=== PATIENT | male | born 1950 | race Caucasian/White ===

== ENCOUNTER → 2016-05-26 | Outpatient (CLI) | payer MEDICARE, BC ==
[2016-05-26 09:58] LABS: Basophils % (A) 0 %; CH 30.8; CHCM 33.1; Eosinophils % (A) 0 %; HDW 3.14; HGB 15.3 gm/dL (13.0-17.5); Luc # (Auto) 0.06; Luc % (Auto) 1; Lymphocytes # (A) 0.5 k/uL (1.0-4.8); Lymphocytes % (A) 7 %; MCH 30.4 pg (25.0-35.0); MCHC 32.5 g/dL (31.0-37.0); MCV 93.5 fL (80.0-100.0); Mean Platelet Volume 7.8; Monocytes # (A) 0.4 k/uL (0-1.0); Monocytes % (A) 5 %; Neutrophils # (A) 6.7 k/uL (1.3-7.7); Neutrophils % (A) 87 %; RBC 5.02 m/uL (4.30-5.90); WBC 7.7 k/uL (3.8-10.6); WBC (Perox) 8.08
[2016-05-26 10:49] LABS: Appearance,Urine Clear (Clear); Bilirubin,Urine Negative (Negative); Glucose,Urine (UA) Negative (Negative); Ketones,Urine Negative (Negative); Leukocyte Esterase,Urine Negative (Negative); Nitrite,Urine Negative (Negative); PH, Urine 6.5 (5.0-8.0); Protein,Urine Negative (Negative); Specific Gravity,Urine 1.008 (1.001-1.035); UA Billing (MACRO vs. MICRO) CHEM; Urobilinogen,Urine <2.0 mg/dL (<2.0)
[2016-05-26 10:57] LABS: Anion Gap 15 mmol/L; Blood Urea Nitrogen 20 mg/dL (9-20); Calcium 9.7 mg/dL (8.4-10.2); Carbon Dioxide 27 mmol/L (22-30); Chloride 102 mmol/L (98-107); Glucose 117 mg/dL (74-99); Iron 95 ug/dL (49-181); Non-African American GFR(MDRD) 51 (>60 ml/min/1.73 sqM); Phosphorous 3.9 mg/dL (2.5-4.5); Sodium 144 mmol/L (137-145); Uric Acid 6.8 mg/dL (3.5-8.5)
[2016-05-26 11:05] LABS: % Iron Saturation 30.7 % (20-50); Total Iron Binding Capacity 309 ug/dL (261-462)
== END | disposition home or self-care (01) ==
LOC: LABWHC1 09:04
PROVIDERS: ATTEND Nurse Practitioner Family
DX: N18.3 Chronic kidney disease, stage 3 (moderate) (principal); D64.9 Anemia, unspecified; N39.0 Urinary tract infection, site not specified; E55.9 Vitamin D deficiency, unspecified; E21.3 Hyperparathyroidism, unspecified; M10.9 Gout, unspecified
CPT/HCPCS: 36415; 80048; 81003; 82306; 82728; 83540; 83550; 83735; 83970; 84100; 84550; 85025

== ENCOUNTER 2016-06-15 06:19 | Day surgery (SDC) | payer MEDICARE, BC ==
[2016-06-13 15:18] VITALS: BMI 23.3
[~2016-06-15 06:19] MED LIST: CLINDAMYCIN 900 MG in DEXTROSE 5% IN WATER 50 ML IVPB ONE; DEXAMETHASONE SOD PHOSPHATE 10 MG/ML 1 ML VIAL IV ONE; HYDROmorphone 1 MG/ML 1 ML SYRINGE IVP PRN; LACTATED RINGERS 1,000 ML IV SCH; ONDANSETRON 4 MG/2 ML VIAL IVP ONE
[2016-06-15] MEDS ORDERED: LIDOCAINE 1% 20 ML VIAL (10MG/ML) FOR IV START INTRADERMA ONE (07:12)
[2016-06-15 07:15] LABS: Glucose,Whole Blood 90 mg/dL (75-99)
[2016-06-15] MEDS ORDERED: HYDROCORTISONE SUCCINATE 100 MG/2 ML VIAL IV ONE (07:37)
--- NOTE | 2016-06-15 08:11 | P.HPOR ---
History of Present Illness H&P Date: 06/15/16 The patient is a very pleasant 65-year-old male who I been seen in the office for a painful callus under the left second metatarsal head. We've attempted a long course of nonsurgical treatment including Stretching, orthotics to offload the second metatarsal and shoe modification. The patient had seen a bar and filler assembler prior to me who recommended performing an osteotomy in the second metatarsal but the patient was apprehensive about having any type of bony work done. On exam he had an Achilles tendon contracture. He came to me for second opinion to see if there are any other surgical options. In addition to complaining of a callus under the second metatarsal head he also complains of stiffness in his left ankle. He says he is able to move his right ankle, but his left ankle is very stiff. He gives an example of having difficulty putting socks on his left foot. Past Medical History Past Medical History: Cancer, Hypertension, Renal Disease, Thyroid Disorder Additional Past Medical History / Comment(s): SARCOIDOSIS, LUNG FUNGAL INFECTION , PULMONARY HYPERTENSION,SKIN CANCER,STAGE 3 CHRONIC KIDNEY DISEASE, History of Any Multi-Drug Resistant Organisms: None Reported Past Surgical History: Back Surgery, Heart Catheterization Additional Past Surgical History / Comment(s): HEMORROIDECTOMY, BRONCHOSCOPY X2 , BONE MARROW BIOPSY, BASAL CELL LESION REMOVED , BACK PAIN INJECTIONS, COLONOSCOPY Past Anesthesia/Blood Transfusion Reactions: No Reported Reaction Past Psychological History: No Psychological Hx Reported Smoking Status: Never smoker Past Alcohol Use History: Occasional Past Drug Use History: None Reported - Past Family History Mother Family Medical History: Cancer Medications and Allergies Home Medications Medication Instructions Recorded Confirmed Type Albuterol Inhaler [Ventolin Hfa 2 puff INHALATION BID 06/13/16 06/15/16 History Inhaler] Allopurinol [Zyloprim] 100 mg PO DAILY 06/13/16 06/15/16 History Doxycycline Hyclate [Vibramycin] 100 mg PO Q48H PRN 06/13/16 06/15/16 History Ipratropium-Albuterol Nebulize 3 ml INHALATION DAILY 06/13/16 06/15/16 History [Duoneb 0.5 mg-3 mg/3 ml Soln] Itraconazole Oral Susp [Sporanox 40 mg PO W/SUPPER 06/13/16 06/15/16 History Oral Susp] Levothyroxine Sodium [Synthroid] 25 mcg PO DAILY 06/13/16 06/15/16 History Loratadine-Pseudoeph 10-240 mg 1 each PO HS 06/13/16 06/15/16 History [Claritin-D 24 Hr] Losartan [Cozaar] 25 mg PO DAILY 06/13/16 06/15/16 History Magnesium Gluconate [Magonate] 500 mg PO W/SUPPER 06/13/16 06/15/16 History Montelukast [Singulair] 10 mg PO W/SUPPER 06/13/16 06/15/16 History Omeprazole 20 mg PO HS 06/13/16 06/15/16 History Sildenafil Citrate [Sildenafil] 20 mg PO TID 06/13/16 06/13/16 History Spironolactone [Aldactone] 25 mg PO Q48H 06/13/16 06/15/16 History predniSONE 5 mg PO W/SUPPER 06/13/16 06/15/16 History Allergies Allergy/AdvReac Type Severity Reaction Status Date / Time cephalexin Allergy Rash/Hives Verified 06/13/16 14:23 furosemide [From Lasix] Allergy Rash/Hives Verified 06/13/16 14:23 iodine Allergy Anaphylaxis Verified 06/13/16 15:37 shellfish derived [Shellfish] Allergy Anaphylaxis Verified 06/13/16 14:23 hydroxychloroquine AdvReac Unknown Verified 06/15/16 07:17 [From Plaquenil] Physical Examination On exam the patient is in no apparent distress and is alert and oriented. A focused examination of the patient's left leg was conducted. On inspection of the skin over the plantar aspect of the foot there is a large callus over the second metatarsal head but no open wounds. He has a hypermobile first ray. Silfverskiold testing shows and Achilles tendon contracture with an inability to passively dorsiflex the ankle past neutral with the knee flexed and extended. He has a palpable dorsalis pedis pulse. Sensation is intact to light touch throughout his left foot. He can actively plantarflex and dorsiflex his toes. Results X-rays from the office show no bony pathology or arthritis in the second MTP joint. Lateral x-ray of the foot shows slight elevation of the first ray. Assessment and Plan (1) Achilles tendon contracture, left Status: Acute Plan: I had a lengthy discussion with Mr. Barakat in the office prior to surgery. He has a large callus under the second metatarsal head which has been refractory to nonsurgical treatment. The patient saw a bar and filler assembler who recommended a second metatarsal osteotomy but the patient is very apprehensive about having any type of bony procedure. He came to me for second opinion to discuss both operative and nonoperative treatment. He failed a lengthy course of nonoperative treatment. We discussed simply performing an Achilles tendon lengthening to help offload his forefoot. We discussed in the diabetic patient population there is good orthopedic literature that by performing a calf Lengthening jt can help to heal forefoot ulcers. We discussed performing a percutaneous tendo Achilles lengthening to offload his forefoot due to his global Achilles contracture. The patient requested that I perform this. We discussed the potential risks and complications of surgery including but not limited to risks from anesthesia, risk of superficial infection, risk of delayed wound healing, risk of temporary or permanent numbness, risk of rupture of the Achilles tendon risk of weakness with plantarflexion, and risk of recurrence or failure to heal the callus under the plantar aspect of the second metatarsal. The patient and his understand that there is a very good likelihood that this will help to heal the callus under his second metatarsal head by offloading the forefoot, but also realize there is a chance it might not work and he may need further bony work in the future. They provided their verbal and written consent to go forward with surgery.
[2016-06-15] MEDS ORDERED: MORPHINE SULFATE 2 MG/ML SYRINGE IV PRN ×2 (08:18)
[2016-06-15] MEDS ORDERED: HYDROcodone/APAP 5-325MG 1 EACH TAB PO PRN (08:18)
[2016-06-15] MEDS ORDERED: ONDANSETRON 4 MG/2 ML VIAL IVP PRN (08:18)
[2016-06-15] MEDS ORDERED: MIDAZOLAM 2 MG/2 ML VIAL ONE (08:20)
[2016-06-15] MEDS ORDERED: fentaNYL (PF) 50 MCG/ML 2 ML AMP ONE (08:20)
[2016-06-15] MEDS ORDERED: PROPOFOL 10 MG/ML 20 ML VIAL IV ONE (08:20)
[2016-06-15 09:00] VITALS: TEMP 97.8
[2016-06-15 09:01] VITALS: RESP 16
--- NOTE | 2016-06-15 09:01 | P.OP ---
Date of Procedure: 06/15/16 Preoperative Diagnosis: 1. Left Achilles tendon contracture 2. Left forefoot callus under second metatarsal head with metatarsalgia 3. Stage III kidney disease 4. History of cancer 5. Sarcoidosis Postoperative Diagnosis: Same Procedure(s) Performed: Percutaneous tendo Achilles lengthening, left Anesthesia: MAC Surgeon: Orlando Castaneda Estimated Blood Loss (ml): 2 Pathology: none sent Condition: stable Disposition: PACU Indications for Procedure: The patient is a 65-year-old male with multiple medical problems including stage III kidney disease, sarcoidosis, and cancer who presented to my office with a nonhealing callus under the second metatarsal head. The patient previously seen a local integration lead recommended a second metatarsal osteotomy. Due to the patient's medical conditions including being on long-term steroids he came to me for second opinion as he was apprehensive about having any type of bony work done. Clinically he had a callus on the second metatarsal head with an Achilles tendon contracture and a hypermobile first ray. We discussed continued nonsurgical treatment versus offloading the forefoot with a tendon lengthening. Silfverskiold testing showed an inability to passively dorsiflex the ankle past neutral with the knee extended and flexed. I recommended performing a percutaneous tendo Achilles lengthening, but explained if this did not work he may need a bony procedure. We discussed the potential risks and complications of surgery including but not limited to risks from anesthesia, risk of superficial infection, risk of deep infection, risk of delayed wound healing, risk of damage to local blood vessels or nerves, risk of Achilles tendon rupture, risk of weakness, risk of recurrence or persistence of the callus, risk of generalized to satisfaction with surgery and possibly need for further surgery including amputation. The patient provided his verbal and written consent to go forward with surgery. Both he and his understand that while this has a very good chance of getting the callus to resolve there may be a chance that it does not resolve and he needs further surgery. Description of Procedure: The patient was identified in preoperative holding and the correct left leg was marked with my initials. I answered all the patient's questions and the consent form was signed. The patient was then brought back to the operating room. He was positioned comfortably on the operating room table. A Mac anesthetic was administered. Preoperative antibiotics were administered. While the patient was under anesthesia I performed a Silfverskiold test. I was unable to passively dorsiflex the ankle past neutral with the knee extended and flexed to 90. I interpreted this as an Achilles tendon contracture. The patient's left leg was then prepped and draped in the standard sterile fashion. Prior to starting surgery timeout was performed identifying the correct patient, operative extremity, and procedure. I marked out 3 percutaneous incisions with a skin marker starting 2 cm above the posterior tuberosity of the calcaneus with each skin marking by 2 cm. I then performed a percutaneous triple hemisection at all 3 previously placed stab wounds. I started with the most distal marking and placed a 15 blade scalpel through the skin and then released the medial half of the Achilles tendon. I then proceeded to the middle skin marking and placed a 15 blade scalpel through the skin and released the lateral half of the Achilles tendon. I then placed these 15 blade scalpel and the most proximal skin marking and released the medial half of the Achilles tendon. I then gently dorsiflexed the ankle and was able to dorsiflex the ankle to approximately 20 past neutral with the knee extended. The Achilles tendon was palpably intact. I was satisfied with the amount of dorsiflexion obtained. The skin was cleaned with sterile saline. Steri-Strips were placed over the stab wounds. A sterile dressing consisting of Adaptic, 4 x 4 and web roll was applied. The drapes were taken down and the patient was placed in a very well-padded bulky Ramirez type splint with the ankle at neutral. The patient was then awoken from his anesthetic, transferred to the [facility], and brought to PACU stable condition. At the end of surgery all instrument, sponge, and sharp counts were correct
[2016-06-15 10:06] VITALS: BP 113/65; PULSE 70
== END 2016-06-15 10:23 | disposition home or self-care (01) ==
LOC: OR 06:19
PROVIDERS: ATTEND Orthopaedic Surgery
DX: M67.02 Short Achilles tendon (acquired), left ankle (principal); L84 Corns and callosities; I12.9 Hypertensive chronic kidney disease with stage 1 through stage 4 chronic kidney disease, or unspecified chronic kidney disease; N18.3 Chronic kidney disease, stage 3 (moderate); Z85.828 Personal history of other malignant neoplasm of skin; D86.9 Sarcoidosis, unspecified; E07.9 Disorder of thyroid, unspecified; I27.2 Other secondary pulmonary hypertension; Z79.52 Long term (current) use of systemic steroids; Z79.899 Other long term (current) drug therapy; Z88.1 Allergy status to other antibiotic agents; Z91.013 Allergy to seafood; Z88.8 Allergy status to other drugs, medicaments and biological substances; Z91.09 Other allergy status, other than to drugs and biological substances
CPT/HCPCS: 27606; J2250; J1100; J1720; J2405; J3010; J2704

== ENCOUNTER → 2016-09-15 | Outpatient (CLI) | payer MEDICARE, BC ==
[2016-09-15 10:32] LABS: Potassium 4.5 mmol/L (3.5-5.1)
[2016-09-15 10:33] LABS: Calcium 9.7 mg/dL (8.4-10.2)
== END | disposition home or self-care (01) ==
LOC: LABWHC1 09:56
PROVIDERS: ATTEND Nurse Practitioner Family
DX: N18.3 Chronic kidney disease, stage 3 (moderate) (principal)
CPT/HCPCS: 36415; 80048

== ENCOUNTER → 2016-11-30 | Outpatient (CLI) | payer MEDICARE, BC ==
[2016-11-30 10:20] LABS: Appearance,Urine Clear (Clear); Bilirubin,Urine Negative (Negative); Glucose,Urine (UA) Negative (Negative); Ketones,Urine Negative (Negative); Leukocyte Esterase,Urine Negative (Negative); Nitrite,Urine Negative (Negative); Protein,Urine Trace (Negative); Specific Gravity,Urine 1.012 (1.001-1.035); UA Billing (MACRO vs. MICRO) CHEM; Urobilinogen,Urine <2.0 mg/dL (<2.0)
[2016-11-30 10:43] LABS: Basophils % (A) 0 %; CHCM 33.6; Eosinophils # (A) 0.1 k/uL (0-0.7); Eosinophils % (A) 1 %; HCT 40.8 % (39.0-53.0); HDW 2.85; HGB 13.6 gm/dL (13.0-17.5); Luc # (Auto) 0.15; Luc % (Auto) 2; Lymphocytes # (A) 0.6 k/uL (1.0-4.8); Lymphocytes % (A) 9 %; MCHC 33.4 g/dL (31.0-37.0); MCV 89.8 fL (80.0-100.0); Monocytes # (A) 0.3 k/uL (0-1.0); Monocytes % (A) 4 %; Neutrophils # (A) 6.3 k/uL (1.3-7.7); Neutrophils % (A) 84 %; RBC 4.55 m/uL (4.30-5.90); RDW 14.4 % (11.5-15.5); WBC 7.5 k/uL (3.8-10.6); WBC (Perox) 7.87
[2016-11-30 11:39] LABS: Calcium 9.1 mg/dL (8.4-10.2); Phosphorous 3.1 mg/dL (2.5-4.5); Potassium 4.5 mmol/L (3.5-5.1); Uric Acid 7.6 mg/dL (3.5-8.5)
[2016-11-30 11:51] LABS: % Iron Saturation 25.2 % (20-50)
== END | disposition home or self-care (01) ==
LOC: LABWHC1 09:49
PROVIDERS: ATTEND Nurse Practitioner Family
DX: N18.3 Chronic kidney disease, stage 3 (moderate) (principal); D64.9 Anemia, unspecified; E55.9 Vitamin D deficiency, unspecified; E21.3 Hyperparathyroidism, unspecified; M10.9 Gout, unspecified; N39.0 Urinary tract infection, site not specified
CPT/HCPCS: 36415; 80048; 81003; 82306; 82728; 83540; 83550; 83735; 83970; 84100; 84550; 85025

== ENCOUNTER → 2017-04-20 | Outpatient (CLI) | payer MEDICARE, BC ==
[2017-04-20 13:46] LABS: Calcium 9.3 mg/dL (8.4-10.2); Potassium 4.2 mmol/L (3.5-5.1)
== END | disposition home or self-care (01) ==
LOC: LABWHC1 12:58
PROVIDERS: ATTEND Nurse Practitioner Family
DX: N18.3 Chronic kidney disease, stage 3 (moderate) (principal)
CPT/HCPCS: 36415; 80048

== ENCOUNTER → 2017-05-18 | Outpatient (CLI) | payer MEDICARE, BC ==
--- NOTE | 2017-05-18 15:30 | CT ---
EXAMINATION TYPE: CT chest wo con DATE OF EXAM: 05/18/2017 COMPARISON: 11/30/2011 HISTORY: 66-year-old male follow up study for sarcoidosis. TECHNIQUE: Contiguous axial scanning of the chest without IV contrast. Coronal and sagittal reconstru ctions performed. CT DLP: 579 mGycm Automated exposure control for dose reduction was used. FINDINGS: Heart is normal size with trace pericardial fluid. Mild coronary vascular calcifications are present. Aortic valvular calcifications are also noted. Aorta normal caliber with conventional arch vessel branching anatomy. Large caliber to the main right pulmonary artery at 3.5 cm suggestive of underlying pulmonary arteria l hypertension. Extensive calcified mediastinal and hilar lymph nodes are present probably with some calcified granul omas or intrapulmonary lymph nodes at the right midlung. Moderate bilateral gynecomastia. Cavitary changes such as the left midlung are unchanged as are confluent areas of cicatricial atelect asis in the bilateral suprahilar regions, right greater than left, extending to the subpleural surfac es. There is associated bronchiectasis in the upper midlungs. A spiculated 8 mm anterior right midlung no dule axial image 24 is unchanged from 2012 compatible with a benign finding. Diffuse fine interstitial changes are similar as are scattered areas of patchy subpleural and intrapa renchymal density is likely pleural parenchymal scarring. No new consolidation or pleural effusion. Visualized upper abdomen shows no gross anomaly. Bones: No osseous destructive process. IMPRESSION: 1. SEVERE CHRONIC INTERSTITIAL LUNG DISEASE WITH CONFLUENT CICATRICIAL ATELECTASIS AND CHRONIC CONSOL IDATIONS IN THE UPPER TO MID LUNGS WITH ASSOCIATED BRONCHIECTASIS AND CYSTIC/CAVITARY CHANGES. THESE EXTENSIVE OPACITIES ARE UNCHANGED FROM 2012. 2. EXTENSIVE CALCIFIED MEDIASTINAL AND HILAR LYMPH NODES ALSO UNCHANGED IN KEEPING WITH PATIENT'S HIS TORY OF SARCOIDOSIS AND PRIOR GRANULOMATOUS DISEASE. 3. PULMONARY ARTERIAL HYPERTENSION.
== END | disposition home or self-care (01) ==
LOC: RADCTMAIN 14:21
PROVIDERS: ATTEND Internal Medicine Pulmonary Disease
DX: J84.9 Interstitial pulmonary disease, unspecified (principal); J98.11 Atelectasis; J47.9 Bronchiectasis, uncomplicated; I89.8 Other specified noninfective disorders of lymphatic vessels and lymph nodes; I27.21 Secondary pulmonary arterial hypertension
CPT/HCPCS: 70490; 71250

== ENCOUNTER → 2017-05-18 | Outpatient (CLI) | payer MEDICARE, BC ==
--- NOTE | 2017-05-18 15:22 | CT ---
EXAMINATION TYPE: CT soft tissue neck wo con DATE OF EXAM: 05/18/2017 COMPARISON: NONE HISTORY: 66-year-old male complains of mass in neck TECHNIQUE: Contiguous axial scanning of the soft tissues of the neck without IV contrast. Coronal and sagittal reconstructions performed. CT DLP: 582 mGycm Automated exposure control for dose reduction was used. FINDINGS: Visualized intracranial structures, orbits and globes, paranasal sinuses, and mastoid air cells appea r clear. Nonspecific calcifications in the posterior nasopharynx. No evident mucosal space mass here. The oropharynx appears clear allowing for noncontrast study. Glottic and subglottic structures as well as the tracheal column appear clear. Biapical pleural-parenchymal changes will be reported separately Submandibular, parotid, and thyroid glands appear satisfactory. There is a palpable marker placed along the lower right submandibular region. No underlying lymphaden opathy is identified no abnormal fluid collection seen. No cervical lymphadenopathy Large disc osteophyte complex and C5-C6 may contribute to severe spinal canal stenosis. Multilevel de generative changes are present in the cervical spine. IMPRESSION: 1. PALPABLE MARKER ALONG THE RIGHT UPPER NECK. NO UNDERLYING SUSPICIOUS MASS OR LYMPHADENOPATHY SEEN. 2. LACK OF IV CONTRAST DECREASES EXAM SENSITIVITY. NO EVIDENT MUCOSAL SPACE LESION. 3. THERE MAY BE A SEVERE SPINAL CANAL STENOSIS SECONDARY TO LARGE DISC OSTEOPHYTE COMPLEX AT C5-C6. C LINICALLY CORRELATE. 4. CHEST REPORTED SEPARATELY.
== END | disposition home or self-care (01) ==
LOC: RADCTMAIN 14:19
PROVIDERS: ATTEND Internal Medicine Infectious Disease
DX: R22.1 Localized swelling, mass and lump, neck (principal)
CPT/HCPCS: 70490

== ENCOUNTER 2017-06-26 11:45 | Day surgery (SDC) | payer MEDICARE, BC ==
[2017-06-26] MEDS ORDERED: BUPIVACAINE (PF) 0.25% 30 ML VIAL SQ ONE ×2 (12:19→14:08)
[2017-06-26] MEDS ORDERED: LACTATED RINGERS 1,000 ML IV ONE (12:47)
[2017-06-26] MEDS ORDERED: LIDOCAINE 1% 20 ML VIAL (10MG/ML) FOR IV START INTRADERMA ONE (12:48)
[2017-06-26] MEDS ORDERED: DEXAMETHASONE SOD PHOSPHATE 10 MG/ML 1 ML VIAL IV ONE (12:50)
[2017-06-26] MEDS ORDERED: ONDANSETRON 4 MG/2 ML VIAL IVP ONE (12:51)
[2017-06-26 12:52] LABS: Glucose,Whole Blood 90 mg/dL (75-99)
[2017-06-26] MEDS ORDERED: HYDROCORTISONE SUCCINATE 100 MG/2 ML VIAL IV ONE (13:13)
[2017-06-26] MEDS ORDERED: HEPARIN SODIUM,PORCINE 5,000 UNIT/ML 1 ML VIAL SQ ONE (13:31)
[2017-06-26] MEDS ORDERED: LIDOCAINE 1% INJ 10MG/ML (20 ML MDV) ONE (13:32)
[2017-06-26] MEDS ORDERED: PROPOFOL 10 MG/ML 20 ML VIAL IV ONE (13:32)
[2017-06-26] MEDS ORDERED: CLINDAMYCIN 150 MG/ML 4 ML VIAL ONE (13:32)
[2017-06-26] MEDS ORDERED: fentaNYL (PF) 50 MCG/ML 2 ML AMP ONE (13:32)
[2017-06-26] MEDS ORDERED: NEOSTIGMINE 1 MG/ML 10 ML VIAL ONE (13:32)
[2017-06-26] MEDS ORDERED: GLYCOPYRROLATE 0.2 MG/ML 2 ML VIAL ONE (13:32)
[2017-06-26] MEDS ORDERED: SUCCINYLCHOLINE CHLORIDE 100 MG/5 ML SYR IV ONE (13:32)
[2017-06-26] MEDS ORDERED: ROCURONIUM BROMIDE 10 MG/ML 10 ML VIAL IV ONE (13:32)
[2017-06-26] MEDS ORDERED: MIDAZOLAM 2 MG/2 ML VIAL ONE (13:32)
[2017-06-26] MEDS ORDERED: CLINDAMYCIN 150 MG/ML 4 ML VIAL IVPB ONE (13:40)
[2017-06-26] MEDS ORDERED: NALOXONE 0.4 MG/ML 1 ML VIAL IV PRN (14:14)
--- NOTE | 2017-06-26 14:23 | P.OP ---
Date of Procedure: 06/26/17 Preoperative Diagnosis: Umbilical hernia Postoperative Diagnosis: Umbilical hernia Procedure(s) Performed: Laparoscopic umbilical hernia repair with mesh Anesthesia: WESLY Surgeon: Kierra Martinez Estimated Blood Loss (ml): 5 Pathology: none sent Condition: stable Disposition: same day Indications for Procedure: 66-year-old male that originally had an incarceration of his umbilical hernia that was able to be reduced. Secondary to this, he did have increased pain at his umbilical hernia site. A plan for laparoscopic umbilical hernia repair was made. The patient was agreeable to this. Risks, benefits and alternatives were provided to the patient and the patient did provide consent prior to attending the operating suite. Operative Findings: 1 cm umbilical hernia defect, no obvious contents noted Description of Procedure: The patient was brought into the operating suite and placed in supine position on the operating table. Sedation was provided by anesthesia and the patient underwent endotracheal intubation. The patient was then prepped and draped in regular sterile fashion. A left upper quadrant incision was made and the abdomen was entered under direct visualization using a Visiport. Pneumoperitoneum was then achieved. An additional 5 mm port was then placed in the left lower quadrant. There were no contents that were incarcerated in the hernia defect. It was noted to be approximately 1 cm. It was decided to place a mesh at this site. A Ventralight mesh with echo positioning system was placed within the abdomen. A Roel Forman device was used to pull the catheter to the midpoint of the hernia defect. Once this was completed the balloon was inflated. The mesh was then secured to the abdominal wall using a tacking device. Once the mesh was noted to be secure on the abdominal wall, the balloon was removed from the abdomen. The mesh was noted to stay in appropriate position. Pneumoperitoneum was then released. Both skin incision sites were closed with a 4-0 Vicryl subcuticular suture. The patient was then awakened in the operating suite and taken to postanesthesia care unit in stable condition.
[2017-06-26 14:25] VITALS: TEMP 96.8
[2017-06-26 14:31] VITALS: RESP 16
[2017-06-26] MEDS ORDERED: KETOROLAC 30 MG/ML 1 ML VIAL IVP ONE (14:34)
[2017-06-26] MEDS ORDERED: HYDROcodone/APAP 5-325MG 1 EACH TAB PO ONE (15:13)
[2017-06-26 15:44] VITALS: BP 127/69; PULSE 79
== END 2017-06-26 15:59 | disposition home or self-care (01) ==
LOC: OR 11:45
PROVIDERS: ATTEND Surgery
DX: K42.9 Umbilical hernia without obstruction or gangrene (principal); I10 Essential (primary) hypertension; J44.9 Chronic obstructive pulmonary disease, unspecified; D86.9 Sarcoidosis, unspecified; B44.9 Aspergillosis, unspecified; E07.9 Disorder of thyroid, unspecified; Z79.52 Long term (current) use of systemic steroids; Z79.899 Other long term (current) drug therapy; Z88.1 Allergy status to other antibiotic agents; Z91.013 Allergy to seafood; Z88.8 Allergy status to other drugs, medicaments and biological substances; Z91.048 Other nonmedicinal substance allergy status
CPT/HCPCS: 49652; C1781; J2250; J1644; J1100; J2710; J1720; J2405; J2001; J3010; J1885; J0330; J2704

== ENCOUNTER → 2018-06-18 | Outpatient (CLI) | payer MEDICARE, BC ==
--- NOTE | 2018-06-18 12:02 | CT ---
EXAMINATION TYPE: CT chest wo con DATE OF EXAM: 06/18/2018 COMPARISON: Prior CT chest 05/18/2017 HISTORY: History of Sarcoidosis. Increased difficulty of breathing CT DLP: 440.8 mGycm. Automated Exposure Control for Dose Reduction was Utilized. TECHNIQUE: CT scan of the thorax is performed without IV contrast. FINDINGS: LUNGS: The lungs are similar in appearance, extensive fibrosis, paraseptal apical emphysematous pruitt es, honeycombing again noted. Extensive calcifications also present in the perihilar locations as on prior, suspect possible lung cyst in the left midlung. There are areas of scarring again noted. Bronc hiectasis is again noted. There is no pleural effusion or pneumothorax seen. The tracheobronchial tree is patent. MEDIASTINUM: Lack of IV contrast is noted to limit evaluation for mediastinal and especially hilar ad enopathy. Extensive mediastinal and hilar calcifications are again seen. Pulmonary artery is prominen t as on prior. There are coronary artery calcifications, calcifications at the level of aortic root. No cardiomegaly or pericardial effusion is seen. OTHER: Upper abdomen shows a similar appearance. IMPRESSION: Findings are similar to prior exam. Chronic interstitial lung disease, evidence of old gr anulomatous disease, scarring with some cavitary changes. Correlate for pulmonary artery hypertension .
== END | disposition home or self-care (01) ==
LOC: RADCTMAIN 10:44
PROVIDERS: ATTEND Internal Medicine Pulmonary Disease
DX: J84.9 Interstitial pulmonary disease, unspecified (principal); J98.4 Other disorders of lung; J45.50 Severe persistent asthma, uncomplicated; J47.9 Bronchiectasis, uncomplicated; D86.9 Sarcoidosis, unspecified; M06.9 Rheumatoid arthritis, unspecified; I27.0 Primary pulmonary hypertension; B44.9 Aspergillosis, unspecified
CPT/HCPCS: 71250

== ENCOUNTER → 2018-06-18 | Outpatient (CLI) | payer MEDICARE, BC ==
--- NOTE | 2018-06-18 12:14 | CT ---
EXAMINATION TYPE: CT abdomen pelvis wo con DATE OF EXAM: 06/18/2018 COMPARISON: None HISTORY: Upper Abdominal pain with difficulty breathing. Prior Abdominal hernia repair CT DLP: 440.8 mGycm Automated exposure control for dose reduction was used. TECHNIQUE: Helical acquisition of images from the lung bases through the pelvis. FINDINGS: Lack of contrast could compromise sensitivity. Scattered calcifications are present which s how nonaggressive appearance. AORTA: No significant abnormality is appreciated. LIVER/GB: No significant abnormality is appreciated. PANCREAS: No significant abnormality is seen. SPLEEN: 12 mm low dense focus within the posterior aspect of the spleen is indeterminate but may repr esent cyst. ADRENALS: No significant abnormality is seen. KIDNEYS: No significant abnormality is seen. Punctate nonobstructive calcification present in the mid pole left kidney. Nodular process. REPRODUCTIVE ORGANS: Prostate shows associated calcifications.. URINARY BLADDER: No significant abnormality is seen. BOWEL: Duodenal diverticulum at the head of the pancreas level measures approximately 3 cm in size.. FREE AIR: No Free Air is visible. ASCITES: None visible. PELVIC ADENOPATHY: None visualized. RETROPERITONEAL ADENOPATHY: No Retroperitoneal Adenopathy visible. OSSEOUS STRUCTURES: Degenerative disc changes in the visualized spine. IMPRESSION: NONCONTRAST EXAM. Duodenal diverticulum. Additional nonspecific findings described above.
== END | disposition home or self-care (01) ==
LOC: RADCTMAIN 10:48
PROVIDERS: ATTEND Internal Medicine Infectious Disease
DX: K57.10 Diverticulosis of small intestine without perforation or abscess without bleeding (principal); D73.89 Other diseases of spleen; N28.89 Other specified disorders of kidney and ureter; N42.89 Other specified disorders of prostate; Z88.8 Allergy status to other drugs, medicaments and biological substances; B44.0 Invasive pulmonary aspergillosis; Z88.1 Allergy status to other antibiotic agents; Z91.013 Allergy to seafood
CPT/HCPCS: 71250; 74176

== ENCOUNTER → 2018-11-20 | Outpatient (CLI) | payer MEDICARE, BC ==
[2018-11-20 08:31] LABS: Basophils % (A) 0 %; Eosinophils # (A) 0.1 k/uL (0-0.7); Eosinophils % (A) 1 %; HCT 39.5 % (39.0-53.0); HGB 13.3 gm/dL (13.0-17.5); Lymphocytes # (A) 0.9 k/uL (1.0-4.8); Lymphocytes % (A) 16 %; MCH 30.8 pg (25.0-35.0); MCHC 33.6 g/dL (31.0-37.0); MCV 91.6 fL (80.0-100.0); Mean Platelet Volume 7.1; Monocytes # (A) 0.3 k/uL (0-1.0); Monocytes % (A) 6 %; Neutrophils # (A) 4.2 k/uL (1.3-7.7); Neutrophils % (A) 74 %; Platelet Count 210 k/uL (150-450); RBC 4.31 m/uL (4.30-5.90); RDW 14.6 % (11.5-15.5); WBC 5.7 k/uL (3.8-10.6)
[2018-11-20 08:38] LABS: Appearance,Urine Clear (Clear); Bilirubin,Urine Negative (Negative); Blood,Urine Negative (Negative); Color,Urine Light Yellow; Glucose,Urine (UA) Negative (Negative); Ketones,Urine Negative (Negative); Leukocyte Esterase,Urine Negative (Negative); Nitrite,Urine Negative (Negative); Protein,Urine Negative (Negative); Urobilinogen,Urine <2.0 mg/dL (<2.0)
[2018-11-20 15:54] LABS: Iron Saturation 24.91 (15.00-50.00)
[2018-11-20 16:03] LABS: Vitamin D 25 Hydroxy 40.1 ng/mL (30.0-100.0)
[2018-11-20 16:19] LABS: Anion Gap 10.7 mmol/L (4.00-12.00); BUN/Creat Ratio 17.06 Ratio (12.00-20.00); Calcium 8.8 mg/dL (8.7-10.3); Carbon Dioxide 27.3 mmol/L (21.6-31.8); Magnesium 1.9 mg/dL (1.5-2.4); Phosphorus 3.4 mg/dL (2.4-5.1); Potassium 4.3 mmol/L (3.5-5.5); Uric Acid 7.3 mg/dL (3.7-8.7)
== END | disposition home or self-care (01) ==
LOC: LABWHC1 07:58
PROVIDERS: ATTEND Nurse Practitioner Family
DX: N39.0 Urinary tract infection, site not specified (principal); M10.9 Gout, unspecified; D63.1 Anemia in chronic kidney disease; N18.3 Chronic kidney disease, stage 3 (moderate); E55.9 Vitamin D deficiency, unspecified
CPT/HCPCS: 36415; 80048; 81003; 82306; 82728; 83540; 83550; 83735; 83970; 84100; 84550; 85025

== ENCOUNTER → 2019-05-01 | Outpatient (CLI) | payer MEDICARE, BC ==
--- NOTE | 2019-05-01 07:19 | MR ---
EXAMINATION TYPE: MR brain wo/w con DATE OF EXAM: 05/01/2019 COMPARISON: None. HISTORY: Sarcoidosis, with loss of vision. TECHNIQUE: Multiplanar, multisequence images of the brain and brainstem is performed without and with IV contras t, utilizing 7 mL intravenous Gadavist . Pituitary gland protocol. FINDINGS: Diffusion weighted images demonstrate no evidence of a recent infarct or other diffusion ab normality. There is no worrisome extra-axial fluid collection. There is mild ventricular and sulcal prominence. There is occasional tiny focus of T2 hyperintensity throughout the white matter bilateral ly. The craniocervical junction appears within normal limits. Post contrast images demonstrate no abnorm al enhancement. The dural venous sinuses appear patent. The visualized sinuses are clear and the glob es are intact. Pituitary gland is normal in size within the sella turcica. Pituitary stalk shows normal enhancement within the midline. Slightly heterogeneous enhancement of pituitary gland on postcontrast images with out focal area of nonenhancement. Suprasellar cistern is maintained. Optic chiasm is not effaced. No suspicious enhancement noted. IMPRESSION: Mild generalized age-related cerebral atrophy and mild to minimal chronic small vessel is chemic change. Pituitary gland and sella turcica are felt within normal limits. No suspicious enhance ment noted.
== END | disposition home or self-care (01) ==
LOC: RADMRIMAIN 05:46
PROVIDERS: ATTEND Internal Medicine Pulmonary Disease
DX: G31.89 Other specified degenerative diseases of nervous system (principal); D86.9 Sarcoidosis, unspecified; R90.89 Other abnormal findings on diagnostic imaging of central nervous system
CPT/HCPCS: 70553; A9585

== ENCOUNTER → 2019-09-25 | Outpatient (CLI) | payer MEDICARE ==
[2019-09-25 12:53] LABS: HCT 39.2 % (39.0-53.0); HGB 13.3 gm/dL (13.0-17.5); MCH 31.6 pg (25.0-35.0); MCV 93.1 fL (80.0-100.0); Mean Platelet Volume 7.5; Platelet Count 190 k/uL (150-450); RBC 4.21 m/uL (4.30-5.90); RDW 14.1 % (11.5-15.5); WBC 7.5 k/uL (3.8-10.6)
[2019-09-25 14:23] LABS: Appearance,Urine Clear (Clear); Bilirubin,Urine Negative (Negative); Blood,Urine Negative (Negative); Color,Urine Light Yellow; Glucose,Urine (UA) Negative (Negative); Ketones,Urine Negative (Negative); Leukocyte Esterase,Urine Negative (Negative); Nitrite,Urine Negative (Negative); PH, Urine 6.5 (5.0-8.0); Protein,Urine Negative (Negative); Specific Gravity,Urine 1.008 (1.001-1.035); Urobilinogen,Urine <2.0 mg/dL (<2.0)
[2019-09-25 18:41] LABS: % Iron Saturation 24.55 (15.00-50.00); African American GFR (CKD) 46.7 (60.0-200.0); Albumin 3.8 g/dL (3.80-4.90); Albumin/Globulin Ratio 1.65 (1.60-3.17); Anion Gap 7.7 mmol/L (4.00-12.00); BUN/Creat Ratio 16.47 Ratio (12.00-20.00); Carbon Dioxide 27.3 mmol/L (21.6-31.8); Globulin 2.3 g/dL (1.6-3.3); Magnesium 1.9 mg/dL (1.5-2.4); Non-African American GFR(CKD) 40.3 (60.0-200.0); Phosphorus 3.1 mg/dL (2.4-5.1); Potassium 3.9 mmol/L (3.5-5.5); Total Bilirubin 1.4 mg/dL (0.3-1.2); Total Protein 6.1 g/dL (6.2-8.2)
[2019-09-25 18:53] LABS: Ferritin 387.6 ng/mL (22.0-322.0)
== END | disposition home or self-care (01) ==
LOC: LABWHC1 11:30
PROVIDERS: ATTEND Nurse Practitioner Family
DX: E55.9 Vitamin D deficiency, unspecified (principal); N18.3 Chronic kidney disease, stage 3 (moderate); D63.1 Anemia in chronic kidney disease; N39.0 Urinary tract infection, site not specified; N25.81 Secondary hyperparathyroidism of renal origin
CPT/HCPCS: 36415; 80053; 81003; 82306; 82728; 83540; 83550; 83735; 83970; 84100; 85027

== ENCOUNTER → 2019-09-25 | Outpatient (CLI) | payer MEDICARE ==
--- NOTE | 2019-09-25 12:05 | ECHOF ---
Referral Reason:I42.0 Dilated cardiomyopathy, I27.2 Secondary pulm MEASUREMENTS -------- HEIGHT: 177.8 cm WEIGHT: 70.3 kg BP: RVIDd: 3.6 cm (< 3.3) IVSd: 1.2 cm (0.6 - 1.1) LVIDd: 4.2 cm (3.9 - 5.3) LVPWd: 1.2 cm (0.6 - 1.1) IVSs: 1.8 cm LVIDs: 3.0 cm LVPWs: 1.6 cm LAESV Index (A-L): 26.41 ml/m Ao Diam: 2.4 cm (2.0 - 3.7) AV Cusp: 1.4 cm (1.5 - 2.6) MV EXCURSION: 18.612 mm (> 18.000) MV EF SLOPE: 72 mm/s (70 - 150) EPSS: 0.8 cm MV E Emiliano: 0.57 m/s MV DecT: 243 ms MV A Emiliano: 0.76 m/s MV E/A Ratio: 0.75 AV maxP.81 mmHg AV meanP.43 mmHg RAP: 5.00 mmHg RVSP: 28.35 mmHg FINDINGS -------- Sinus rhythm. This was a technically adequate study. The left ventricular size is normal. There is mild concentric left ventricular hypertrophy. Overa ll left ventricular systolic function is low-normal with, an EF between 50 - 55 %. The diastolic fi lling pattern is normal for the age of the patient 11.68. The right ventricle is mildly enlarged. Normal LA size by volume 22+/-6 ml/m2. The right atrial size is normal. Interatrial and interventricular septum intact. There is no evidence of aortic regurgitation. There is mild aortic stenosis present. Peak/mean gr adient across the Aortic Valve is 14.81mmHg / 8.43mmHg. possible bicuspid valve heavily calcified Mild mitral annular calcification present. Mild mitral regurgitation is present. Mild tricuspid regurgitation present. There is no evidence of pulmonary hypertension. The right v entricular systolic pressure, as measured by Doppler, is 28.35mmHg. Trace/mild (physiologic) pulmonic regurgitation. The aortic root size is normal. Normal inferior vena cava with normal inspiratory collapse consistent with estimated right atrial pre ssure of 5 mmHg. There is no pericardial effusion. CONCLUSIONS -------- 1. Sinus rhythm. 2. This was a technically adequate study. 3. The left ventricular size is normal. 4. There is mild concentric left ventricular hypertrophy. 5. Overall left ventricular systolic function is low-normal with, an EF between 50 - 55 %. 6. The diastolic filling pattern is normal for the age of the patient 11.68 7. The right ventricle is mildly enlarged. 8. Normal LA size by volume 22+/-6 ml/m2. 9. The right atrial size is normal. 10. Interatrial and interventricular septum intact. 11. There is no evidence of aortic regurgitation. 12. There is mild aortic stenosis present. possible bicuspid 13. Peak/mean gradient across the Aortic Valve is 14.81mmHg / 8.43mmHg. 14. Mild mitral annular calcification present. 15. Mild mitral regurgitation is present. 16. Mild tricuspid regurgitation present. 17. There is no evidence of pulmonary hypertension. 18. The right ventricular systolic pressure, as measured by Doppler, is 28.35mmHg. 19. Trace/mild (physiologic) pulmonic regurgitation. 20. The aortic root size is normal. 21. Normal inferior vena cava with normal inspiratory collapse consistent with estimated right atrial pressure of 5 mmHg. 22. There is no pericardial effusion. FRETTED INSTRUMENT MAKER HAND: Ale Fink RDCS
== END | disposition home or self-care (01) ==
LOC: RADECHMAIN 10:33
PROVIDERS: ATTEND Internal Medicine
DX: I08.1 Rheumatic disorders of both mitral and tricuspid valves (principal); I27.29 Other secondary pulmonary hypertension
CPT/HCPCS: 93306

== ENCOUNTER → 2019-10-03 | Outpatient (CLI) | payer MEDICARE, BC ==
--- NOTE | 2019-10-03 11:22 | US ---
EXAMINATION TYPE: US kidneys/renal and bladder DATE OF EXAM: 10/03/2019 COMPARISON: CT June 18, 2018 CLINICAL HISTORY: CKD Stage 3 N18.3. EXAM MEASUREMENTS: Right Kidney: 7.8 x 4.6 x 4.2 cm Left Kidney: 8.9 x 5.0 x 4.7 cm INCIDENTAL FINDING of innumerable splenic lesions. Right Kidney: measures small, cortical thinning Left Kidney: measures small, cortical thinning Bladder: wnl Bilateral Jets seen: yes Somewhat small size bilateral kidneys with cortical thinning and increased cortical echogenicity. No hydronephrosis bilaterally. No concerning renal masses on images saved. Small hyperechoic splenic les ions noted during scanning of left kidney, spleen measures mildly enlarged. Findings correlate with p rior CT. Correlate clinically. IMPRESSION: Evidence of chronic medical renal disease. No hydronephrosis noted bilaterally.
== END | disposition home or self-care (01) ==
LOC: RADUSWWP 10:37
PROVIDERS: ATTEND Nurse Practitioner Family
DX: N18.3 Chronic kidney disease, stage 3 (moderate) (principal)
CPT/HCPCS: 76770

== ENCOUNTER → 2020-02-04 | Outpatient (CLI) | payer MEDICARE ==
[2020-02-04 12:45] LABS: HCT 42.6 % (39.0-53.0); HGB 13.5 gm/dL (13.0-17.5); MCH 29.8 pg (25.0-35.0); MCHC 31.6 g/dL (31.0-37.0); MCV 94.3 fL (80.0-100.0); Mean Platelet Volume 7.9; Platelet Count 189 k/uL (150-450); RBC 4.52 m/uL (4.30-5.90); WBC 6.1 k/uL (3.8-10.6)
[2020-02-04 13:57] LABS: Appearance,Urine Clear (Clear); Bilirubin,Urine Negative (Negative); Blood,Urine Negative (Negative); Color,Urine Light Yellow; Glucose,Urine (UA) Negative (Negative); Ketones,Urine Negative (Negative); Leukocyte Esterase,Urine Negative (Negative); Nitrite,Urine Negative (Negative); Protein,Urine Negative (Negative); Specific Gravity,Urine 1.008 (1.001-1.035); Urobilinogen,Urine <2.0 mg/dL (<2.0)
[2020-02-04 20:33] LABS: % Iron Saturation 31.52 (15.00-50.00); African American GFR (CKD) 53.9 (60.0-200.0); Albumin 3.9 g/dL (3.80-4.90); Albumin/Globulin Ratio 1.63 (1.60-3.17); Calcium 9.5 mg/dL (8.7-10.3); Globulin 2.4 g/dL (1.6-3.3); Magnesium 1.9 mg/dL (1.5-2.4); Non-African American GFR(CKD) 46.5 (60.0-200.0); Phosphorus 3.5 mg/dL (2.4-5.1); Potassium 4.2 mmol/L (3.5-5.5); Total Protein 6.3 g/dL (6.2-8.2)
[2020-02-04 20:41] LABS: Ferritin 263.1 ng/mL (22.0-322.0)
== END | disposition home or self-care (01) ==
LOC: LABWHC1 11:10
PROVIDERS: ATTEND Nurse Practitioner Family
DX: D64.9 Anemia, unspecified (principal); E55.9 Vitamin D deficiency, unspecified; N25.81 Secondary hyperparathyroidism of renal origin; N39.0 Urinary tract infection, site not specified; N18.30 Chronic kidney disease, stage 3 unspecified
CPT/HCPCS: 36415; 80053; 81003; 82728; 83540; 83550; 83735; 83970; 84100; 85027

== ENCOUNTER → 2020-04-28 | Outpatient (CLI) | payer MEDICARE ==
[2020-04-28 11:04] LABS: Appearance,Urine Clear (Clear); Bilirubin,Urine Negative (Negative); Blood,Urine Negative (Negative); Color,Urine Light Yellow; Glucose,Urine (UA) Negative (Negative); Ketones,Urine Negative (Negative); Leukocyte Esterase,Urine Negative (Negative); Nitrite,Urine Negative (Negative); Protein,Urine Negative (Negative); Urobilinogen,Urine <2.0 mg/dL (<2.0)
[2020-04-28 11:18] LABS: Basophils % (A) 0 %; Eosinophils % (A) 0 %; HCT 40.5 % (39.0-53.0); HGB 13.7 gm/dL (13.0-17.5); Lymphocytes # (A) 0.5 k/uL (1.0-4.8); Lymphocytes % (A) 8 %; MCH 31.2 pg (25.0-35.0); MCHC 33.8 g/dL (31.0-37.0); MCV 92.5 fL (80.0-100.0); Mean Platelet Volume 7.2; Monocytes # (A) 0.3 k/uL (0-1.0); Monocytes % (A) 4 %; Neutrophils # (A) 6.1 k/uL (1.3-7.7); Neutrophils % (A) 87 %; Platelet Count 200 k/uL (150-450); RBC 4.38 m/uL (4.30-5.90); RDW 14.3 % (11.5-15.5)
[2020-04-28 22:58] LABS: % Iron Saturation 27.21 (15.00-50.00); African American GFR (CKD) 49.8 (60.0-200.0); Albumin 3.9 g/dL (3.80-4.90); Albumin/Globulin Ratio 1.63 (1.60-3.17); Anion Gap 9.5 mmol/L (4.00-12.00); BUN/Creat Ratio 15.63 Ratio (12.00-20.00); Calcium 9.1 mg/dL (8.7-10.3); Carbon Dioxide 28.5 mmol/L (21.6-31.8); Globulin 2.4 g/dL (1.6-3.3); Phosphorus 3.2 mg/dL (2.4-5.1); Potassium 4.4 mmol/L (3.5-5.5); Total Bilirubin 0.8 mg/dL (0.2-1.2); Total Protein 6.3 g/dL (6.2-8.2); Uric Acid 6.7 mg/dL (3.7-8.7)
[2020-04-28 23:07] LABS: Ferritin 287.6 ng/mL (22.0-322.0)
== END | disposition home or self-care (01) ==
LOC: LABWHC1 10:05
PROVIDERS: ATTEND Nurse Practitioner Family
DX: N18.30 Chronic kidney disease, stage 3 unspecified (principal); D63.1 Anemia in chronic kidney disease; M10.9 Gout, unspecified; E55.9 Vitamin D deficiency, unspecified; N25.81 Secondary hyperparathyroidism of renal origin; N39.0 Urinary tract infection, site not specified
CPT/HCPCS: 36415; 80053; 81003; 82306; 82728; 83540; 83550; 83735; 83970; 84100; 84550; 85025

== ENCOUNTER → 2020-11-10 | Outpatient (CLI) | payer MEDICARE ==
[2020-11-10 10:34] LABS: Appearance,Urine Clear (Clear); Bilirubin,Urine Negative (Negative); Blood,Urine Negative (Negative); Color,Urine Light Yellow; Glucose,Urine (UA) Negative (Negative); Ketones,Urine Negative (Negative); Leukocyte Esterase,Urine Negative (Negative); Nitrite,Urine Negative (Negative); PH, Urine 6.5 (5.0-8.0); Protein,Urine Negative (Negative); Urobilinogen,Urine <2.0 mg/dL (<2.0)
[2020-11-10 14:54] LABS: Basophils # (A) 0.03 X 10*3/uL (0.00-0.10); Basophils % (A) 0.4 %; Eosinophils # (A) 0.11 X 10*3/uL (0.04-0.35); Eosinophils % (A) 1.6 %; HCT 41.8 % (39.6-50.0); HGB 13.5 g/dL (13.0-17.0); Lymphocytes # (A) 0.99 X 10*3/uL (0.90-5.00); Lymphocytes % (A) 14.4 %; MCH 30.5 pg (27.0-32.0); MCHC 32.3 g/dL (32.0-37.0); MCV 94.6 fL (80.0-97.0); Mean Platelet Volume 10.5 fL (9.5-12.2); Monocytes # (A) 0.56 X 10*3/uL (0.20-1.00); Monocytes % (A) 8.2 %; Neutrophils % (A) 74.4 %; Platelet Count 211 X 10*3/uL (140-440); RBC 4.42 X 10*6/uL (4.40-5.60); RDW 14.1 % (11.5-14.5); WBC 6.86 X 10*3/uL (4.50-10.00)
[2020-11-10 17:39] LABS: % Iron Saturation 24.31 (15.00-50.00); African American GFR (CKD) 46.3 (60.0-200.0); Albumin/Globulin Ratio 1.43 (1.60-3.17); Anion Gap 8.2 mmol/L (4.00-12.00); BUN/Creat Ratio 17.06 Ratio (12.00-20.00); Calcium 9.7 mg/dL (8.7-10.3); Carbon Dioxide 28.8 mmol/L (21.6-31.8); Globulin 2.8 g/dL (1.6-3.3); Phosphorus 4.2 mg/dL (2.4-5.1); Potassium 4.8 mmol/L (3.5-5.5); Total Bilirubin 1.1 mg/dL (0.2-1.2); Total Protein 6.8 g/dL (6.2-8.2); Uric Acid 7.3 mg/dL (3.7-8.7)
[2020-11-10 17:48] LABS: Ferritin 270.2 ng/mL (22.0-322.0)
== END | disposition home or self-care (01) ==
LOC: LABWHC1 09:26
PROVIDERS: ATTEND Nurse Practitioner Family
DX: D64.9 Anemia, unspecified (principal); N39.0 Urinary tract infection, site not specified; E55.9 Vitamin D deficiency, unspecified; M10.9 Gout, unspecified; N18.30 Chronic kidney disease, stage 3 unspecified
CPT/HCPCS: 36415; 80053; 81003; 82306; 82728; 83540; 83550; 83735; 83970; 84100; 84550; 85025

== ENCOUNTER → 2021-01-26 | Outpatient (CLI) | payer MEDICARE | END | disposition home or self-care (01) | LOC: LABWHC1 09:54 | PROVIDERS: ATTEND Orthopaedic Surgery | DX: M17.11 Unilateral primary osteoarthritis, right knee (principal) | CPT/HCPCS: 36415 ==

== ENCOUNTER → 2021-02-03 | Outpatient (CLI) | payer MEDICARE ==
[2021-02-03 15:02] LABS: HCT 42.6 % (39.6-50.0); HGB 14.1 g/dL (13.0-17.0); MCH 30.8 pg (27.0-32.0); MCHC 33.1 g/dL (32.0-37.0); Mean Platelet Volume 10.5 fL (9.5-12.2); Platelet Count 244 X 10*3/uL (140-440); RBC 4.58 X 10*6/uL (4.40-5.60); RDW 13.6 % (11.5-14.5); WBC 6.89 X 10*3/uL (4.50-10.00)
[2021-02-03 18:33] LABS: Albumin 4.3 g/dL (3.8-4.9); Albumin/Globulin Ratio 1.48 (1.60-3.17); Anion Gap 16.4 mmol/L (4.00-12.00); BUN/Creat Ratio 18.71 Ratio (12.00-20.00); Blood Urea Nitrogen 31.8 mg/dL (9.0-27.0); Calcium 9.6 mg/dL (8.7-10.3); Carbon Dioxide 21.6 mmol/L (21.6-31.8); Chol/HDL Ratio 4.74 Ratio; Globulin 2.9 g/dL (1.6-3.3); HDL Cholesterol 46.4 mg/dL (40.00-60.00); LDL Cholesterol,Calculated 105.6 mg/dL (0.0-131.0); Non-African American GFR(CKD) 39.7 (60.0-200.0); Potassium 4.3 mmol/L (3.5-5.5); Prostate Specific Antigen 1.3 ng/mL (0.00-6.50); T4, Free (Free Thyroxine) 1.3 ng/dL (0.800-1.800); Total Bilirubin 0.9 mg/dL (0.30-1.20); Total Protein 7.2 g/dL (6.2-8.2)
== END | disposition home or self-care (01) ==
LOC: LABWHC1 09:19
PROVIDERS: ATTEND Internal Medicine
DX: Z12.5 Encounter for screening for malignant neoplasm of prostate (principal); I10 Essential (primary) hypertension; I42.9 Cardiomyopathy, unspecified; E03.9 Hypothyroidism, unspecified
CPT/HCPCS: 36415; 80053; 80061; 84153; 84439; 84443; 85027

== ENCOUNTER 2021-02-21 10:54 | Emergency (ER) | payer MEDICARE ==
[2021-02-21] MEDS ORDERED: ORPHENADRINE 30 MG/ML 2 ML VIAL IM STA (11:16)
[2021-02-21] MEDS ORDERED: KETOROLAC 15 MG/ML 1 ML VIAL IM STA (11:16)
--- NOTE | 2021-02-21 11:22 | ED ---
General Adult HPI - General Chief complaint: Back Pain/Injury Stated complaint: Back and left leg pain Time Seen by Provider: 02/21/21 11:03 Source: patient, RN notes reviewed Mode of arrival: wheelchair Limitations: physical limitation - History of Present Illness Initial comments: 70-year-old male with a complicated past medical history including bulging disks presents to the emergency room for left sided lower back pain. Patient states this started 9 days ago. States it radiates down the left leg and tenderness causes tingling in the left leg. States that standing makes it worse. Patient reports he has had epidural injections several times in the past for similar symptoms. Patient denies weakness of the leg. Denies bladder or bowel changes, saddle anesthesia, fevers.Patient has no other complaints at this time including shortness of breath, chest pain, abdominal pain, nausea or vomiting, headache, or visual changes. - Related Data Home Medications Medication Instructions Recorded Confirmed Albuterol Inhaler (Mhu) [Ventolin 2 puff INHALATION BID 06/13/16 06/26/17 Hfa Inhaler (Mhu)] Doxycycline Hyclate [Vibramycin] 100 mg PO Q48H PRN 06/13/16 06/26/17 Ipratropium-Albuterol Nebulize 3 ml INHALATION DAILY 06/13/16 06/26/17 [Duoneb 0.5 mg-3 mg/3 ml Soln] Itraconazole Oral Susp [Sporanox 40 mg PO W/SUPPER 06/13/16 06/26/17 Oral Susp] Levothyroxine Sodium [Synthroid] 25 mcg PO DAILY 06/13/16 06/26/17 Loratadine-Pseudoeph 10-240 mg 1 each PO HS 06/13/16 06/26/17 [Claritin-D 24 Hour] Losartan [Cozaar] 50 mg PO DAILY 06/13/16 06/26/17 Magnesium Gluconate [Magonate] 500 mg PO W/SUPPER 06/13/16 06/26/17 Montelukast [Singulair] 10 mg PO W/SUPPER 06/13/16 06/26/17 Omeprazole 20 mg PO HS 06/13/16 06/26/17 Sildenafil Citrate 20 mg PO TID 06/13/16 06/26/17 allopurinoL [Zyloprim] 100 mg PO DAILY 06/13/16 06/26/17 predniSONE 5 mg PO W/SUPPER 06/13/16 06/26/17 Spironolactone-Hctz 25-25Mg 1 tab PO DAILY 06/26/17 06/26/17 [Aldactazide 25-25 MG] Previous Rx's Medication Instructions Recorded HYDROcodone/APAP 5-325MG [Maceo 1 tab PO Q6HR PRN #20 tab 06/26/17 5-325] predniSONE 50 mg PO DAILY #5 tablet 02/21/21 Allergies Allergy/AdvReac Type Severity Reaction Status Date / Time cephalexin Allergy Rash/Hives Verified 02/21/21 11:01 furosemide [From Lasix] Allergy Rash/Hives Verified 02/21/21 11:01 iodine Allergy Anaphylaxis Verified 02/21/21 11:01 shellfish derived [Shellfish] Allergy Anaphylaxis Verified 02/21/21 11:01 hydroxychloroquine AdvReac Unknown Verified 02/21/21 11:01 [From Plaquenil] Review of Systems ROS Statement: Those systems with pertinent positive or pertinent negative responses have been documented in the HPI. ROS Other: All systems not noted in ROS Statement are negative. Past Medical History Past Medical History: Asthma, Cancer, COPD, Hypertension, Renal Disease, Thyroid Disorder Additional Past Medical History / Comment(s): SARCOIDOSIS, LUNG FUNGAL INFECTION, PULMONARY HYPERTENSION,SKIN CANCER,STAGE 3 CHRONIC KIDNEY DISEASE, History of Any Multi-Drug Resistant Organisms: None Reported Past Surgical History: Back Surgery, Heart Catheterization Additional Past Surgical History / Comment(s): HEMORROIDECTOMY, BRONCHOSCOPY X2, BONE MARROW BIOPSY, BASAL CELL LESION REMOVED , BACK PAIN INJECTIONS, COLONOSCOPY Past Anesthesia/Blood Transfusion Reactions: No Reported Reaction Past Psychological History: No Psychological Hx Reported Smoking Status: Never smoker Past Alcohol Use History: Occasional Past Drug Use History: None Reported - Past Family History Mother Family Medical History: Cancer General Exam Limitations: physical limitation General appearance: alert, in no apparent distress Head exam: Present: atraumatic Eye exam: Present: normal appearance, PERRL, EOMI. Absent: scleral icterus, conjunctival injection ENT exam: Present: normal exam, mucous membranes moist Neck exam: Present: normal inspection, full ROM. Absent: tenderness Respiratory exam: Present: normal lung sounds bilaterally. Absent: respiratory distress, wheezes Cardiovascular Exam: Present: regular rate, normal rhythm, normal heart sounds GI/Abdominal exam: Present: soft, normal bowel sounds. Absent: distended, tenderness Extremities exam: Present: normal capillary refill (Capillary refill less than 2 seconds, DP pulse 2+ of lower extremity), other (positive positive straight leg raise test) Neurological exam: Present: normal gait Course Vital Signs 02/21/21 10:58 Temperature 97.2 F L Pulse Rate 99 Respiratory 18 Rate Blood Pressure 146/87 O2 Sat by Pulse 95 Oximetry Medical Decision Making - Medical Decision Making Vitals are stable. Patient is well-appearing. Presents for acute on chronic back pain radiating into the left leg. Consistent with radicular symptoms. Neurovascular status intact. Patient has had similar symptoms in the past. X- ray was obtained which showed scoliosis with severe multilevel degenerative disc disease. Suspect multilevel foraminal encroachment. Recommend short-term follow-up MRI. Patient does see away for this and is requesting possibly a new provider we will give him advanced orthopedics. He was given pain medications which did help with his symptoms. He will return for any worsening symptoms. Disposition Clinical Impression: Lumbar radiculopathy, Mechanical back pain Disposition: HOME SELF-CARE Condition: Good Instructions (If sedation given, give patient instructions): Acute Low Back Pain (ED) Additional Instructions: Please take medications as directed. Follow up with orthopedics as soon as possible for an MRI. Return to the emergency room for any worsening symptoms. Prescriptions: predniSONE 50 mg PO DAILY #5 tablet Is patient prescribed a controlled substance at d/c from ED?: No Referrals: Vinicio Vidal MD [Primary Care Provider] - 1-2 days Time of Disposition: 12:22
--- NOTE | 2021-02-21 11:54 | XR ---
EXAM TYPE: LUMBAR SPINE X RAY SERIES COMPARISON: NONE HISTORY: Low back pain TECHNIQUE: 3 views are submitted. FINDINGS: Alignment is anatomic. The pedicles are intact. The transverse processes are intact. There is no s pondylolysis or scoliosis with severe multilevel degenerative disc disease and facet arthropathy. Mos t marked at L5-S1 suspected in multilevel foraminal encroachment. Vascular calcifications noted. IMPRESSION: 1. Scoliosis with severe multilevel degenerative disc disease and facet arthropathy. Suspect multilev el foraminal encroachment. Recommend short-term follow-up MRI.
[2021-02-21] MEDS ORDERED: ACET/COD 300 MG/30 MG STARTER PACK 6 TAB BTL PO STA (12:23)
[2021-02-21 13:03] VITALS: BP 138/85; PULSE 91; RESP 16; TEMP 98
== END 2021-02-21 13:03 | disposition home or self-care (01) ==
LOC: EC 10:54
DX: M54.16 Radiculopathy, lumbar region (principal); I12.9 Hypertensive chronic kidney disease with stage 1 through stage 4 chronic kidney disease, or unspecified chronic kidney disease; J44.9 Chronic obstructive pulmonary disease, unspecified; N18.30 Chronic kidney disease, stage 3 unspecified; E07.9 Disorder of thyroid, unspecified; Z88.8 Allergy status to other drugs, medicaments and biological substances; Z88.1 Allergy status to other antibiotic agents; Z91.013 Allergy to seafood; Z79.890 Hormone replacement therapy; Z79.899 Other long term (current) drug therapy
CPT/HCPCS: 99283 ×2; 96372 ×2; 72100; J2360; J1885

== ENCOUNTER → 2021-03-02 | Outpatient (CLI) | payer MEDICARE ==
[2021-03-02 11:30] LABS: HCT 43.4 % (39.0-53.0); HGB 14.3 gm/dL (13.0-17.5); MCH 31.4 pg (25.0-35.0); MCHC 32.9 g/dL (31.0-37.0); MCV 95.7 fL (80.0-100.0); Mean Platelet Volume 7.3; Platelet Count 227 k/uL (150-450); RBC 4.53 m/uL (4.30-5.90); RDW 14.1 % (11.5-15.5)
[2021-03-02 11:41] LABS: Albumin 3.5 g/dL (3.5-5.0); Calcium 8.7 mg/dL (8.4-10.2); Total Bilirubin 1.1 mg/dL (0.2-1.3); Total Protein 6.6 g/dL (6.3-8.2)
[2021-03-02 11:43] LABS: Partial Thromboplastin Time 23.1 sec (22.0-30.0); Prothrombin Time 10.7 sec (9.0-12.0)
[2021-03-02 12:24] LABS: Appearance,Urine Clear (Clear); Bilirubin,Urine Negative (Negative); Blood,Urine Negative (Negative); Color,Urine Yellow; Glucose,Urine (UA) Negative (Negative); Ketones,Urine Negative (Negative); Leukocyte Esterase,Urine Negative (Negative); Nitrite,Urine Negative (Negative); PH, Urine 6.5 (5.0-8.0); Protein,Urine Negative (Negative); Specific Gravity,Urine 1.017 (1.001-1.035); Urobilinogen,Urine <2.0 mg/dL (<2.0)
== END | disposition home or self-care (01) ==
LOC: LABPAT 10:14
PROVIDERS: ATTEND Orthopaedic Surgery
DX: Z01.812 Encounter for preprocedural laboratory examination (principal)
CPT/HCPCS: 80053; 81003; 85027; 85610; 85730; 87070

== ENCOUNTER 2021-03-29 13:13 | Day surgery (SDC) | payer MEDICARE ==
[2021-03-25 10:51] VITALS: BMI 22.2
[~2021-03-29 13:13] MED LIST changes: +ACETAMINOPHEN TAB 500 MG TAB PO PRN; -CLINDAMYCIN 900 MG in DEXTROSE 5% IN WATER 50 ML IVPB ONE; +CLINDAMYCIN 900 MG in DEXTROSE 5% IN WATER 50 ML IVPB PRN; -DEXAMETHASONE SOD PHOSPHATE 10 MG/ML 1 ML VIAL IV ONE; +DEXAMETHASONE SOD PHOSPHATE 4 MG/ML 1 ML VIAL IV ONE; +HYDROmorphone 0.5 MG/0.5 ML SYRINGE IVP PRN; -HYDROmorphone 1 MG/ML 1 ML SYRINGE IVP PRN; -LACTATED RINGERS 1,000 ML IV SCH; +LIDOCAINE 1% (10MG/ML) FOR IV START INTRADERMA PRN; +MELOXICAM 7.5 MG TAB PO PRN; +MIDAZOLAM 2 MG/2 ML VIAL IV PRN; +ONDANSETRON 4 MG/2 ML VIAL IVP PRN; +TRANEXAMIC ACID 1,000 MG in SODIUM CHLORIDE 0.9% 100 ML IVPB PRN
[2021-03-29] MEDS: LACTATED RINGERS 1,000 ML IV SCH (14:13)
[2021-03-29 14:19] LABS: Glucose,Whole Blood 87 mg/dL (75-99)
[2021-03-29] MEDS ORDERED: fentaNYL (PF) 50 MCG/ML 5 ML AMP IVP ONE (14:42)
--- NOTE | 2021-03-29 16:31 | P.ANPRN ---
Procedure Note - Anesthesia - Nerve Block Performed Right Adductor Canal Infusion Time Out Performed: Yes Date of Procedure: 03/29/21 Procedure Start Time: 14:41 Procedure Stop Time: 15:00 Location of Patient: PreOp Indication: Acute Post-Operative Pain, Dx/Pain Location, Requested by Surgeon Specifically requested for management of pain by : José Miguel Cutler Sedation Type: Sedate with meaningful contact maintained Preparation: Sterile Prep, Sterile Dressing Position: Supine Catheter: Indwelling Needle Types: Pajunk Needle Gauge: 20 Ultrasound used to visualize needle placement: Yes Ultrasound used to observe medication spread: Yes Injectate: 0.5% Ropivacaine (see comment for volume) Blood Aspirated: No Pain Paresthesia on Injection Noted: No Resistance on Injection: Normal Image Stored and Saved: Yes Events: Uneventful and Well Tolerated (20cc 0.5% Ropivacaine)
--- NOTE | 2021-03-29 16:32 | P.ANPRN ---
Procedure Note - Anesthesia - Nerve Block Performed Right Desireck Single Time Out Performed: Yes Date of Procedure: 03/29/21 Procedure Start Time: 15:01 Procedure Stop Time: 15:06 Location of Patient: PreOp Indication: Acute Post-Operative Pain, Dx/Pain Location, Requested by Surgeon Specifically requested for management of pain by DrZoey: José Miguel Cutler Sedation Type: Sedate with meaningful contact maintained Preparation: Sterile Prep Position: Supine Catheter: None Needle Types: Touhy Needle Gauge: 20 Ultrasound used to visualize needle placement: Yes Ultrasound used to observe medication spread: Yes Injectate: 0.5% Ropivacaine (see comment for volume) Blood Aspirated: No Pain Paresthesia on Injection Noted: No Resistance on Injection: Normal Image Stored and Saved: Yes Events: Uneventful and Well Tolerated (10cc 0.5% Ropivacaine)
[2021-03-29] MEDS ORDERED: ROPIVACAINE 5 MG/ML 30 ML VIAL ONE (16:37)
[2021-03-29] MEDS ORDERED: TRANEXAMIC ACID 1,000 MG/10 ML VIAL ONE (16:37)
[2021-03-29] MEDS ORDERED: DEXAMETHASONE SOD PHOSPHATE 4 MG/ML 1 ML VIAL ONE (16:37)
[2021-03-29] MEDS ORDERED: .fentaNYL (PF) 50 MCG/ML 2 ML AMP ONE (16:37)
[2021-03-29] MEDS ORDERED: PROPOFOL 10 MG/ML 20 ML VIAL IV ONE (16:37)
[2021-03-29] MEDS ORDERED: SODIUM CHLORIDE 0.9% 100 ML BAG ONE (16:37)
[2021-03-29] MEDS ORDERED: CLINDAMYCIN 600 MG in SODIUM CHLORIDE 0.9% 1,000 ML IRRIGATION ONE (17:13)
[2021-03-29] MEDS ORDERED: LACTATED RINGERS 1,000 ML IV ONE (17:45)
--- NOTE | 2021-03-29 18:08 | P.OP ---
Date of Procedure: 03/29/21 Implants: PREOPERATIVE DIAGNOSIS: Right knee severe osteoarthritis with genu varum POSTOPERATIVE DIAGNOSIS: Right knee severe osteoarthritis with genu varum OPERATION: Right knee cemented total replacement arthroplasty. ANESTHESIA: Spinal and Regional with ACB (ON-Q pump) ESTIMATED BLOOD LOSS: 50 ml. BLOCK PLACER: Nu Aleman PA-C (assistance with: patient positioning, retraction, exposure, hemostasis, leg positioning, implantation, irrigation, closure, dressing) COMPLICATIONS: None apparent. COMPONENTS IMPLANTED: Journey II BCS total knee system from [employer], [facility], [place] INDICATIONS: Rg is a 70 year old male with a history of right knee osteoarthritis. The patient's knee is end-stage, and conservative management has failed. The operation of knee replacement has been discussed at length in the office, as well as potential risks and complications. He has multiple me dical problems including the use of chronic steroids to control his lung disease (sarcoidosis). He is therefore at increased risk of complications. We discussed these risks as being inclusive of, but not limited to: bleeding, infection, scarring, discomfort, blood vessel and nerve damage, need for further surgery, failure to relieve symptoms, persistence, recurrence, or worsening of problems, loosening, dislocation, wear, blood clot, pulmonary embolism, , wound problems, gait dysfunction, stiffness, and other risks as discussed in the office. The patient elects to proceed and the consent form has been signed. PROCEDURE: The patient was taken to the operating room and positioned on the operating room table in the supine position. Anesthesia was initiated. Care was taken to make sure that all pressure points were adequately padded. The operative lower extremity was prepped and draped in the usual aseptic fashion using ChloraPrep. Ioban drape was used for the case and the patient received intravenous antibiotics within one hour of the incision. A pneumotourniquet and leg gordon were used for the case. The limb was exsanguinated with an Esmarch bandage and the tourniquet was inflated to 275 mmHg. Time-out was called confirming the patient's identity, side, procedure and administration of antibiotics and tranexamic acid. The incision was then created midline directly over the right knee, carried down through skin and into the subcutaneous tissues and down to fascia. Full thickness subcutaneous medial flap was developed. Medial parapatellar arthrotomy was performed and the interior of the knee was inspected. There was end-stage osteoarthritis of the knee with a mild to moderate genu valgum type deformity. The fat pad was excised and proximal medial release on the tibia was completed using meticulous dissection and a curved osteotome. The anterior cruciate ligament was taken down. Note was made of significant attrition of the anterior and significant degenerative appearance of the cruciate ligaments. The exposure was excellent. The knee was flexed 90 degrees and the patella was everted. The [employer] pre- made distal cutting block was attached and pinned into position. The planned cut was analyzed visually and with the alignment giuliana and found to be satisfactory without the need for any adjustment. The oscillating saw was then used to make the distal femoral cut and make the alignment holes for the 5 in 1 block. This cut was confirmed to be flat with the flat end of an osteotome. The 5 in 1 block was then used to create the anterior posterior condylar resections and the chamfer cuts. The retractors were placed around the tibia and the tibial surface was addressed. The [employer] pre-made guide was placed onto the exposed tibial surface and pinned into position to mason the rotational alignment. The alignment of the guide was checked for depth of plannned resection, slope, and varus valgus. Guide was confirmed to be in good position and the tibial cut was then created with protection of the posterior neurovascular structures and the collateral ligaments. The tibial cut surface was removed and sized. Spacer block technique was then used to confirm that the flexion and extension gaps were equal. Soft tissue releases and adjustment of the tibial and/or femoral cuts were made, as necessary, until the gaps were equal. This included release of the posterior cruciate ligament, which was excessively tight in this patient. The trial components were inserted. The tibial tray was allowed to self center and the patella was noted to track very well. The position of the tibial component was marked and noted to be nearly exactly aligned with the pre-drilled holes from the [employer] guide. The tibia was then finished for a stemmed tibial component. Patellar resurfacing was performed using a reamer. The size of the required patellar component was estimated and the patellar surface was then reamed down to a residual thickness which would recreate the burns paiute thickness with the component. The exact placement of the patellar component was adjusted for position based on preoperative x-rays and intraoperative findings. Trial components were removed and the cut surfaces of the bone were pulse lavaged thoroughly and dried. Cement was mixed on the back table and applied to the final components. Cement was then applied to the tibial surface and pressurized into the surface using finger pressurization technique. The tibial component was then applied and excess cement was removed after it was impacted securely and noted to be flush with the cut surface. In similar fashion, the cement was applied to the cut femoral surface, pressurized in using finger pressurization and the component was impacted into place. Excess cement was removed. The polyethylene spacer was then implanted and locked into position. The patellar component was then applied in similar technique and a patellar clamp was used to hold the patella in place as the cement hardened. Once the cement had fully hardened, the knee was reinspected. Any other cement extrusion was removed and final kinematic testing showed range of motion from 0 to 130 degrees with excellent stability, both medially and laterally and appropriate alignment of the leg. Patellar tracking was excellent. The knee was then thoroughly pulse lavaged with normal saline. The tourniquet was deflated and hemostasis was obtained with electrocautery and IV tranexamic acid, 1 g given at the start of the operation and 1 g at the start of closure. Closure was with #2 Ethibond in the fascia/capsule and supplemented with #2 Quill, 3-0 Vicryl suture was used for the subcutaneous tissues and 3-0 Quill for the skin. Dermabond/Steri-Strips were then applied. A lightly compressive dressing was applied using Webril and an Justin wrap. The patient was then transferred to stretcher and taken to the recovery room in stable condition. Sponge and needle counts were correct.
[2021-03-29] MEDS ORDERED: HYDROmorphone 0.5 MG/0.5 ML SYRINGE IVP PRN ×2 (18:32)
[2021-03-29] MEDS ORDERED: bisacodyL 10 MG SUPP RECTAL PRN (18:32)
[2021-03-29] MEDS ORDERED: ONDANSETRON 4 MG/2 ML VIAL IVP PRN (18:32)
[2021-03-29] MEDS ORDERED: MAGNESIUM HYDROXIDE 2,400 MG/10 ML CUP PO PRN (18:32)
[2021-03-29] MEDS ORDERED: HYDROcodone/APAP 7.5-325MG 1 EACH TAB PO PRN (18:32)
[2021-03-29] MEDS ORDERED: TEMAZEPAM 15 MG CAP PO PRN (18:32)
[2021-03-29] MEDS ORDERED: HYDROmorphone 0.2 MG/1 ML SYRINGE IVP PRN (18:32)
[2021-03-29] MEDS ORDERED: NA PHOS,M-B/NA PHOS,DI-BA 133 ML ENEMA RECTAL PRN (18:32)
[2021-03-29] MEDS ORDERED: NALOXONE 0.4 MG/ML 1 ML VIAL IV PRN (18:32)
[2021-03-29] MEDS ORDERED: HYDROcodone/APAP 5-325MG 1 EACH TAB PO PRN (18:32)
--- NOTE | 2021-03-29 19:09 | XR ---
Result: History: Postoperative knee. Comparison: None available. Technique: 2 views of the right knee. Findings: There are postsurgical changes of total knee arthroplasty with patellar resurfacing without evidence of immediate hardware complication. No acute fracture or dislocation of is seen. There are postsurgi petey changes about the knee soft tissues with joint effusion. Impression: Expected post surgical changes of right total knee arthroplasty.
[2021-03-29] MEDS ORDERED: SENNOSIDES-DOCUSATE SODIUM 1 EACH TAB PO SCH (21:00)
--- NOTE | 2021-03-29 21:59 | P.CONS ---
History of Present Illness - Reason for Consult Consult date: 03/29/21 - History of Present Illness Patient is 70-year-old male with a PMH of COPD, hypertension, sarcoidosis, who was admitted to the hospital for an elective right total knee replacement. The patient underwent a procedure earlier today without any immediate postoperative complications. He reported excellent control of his pain at the time of interview, rated as 0 out of 10. He has not been out of bed as of yet and has not passed urine or flatness. He reports compliance with all his medications at home. He denied experiencing shortness of breath, fever, chills, sore throat, chest pain, nausea, vomiting, abdominal pain, diarrhea. Review of systems: Pertinent positives and negatives as discussed in HPI, a complete review of systems was performed and all other systems are negative. Physical examination: General: non toxic, no distress, appears at stated age, normal weight Derm: no unusual rashes/lesions no unusual ecchymoses, warm, dry Head: atraumatic, normocephalic, symmetric Eyes: EOMI, no lid lag, anicteric sclera, pupils equal round reactive to light ENT: Nose and ears atraumatic, no thrush, no pharyngeal erythema Neck: No thyromegaly, no cervical lymphadenopathy, trachea midline, supple Mouth: no lip lesion, mucus membranes moist Cardiovascular: S1S2 reg, no murmur, positive posterior tibial pulse bilateral, no edema, capillary refill less than 2 seconds Lungs: CTA bilateral, no rhonchi, no rales , no accessory muscle use Abdominal: soft, nontender to palpation, no guarding, no appreciable organomegaly, normal bowel sounds Ext: no gross muscle atrophy, muscle strength 5 out of 5 in all 4 extremities grossly, no contractures, right knee Justin bandage in place Neuro: CN II-XI grossly intact, light touch intact all 4 extremities, finger to nose within normal limits, Psych: Alert, oriented, appropriate affect Assessment/plan Chronic conditions: COPD, hypertension, pulmonary sarcoidosis -Continue with home meds Status post right total knee replacement -Defer management including pain control to the surgery service We appreciate this opportunity to be involved in this patient's care. We will follow the patient with you. For any further questions, please not hesitate to contact the sound inpatient team. 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 History of Any Multi-Drug Resistant Organisms: None Reported Past Surgical History: Back Surgery, Heart Catheterization Additional Past Surgical History / Comment(s): HEMORROIDECTOMY, BRONCHOSCOPY X2, BONE MARROW BIOPSY, SKIN CANCER LESIONS REMOVED , BACK PAIN INJECTIONS, COLONOSCOPY, CATARACTS Past Anesthesia/Blood Transfusion Reactions: No Reported Reaction Past Psychological History: No Psychological Hx Reported Smoking Status: Never smoker Past Alcohol Use History: Rare Past Drug Use History: None Reported - Past Family History Mother Family Medical History: Cancer Medications and Allergies Home Medications Medication Instructions Recorded Confirmed Type Doxycycline Hyclate [Vibramycin] 100 mg PO DAILY 06/13/16 03/29/21 History Ipratropium-Albuterol Nebulize 3 ml INHALATION DAILY 06/13/16 03/29/21 History [Duoneb 0.5 mg-3 mg/3 ml Soln] Itraconazole Oral Susp [Sporanox 40 mg PO W/SUPPER 06/13/16 03/29/21 History Oral Susp] Levothyroxine Sodium [Synthroid] 25 mcg PO DAILY 06/13/16 03/29/21 History Loratadine-Pseudoeph 10-240 mg 1 each PO W/SUPPER 06/13/16 03/29/21 History [Claritin-D 24 Hour] Losartan [Cozaar] 25 mg PO DAILY 06/13/16 03/29/21 History Montelukast [Singulair] 10 mg PO W/SUPPER 06/13/16 03/29/21 History Omeprazole 20 mg PO HS 06/13/16 03/29/21 History allopurinoL [Zyloprim] 100 mg PO W/SUPPER 06/13/16 03/29/21 History predniSONE 5 mg PO W/SUPPER 06/13/16 03/29/21 History Spironolactone-Hctz 25-25Mg 0.5 tab PO DAILY 06/26/17 03/29/21 History [Aldactazide 25-25 MG] Albuterol Inhaler [Ventolin Hfa 2 puff INHALATION DIRECTED PRN 03/25/21 03/29/21 History Inhaler] Ergocalciferol [Vitamin D2 (1250 50,000 unit PO DIRECTED 03/25/21 03/29/21 History Mcg = [id number] Iu)] Magnesium 500 mg PO W/SUPPER 03/25/21 03/29/21 History Sildenafil [Revatio] 20 mg PO TID 03/25/21 03/29/21 History Aspirin [Adult Low Dose Aspirin EC] 81 mg PO BID #1 tab 03/29/21 Rx Gabapentin [Neurontin] 300 mg PO BID 5 Days #10 cap 03/29/21 Rx HYDROcodone/APAP 7.5-325MG [Cedar 1 - 2 tab PO Q6HR PRN #32 tab 03/29/21 Rx 7.5-325] Ondansetron Odt [Zofran Odt] 4 mg PO Q8HR PRN #14 tab 03/29/21 Rx Sennosides-Docusate Sodium 1 tab PO BID #60 tablet 03/29/21 Rx [Senokot-S] Allergies Allergy/AdvReac Type Severity Reaction Status Date / Time nickel Allergy Unknown POSITIVE Verified 03/29/21 13:42 ON TESTING cephalexin Allergy Rash/Hives Verified 03/29/21 13:42 furosemide [From Lasix] Allergy Rash/Hives Verified 03/29/21 13:42 iodine Allergy Anaphylaxis Verified 03/29/21 13:42 shellfish derived [Shellfish] Allergy Anaphylaxis Verified 03/29/21 13:42 NSAIDS (Non-Steroidal AdvReac Unknown PT STATES Verified 03/29/21 13:42 Anti-Inflamma NO NSAIDS DUE TO KIDNEY DISEASE. hydroxychloroquine AdvReac unable to Verified 03/29/21 13:42 [From Plaquenil] take due to toxoplasmosis in eyes Physical Exam Vitals: Vital Signs Temp Pulse Resp BP Pulse Ox 03/29/21 19:28 72 16 121/61 100 03/29/21 19:13 76 16 123/60 100 03/29/21 18:58 64 16 100/41 97 03/29/21 18:43 60 16 120/71 91 L 03/29/21 18:28 97.4 F L 70 16 113/60 94 L 03/29/21 14:55 78 16 117/68 97 03/29/21 13:56 97..2 F H 96 16 155/80 94 L Intake and Output 03/29/21 03/29/21 03/29/21 06:59 14:59 22:59 Intake Total 800 757 Output Total 50 Balance 800 707 Intake: IV 800 757 Output: Estimated Blood Loss 50 Other: Weight 66.4 kg
[2021-03-29] MEDS: ASPIRIN 81 MG PO SCH (22:03)
[2021-03-29] MEDS: SODIUM CHLORIDE 0.9% 1,000 ML IV SCH (22:04)
[2021-03-29] MEDS: CLINDAMYCIN 900 MG in DEXTROSE 5% IN WATER 50 ML IVPB SCH ×2 (22:50)
[2021-03-29] MEDS: SILDENAFIL 20 MG TAB PO SCH (22:50)
[2021-03-30] MEDS: CLINDAMYCIN 900 MG in DEXTROSE 5% IN WATER 50 ML IVPB SCH ×2 (03:06)
[2021-03-30] MEDS: SODIUM CHLORIDE 0.9% 1,000 ML IV SCH (05:23)
[2021-03-30] MEDS ORDERED: LEVOTHYROXINE 25 MCG TAB PO SCH (06:30)
--- NOTE | 2021-03-30 06:51 | P.PN ---
Progress Note - Text Progress Note Date: 03/30/21 Patient seen and examined at bedside POD 1 s/p right total knee replacement with adductor canal catheter placed for post operative pain control. Patients pain is well controlled. Patient report spinal anesthesia has worn off and has regained motor and sensory function. Patient is able to ambulate without difficulty and has used the restroom several times. Patient denies NOVOA, F/C, parathesias, weakness. Site is clean and without erythema. Continue pain pump infusion at current rate until completed. Will continue to follow until discharge home.
[2021-03-30 07:19] LABS: Glucose,Whole Blood 129 mg/dL (75-99)
[2021-03-30] MEDS: ASPIRIN 81 MG PO SCH (07:35)
[2021-03-30] MEDS: LACTATED RINGERS 1,000 ML IV SCH (07:36)
[2021-03-30] MEDS: SILDENAFIL 20 MG TAB PO SCH (07:36)
[2021-03-30 07:41] VITALS: BP 122/67; PULSE 69; RESP 18; TEMP 98.1
[2021-03-30] MEDS ORDERED: HYDROCORTISONE SUCCINATE 100 MG/2 ML VIAL IV STA (07:52)
--- NOTE | 2021-03-30 08:51 | P.DS ---
Providers Expected date of discharge: 03/30/21 Attending physician: José Miguel Cutler Consults: 03/29/21 18:32 Consult Physician Routine Consulting Provider: Vinicio Vidal Consult Reason/Comments: Medical management Do you want consulting provider notified?: Yes Primary care physician: Vinicio Vidal MD - Discharge Diagnosis(es) (1) Osteoarthritis of right knee Current Visit: Yes Status: Acute (2) Status post total right knee replacement Current Visit: Yes Status: Acute Hospital Course: This is a 70-year-old male with known history of degenerative arthritis of the right knee. The patient presented for evaluation as an outpatient. After discu ssion and consideration patient elects to proceed with total knee arthroplasty. The patient is seen preoperatively by Dr. Cutler and medically cleared for surgery by their primary care physician. Patient is admitted to [facility] on 03/29/2021 for total knee arthroplasty. The procedure is performed without complication or sequelae. The patient is doing well postoperatively. Labs and vital signs are stable on day of discharge. On day of discharge patient's knee incision is healing well. There is minimal erythema. There is no drainage noted at this time. There is minimal soft tis norma swelling to the knee. Patient has full foot and ankle motion without difficulty or pain. Calf is soft and nontender to palpation. Neurovascular status to the right lower extremity is intact. Patient is discharged home in good condition. Please see med rec for accurate list of home medications. Plan - Discharge Summary Discharge Rx Participant: Yes New Discharge Prescriptions: New Gabapentin [Neurontin] 300 mg PO BID 5 Days #10 cap HYDROcodone/APAP 7.5-325MG [[place] 7.5-325] 1 - 2 tab PO Q6HR PRN #32 tab PRN Reason: Pain Aspirin [Adult Low Dose Aspirin EC] 81 mg PO BID #1 tab Sennosides-Docusate Sodium [Senokot-S] 1 tab PO BID #60 tablet Ondansetron Odt [Zofran Odt] 4 mg PO Q8HR PRN #14 tab PRN Reason: Nausea No Action Omeprazole 20 mg PO HS allopurinoL [Zyloprim] 100 mg PO W/SUPPER Itraconazole Oral Susp [Sporanox Oral Susp] 40 mg PO W/SUPPER Loratadine-Pseudoeph 10-240 mg [Claritin-D 24 Hour] 1 each PO W/SUPPER Doxycycline Hyclate [Vibramycin] 100 mg PO DAILY Losartan [Cozaar] 25 mg PO DAILY Levothyroxine Sodium [Synthroid] 25 mcg PO DAILY Ipratropium-Albuterol Nebulize [Duoneb 0.5 mg-3 mg/3 ml Soln] 3 ml INHALATION DAILY predniSONE 5 mg PO W/SUPPER Montelukast [Singulair] 10 mg PO W/SUPPER Spironolactone-Hctz 25-25Mg [Aldactazide 25-25 MG] 0.5 tab PO DAILY Sildenafil [Revatio] 20 mg PO TID Ergocalciferol [Vitamin D2 (1250 Mcg = 77240 Iu)] 50,000 unit PO DIRECTED Magnesium 500 mg PO W/SUPPER Albuterol Inhaler [Ventolin Hfa Inhaler] 2 puff INHALATION DIRECTED PRN PRN Reason: Shortness Of Breath Discharge Medication List Doxycycline Hyclate [Vibramycin] 100 mg PO DAILY 06/13/16 [History] Ipratropium-Albuterol Nebulize [Duoneb 0.5 mg-3 mg/3 ml Soln] 3 ml INHALATION DAILY 06/13/16 [History] Itraconazole Oral Susp [Sporanox Oral Susp] 40 mg PO W/SUPPER 06/13/16 [History] Levothyroxine Sodium [Synthroid] 25 mcg PO DAILY 06/13/16 [History] Loratadine-Pseudoeph 10-240 mg [Claritin-D 24 Hour] 1 each PO W/SUPPER 06/13/16 [History] Losartan [Cozaar] 25 mg PO DAILY 06/13/16 [History] Montelukast [Singulair] 10 mg PO W/SUPPER 06/13/16 [History] Omeprazole 20 mg PO HS 06/13/16 [History] allopurinoL [Zyloprim] 100 mg PO W/SUPPER 06/13/16 [History] predniSONE 5 mg PO W/SUPPER 06/13/16 [History] Spironolactone-Hctz 25-25Mg [Aldactazide 25-25 MG] 0.5 tab PO DAILY 06/26/17 [History] Albuterol Inhaler [Ventolin Hfa Inhaler] 2 puff INHALATION DIRECTED PRN 03/25/21 [History] Ergocalciferol [Vitamin D2 (1250 Mcg = 02248 Iu)] 50,000 unit PO DIRECTED 03/25/21 [History] Magnesium 500 mg PO W/SUPPER 03/25/21 [History] Sildenafil [Revatio] 20 mg PO TID 03/25/21 [History] Aspirin [Adult Low Dose Aspirin EC] 81 mg PO BID #1 tab 03/29/21 [Rx] Gabapentin [Neurontin] 300 mg PO BID 5 Days #10 cap 03/29/21 [Rx] HYDROcodone/APAP 7.5-325MG [[place] 7.5-325] 1 - 2 tab PO Q6HR PRN #32 tab 03/29/21 [Rx] Ondansetron Odt [Zofran Odt] 4 mg PO Q8HR PRN #14 tab 03/29/21 [Rx] Sennosides-Docusate Sodium [Senokot-S] 1 tab PO BID #60 tablet 03/29/21 [Rx] Follow up Appointment(s)/Referral(s): Nu Aleman, EUGENE [PHYSICIAN [employer] TECHNICIAN] - 2 Weeks [facility], [NON-STAFF] - ([facility] will call you to schedule your in home physical therapy visits. ) Activity/Diet/Wound Care/Special Instructions: May bear wt as tolerated w walker. Kep optifoam dressing intact 7 days. May shower 48 h post op. Discharge Disposition: HOME WITH HOME HEALTH SERVICES
[2021-03-30] MEDS ORDERED: SPIRONOLACTONE-HCTZ 25-25MG 1 EACH TAB PO SCH (09:00)
[2021-03-30] MEDS ORDERED: LOSARTAN 25 MG TAB PO SCH (09:00)
[2021-03-30 09:40] LABS: Basophils # (A) 0 X 10*3/uL (0.00-0.10); Basophils % (A) 0 %; Eosinophils # (A) 0 X 10*3/uL (0.04-0.35); Eosinophils % (A) 0 %; HCT 35.1 % (39.6-50.0); HGB 11.5 g/dL (13.0-17.0); Lymphocytes # (A) 0.27 X 10*3/uL (0.90-5.00); MCH 30.8 pg (27.0-32.0); MCHC 32.8 g/dL (32.0-37.0); MCV 94.1 fL (80.0-97.0); Mean Platelet Volume 10.6 fL (9.5-12.2); Monocytes # (A) 0.38 X 10*3/uL (0.20-1.00); Monocytes % (A) 4.3 %; Neutrophils # (A) 8.21 X 10*3/uL (1.80-7.70); Neutrophils % (A) 92.1 %; Platelet Count 179 X 10*3/uL (140-440); RBC 3.73 X 10*6/uL (4.40-5.60); RDW 14.1 % (11.5-14.5); WBC 8.91 X 10*3/uL (4.50-10.00)
[2021-03-30 10:47] LABS: African American GFR (CKD) 49.5 (60.0-200.0); BUN/Creat Ratio 17.5 Ratio (12.00-20.00); Calcium 8.3 mg/dL (8.7-10.3); Non-African American GFR(CKD) 42.7 (60.0-200.0); Potassium 4.6 mmol/L (3.5-5.5)
--- NOTE | 2021-03-30 13:38 | P.PN ---
Subjective Progress Note Date: 03/30/21 (delayed charting seen at 1015) Principal diagnosis: right knee pain Patient is a 76-year-old male for history of COPD, sarcoidosis, pulmonary hypertension who is maintained on chronic steroid therapy and presented for elective right total knee replacement. Patient underwent the procedure without any immediate postoperative complications. Patient seen and examined at bedside. He has been up and moving around without difficulty. His pain is well controlled. He denies any chest pain, shortness of breath, lightheaded or dizziness. General: non toxic, no distress, appears at stated age Derm: warm, dry Head: atraumatic, normocephalic, symmetric Eyes: EOMI, no lid lag, anicteric sclera Mouth: no lip lesion, mucus membranes moist Cardiovascular: S1S2 reg, no murmur, positive posterior tibial pulse bilateral Lungs: CTA bilateral, no rhonchi, no rales , no accessory muscle use Abdominal: soft, nontender to palpation, no guarding, no appreciable organomegaly Ext: no gross muscle atrophy, no edema, no contractures, on Q ball in place, dr rivas in place over right knee Neuro: CN II-XI grossly intact, no focal neuro deficits Psych: Alert, oriented, appropriate affect Right knee replacement- management per ortho COPD without exacerbation Pulmonary HTN Pulmonary Sarcoidosis - prednisone - Singulair - Revatio - Duoneb GERD - PPI HTN - losartan Patient medically optimized for discharge at the discretion of ortho Objective - Vital Signs Vital signs: Vital Signs Temp 98.1 F 03/30/21 07:40 Pulse 69 03/30/21 07:40 Resp 18 03/30/21 07:40 BP 122/67 03/30/21 07:40 Pulse Ox 95 03/30/21 07:40 Intake & Output 03/29/21 03/30/21 03/30/21 18:59 06:59 18:59 Intake Total 1457 100 Output Total 50 Balance 1407 100 Weight 66.4 kg 66.4 kg Intake: IV 1457 100 Output: Estimated Blood Loss 50 Other: # Voids 3 # Bowel Movements 1 - Labs CBC & Chem 7: 03/30/21 06:21 03/30/21 06:21 Labs: Abnormal Lab Results - Last 24 Hours (Table) 03/30/21 03/30/21 03/30/21 Range/Units 06:21 06:21 07:18 RBC 3.73 L (4.40-5.60) X 10*6/uL Hgb 11.5 L (13.0-17.0) g/dL Hct 35.1 L (39.6-50.0) % Immature Gran # 0.05 H (0.00-0.04) X 10*3/uL Neutrophils # 8.21 H (1.80-7.70) X 10*3/uL Lymphocytes # 0.27 L (0.90-5.00) X 10*3/uL Eosinophils # 0 L (0.04-0.35) X 10*3/uL BUN 28.0 H (9.0-27.0) mg/dL Creatinine 1.6 H (0.6-1.5) mg/dL Est GFR (CKD-EPI)AfAm 49.5 L (60.0-200.0) Est GFR (CKD-EPI)NonAf 42.7 L (60.0-200.0) Glucose 122 H (70-110) mg/dL POC Glucose (mg/dL) 129 H (75-99) mg/dL Calcium 8.3 L (8.7-10.3) mg/dL
[2021-03-30] MEDS ORDERED: allopurinoL 100 MG TAB PO SCH (17:30)
[2021-03-30] MEDS ORDERED: predniSONE 5 MG TAB PO SCH (17:30)
== END 2021-03-30 12:31 | disposition home health service (06) ==
LOC: OR 13:13 → 4SSUR 18:31 → OR 03-30 12:31
PROVIDERS: ATTEND Orthopaedic Surgery
DX: M17.11 Unilateral primary osteoarthritis, right knee (principal); M21.161 Varus deformity, not elsewhere classified, right knee; D86.9 Sarcoidosis, unspecified; E78.5 Hyperlipidemia, unspecified; J44.9 Chronic obstructive pulmonary disease, unspecified; I12.9 Hypertensive chronic kidney disease with stage 1 through stage 4 chronic kidney disease, or unspecified chronic kidney disease; N18.9 Chronic kidney disease, unspecified; I27.20 Pulmonary hypertension, unspecified; N40.0 Benign prostatic hyperplasia without lower urinary tract symptoms; M10.9 Gout, unspecified; K21.9 Gastro-esophageal reflux disease without esophagitis; I42.0 Dilated cardiomyopathy; Z20.822 Contact with and (suspected) exposure to COVID-19; Z85.828 Personal history of other malignant neoplasm of skin; Z88.8 Allergy status to other drugs, medicaments and biological substances; Z88.1 Allergy status to other antibiotic agents; Z91.041 Radiographic dye allergy status; Z91.013 Allergy to seafood; Z79.899 Other long term (current) drug therapy
CPT/HCPCS: 27447; 97161; 64999; 64448; 76942; 80048; 85025; 87635; 73560; C1713 ×2; C1776; J2250; J1100; J2405; J3010; 88300

== ENCOUNTER → 2021-05-14 | Outpatient (CLI) | payer MEDICARE ==
[2021-05-14 12:23] LABS: Creatinine,Urine Random 72.9 mg/dL; Protein/Creatinine Ratio,Urine 0.329
[2021-05-14 12:29] LABS: Appearance,Urine Cloudy (Clear); Bilirubin,Urine Negative (Negative); Blood,Urine Negative (Negative); Color,Urine Yellow; Glucose,Urine (UA) Negative (Negative); Hyaline Casts,Urine 4 /lpf (0-2); Ketones,Urine Negative (Negative); Leukocyte Esterase,Urine Negative (Negative); Mucus,Urine Rare /hpf; Nitrite,Urine Negative (Negative); Protein,Urine Trace (Negative); RBC,Urine 4 /hpf (0-5); Specific Gravity,Urine 1.014 (1.001-1.035); Squamous Epithelial Cell,Urine <1 /hpf (0-4); Urobilinogen,Urine <2.0 mg/dL (<2.0); WBC,Urine 4 /hpf (0-5)
[2021-05-14 16:19] LABS: Basophils # (A) 0.04 X 10*3/uL (0.00-0.10); Basophils % (A) 0.6 %; Eosinophils % (A) 1.6 %; HCT 38.2 % (39.6-50.0); HGB 12.2 g/dL (13.0-17.0); Lymphocytes # (A) 0.78 X 10*3/uL (0.90-5.00); Lymphocytes % (A) 12.2 %; MCH 30.3 pg (27.0-32.0); MCHC 31.9 g/dL (32.0-37.0); Mean Platelet Volume 10.5 fL (9.5-12.2); Monocytes % (A) 7.8 %; Neutrophils # (A) 4.94 X 10*3/uL (1.80-7.70); Platelet Count 257 X 10*3/uL (140-440); RBC 4.02 X 10*6/uL (4.40-5.60); RDW 14.2 % (11.5-14.5); WBC 6.41 X 10*3/uL (4.50-10.00)
[2021-05-14 16:34] LABS: Anion Gap 12.8 mmol/L (10.00-18.00); Blood Urea Nitrogen 22.3 mg/dL (9.0-27.0); Carbon Dioxide 25.5 mmol/L (20.0-27.5); Potassium 4.4 mmol/L (3.5-5.5)
[2021-05-14 16:35] LABS: % Iron Saturation 21.75 (15.00-50.00); African American GFR (CKD) 58.7 (60.0-200.0); Albumin 3.9 g/dL (3.8-4.9); Albumin/Globulin Ratio 1.62 (1.60-3.17); BUN/Creat Ratio 16.04 Ratio (12.00-20.00); Calcium 9.2 mg/dL (8.7-10.3); Globulin 2.4 g/dL (1.6-3.3); Magnesium 1.9 mg/dL (1.5-2.4); Non-African American GFR(CKD) 50.6 (60.0-200.0); Phosphorus 3.1 mg/dL (2.4-5.1); Total Bilirubin 0.5 mg/dL (0.30-1.20); Total Protein 6.4 g/dL (6.2-8.2); Uric Acid 7.1 mg/dL (3.7-8.7)
== END | disposition home or self-care (01) ==
LOC: LABWHC1 10:04
PROVIDERS: ATTEND Internal Medicine Nephrology
DX: N18.30 Chronic kidney disease, stage 3 unspecified (principal); E55.9 Vitamin D deficiency, unspecified; N25.81 Secondary hyperparathyroidism of renal origin; M10.9 Gout, unspecified; N39.0 Urinary tract infection, site not specified; D64.9 Anemia, unspecified; R80.9 Proteinuria, unspecified
CPT/HCPCS: 36415; 80053; 81001; 82306; 82570; 82728; 83540; 83550; 83735; 83970; 84100; 84156; 84550; 85025

== ENCOUNTER 2021-06-05 20:44 | Emergency (ER) | payer MEDICARE ==
--- NOTE | 2021-06-05 21:05 | ED ---
General Adult HPI - General Source: patient Mode of arrival: wheelchair Limitations: no limitations <JaradRamy - Last Filed: 06/05/21 23:14> <Manju Mejia - Last Filed: 06/05/21 23:58> - General Chief complaint: Fever Stated complaint: Fever,Dizziness Time Seen by Provider: 06/05/21 20:54 - History of Present Illness Initial comments: Patient presents to the ED with his for evaluation. Patient states that he has had a fever, chills, dizziness, headache and myalgias/arthralgias since this afternoon. Patient denies taking any antipyretic medication today. Patient states that he has a chronic and unchanged cough (patient states that he has a history of sarcoidosis and pulmonary aspergillosis). Patient states that he has had received 2 Covid vaccine shots and a booster shot. Patient denies trauma or injury, sudden onset of headache, LOC, neck pain or stiffness, focal numbness/weakness/neuro deficit, visual changes, speech difficulty, sore throat, nasal congestion, chest pain or pressure, dyspnea, hemoptysis, palpitations, syncope, abdominal/flank pain, nausea/vomiting/diarrhea, bloody or melanotic stool, dysuria or urinary symptoms, thigh or calf swelling or pain, or any other symptoms or complaints. (Ramy Abraham) - Related Data Home Medications Medication Instructions Recorded Confirmed Doxycycline Hyclate [Vibramycin] 100 mg PO DAILY 06/13/16 06/05/21 Ipratropium-Albuterol Nebulize 3 ml INHALATION RT-DAILY 06/13/16 06/05/21 [Duoneb 0.5 mg-3 mg/3 ml Soln] Itraconazole Oral Susp [Sporanox 10 mg PO W/SUPPER 06/13/16 06/05/21 Oral Susp] Levothyroxine Sodium [Synthroid] 25 mcg PO DAILY 06/13/16 06/05/21 Loratadine-Pseudoeph 10-240 mg 1 tab PO W/SUPPER 06/13/16 06/05/21 [Claritin-D 24 Hour] Montelukast [Singulair] 10 mg PO W/SUPPER 06/13/16 06/05/21 Omeprazole 20 mg PO HS 06/13/16 06/05/21 allopurinoL [Zyloprim] 100 mg PO W/SUPPER 06/13/16 06/05/21 predniSONE 5 mg PO W/SUPPER 06/13/16 06/05/21 Spironolactone-Hctz 25-25Mg 1 tab PO DAILY 06/26/17 06/05/21 [Aldactazide 25-25 MG] Albuterol Inhaler [Ventolin Hfa 2 puff INHALATION RT-Q6H PRN 03/25/21 06/05/21 Inhaler] Ergocalciferol [Vitamin D2 (1250 50,000 unit PO Q14D 03/25/21 06/05/21 Mcg = 67570 Iu)] Sildenafil [Revatio] 20 mg PO TID 03/25/21 06/05/21 Losartan Potassium 50 mg PO DAILY 06/05/21 06/05/21 Allergies Allergy/AdvReac Type Severity Reaction Status Date / Time nickel Allergy Unknown POSITIVE Verified 06/05/21 22:47 ON TESTING cephalexin Allergy Rash/Hives Verified 06/05/21 22:47 furosemide [From Lasix] Allergy Rash/Hives Verified 06/05/21 22:47 iodine Allergy Anaphylaxis Verified 06/05/21 22:47 shellfish derived [Shellfish] Allergy Anaphylaxis Verified 06/05/21 22:47 NSAIDS (Non-Steroidal AdvReac Unknown PT STATES Verified 06/05/21 22:47 Anti-Inflamma NO NSAIDS DUE TO KIDNEY DISEASE. 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 <Ramy Abraham - Last Filed: 06/05/21 23:14> ROS Other: All systems not noted in ROS Statement are negative. <Manju Mejia - Last Filed: 06/05/21 23:58> ROS Statement: Those systems with pertinent positive or pertinent negative responses have been documented in the HPI. Past Medical History Past Medical History: Asthma, Cancer, COPD, Hypertension, Renal Disease, Thyroid Disorder Additional Past Medical History / Comment(s): SARCOIDOSIS, LUNG FUNGAL INFECTION, PULMONARY HYPERTENSION,SKIN CANCER,STAGE 3 CHRONIC KIDNEY DISEASE, History of Any Multi-Drug Resistant Organisms: None Reported Past Surgical History: Joint Replacement Additional Past Surgical History / Comment(s): HEMORROIDECTOMY, BRONCHOSCOPY X2, BONE MARROW BIOPSY, BASAL CELL LESION REMOVED , BACK PAIN INJECTIONS, COLONOSCOPY Past Anesthesia/Blood Transfusion Reactions: No Reported Reaction Past Psychological History: No Psychological Hx Reported Smoking Status: Never smoker Past Alcohol Use History: Rare Past Drug Use History: None Reported - Past Family History Mother Family Medical History: Cancer <Ramy Abraham - Last Filed: 06/05/21 23:14> General Exam Limitations: no limitations General appearance: alert, in no apparent distress Head exam: Present: atraumatic, normocephalic Eye exam: Present: normal appearance, EOMI ENT exam: Present: normal oropharynx, mucous membranes moist Neck exam: Present: other (Trachea is in midline). Absent: tenderness, meningismus Respiratory exam: Present: normal lung sounds bilaterally. Absent: respiratory distress, wheezes, rales, rhonchi, stridor Cardiovascular Exam: Present: normal rhythm, tachycardia, normal heart sounds, other (Normal radial pulses bilaterally) GI/Abdominal exam: Present: soft. Absent: distended, tenderness, guarding Extremities exam: Present: full ROM, other (Negative Homans sign bilaterally). Absent: tenderness, pedal edema, calf tenderness Back exam: Absent: CVA tenderness (R), CVA tenderness (L) Neurological exam: Present: alert, oriented X3, CN II-XII intact. Absent: motor sensory deficit Psychiatric exam: Present: anxious Skin exam: Present: warm, dry, intact, normal color <Ramy Abraham - Last Filed: 06/05/21 23:14> Course <Ramy Abraham - Last Filed: 06/05/21 23:14> Vital Signs 06/05/21 06/05/21 06/05/21 20:59 22:00 22:17 Temperature 100.5 F H Pulse Rate 116 H 96 Respiratory 22 18 18 Rate Blood Pressure 129/67 114/68 O2 Sat by Pulse 93 L 98 Oximetry 06/05/21 23:08 Temperature 99.1 F Pulse Rate 97 Respiratory 18 Rate Blood Pressure O2 Sat by Pulse 97 Oximetry - Reevaluation(s) Reevaluation #1: 06/05/21 23:14 Patient was endorsed to Dr. Mejia (secondary to end of my shift) with the patient's UA still pending. I have no definite explanation for the patient's fever at this time. Patient's fever and tachycardia have now resolved. Patient's chest x-ray shows chronic findings and no definite acute abnormality. Patient denies any change in his chronic cough. Patient denies having any chest pain or dyspnea. Patient's labs thus far are fairly unremarkable, including a negative Covid test. Dr. Mejia to follow up on the patient's UA results and to take over care of the patient at this time. (Ramy Abraham) EKG Findings - EKG Comments: EKG Findings:: Normal sinus rhythm, ventricular rate of 91 bpm, no ectopy, right bundle branch block, left anterior fascicular block, normal [place] interval, QRS duration of 140 ms, normal QT interval, no old EKG is available for comparison <Ramy Abraham - Last Filed: 06/05/21 23:14> Medical Decision Making - Lab Data Result diagrams: 06/05/21 22:11 06/05/21 22:11 <Ramy Abraham - Last Filed: 06/05/21 23:14> - Lab Data Result diagrams: 06/05/21 22:11 06/05/21 22:11 <Manju Mejia - Last Filed: 06/05/21 23:58> - Medical Decision Making Patient instructed to take Tylenol for fever. Call and make an appointment with his primary care doctor on Monday. Return to the emergency room for any new or worsening symptoms. Informed that the reason for his fever is yet unclear. Should he develop any new or worsening symptoms, he should seek medical attention as he is immunocompromised. The patient agreed with this and was discharged home in stable condition (Manju Mejia) - Lab Data Lab Results 06/05/21 06/05/21 06/05/21 Range/Units 21:11 21:13 22:11 WBC 9.7 (3.8-10.6) k/uL RBC 4.02 L (4.30-5.90) m/uL Hgb 13.0 (13.0-17.5) gm/dL Hct 38.2 L (39.0-53.0) % MCV 95.1 (80.0-100.0) fL MCH 32.4 (25.0-35.0) pg MCHC 34.1 (31.0-37.0) g/dL RDW 14.0 (11.5-15.5) % Plt Count 173 (150-450) k/uL MPV 7.8 Neutrophils % 90 % Lymphocytes % 2 % Monocytes % 6 % Eosinophils % 0 % Basophils % 1 % Neutrophils # 8.7 H (1.3-7.7) k/uL Lymphocytes # 0.2 L (1.0-4.8) k/uL Monocytes # 0.6 (0-1.0) k/uL Eosinophils # 0.0 (0-0.7) k/uL Basophils # 0.1 (0-0.2) k/uL PT (9.0-12.0) sec INR (<1.2) APTT (22.0-30.0) sec Sodium (137-145) mmol/L Potassium (3.5-5.1) mmol/L Chloride (98-107) mmol/L Carbon Dioxide (22-30) mmol/L Anion Gap mmol/L BUN (9-20) mg/dL Creatinine (0.66-1.25) mg/dL Est GFR (CKD-EPI)AfAm (>60 ml/min/1.73 sqM) Est GFR (CKD-EPI)NonAf (>60 ml/min/1.73 sqM) Glucose (74-99) mg/dL Plasma Lactic Acid Jose D (0.7-2.0) mmol/L Calcium (8.4-10.2) mg/dL Total Bilirubin (0.2-1.3) mg/dL AST (17-59) U/L ALT (4-49) U/L Alkaline Phosphatase (38-126) U/L Troponin I (0.000-0.034) ng/mL NT-Pro-B Natriuret Pep pg/mL Total Protein (6.3-8.2) g/dL Albumin (3.5-5.0) g/dL Urine Color Urine Appearance (Clear) Urine pH (5.0-8.0) Ur Specific Nelson (1.001-1.035) Urine Protein (Negative) Urine Glucose (UA) (Negative) Urine Ketones (Negative) Urine Blood (Negative) Urine Nitrite (Negative) Urine Bilirubin (Negative) Urine Urobilinogen (<2.0) mg/dL Ur Leukocyte Esterase (Negative) Coronavirus (PCR) Not Detected (Not Detectd) Influenza Type A RNA Not Detected (Not Detectd) Influenza Type B (PCR) Not Detected (Not Detectd) 06/05/21 06/05/21 06/05/21 Range/Units 22:11 22:11 22:11 WBC (3.8-10.6) k/uL RBC (4.30-5.90) m/uL Hgb (13.0-17.5) gm/dL Hct (39.0-53.0) % MCV (80.0-100.0) fL MCH (25.0-35.0) pg MCHC (31.0-37.0) g/dL RDW (11.5-15.5) % Plt Count (150-450) k/uL MPV Neutrophils % % Lymphocytes % % Monocytes % % Eosinophils % % Basophils % % Neutrophils # (1.3-7.7) k/uL Lymphocytes # (1.0-4.8) k/uL Monocytes # (0-1.0) k/uL Eosinophils # (0-0.7) k/uL Basophils # (0-0.2) k/uL PT 11.4 (9.0-12.0) sec INR 1.1 (<1.2) APTT 26.3 (22.0-30.0) sec Sodium 135 L (137-145) mmol/L Potassium 4.1 (3.5-5.1) mmol/L Chloride 102 (98-107) mmol/L Carbon Dioxide 25 (22-30) mmol/L Anion Gap 8 mmol/L BUN 28 H (9-20) mg/dL Creatinine 1.54 H (0.66-1.25) mg/dL Est GFR (CKD-EPI)AfAm 52 (>60 ml/min/1.73 sqM) Est GFR (CKD-EPI)NonAf 45 (>60 ml/min/1.73 sqM) Glucose 116 H (74-99) mg/dL Plasma Lactic Acid Jose D 1.0 (0.7-2.0) mmol/L Calcium 8.9 (8.4-10.2) mg/dL Total Bilirubin 0.9 (0.2-1.3) mg/dL AST 27 (17-59) U/L ALT 15 (4-49) U/L Alkaline Phosphatase 74 (38-126) U/L Troponin I (0.000-0.034) ng/mL NT-Pro-B Natriuret Pep pg/mL Total Protein 6.3 (6.3-8.2) g/dL Albumin 3.5 (3.5-5.0) g/dL Urine Color Urine Appearance (Clear) Urine pH (5.0-8.0) Ur Specific Nelson (1.001-1.035) Urine Protein (Negative) Urine Glucose (UA) (Negative) Urine Ketones (Negative) Urine Blood (Negative) Urine Nitrite (Negative) Urine Bilirubin (Negative) Urine Urobilinogen (<2.0) mg/dL Ur Leukocyte Esterase (Negative) Coronavirus (PCR) (Not Detectd) Influenza Type A RNA (Not Detectd) Influenza Type B (PCR) (Not Detectd) 06/05/21 06/05/21 06/05/21 Range/Units 22:11 22:11 23:09 WBC (3.8-10.6) k/uL RBC (4.30-5.90) m/uL Hgb (13.0-17.5) gm/dL Hct (39.0-53.0) % MCV (80.0-100.0) fL MCH (25.0-35.0) pg MCHC (31.0-37.0) g/dL RDW (11.5-15.5) % Plt Count (150-450) k/uL MPV Neutrophils % % Lymphocytes % % Monocytes % % Eosinophils % % Basophils % % Neutrophils # (1.3-7.7) k/uL Lymphocytes # (1.0-4.8) k/uL Monocytes # (0-1.0) k/uL Eosinophils # (0-0.7) k/uL Basophils # (0-0.2) k/uL PT (9.0-12.0) sec INR (<1.2) APTT (22.0-30.0) sec Sodium (137-145) mmol/L Potassium (3.5-5.1) mmol/L Chloride (98-107) mmol/L Carbon Dioxide (22-30) mmol/L Anion Gap mmol/L BUN (9-20) mg/dL Creatinine (0.66-1.25) mg/dL Est GFR (CKD-EPI)AfAm (>60 ml/min/1.73 sqM) Est GFR (CKD-EPI)NonAf (>60 ml/min/1.73 sqM) Glucose (74-99) mg/dL Plasma Lactic Acid Jose D (0.7-2.0) mmol/L Calcium (8.4-10.2) mg/dL Total Bilirubin (0.2-1.3) mg/dL AST (17-59) U/L ALT (4-49) U/L Alkaline Phosphatase (38-126) U/L Troponin I 0.034 (0.000-0.034) ng/mL NT-Pro-B Natriuret Pep 947 pg/mL Total Protein (6.3-8.2) g/dL Albumin (3.5-5.0) g/dL Urine Color Yellow Urine Appearance Clear (Clear) Urine pH 6.0 (5.0-8.0) Ur Specific Nelson 1.019 (1.001-1.035) Urine Protein Trace H (Negative) Urine Glucose (UA) Negative (Negative) Urine Ketones Negative (Negative) Urine Blood Negative (Negative) Urine Nitrite Negative (Negative) Urine Bilirubin Negative (Negative) Urine Urobilinogen <2.0 (<2.0) mg/dL Ur Leukocyte Esterase Negative (Negative) Coronavirus (PCR) (Not Detectd) Influenza Type A RNA (Not Detectd) Influenza Type B (PCR) (Not Detectd) - Radiology Data Chest x-ray: Extensive abnormality consistent with old granulomatous disease. This could be old reactivation tuberculosis or sarcoidosis. Extensive fibrotic changes in the mid and upper lung back. (Ramy Abraham) Disposition <Ramy Abraham - Last Filed: 06/05/21 23:14> Is patient prescribed a controlled substance at d/c from ED?: No Time of Disposition: 23:58 <Manju Mejia - Last Filed: 06/05/21 23:58> Clinical Impression: Acute febrile illness Disposition: HOME SELF-CARE Condition: Stable Instructions (If sedation given, give patient instructions): Fever in Adults (ED) Additional Instructions: Please take Tylenol for fever. Call your doctor on Monday. Return for any new or worsening symptoms Referrals: Vinicio Vidal MD [Primary Care Provider] - 1-2 days
[2021-06-05] MEDS ORDERED: ACETAMINOPHEN TAB 500 MG TAB PO STA (21:11)
--- NOTE | 2021-06-05 22:03 | XR ---
EXAMINATION TYPE: XR chest 2V DATE OF EXAM: 06/05/2021 COMPARISON: NONE HISTORY: Short of breath TECHNIQUE: 2 view FINDINGS: There is extensive coarse interstitial infiltrate in the lungs. There is calcification at t he pulmonary mikayla. There is some blunting of the costophrenic angles. Heart size is normal. There is some retraction of the pulmonary mikayla. Bony thorax is intact. IMPRESSION: Extensive abnormality consistent with old granulomatous disease. This could be old reacti vation tuberculosis or sarcoidosis. Extensive fibrotic changes in the mid and upper lung back.
[2021-06-05 22:19] VITALS: BP 114/68; RESP 18
[2021-06-05 22:23] LABS: Basophils # (A) 0.1 k/uL (0-0.2); Basophils % (A) 1 %; Eosinophils % (A) 0 %; HCT 38.2 % (39.0-53.0); Lymphocytes # (A) 0.2 k/uL (1.0-4.8); Lymphocytes % (A) 2 %; MCH 32.4 pg (25.0-35.0); MCHC 34.1 g/dL (31.0-37.0); MCV 95.1 fL (80.0-100.0); Mean Platelet Volume 7.8; Monocytes # (A) 0.6 k/uL (0-1.0); Monocytes % (A) 6 %; Neutrophils # (A) 8.7 k/uL (1.3-7.7); Neutrophils % (A) 90 %; Platelet Count 173 k/uL (150-450); RBC 4.02 m/uL (4.30-5.90); WBC 9.7 k/uL (3.8-10.6)
[2021-06-05 22:32] LABS: Albumin 3.5 g/dL (3.5-5.0); Calcium 8.9 mg/dL (8.4-10.2); Potassium 4.1 mmol/L (3.5-5.1); Total Bilirubin 0.9 mg/dL (0.2-1.3); Total Protein 6.3 g/dL (6.3-8.2)
[2021-06-05 22:34] LABS: INR 1.1 (<1.2); Partial Thromboplastin Time 26.3 sec (22.0-30.0); Prothrombin Time 11.4 sec (9.0-12.0)
[2021-06-05 23:09] VITALS: PULSE 97; TEMP 99.1
[2021-06-05 23:21] LABS: Appearance,Urine Clear (Clear); Bilirubin,Urine Negative (Negative); Blood,Urine Negative (Negative); Color,Urine Yellow; Glucose,Urine (UA) Negative (Negative); Ketones,Urine Negative (Negative); Leukocyte Esterase,Urine Negative (Negative); Nitrite,Urine Negative (Negative); Protein,Urine Trace (Negative); Specific Gravity,Urine 1.019 (1.001-1.035); Urobilinogen,Urine <2.0 mg/dL (<2.0)
== END 2021-06-06 00:10 | disposition home or self-care (01) ==
LOC: EC 20:44
DX: R50.84 Febrile nonhemolytic transfusion reaction (principal); J44.9 Chronic obstructive pulmonary disease, unspecified; I10 Essential (primary) hypertension; Z20.822 Contact with and (suspected) exposure to COVID-19; Z91.048 Other nonmedicinal substance allergy status; Z88.1 Allergy status to other antibiotic agents; Z88.8 Allergy status to other drugs, medicaments and biological substances; Z91.041 Radiographic dye allergy status; Z91.013 Allergy to seafood; Z88.6 Allergy status to analgesic agent
CPT/HCPCS: 36415; 71046; 80053; 81003; 83605; 83880; 84484; 85025; 85610; 85730; 87502; 87635; 93005

== ENCOUNTER → 2021-10-27 | Outpatient (CLI) | payer MEDICARE ==
[2021-10-27 14:06] VITALS: BP 124/69; PULSE 76; RESP 14; TEMP 97.8
--- NOTE | 2021-10-27 14:31 | P.PAINPG ---
PQRS Measure Charge Sheet Comment: HISTORY OF PRESENT ILLNESS: 70 yr old male as a referral from [facility] presents today with severe and chronic secondary to for evaluation. Pain level is 8/10 in intensity but escalates as high as 10/10 when provoked. Received LESI's at Dr Padilla'jeremy which provided relief. PT last in 2013, home guided stretching regimen, PT integrated with massage therapy, chiropractic treatments as needed, medications (Tylenol, Neurontin), repositioning and rest. MRI without contrast of the lumbar spine to be completed on 11/04/[address] Huff's office. PMH: Asthma, CA, COPD, HTN, CRF Stage III, Pulmonary HTN, Thyroid Disorder, Sarcoidosis PSH: Hemorroidectomy, Bronchoscopy x 2. Bone Marrow Biopsy, Basal Cell CA Resection, LESIs, Colonoscopy SH: No tobacco use, Rare ETOH use, No illicit drug use. FH: Mother- CA All: See list Meds: See list REVIEW OF ORGAN SYSTEMS: CONSTITUTIONAL: No fevers or chills. No recent weight loss. NEUROLOGICAL: + numbness and tingling along the distal extremities. No seizure disorders or headaches. MUSCULOSKELETAL: + pain PSYCHIATRIC: Denies current depression or suicidal thoughts. Physical Examinations : Constitutional : Cooperative , not in acute distress . Neurologic : Cranial nerve II to XII intact. No focal neurological deficits. Psychiatric : alert & oriented x 3. Matching mood & appropriate affect. Judgment & insight intact. Musculoskeletal : Cervical Spine Motor strength in the deltoid and biceps: Normal right side. Normal Left side Motor strength biceps and the wrist extensors: Normal right side . Normal left side Motor strength in the triceps muscle: Normal right side. Normal left side Deep tendon reflexes: Normal at the biceps. Normal at Brachioradialis. Normal at triceps Vertebral body tenderness to deep palpation over Cervical facet loading test: positive bilaterally Spurling test: positive bilaterally Neck distraction test: positive bilaterally Mary sign: positive bilaterally Lumbar spine Motor strength lower extremities ,thigh and legs 5/5 Right side , 5/5 Left side Deep tendon reflexes : Normal Knee Jerk. Normal Ankle Jerk Vertebral body tenderness over Lumbar facet Loading Test: positive Right / positive Left Range of motion of the lumbar spine Flexion 30 degrees, extension 10 degrees Straight Leg Raise test: Left/ Right positive at degree Jalen test: positive right / positive left. Severe tenderness over the Sacroiliac joint on the Right / Left sides Gaenslen test: positive bilaterally Seated flexion test: positive bilaterally. Sacral spine : Severe tenderness over the Sacroiliac joint: right side / left side Range of motion: Flexion of the lumbar spine <60 degrees Range of motion: Extension of the lumbar spine <20 degrees Gaenslen's Test positive Oskar's Test positive Jalen test: positive right side / left side Thigh Thrust Test Sacral Thrust Test Imaging: MRI without contrast of the lumbar spine to be completed on 11/04/21 Assessment/ Plan : Lumbar DDD Pt stated he has an MRI scheduled in 1-2 weeks. He will follow up w Dr Huff for possible surgery. He may return to our office to explore additional treatment options within 4 weeks. Risks, benefits of procedure discussed and patient verbalized understanding. Denies aspirin or anti- coagulant use or medical history of diabetes. Protocol for discontinuation/ continuation of medications ratna procedure discussed. All questions answered. I have spent greater than 30 minutes on patient care today. Dr May was available by phone for the evaluation of this patient. The time was used to review the medical records including relevant urine studies and Prescription history (MAPs), review of the available imaging, evaluation and examination of the patient, coordination of care with the medical staff and if applicable referring physicians, as well as creation of the medical record - Pain Location Lower Back Non-Pharmacological Interventions: Chiropractic Treatment, Exercise, Home Exercise, Massage, Physical Therapy, Sitting, Stretching Pharmacological Interventions: PRN Medication, Prophylactic Medication PQRS Narrative: Smoking Status Never smoker Home Medications: Ambulatory Orders Doxycycline Hyclate [Vibramycin] 100 mg PO DAILY 06/13/16 Ipratropium-Albuterol Nebulize [Duoneb 0.5 mg-3 mg/3 ml Soln] 3 ml INHALATION RT-DAILY 06/13/16 Itraconazole Oral Susp [Sporanox Oral Susp] 10 mg PO W/SUPPER 06/13/16 Levothyroxine Sodium [Synthroid] 25 mcg PO DAILY 06/13/16 Loratadine-Pseudoeph 10-240 mg [Claritin-D 24 Hour] 1 tab PO W/SUPPER 06/13/16 Montelukast [Singulair] 10 mg PO W/SUPPER 06/13/16 Omeprazole 20 mg PO HS 02/27/17 allopurinoL [Zyloprim] 100 mg PO W/SUPPER 06/13/16 predniSONE 5 mg PO W/SUPPER 06/13/16 Spironolactone-Hctz 25-25Mg [Aldactazide 25-25 MG] 1 tab PO DAILY 06/26/17 Albuterol Inhaler [Ventolin Hfa Inhaler] 2 puff INHALATION RT-Q6H PRN 03/25/21 Ergocalciferol [Vitamin D2 (1250 Mcg = 78957 Iu)] 50,000 unit PO Q14D 03/25/21 Sildenafil [Revatio] 20 mg PO TID 03/25/21 Losartan Potassium 50 mg PO DAILY 06/05/21 Controlled Substance Measures - Controlled Substance Measures Is patient prescribed a controlled substance at discharge?: No
== END ==
LOC: PNWHC3 13:12
PROVIDERS: ATTEND Specialist
DX: M48.061 Spinal stenosis, lumbar region without neurogenic claudication (principal); M51.16 Intervertebral disc disorders with radiculopathy, lumbar region; J44.9 Chronic obstructive pulmonary disease, unspecified; I12.9 Hypertensive chronic kidney disease with stage 1 through stage 4 chronic kidney disease, or unspecified chronic kidney disease; N18.30 Chronic kidney disease, stage 3 unspecified; Z88.9 Allergy status to unspecified drugs, medicaments and biological substances; Z88.1 Allergy status to other antibiotic agents; Z91.041 Radiographic dye allergy status; Z91.030 Bee allergy status; Z88.6 Allergy status to analgesic agent; Z88.5 Allergy status to narcotic agent; Z88.8 Allergy status to other drugs, medicaments and biological substances
CPT/HCPCS: 99211

== ENCOUNTER → 2021-11-04 | Outpatient (CLI) | payer MEDICARE ==
--- NOTE | 2021-11-04 14:09 | MR ---
EXAMINATION TYPE: MR lumbar spine wo con DATE OF EXAM: 11/04/2021 COMPARISON: Lumbar spine radiograph 02/21/2021. HISTORY: LBP, LLE radiculopathy, prior surgery 2016. TECHNIQUE: Multiplanar, multisequence images of the lumbar spine were acquired without IV contrast. Findings: Dextroscoliosis of the lumbar spine. Straightening of the lumbar spine. Lumbar segments are intact. No paraspinal masses are identified. Conus medullaris has a normal appearance. Multilevel disc desic cation is present. T11-T12: Posterior disc osteophyte complex with mild effacement of the right aspect of the anterior t hecal sac. No evidence for disc herniation. Foramina are patent bilaterally. T12-L1: No herniation, protrusion or disc bulging. No canal stenosis is present. Foramina are rocha nt bilaterally. L1-L2: No herniation, protrusion or disc bulging. No canal stenosis is present. Foramina are patent bilaterally. L2-L3: Broad-based disc bulge with ligamentum flavum buckling and arthropathy contributing to moderat e to severe spinal canal stenosis. Severe bilateral neural foraminal stenosis. L3-L4: Broad-based disc bulge with moderate effacement of anterior thecal sac. Ligamentum flavum fox ling and facet arthropathy demonstrated. Severe left neural foraminal stenosis. The right neural fora men is patent. L4-L5: Central disc protrusion with left subarticular extrusion caudally approximately 8 mm superimpo sed upon broad-based disc bulge. Facet arthropathy and ligamentum flavum buckling demonstrated. Moder ate spinal canal stenosis at this level. Severe right neural foraminal stenosis. The left neural fora men is patent. L5-S1: Broad-based disc bulge with mild effacement of the anterior thecal sac. Ligamentum flavum fox ling with facet arthropathy and a straight. There is severe bilateral neural foraminal stenosis. IMPRESSION: * L4-L5 disc extrusion with moderate spinal canal stenosis and severe right neural foraminal stenosi s. * Multilevel disc bulges and facet arthropathy with moderate to severe spinal canal stenosis at L2-L 3 with severe bilateral neural foraminal stenosis, moderate spinal canal stenosis at L3-L4 with assoc iated severe left neural foraminal stenosis, and severe bilateral neural foraminal stenosis at L5-S1
== END | disposition home or self-care (01) ==
LOC: RADMRIMAIN 10:37
PROVIDERS: ATTEND Orthopaedic Surgery
DX: M47.896 Other spondylosis, lumbar region (principal); M54.16 Radiculopathy, lumbar region; M62.81 Muscle weakness (generalized); M48.061 Spinal stenosis, lumbar region without neurogenic claudication
CPT/HCPCS: 72148

== ENCOUNTER → 2021-11-11 | Outpatient (CLI) | payer MEDICARE ==
[2021-11-11 08:27] VITALS: BP 133/79; PULSE 82; RESP 18; TEMP 98.6
--- NOTE | 2021-11-11 14:31 | P.PAINPG ---
PQRS Measure Charge Sheet Comment: A 70 yr old male with a history of severe and chronic low back pain x 10 yrs secondary to disc bulges, spinal stenosis, BL neuroforaminal stenoses with facet arthropathy presents today for MRI results. Pain level is 1/10 8/10 w standing or walking. Pain is constant, burning throbbing towards the BLEs. Pain is provoked by standing/walking for periods of 10 min or more. Pain is alleviated with massage therapy in 2013, chiropractic treatments in October, medications (Neurontin, Tylenol), sitting/laying supine, repositioning and rest. Interventional pain procedures completed include LESIs x 4 in 2013 Patient is currently on Neurontin, Tylenol OTC Patient denies any side effects of the medication(s), denies excessive drowsiness or sleepiness, denies suicidal ideation and reports that the current pain medication is helping to control the pain and improve activities of daily living. Patient denies any motor or sensory deficits. Patient denies any fever or night sweats, denies any change in the bowel movements or urination. Physical Examination: -Constitutional: Cooperative. Not in acute distress . - Neurologic: Cranial nerve II to XII intact. No focal neurological deficits. - Psychatric: Alert & oriented x 3. Matching mood & appropriate affect. Judgment and insight intact. - Musculoskeletal: Cervical spine: Muscle bulk/ tone/ strength in the bilateral upper extremities normal Vertebral body tenderness to palpation over Spurling test positive Distraction test positive Facet loading test positive Thoracic spine Muscle bulk / tone/ strength in the bilateral paraspinal muscles normal Vertebral body tender to palpation over Facet loading test positive Lumbar spine: Motor bulk/ tone/ strength lower extremities , thigh and legs : 5/5 Deep tendon reflexes : Normal Knee Jerk. Normal Ankle Jerk . Vertebral body tenderness to palpation over L4 Lumbar Facet Loading Test positive Straight Leg Raise: positive at 30 degrees right side/ left side Gaenslen's Test positive Sacral spine : Severe tenderness over the Sacroiliac joint: right side / left side Range of motion: Flexion of the lumbar spine <60 degrees Range of motion: Extension of the lumbar spine <20 degrees Gaenslen's Test positive Oskar's Test positive Jalen test: positive right side / left side Thigh Thrust Test Sacral Thrust Test Imaging: MRI without contrast of the lumbar spine from 11/04/21 reviewed Assessment and plan: Chronic low back pain secondary to lumbar degenerative disc disease , lumbar spondylosis with facet arthropathy without myelopathy Recommendation of LESI L4-L5. May need a series of injections, up to 3 within a 6 mo period, for optimal pain relief. Risks, benefits of procedure discussed and pt verbalized understanding. Denies anticoagulant use or medical history of diabetes. All patient questions answered MAPS reviewed and it was appropriate. I have spent less than 30 minutes on patient care today. Dr May was available by phone for the evaluation of this patient. The time was used to review the medical records including relevant urine studies and Prescription history (MAPs), review of the available imaging, evaluation and examination of the patient, coordination of care with the medical staff and if applicable referring physicians, as well as creation of the medical record PQRS Narrative: Smoking Status Never smoker Hx Alcohol Use (MH) No Home Medications: Ambulatory Orders Doxycycline Hyclate [Vibramycin] 100 mg PO DAILY 06/13/16 Ipratropium-Albuterol Nebulize [Duoneb 0.5 mg-3 mg/3 ml Soln] 3 ml INHALATION RT-DAILY 06/13/16 Itraconazole Oral Susp [Sporanox Oral Susp] 10 mg PO W/SUPPER 06/13/16 Levothyroxine Sodium [Synthroid] 25 mcg PO DAILY 06/13/16 Loratadine-Pseudoeph 10-240 mg [Claritin-D 24 Hour] 1 tab PO W/SUPPER 06/13/16 Montelukast [Singulair] 10 mg PO W/SUPPER 06/13/16 Omeprazole 20 mg PO HS 06/13/16 allopurinoL [Zyloprim] 100 mg PO W/SUPPER 06/13/16 predniSONE 5 mg PO W/SUPPER 06/13/16 Spironolactone-Hctz 25-25Mg [Aldactazide 25-25 MG] 1 tab PO DAILY 06/26/17 Albuterol Inhaler [Ventolin Hfa Inhaler] 2 puff INHALATION RT-Q6H PRN 03/25/21 Ergocalciferol [Vitamin D2 (1250 Mcg = 42797 Iu)] 50,000 unit PO Q14D 03/25/21 Sildenafil [Revatio] 20 mg PO TID 03/25/21 Losartan Potassium 50 mg PO DAILY 06/05/21 Controlled Substance Measures - Controlled Substance Measures Is patient prescribed a controlled substance at discharge?: No
== END | disposition home or self-care (01) ==
LOC: PNWHC3 07:50
PROVIDERS: ATTEND Specialist
DX: M47.896 Other spondylosis, lumbar region (principal); M51.36 Other intervertebral disc degeneration, lumbar region
CPT/HCPCS: 99211

== ENCOUNTER → 2022-01-13 | Outpatient (CLI) | payer MEDICARE ==
[2022-01-13 13:51] LABS: Creatinine,Urine Random 110.6 mg/dL; Protein/Creatinine Ratio,Urine 0.307
[2022-01-13 18:34] LABS: Basophils # (A) 0.01 X 10*3/uL (0.00-0.10); Basophils % (A) 0.1 %; Eosinophils # (A) 0.01 X 10*3/uL (0.04-0.35); Eosinophils % (A) 0.1 %; HCT 40.3 % (39.6-50.0); HGB 13.2 g/dL (13.0-17.0); Immature Grans, Automated 0.9 %; Lymphocytes # (A) 0.48 X 10*3/uL (0.90-5.00); Lymphocytes % (A) 6.3 %; MCH 31.1 pg (27.0-32.0); MCHC 32.8 g/dL (32.0-37.0); MCV 94.8 fL (80.0-97.0); Mean Platelet Volume 10.5 fL (9.5-12.2); Monocytes # (A) 0.28 X 10*3/uL (0.20-1.00); Monocytes % (A) 3.7 %; NRBC Per 100 WBC 0 /100 WBCS (0.0-0.0); Neutrophils # (A) 6.77 X 10*3/uL (1.80-7.70); Neutrophils % (A) 88.9 %; Platelet Count 248 X 10*3/uL (140-440); RBC 4.25 X 10*6/uL (4.40-5.60); RDW 13.3 % (11.5-14.5); WBC 7.62 X 10*3/uL (4.50-10.00)
[2022-01-13 18:37] LABS: % Iron Saturation 20.93 (15.00-50.00); African American GFR (CKD) 51.1 (60.0-200.0); Anion Gap 12.7 mmol/L (10.00-18.00); BUN/Creat Ratio 17.29 Ratio (12.00-20.00); Blood Urea Nitrogen 26.8 mg/dL (9.0-27.0); Calcium 9.3 mg/dL (8.7-10.3); Carbon Dioxide 25.2 mmol/L (20.0-27.5); Non-African American GFR(CKD) 44.1 (60.0-200.0); Phosphorus 3.8 mg/dL (2.4-5.1); Potassium 4.7 mmol/L (3.5-5.5); Uric Acid 7.1 mg/dL (3.7-8.7)
[2022-01-13 19:00] LABS: Albumin 4.1 g/dL (3.8-4.9)
[2022-01-13 19:07] LABS: INR 0.97 (0.90-1.11); Prothrombin Time 10.7 sec (9.9-11.9)
[2022-01-13 20:34] LABS: Appearance,Urine Clear (Clear); Bilirubin,Urine Negative (Negative); Blood,Urine Negative (Negative); Color,Urine Yellow (Yellow); Ketones,Urine Negative (Negative); Nitrite,Urine Negative (Negative); Specific Gravity,Urine 1.018 (1.001-1.030); Urobilinogen,Urine 0.2 (0.2,1.0)
== END | disposition home or self-care (01) ==
LOC: LABWHC1 11:53
PROVIDERS: ATTEND Family Medicine
DX: Z01.818 Encounter for other preprocedural examination (principal); Z01.812 Encounter for preprocedural laboratory examination; E55.9 Vitamin D deficiency, unspecified; N18.30 Chronic kidney disease, stage 3 unspecified; D63.1 Anemia in chronic kidney disease; N25.81 Secondary hyperparathyroidism of renal origin; M10.9 Gout, unspecified; N39.0 Urinary tract infection, site not specified; R50.9 Fever, unspecified
CPT/HCPCS: 36415; 80048; 81001; 82040; 82306; 82570; 82728; 83540; 83550; 83735; 83970; 84100; 84156; 84550; 85025; 85610

== ENCOUNTER → 2022-01-24 | Outpatient (CLI) | payer MEDICARE | END | disposition home or self-care (01) | LOC: LABPAT 09:05 | PROVIDERS: ATTEND Orthopaedic Surgery | DX: Z01.812 Encounter for preprocedural laboratory examination (principal); Z01.818 Encounter for other preprocedural examination; Z22.322 Carrier or suspected carrier of Methicillin resistant Staphylococcus aureus; M48.062 Spinal stenosis, lumbar region with neurogenic claudication | CPT/HCPCS: 87070 ==

== ENCOUNTER 2022-02-01 05:33 | Inpatient (IN) | payer MEDICARE ==
[2022-01-28 15:47] VITALS: BMI 21.7
--- NOTE | 2022-01-31 08:24 | P.HPOR ---
History of Present Illness H&P Date: 01/24/22 .D:Date: 01/24/22 : 08:25am .T:Title: [facility] History and Physical Date of :[birth year] Age: 70 year Height: 5'10" Weight: 152 lbs BMI: 21.81 kg/m2 Occupation: Retired VAS: 8 CHIEF COMPLAINT: Lumbar pain DOI: None DOS: None Duration of current treatment regiment: 5 months HISTORY: Xrays No new xrays taken in office Trauma or injury No Work-Related No Pain description aching, sharp. Location lateral Patient notes that their pain radiates to left lower extremity Activity Modification yes Hand Dominance right TREATMENTS COMPLETED: 6 weeks of PT completed? Month and Year of last PT date? 2012, 2013. No , has done prior rounds in 2012 and 2013 with mild relief of his pain. Physician recommended home exercise completed? Duration of HEP course: Current yes Patient has trialed the physician directed home exercise program for (without) relief of their symptoms. Medications yes List: Tylenol and Columbia with mild relief. Has completed prior Medrol Dosepak in 07/2021 without relief. Gabapentin 300mg without relief. Alternative interventions Chiropractic: yes, in 2012 without relief. Massage therapy: No R.I.C.E: yes Brace: No Injections Yes (lumbar PAGE through [facility]) How many? 4 Did they help? RFA: No SUBJECTIVE: Mr. Barakat returns to the office for a recheck of their low back pain. Patient reports a no changes to his symptoms since his last appointment. Patient continues to complain of low back pain as well as bilateral lower extremity radiculopathy and right lower extremity weakness. Overall the patient has seen a progressive increase in symptoms since their onset. Mr. Barakat symptoms are exacerbated with any standing and ambulation, due to this they notes that it is increasingly difficult for Mr. Barakat to complete many of their daily tasks. Patient is having severe sleep disturbances as well due to their ongoing pain and associated symptoms. Regarding treatments, the patient has previously trialed all abovementioned treatment modalities without relief. Patient denies trialing any other modalities at this time. Otherwise the patient denies any f/c/sob/cp, no incision concerns, no bladder or bowel retention/incontinence, no perineal numbness/tingling, and ambulates independently. HPI: Mr. Barakat last presented to the office on 11/17/2021 for a MRI recheck of his low back. Since the time of the last appointment the patient reports continued aching, sharp lumbar pain ongoing for several years with no known injury or trauma to indicate an exact onset of their symptoms. In addition to their lumbar pain, they do report that it radiates into the left lower extremity, associated with numbness and tingling through the leg diffusely. Overall the patient has seen a progressive increase in symptoms since their onset. Mr. Barakat symptoms are exacerbated with most ADL's, due to this they notes that it is increasingly difficult for Mr. Barakat to complete many of their daily tasks. Patient is having moderate sleep disturbances as well (due to their ongoing pain and associated symptoms). Regarding treatments, the patient has previously trialed all abovementioned treatment modalities without any relief of his symptoms. Patient denies trialing any other modalities at this time. For their symptoms, the patient has been taking Gabapentin 300mg, Tylenol OTC, Columbia, Medrol Dosepak, and Prednisone all without relief of his symptoms. Overall he denies any improvements to his condition with all conservative modalities trialed thus far. Otherwise the patient denies any f/c/sob/cp, no incision concerns, no bladder or bowel retention/incontinence no perineal numbness/tingling, and ambulates independently. Mr. Barakat presents to the office on 10/19/2021 for an evaluation of his low back pain. At previous visit patient was prescribe gabapentin. Patient states that this medication is causing dizziness which resulted in him falling. Patient reports no changes in his symptoms of his lower back. Patient does request for a consult to PM&R for possible injections. He states he does not want to try any more medications at this time. Otherwise the patient denies any f/c/sob/cp, no incision concerns, no bladder or bowel retention/incontinence no perineal numbness/tingling, and ambulates independently. Mr. Barakat presents to the office 10/13/2021 for an evaluation of his low back pain. Patient reports an aching, sharp lumbar pain ongoing for 9 years with no known injury or trauma to indicate an exact onset of their symptoms. In addition to their lumbar pain, they do report that it radiates into the left lower extremity, associated with numbness and tingling through the left lower extremity diffusely. Overall the patient has seen a progressive increase in symptoms since their onset. Mr. Barakat symptoms are exacerbated with prolonged standing, ambulation, weightlifting, and most ADL's, due to this they notes that it is increasingly difficult for Mr. Barakat to complete many of their daily tasks. Patient is having moderate sleep disturbances as well due to their ongoing pain and associated symptoms. Regarding treatments, the patient has previously trialed formal PT in 2012 and 2013, Chiropractics in 2012, a physician recommended home exercise program, 4 prior lumbar PAGE's, and RICE all without relief of his symptoms. Patient denies trialing any other modalities at this time. For their symptoms, the patient has been taking Tylenol and Columbia with mild relief. He did also trial a Medrol Dosepak in 07/2021 without relief of his symptoms. Otherwise the patient denies any f/c/sob/cp, no incision concerns, no bladder or bowel retention/incontinence no perineal numbness/tingling, and ambulates independently. The patients' past social, medical, family, surgical history, as well as review of systems, have been reviewed. Please refer to the Neurosurgery History and Physical form that has been scanned in to our electronic medical record system. 16 points review of systems completed and as stated in HPI, all other systems reviewed are negative. Social History: Reviewed, see appropriate section of the chart for details. P3 Social History: Smoking: never a smoker P3 Alcohol: rare alcohol P3 Family History: Reviewed, see appropriate section of the chart for details. P2 Past Medical History: Reviewed, see appropriate section of the chart for details. [id number] Medications: Rx: levothyroxine 25 mcg tablet Ref: 0 Exam repeated changes noted below PHYSICAL EXAMINATION: General: Awake, alert, appropriate for age, in no acute distress. HEENT: No unusual neck masses around region of lateral neck triangle, thyroid, supraclavicular groove Heart: Regular rate and rhythm, normal S1, S2 and no murmur/gallop. Lungs: Clear to auscultation bilaterally with no use of accessory muscles. Extremities: Skin warm and dry without acute lesions, coloration, temperature, skin intact, no tenderness or erythema Integument: Hairy patches: ABSENT Dorsal skin dimples: ABSENT Cafe au lait spots: ABSENT Surgical incisions: NONE Palpation: Please see Pain drawing on Intake sheet for further detail. Midline spinal tenderness: No E6 Cervical Tenderness: No E6 Paralumbar tenderness: Yes E6 Parathoracic tenderness: No E6 Buttocks tenderness: No E6 Sacroiliac Tenderness: No POSTURAL and MUSCULO-SKELETAL EVALUATION: Coronal Balance: NEUTRAL Recumbent testing: Patient is able to lay flat on back Sagittal Balance: NEUTRAL Shoulder Profile: left shoulder sits higher than right Pelvic Girdle: left hip sits higher than right Neck ROM: RESTRICTED Lumbar ROM: RESTRICTED Shoulder ROM: Symmetrical Hip ROM: Symmetrical Knee ROM: Symmetrical Hands: Normal appearance, symmetrical Feet: Normal appearance, Symmetrical VASCULAR STATUS : LEFT RIGHT Wrist Pulses INTACT INTACT Pedal Pulses (Dors. pedis & post.tibialis) INTACT INTACT Color NORMAL NORMAL Edema Absent Absent NEUROLOGIC EXAMINATION: Mental Status:Awake and alert, fully oriented, with normal attention, concentration and memory, and fluent, appropriate speech. Cranial Nerves: I: Olfactory not tested. II: Visual acuity normal, no visual field deficit noted with confrontation. III,IV: Normal pupillary reflexes & intact extraocular movements without nystagmus. V,: Intact symmetrical facial sensation. VII: Intact symmetrical facial motor movement VIII: Hearing intact. IX,X: Intact gag, swallow, & normal voice. XI: Sternocleidomastoid, trapezius function intact. XII: Tongue midline with normal movements. L'hermitte's Sign: Negative / absent Spurling'Sign: Absent bilaterally. Cubital percussion test: Absent bilaterally. Jose-Tinel sign - Carpal region: Absent bilaterally. Straight Leg Raising: Absent bilaterally. Crossed straight leg raise: negative O8 MOTOR EXAM (0-5/5, N/T) UPPER EXTREMITY Shoulder Abduction Biceps Triceps Wrist Extension Hand Intrinsics Ruffler Right 5/5 5/5 5/5 5/5 5/5 5/5 Left 5/5 5/5 5/5 5/5 5/5 5/5 LOWER EXTREMITY Hip Flexion Knee Extension Knee Flexion DF PF EHL FHL Right 5/5 5/5 5/5 5/5 5/5 5/5 5/5 Left 4/5 4/5 4/5 2/5 2/5 3/5 3/5 REFLEXES(0-4/2, NT)Upper ExtremityLower Extremity Right 2 2 Left 2 2 Pathological Reflexes RIGHT LEFT Jose's Absent Absent Clonus Absent Absent Babinski Absent Absent # Indicates mechanical impairment Muscle appearance: Muscle wasting and atrophy of the left calf muscle present Sensory system (0-4, N/T) Test type RU JANE RL LL Joint-Position 2 2 2 2 Vibration 2 2 2 2 Pain & LT sense 2 2 2 2 Dermatomal Deficit: None None None None Gait and Functional Evaluation: Ambulatory aids: Independent Romberg's test: Intact bilaterally Toe heel walk / heel-toe walk intact while maintaining satisfactory balance? No Squatting/straightening w/o assistance to a min of 60 degree knee flexion? No Single leg stance: intact Trendelenburg sign negative bilaterally Hand and finger dexterity intact bilaterally? yes Disdiadochokinesis examination negative bilaterally? yes RADIOGRAPHIC STUDIES: XRay taken on 10/13/21 of Lumbar Spine and Pelvis: Severe spondylosis noted L2-S1 with flattening of the normal LL to around 23 deg with PI around 56 deg. There is disc collapse, osteophyte formation as well as facet arthropathy and overgrowth contributing to spondylotic changes. No overt instability noted. There is some retrolistheis of L5-S1 due to vacuum disc phenomena. Pelvis shows no fracture and is congruent. MRI from 11/04/2021 of Lumbar Spine: IMages reviwed with the pt. Ther eis severe spondylosis with disc collapse, height loss, facet overgrowth, hypertrophy and ligamental hypertrophy from L2-S1 all contributing to severe stenosis from L2-S1 centrally and b/l foraminal stenosis related to these findings as well. LL is decreased due to these findings to about 25 deg and PI arund 56 deg. There are severe modic changes at all these levels as well due to the severe spondylotic changes. Boggy facets at each level with retrolisthesis L5-S1 as well as L2-3 and L3-4. NO fractures noted at this time other than likley old L3 superior endplate fracture that is healed. No lesions noted. IMPRESSION: It was my pleasure to have seen and examined Alec. I reviewed the patient's clinical syndrome, physical findings, and imaging studies during the appointment today. It is my impression that the patient has a diagnosis of. 1. L2-S1 spondylosis with severe stenosis central and foraminal 2. Severe spondylosis L2-S1 with vacuum disc L5-S1 3. LLE weakness, progressive with b/l LE radiculopathy 4. Neurogenic claudication 5.Mechanical low back pain I outlined the natural course history without intervention and various interventional options. PLAN: Based on my findings I suggest the following course of action: I discussed treatment options with the patient, including operative and non- operative options, and they have elected to proceed with the following surgical procedure: lumbar (L2-Pelvis) Decompression with posterolateral and interbody fusion The indications, risks, benefits, and alternatives to surgery were discussed with the patient at length. Specifically (but not limited to) the risks of infection, stiffness, recurrence of symptoms, need for revision surgery, local numbness, neurovascular injury, and blood clots were discussed. The patient's questions were answered. The decision to proceed was made. Consent will be obtained for the procedure. - Advised patient to continue with supplements, health maintenance, and home exercise programs. Patient expressed understanding and will continue with these modalities. Spine Surgery Risk Review Mr. Barakat is presenting for evaluation of low back pain. It was my pleasure to have seen and examined Mr. Barakat. In our visit today we have had a chance to go over subjective complaints, physical examination findings and treatments including the natural course history without intervention and various interventional options. The patients imaging demonstrates: XRay taken on 10/13/21 of Lumbar Spine and Pelvis: Severe spondylosis noted L2-S1 with flattening of the normal LL to around 23 deg with PI around 56 deg. There is disc collapse, osteophyte formation as well as facet arthropathy and overgrowth contributing to spondylotic changes. No overt instability noted. There is some retrolistheis of L5-S1 due to vacuum disc phenomena. Pelvis shows no fracture and is congruent. MRI from 11/04/2021 of Lumbar Spine: IMages reviwed with the pt. Ther eis severe spondylosis with disc collapse, height loss, facet overgrowth, hypertrophy and ligamental hypertrophy from L2-S1 all contributing to severe stenosis from L2-S1 centrally and b/l foraminal stenosis related to these findings as well. LL is decreased due to these findings to about 25 deg and PI arund 56 deg. There are severe modic changes at all these levels as well due to the severe spondylotic changes. Boggy facets at each level with retrolisthesis L5-S1 as well as L2-3 and L3-4. NO fractures noted at this time other than likley old L3 superior endplate fracture that is healed. No lesions noted. On physical exam, Mr. Barakat demonstrates severely restricted lumbar ROM with bilateral lower extremity radiculopathy and significant right lower extremity weakness. Patient does have impacted gait due to his symptoms and frequently feels unstable. I have explained to the patient that as their condition progresses it will cause further neurological deficits and eventual paralysis. Based on the patients imaging, physical exam, and the rapid progression and disabling nature of their symptoms, at this time I recommend surgery in the form or a: lumbar (L2-Pelvis) Decompression with posteriolateral and interbody fusion. I discussed the risk and benefits of this procedure at length with Mr. Barakat. The patient and his significant other agreed to considered pursuing the procedure abovementioned. Prior to surgery, she should follow up with her PCP (Cardio, ID, IM etc) for clearance. Questions were invited and answered, and the patient wishes to proceed as outlined below. Currently, I am recommendin.lumbar (L2-Pelvis) Decompression with posterolateral and interbody fusion 2.Follow up with PCP for surgical clearance 3.Review of surgical risks and benefits as well as an educational packet on the proposed surgical procedure. Risks: All surgical procedures come with inherent risks, including those related to positioning, anesthesia, intraoperative findings, and postoperative complications. It is important to understand that surgery does not come with any guarantee of a successful outcome as complications and adverse events are always possible. The patient was given a handout in office today discussing the surgical procedure and risks associated with the intervention, both of which were discussed with the patient. These risks include but are not limited to the following: * Experiencing same, different or even worse symptoms in back, neck, arms, or legs compared to before surgery. Requiring further surgery or other forms of treatment presently or at some time in the future at same or other levels of the intended spine surgery. On an extreme but fortunately relatively rare basis severe complication such as blindness, stroke, heart attack, temporary and/or permanent nerve injury, paralysis, coma, or may occur, sometimes without known explanation. Surgical complications may include but are not limited to risk of infection, fluid accumulation in the surgical dissection site, including a seroma or hematoma, that requires additional surgery, wound drainage, bleeding, new numbness or weakness, vision changes/loss, spinal fluid leakage, non-healing and/or infected incision, headaches, difficulty or inability to swallow, hoars eness, hemopneumothorax, pneumothorax, impotence, retrograde ejaculation, vaginal dryness; injury to nerves, spinal cord, blood vessels, lymphatics or other vital organs (i.e., bowel injury, injury to the great vessels); heterotopic bone formation; complications related to the hardware such as screws, rods, cages including misplaced hardware, device failure, instrumentation at the wrong spine level, hardware fracture/breakage, or hardware loosening; vertebral failure of the spinal column above or below the newly placed hardware; retained surgical instrumentations or devices and the need for further surgery. * Medical risks of the planned spine surgery include but are not limited to generalized Infections to the whole body or local areas outside of the surgical site (sepsis), heart attack, bleeding, anaphylaxis, meningitis, seizure, epilepsy, hearing loss, burn eastman, laceration of the head or other areas of the body, bruising, hypersensitivity of the skin, bladder over distension; allergic reaction; shoulder injury related to positioning; fat, blood and air clots to other areas of the body like heart, lungs, brain; failure of internal organs such as lungs, kidneys, liver and excessive bleeding. If blood transfusions are necessary, note that transfusions may cause intolerance reactions such as anaphylaxis or other complex reactions. Despite best efforts, the results of spine surgery might not heal in terms of bone, soft tissues such as skin, fascia, ligaments, and joints. Additionally, in order to achieve best possible results, spine surgery may be carried out beyo nd the initially planned levels and involve decompression, fusion including insertion of hardware at levels other than the original intended area of surgical interest change some portions of the procedure in order to ensure the best possible outcomes. With spine surgery and spinal fusion, there are different off label uses of instrumentation (devices, implants and hardware) as well as biological substances (bone morphogenic proteins, demineralized bone matrix) as well as using extra bone from allograft sources (i.e. cadaver bone) or autograft (iliac crest bone, ribs, or the spine itself). The patient has been given information about these practices and their inherent risks and benefits. [facility] is an educational center that serves as a training facility for neurosurgical and orthopedic REGISTERED PHARMACY TECHNICIAN and Nursing students. Physician assistants are medically trained surgical providers who function in the outpatient, inpatient, and operating room setting under the direct supervision of the attending surgeon. [facility] has multiple operating rooms with single and overlapping rooms running daily. They currently function under the required guidelines as produced by the [facility] with regards to the overlapping rooms and will continue to comply with changes to this policy as they occur. The requirements include and are complied with as follows: (1) the critical portions of the overlapping rooms will not occur at the same time, (2) the attending physician will be physically present during the critical portions of the procedure and immediately available during the entire case, and (3) a back-up attending is designated should the primary attending not be immediately available. The patient has had a chance to review all the listed information, has been given print outs detailing this information, and has had all his/her questions answered to their satisfaction. It was my pleasure to have seen and examined Mr. Barakat. In our visit today we have had a chance to go over my understanding of our patient's current condition, the natural course history without intervention and various interventional options. Questions were invited and answered, and the patient wishes to proceed as outlined above. I have seen and examined the patient for 25 minutes and we have spent more than 50% of the time in repeat and detailed counseling about the patient's condition, its natural course history with out and as much as can be predicted with surgery and re-review of various surgical treatment options. In conclusion, Mr. Barakat requested we proceed with the above suggested surgery and are willing to accept risks and limitations of the suggested surgery as nature of the disease process and our best attempts at treatment for the c ondition. Thank you again for allowing us to be part of your patient's care. Please don't hesitate to contact me if you have any further questions. Signed and authenticated by: [employer] P:\\\\ppart\\\\[id number]\\\\[id number]\\[id number].PNG \\aureliano Huff DO [facility] Complex and Minimally Invasive Spine Surgery [address] [place], [place] [id number] Follow-up: 2 weeks post-op Patient Education: (Informational booklet, instructions, etc) given at today's appointment: Yes .ED:Patient Education: Y Plan at next visit: review progress and MRI Medications Reviewed: YES In our visit today Mr. Barakat and I have had a chance to go over my understanding of the patient's current condition, the natural course history without intervention and various interventional options. Questions were invited and answered, and the patient wishes to proceed as outlined above. I will be sure to keep you updated afterMr. Barakat returns here for further follow-up. Thank you again for your referral. Please do not hesitate to contact me if you have any further questions. Signed and authenticated by: lC Huff DO [facility] Complex and Minimally Invasive Spine Surgery [address] [place] [address] This message is confidential, intended only for the named recipient(s) and may contain information that is privileged or exempt from disclosure under applicable law. If you are not the intended recipient(s), you are notified that the dissemination, distribution or copying of this information is strictly prohibited. If you received this message in error, please notify the sender then delete this message. Patient verbalizes understanding of the information discussed. The above note was initiated by Cl Watson, physician recording emergency room physician assistant for Dr. Cl Huff. This note has been reviewed by Dr. Huff, who has made his personal changes and impressions for this document. CC: Vinicio Vidal M.D # SIGNED BY Cl Huff ([facility])01/31/2022 08:23AM Past Medical History Past Medical History: Asthma, Cancer, COPD, Hypertension, Osteoarthritis (OA), Renal Disease, Respiratory Disorder, Thyroid Disorder Additional Past Medical History / Comment(s): SARCOIDOSIS, LUNG FUNGAL INFECTION, PULMONARY HYPERTENSION,SKIN CANCER, STAGE 3 CHRONIC KIDNEY DISEASE. History of Any Multi-Drug Resistant Organisms: None Reported Past Surgical History: Joint Replacement Additional Past Surgical History / Comment(s): HEMORROIDECTOMY, BRONCHOSCOPY X2, BONE MARROW BIOPSY, BASAL CELL LESION REMOVED, BACK PAIN INJECTIONS, COLONOSCOPY, RIGHT TOTAL KNEE REPLACEMANT. Past Anesthesia/Blood Transfusion Reactions: No Reported Reaction Past Psychological History: No Psychological Hx Reported Smoking Status: Never smoker Past Alcohol Use History: Rare Past Drug Use History: None Reported - Past Family History Mother Family Medical History: Cancer Medications and Allergies Home Medications Medication Instructions Recorded Confirmed Type Doxycycline Hyclate [Vibramycin] 100 mg PO DAILY 06/13/16 11/11/21 History Ipratropium-Albuterol Nebulize 3 ml INHALATION RT-DAILY 06/13/16 11/11/21 History [Duoneb 0.5 mg-3 mg/3 ml Soln] Itraconazole Oral Susp [Sporanox 10 mg PO W/SUPPER 06/13/16 11/11/21 History Oral Susp] Levothyroxine Sodium [Synthroid] 25 mcg PO DAILY 06/13/16 11/11/21 History Loratadine-Pseudoeph 10-240 mg 1 tab PO W/SUPPER 06/13/16 11/11/21 History [Claritin-D 24 Hour] Montelukast [Singulair] 10 mg PO W/SUPPER 06/13/16 11/11/21 History Omeprazole 20 mg PO HS 06/13/16 11/11/21 History allopurinoL [Zyloprim] 100 mg PO W/SUPPER 06/13/16 11/11/21 History predniSONE 5 mg PO W/SUPPER 06/13/16 11/11/21 History Spironolactone-Hctz 25-25Mg 1 tab PO DAILY 06/26/17 11/11/21 History [Aldactazide 25-25 MG] Albuterol Inhaler [Ventolin Hfa 2 puff INHALATION RT-Q6H PRN 03/25/21 11/11/21 History Inhaler] Ergocalciferol [Vitamin D2 (1250 50,000 unit PO Q14D 03/25/21 11/11/21 History Mcg = 06791 Iu)] Sildenafil [Revatio] 20 mg PO TID 03/25/21 11/11/21 History Losartan Potassium 50 mg PO DAILY 06/05/21 11/11/21 History Allergies Allergy/AdvReac Type Severity Reaction Status Date / Time nickel Allergy Unknown POSITIVE Verified 11/11/21 08:16 ON TESTING cephalexin Allergy Rash/Hives Verified 11/11/21 08:16 furosemide [From Lasix] Allergy Rash/Hives Verified 11/11/21 08:16 iodine Allergy Anaphylaxis Verified 11/11/21 08:16 shellfish derived [Shellfish] Allergy Anaphylaxis Verified 11/11/21 08:16 NSAIDS (Non-Steroidal AdvReac Unknown PT STATES Verified 11/11/21 08:16 Anti-Inflamma NO NSAIDS DUE TO KIDNEY DISEASE. 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 No significant issues noted on an osteopathic structural exam other than those noted in the History and Physical/Consult.
[~2022-02-01 05:33] MED LIST changes: -CLINDAMYCIN 900 MG in DEXTROSE 5% IN WATER 50 ML IVPB PRN; -DEXAMETHASONE SOD PHOSPHATE 4 MG/ML 1 ML VIAL IV ONE; +GABAPENTIN 300 MG CAP PO PRN; -HYDROmorphone 0.5 MG/0.5 ML SYRINGE IVP PRN; -LIDOCAINE 1% (10MG/ML) FOR IV START INTRADERMA PRN; -MIDAZOLAM 2 MG/2 ML VIAL IV PRN; -ONDANSETRON 4 MG/2 ML VIAL IVP ONE; -ONDANSETRON 4 MG/2 ML VIAL IVP PRN; -TRANEXAMIC ACID 1,000 MG in SODIUM CHLORIDE 0.9% 100 ML IVPB PRN; +TRANEXAMIC ACID IN NACL,ISO-OS 1,000 MG in SALINE 1 100ML.BAG IVPB PRN
[2022-02-01] MEDS ORDERED: ONDANSETRON 4 MG/2 ML VIAL IVP ONE (06:00)
[2022-02-01] MEDS ORDERED: DEXAMETHASONE SOD PHOSPHATE 4 MG/ML 1 ML VIAL IV ONE (06:00)
[2022-02-01] MEDS: LACTATED RINGERS 1,000 ML IV SCH (06:23)
--- NOTE | 2022-02-01 06:38 | P.PN ---
Progress Note - Text Progress Note Date: 02/01/22 History and Physical UPDATE I have seen and examined the patient and reviewed the history and physical. There appear to be no significant changes in the patient's current medical status as outlined in the current History and Physical.
[2022-02-01 06:49] LABS: Glucose,Whole Blood 92 mg/dL (70-110)
[2022-02-01] MEDS ORDERED: HYDROmorphone 0.5 MG/0.5 ML SYRINGE IVP PRN ×2 (07:00→14:51)
[2022-02-01] MEDS ORDERED: MIDAZOLAM 2 MG/2 ML VIAL IVP ONE (07:02)
--- NOTE | 2022-02-01 07:25 | P.ANPRN ---
Procedure Note - Anesthesia - Invasive Line Left Arterial Line Time Out Performed: Yes (0701) Date of Procedure: 02/01/22 Time of Procedure: 07:10 Location of Patient: PreOp Preparation: Sterile Prep, Sterile Dressing Arterial Line Location: Radial Ultrasound Used: No Purpose - Visualization and Identification of Vasculature: No Image Stored and Saved: No (20G 2.5 inch ) Narrative: Central line placement per sterile protocol utilized.
[2022-02-01] MEDS ORDERED: WATER FOR INJECTION, STERILE 10 ML VIAL IV ONE (07:34)
[2022-02-01] MEDS ORDERED: ROCURONIUM 10 MG/ML (5 ML VIAL) IV ONE (07:34)
[2022-02-01] MEDS ORDERED: PHENYLEPHRINE-0.9% NACL SYG 1,000 MCG/10 ML SYRINGE ONE (07:34)
[2022-02-01] MEDS ORDERED: ceFAZolin 1,000 MG VIAL ONE (07:34)
[2022-02-01] MEDS ORDERED: HYDROmorphone (PF) 1 MG/ML ONE (07:34)
[2022-02-01] MEDS ORDERED: ePHEDrine 50 MG/ML 1 ML VIAL ONE (07:34)
[2022-02-01] MEDS ORDERED: LIDOCAINE 2% INJ 20 MG/ML (2 ML VIAL) ONE (07:34)
[2022-02-01] MEDS ORDERED: MIDAZOLAM 2 MG/2 ML VIAL ONE (07:34)
[2022-02-01] MEDS ORDERED: PROPOFOL 10 MG/ML 20 ML VIAL IV ONE (07:34)
[2022-02-01] MEDS ORDERED: SODIUM CHLORIDE 0.9% 100 ML BAG ONE (07:34)
[2022-02-01] MEDS ORDERED: fentaNYL (PF) 50 MCG/ML 2 ML AMP ONE (07:34)
[2022-02-01] MEDS ORDERED: TRANEXAMIC ACID IN NACL,ISO-OS 1,000 MG/100 ML BAG ONE (07:34)
[2022-02-01] MEDS ORDERED: SUCCINYLCHOLINE CHLORIDE 200 MG/10 ML VIAL IV ONE (07:34)
[2022-02-01] MEDS ORDERED: THROMBIN (BOVINE) 5,000 UNIT VIAL TOPICAL ONE (07:39)
[2022-02-01] MEDS ORDERED: VANCOMYCIN 1,000 MG VIAL MISCELLANE ONE (07:39)
[2022-02-01] MEDS ORDERED: GELATIN SPONGE,ABSORB (LARGE) 1 EACH SPONGE TOPICAL ONE (07:39)
[2022-02-01] MEDS ORDERED: GENTAMICIN 40 MG/ML 2 ML VIAL IRRIGATION ONE (07:39)
[2022-02-01] MEDS ORDERED: ceFAZolin 3,000 MG in SODIUM CHLORIDE 0.9% IRRIGATIO 3,000 ML IRRIGATION ONE (08:50)
[2022-02-01] MEDS ORDERED: LACTATED RINGERS 1,000 ML IV ONE ×3 (09:30→16:45)
--- NOTE | 2022-02-01 14:36 | XR ---
EXAMINATION TYPE: XR lumbar spine 2 or 3V, FL guidance operating room DATE OF EXAM: 02/01/2022 Comparison: 02/21/2021 Clinical History: 71-year-old male LUMBAR FUSION Findings: Intraoperative fluoroscopy during extensive posterior and interbody lumbar fusion changes. Fusion ext ends down into the pelvis. FLUOROSCOPY Fluoroscopy time of 2 minutes 11 seconds was used during lumbar pelvic fusion. 8 image/s document/s the procedure. Impression: Intraoperative fluoroscopy as above.
[2022-02-01] MEDS ORDERED: HYDROmorphone 1 MG/ML 1 ML SYRINGE IVP PRN (14:51)
[2022-02-01] MEDS ORDERED: ALBUTEROL NEBULIZED 2.5 MG/3 ML INHALATION PRN (22:22)
--- NOTE | 2022-02-01 23:28 | CT ---
EXAMINATION TYPE: CT lumbar spine wo con DATE OF EXAM: 02/01/2022 COMPARISON: Lumbar spine 08/03/2021 HISTORY: Post L-spine Sx CT DLP: 1340.6 mGycm Automated exposure control for dose reduction was used. Images obtained from T12 to S3 vertebra with no contrast. There are multiple posterior skin jessica. There is extensive posterior soft tissue air from recent s urgery. There are rods and screws fusing posteriorly the lumbar spine from L2 to S1. Normal alignment. There is 15% wedging of L3 vertebra. There is disc prosthesis from L3 to S1. There is multilevel laminectomy defect. IMPRESSION: Recent postsurgical changes. Minimal compression fracture of L3 likely unchanged compared to old exam of 08/03/2021.
[2022-02-01] MEDS ORDERED: allopurinoL 100 MG TAB PO STA (23:51)
[2022-02-01] MEDS: PANTOPRAZOLE 40 MG TABLET PO SCH (23:56)
[2022-02-01] MEDS: predniSONE 5 MG TAB PO SCH (23:56)
[2022-02-01] MEDS: GABAPENTIN 300 MG CAP PO SCH (23:56)
[2022-02-01] MEDS: MONTELUKAST 10 MG TAB PO SCH (23:56)
[2022-02-02] MEDS: HYDROcodone/APAP 5-325MG 1 EACH TAB PO PRN (00:03)
[2022-02-02] MEDS: IPRATROPIUM-ALBUTEROL 3 ML NEB INHALATION SCH ×5 (00:33→20:16)
--- NOTE | 2022-02-02 02:22 | P.CONS ---
History of Present Illness - Reason for Consult Consult date: 02/01/22 post op medical eval - Chief Complaint chronic low back pain - History of Present Illness 71 year old male admitted for lumbar spine surgery , for chronic low back pain with pain radiating to LE, patient went through conservative measures with no improvement. he tolerated procedure well, no observed immediate post operative complications. denies any CHest pain , trouble breathing, abd pain , nausea or vomiting. patient has sarcoidosis , for which he is on low dose prednisone , inhalers. hypertension on losartan and diuretics. he denies tobacco smoking, illicit drugs, and alcohol Review of Systems Pertinent positives as noted in HPI. All other systems were reviewed and are negative Past Medical History Past Medical History: Asthma, Cancer, COPD, Hypertension, Osteoarthritis (OA), Renal Disease, Respiratory Disorder, Thyroid Disorder Additional Past Medical History / Comment(s): SARCOIDOSIS, LUNG FUNGAL INFECTION, PULMONARY HYPERTENSION,SKIN CANCER, STAGE 3 CHRONIC KIDNEY DISEASE. History of Any Multi-Drug Resistant Organisms: None Reported Past Surgical History: Joint Replacement Additional Past Surgical History / Comment(s): HEMORROIDECTOMY, BRONCHOSCOPY X2, BONE MARROW BIOPSY, BASAL CELL LESION REMOVED, BACK PAIN INJECTIONS, COLONOSCOPY, RIGHT TOTAL KNEE REPLACEMANT. Past Anesthesia/Blood Transfusion Reactions: No Reported Reaction Past Psychological History: No Psychological Hx Reported Smoking Status: Never smoker Past Alcohol Use History: Rare Past Drug Use History: None Reported - Past Family History Mother Family Medical History: Cancer Medications and Allergies Home Medications Medication Instructions Recorded Confirmed Type Doxycycline Hyclate [Vibramycin] 100 mg PO QAM 06/13/16 02/01/22 History Ipratropium-Albuterol Nebulize 3 ml INHALATION QA 06/13/16 02/01/22 History [Duoneb 0.5 mg-3 mg/3 ml Soln] Levothyroxine Sodium [Synthroid] 25 mcg PO QAM 06/13/16 02/01/22 History Montelukast [Singulair] 10 mg PO W/SUPPER 06/13/16 02/01/22 History Omeprazole 20 mg PO HS 06/13/16 02/01/22 History allopurinoL [Zyloprim] 50 mg PO W/SUPPER 06/13/16 02/01/22 History predniSONE 5 mg PO W/SUPPER 06/13/16 02/01/22 History Spironolactone-Hctz 25-25Mg 0.5 tab PO QAM 06/26/17 02/01/22 History [Aldactazide 25-25 MG] Albuterol Inhaler [Ventolin Hfa 2 puff INHALATION Q6H PRN 03/25/21 02/01/22 History Inhaler] Sildenafil [Revatio] 20 mg PO TID 03/25/21 02/01/22 History Losartan Potassium 25 mg PO QAM 06/05/21 02/01/22 History Loratadine Oral Soln [Claritin 5 mg PO HS 01/31/22 02/01/22 History Oral Soln] Magnesium Oxide [Magnesium] 500 mg PO DAILY 01/31/22 02/01/22 History Allergies Allergy/AdvReac Type Severity Reaction Status Date / Time nickel Allergy Unknown POSITIVE Verified 02/01/22 06:14 ON TESTING cephalexin Allergy Rash/Hives Verified 02/01/22 06:14 furosemide [From Lasix] Allergy Rash/Hives Verified 02/01/22 06:14 iodine Allergy Anaphylaxis Verified 02/01/22 06:14 shellfish derived [Shellfish] Allergy Anaphylaxis Verified 02/01/22 06:14 NSAIDS (Non-Steroidal AdvReac Unknown PT STATES Verified 02/01/22 06:14 Anti-Inflamma NO NSAIDS DUE TO KIDNEY DISEASE. 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 Physical Exam Vitals: Vital Signs Temp Pulse Pulse Pulse Pulse Resp BP 02/01/22 20:16 97.3 F L 85 17 02/01/22 18:15 97.8 F 81 16 02/01/22 17:30 90 16 02/01/22 17:15 73 16 02/01/22 17:00 70 16 02/01/22 16:45 72 17 02/01/22 16:30 70 16 02/01/22 16:15 84 16 02/01/22 16:00 72 16 02/01/22 15:45 82 16 02/01/22 15:30 72 16 02/01/22 15:19 72 70 H 02/01/22 14:57 96.0 F L 74 16 02/01/22 07:15 78 18 117/67 02/01/22 06:40 98.6 F 83 18 128/80 BP Pulse Ox 02/01/22 20:16 93/52 92 L 02/01/22 18:15 114/72 93 L 02/01/22 17:30 97/55 97 02/01/22 17:15 95/51 98 02/01/22 17:00 95/55 100 02/01/22 16:45 89/50 100 02/01/22 16:30 87/43 100 02/01/22 16:15 102/58 99 02/01/22 16:00 102/51 98 02/01/22 15:45 94/51 99 02/01/22 15:30 100/51 100 02/01/22 15:19 94/56 100 02/01/22 14:57 100/59 100 02/01/22 07:15 99 02/01/22 06:40 95 Intake and Output 02/01/22 02/01/22 02/02/22 14:59 22:59 06:59 Intake Total 2701 500 Output Total 1240 175 Balance 1461 325 Intake: IV 2701 500 Output: Urine 540 175 Estimated Blood Loss 700 Other: Weight 65.7 kg Constitutional: No acute distress, conversant, pleasant Eyes: Anicteric sclerae, moist conjunctiva, Pupils equal round reactive to light ENMT: NC/AT Oropharynx clear, no erythema, or exudates Neck: Supple, no masses, or JVD No carotid bruits No thyromegaly Lungs: Clear to auscultation Clear to percussion Normal respiratory effort, no accessory muscle use Cardiovascular: Heart regular in rate and rhythm, No murmurs, gallops, or rubs No peripheral edema Abdominal: Soft Nontender, no guarding, rebound or rigidity Abdomen moving with respiration Normoactive bowel sounds No hepatomegaly, No splenomegaly No palpable mass No abdominal wall hernia noted Skin: Normal temperature, tone, texture, turgor No induration No subcutaneous nodules No rash, lesions No ulcers Extremities: No digital cyanosis No clubbing Pedal pulses intact and symmetrical Radial pulses intact and symmetrical No calf tenderness Psychiatric: Alert and oriented to person, place and time Appropriate affect Neuro Muscles Strength 5/5 in bilateral upper extremity , limited exam over LE due to recent surgery and patient cant move. Sensation to light touch grossly present throughout Cranial nerves II-XII grossly intact Lymphatics: no palpable cervical or supraclavicular lymph nodes drain was emptied earlier with 100 cc , and currently has at least 50 cc Assessment and Plan Assessment: sarcoidosis continue with prednisone low dose, no dose adjustment needed continue with inhalers. hypertension continue losartan diuretics chronic low back pain , s/p lumbar spine fusion monitor drain monitor hemoglobin pain control with opiates DVT PPX SCDs full code check CBC and BMP in AM Thank you for allowing us to participate in the care of this patient. We will follow peripherally. Do not hesitate to contact us with questions. Someone can be reached from the [facility] hospitalist group at all hours of the day at [phone].
[2022-02-02] MEDS: GABAPENTIN 300 MG CAP PO SCH ×3 (05:36→14:00)
[2022-02-02] MEDS: LEVOTHYROXINE 25 MCG TAB PO SCH (07:40)
[2022-02-02] MEDS: LACTATED RINGERS 1,000 ML IV SCH (07:56)
[2022-02-02] MEDS: HYDROcodone/APAP 10-325MG 1 EACH TAB PO PRN (08:06)
[2022-02-02] MEDS: SPIRONOLACTONE-HCTZ 25-25MG 1 EACH TAB PO SCH (08:07)
[2022-02-02] MEDS: LOSARTAN 25 MG TAB PO SCH (08:07)
[2022-02-02] MEDS: SENNOSIDES-DOCUSATE SODIUM 1 EACH TAB PO PRN (08:07)
[2022-02-02] MEDS ORDERED: IPRATROPIUM-ALBUTEROL 3 ML NEB INHALATION PRN (08:50)
--- NOTE | 2022-02-02 08:55 | P.PN ---
Subjective Progress Note Date: 02/02/22 Hospital course: Patient is a very pleasant 71-year-old male with a past medical history of sarcoidosis, pulmonary hypertension, hypertension, hypothyroidism, GERD, and stage III chronic kidney disease. Patient is currently admitted under orthospine surgical team status post L2 through pelvis decompression with posterolateral and interbody fusion completed by Dr. Huff on 02/01/22.we have been consulted for medical management throughout patient's hospitalization. Physical exam: Patient seen and fully evaluated at bedside this morning. He is currently postoperative day 1. He reports overall feeling well and denies having any uncontrolled pain or discomfort. Dressing in place to lower lumbar spine clean, dry, and intact with no signs of bleed through her drainage. ERIK drain also in place with serosanguineous drainage in collection chamber. Patient denies having any nausea, vomiting, chest pain, palpitations, shortness of breath, or experiencing any numbness/tingling/weakness in his extremities. Moore catheter remains in place. Vital signs reviewed and stable. General: Nontoxic, no distress and appears stated age. Derm: Skin warm and dry, normal coloration for ethnicity.postsurgical dressing in place to lumbar spine. ERIK drain also in place with serosanguineous fluid collection chamber. Head: Atraumatic, normocephalic and symmetric. Eyes: EOMs intact, no lid lag, and anicteric sclera Mouth: no lip lesions, mucus membranes moist Cardiovascular: regular rate and rhythm with normal S1S2, no murmur, positive posterior tibial pulses bilaterally, and cap refill < 2 seconds. Lungs: Respirations even, regular, and unlabored on room air. Lungs CTA bilaterally, no rhonchi, no rales, no wheezing, and no accessory muscle usage. GI/: soft, nontender to palpation, no guarding, no appreciable organomegaly. Moore catheter in place. Ext: ROM intact. No gross muscle atrophy, no edema, no contractures Neuro: Speech clear, face symmetrical and CN II-XII grossly intact with no noted focal neuro deficits Psych: Alert and oriented to person, place, time, and situation. Appropriate and pleasant affect. Assessment and Plan of Care: Postoperative blood loss anemia Hemoglobin stable at 9.6 we will continue to monitor closely with repeat a.m. labs and transfuse as needed for hemoglobin less than 7. Status post L2 through pelvis decompression with posterolateral and interbody fusion Management per primary admitting with a spine surgical team including DVT prophylaxis, wound and drain care, pain management, and PT/OT. Sarcoidosis Pulmonary hypertension -Patient is higher risk for development of pneumonia during postoperative period, had long discussion with patient regarding the importance of incentive spirometry use 10-15 times hourly while awake to prevent development of atelectasis and pneumonia. -Continue nebulizer treatments scheduled and as needed. -continue Singulair Hypertension Monitor vital signs and continue daily medication regimen with losartan. Hypothyroidism Continue daily medication regimen with levothyroxine. GERD Continue daily medication regimen with Protonix. Thank you for allowing us to participate in the care of this pleasant patient. Do not hesitate to contact us with questions. Someone can be reached from the [facility] hospitalist group all hours of the day at [phone] or via [employer]. Objective - Vital Signs Vital signs: Vital Signs Temp 98.9 F 02/02/22 07:48 Pulse 106 H 02/02/22 08:03 Resp 17 02/02/22 07:48 BP 108/64 02/02/22 07:48 Pulse Ox 99 02/02/22 07:48 FiO2 Intake & Output 02/01/22 02/02/22 02/02/22 18:59 06:59 18:59 Intake Total 3201 Output Total 3352 466 6411 Balance 1786 -215 -1200 Weight 65.7 kg Intake: IV 3201 Output: Drainage 215 200 Back 215 200 Urine 715 1000 Estimated Blood Loss 700 Other: Voiding Method Indwelling Catheter Indwelling Catheter - Labs CBC & Chem 7: 02/02/22 06:22 02/02/22 06:22
--- NOTE | 2022-02-02 09:17 | P.PN ---
Subjective Progress Note Date: 02/02/22 Principal diagnosis: Lumbar stenosis LLE radiculopathy Patient seen and examined at bedside. Patient is resting in hospital bed. Patient states that his pain is managed on current regimen. Surgical incision is clean dry and intact with ERIK drain present at the right of the incision. Patient reports symptom of sharp pain in the left lower extremity has improved since procedure. Patient has complaint of stiffness due to surgery and is looking forward to working with physical therapy today. He states when coughing he feels the pressure in his back. Encouraged patient to continue with incentive spirometer. Patient denies f/c/sob/cp. Objective - Vital Signs Vital signs: Vital Signs Temp 98.9 F 02/02/22 07:48 Pulse 106 H 02/02/22 08:03 Resp 17 02/02/22 07:48 BP 108/64 02/02/22 07:48 Pulse Ox 99 02/02/22 07:48 FiO2 Intake & Output 02/01/22 02/02/22 02/02/22 18:59 06:59 18:59 Intake Total 3201 Output Total 7062 429 3662 Balance 1786 -215 -1200 Weight 65.7 kg Intake: IV 3201 Output: Drainage 215 200 Back 215 200 Urine 715 1000 Estimated Blood Loss 700 Other: Voiding Method Indwelling Catheter Indwelling Catheter - Exam Physical Examination General: The patient is awake and alert, in no acute distress Skin: Skin is warm and dry with no obvious rashes or lesions. Hairy patches absent, no dorsal skin dimples, no cafe au lait spots. Surgical Incision in the Lumbar region with ERIK drain present to the right of the incision. Eye: Pupils are equal, round and reactive to light, extra-ocular movements are intact; there is normal conjunctiva bilaterally. Neck: The neck is supple, there is no tenderness and ROM intact. Cardiovascular: There is a regular rate and rhythm. No murmur, rub or gallop is appreciated. Respiratory: Lungs are clear to auscultation, respirations are non-labored, breath sounds are equal. Gastrointestinal: Soft, non-distended, non-tender abdomen . Back: There is no tenderness to palpation in the midline, paralumbar, parathoracic or buttocks region. There is no obvious deformity . Musculoskeletal: ROM limited secondary to pain and stiffness from surgical procedure. Shoulder abduction 5/5, elbow flexors 5/5, wrist dorsiflexors 5/5. finger abductor 5/5, professor of rhetoric 5/5, hip flexor 4/5, knee flexor 4/5, ankle dorsiflexor 4/5, ankle plantarflexion 4/5 and extensor hallucis 4/5. Neurological: CN 2-12 intact. There are no obvious motor or sensory deficits. Movement and coordination equal and intact. Sensory exam to light touch intact C5-T1 and intact from L2-S1. Reflexes 2/4 in bilateral upper and lower extremities. Negative Hoffmans, babinski, and clonus signs. Psychiatric: Cooperative, appropriate mood & affect, normal judgment. Assessment and Plan Assessment: Post Day 1: s/p L2-Pelvis decompression and fusion Plan: Plan: -Appreciate sales enablement consultant and team management. -Activity: Ambulate QID, OOB all meals, up and about, limit lifting bending twisting to less than 5 lbs. Use walker or cane if needed for stability. -Daily PT/OT, increase ambulation strength and balance. -Brace when up and about, not needed in bed or chair -Pain control: Adequate at this time -Meds: reviewed -GI ppx: senna, Miralax -DC de santiago when up and about, bedside commode if needed -DVT PPX: OK to restart Heparin tonight -Hygiene: Shower today. Maintain dressing clean and dry. Meticulous cleaning after BMs away from the incision site -Drains: Maintain for now. DC tomorrow pending out put and PT -Encourage IS 10x/hr -Dispo: Anticipate discharge home tomorrow with homecare *I reviewed and discussed this case with my attending Dr. Huff, whom has reviewed this chart and films and is in agreement with assessment and plan of care as outlined above. I have personally seen and examined the patient, performed the documentation and the assessment and plan as written. Number of minutes spent on the visit: 20m.
[2022-02-02 10:46] LABS: Basophils # (A) 0.01 X 10*3/uL (0.00-0.10); Basophils % (A) 0.1 %; Eosinophils # (A) 0.03 X 10*3/uL (0.04-0.35); Eosinophils % (A) 0.3 %; HCT 29.2 % (39.6-50.0); HGB 9.6 g/dL (13.0-17.0); Immature Grans, Automated 0.3 %; Lymphocytes # (A) 0.32 X 10*3/uL (0.90-5.00); Lymphocytes % (A) 3.7 %; MCH 31.8 pg (27.0-32.0); MCHC 32.9 g/dL (32.0-37.0); MCV 96.7 fL (80.0-97.0); Mean Platelet Volume 10.5 fL (9.5-12.2); Monocytes # (A) 0.55 X 10*3/uL (0.20-1.00); Monocytes % (A) 6.4 %; NRBC Per 100 WBC 0 /100 WBCS (0.0-0.0); Neutrophils # (A) 7.65 X 10*3/uL (1.80-7.70); Neutrophils % (A) 89.2 %; Platelet Count 153 X 10*3/uL (140-440); RBC 3.02 X 10*6/uL (4.40-5.60); RDW 13.8 % (11.5-14.5); WBC 8.59 X 10*3/uL (4.50-10.00)
[2022-02-02 11:07] LABS: African American GFR (CKD) 56.8 (60.0-200.0); Anion Gap 7.6 mmol/L (10.00-18.00); BUN/Creat Ratio 12.96 Ratio (12.00-20.00); Blood Urea Nitrogen 18.4 mg/dL (9.0-27.0); Calcium 7.9 mg/dL (8.7-10.3); Carbon Dioxide 26.6 mmol/L (20.0-27.5); Potassium 4.8 mmol/L (3.5-5.5)
[2022-02-02] MEDS: CALCIUM ACETATE 667 MG TAB PO SCH (17:13)
[2022-02-02] MEDS: predniSONE 5 MG TAB PO SCH (17:13)
[2022-02-02] MEDS: allopurinoL 100 MG TAB PO SCH (17:13)
[2022-02-02] MEDS: MONTELUKAST 10 MG TAB PO SCH (17:13)
[2022-02-02] MEDS: PANTOPRAZOLE 40 MG TABLET PO SCH (22:16)
[2022-02-03] MEDS: ITRACONAZOLE ORAL SUSP 1,500 MG/150 ML BOTTLE PO SCH ×2 (02:42→17:26)
[2022-02-03] MEDS: LACTATED RINGERS 1,000 ML IV SCH (05:32)
[2022-02-03] MEDS: SENNOSIDES-DOCUSATE SODIUM 1 EACH TAB PO PRN (05:51)
[2022-02-03] MEDS: HYDROcodone/APAP 10-325MG 1 EACH TAB PO PRN (05:51)
[2022-02-03] MEDS: LEVOTHYROXINE 25 MCG TAB PO SCH (05:51)
[2022-02-03] MEDS: GABAPENTIN 300 MG CAP PO SCH (07:23)
[2022-02-03] MEDS: LOSARTAN 25 MG TAB PO SCH (07:23)
[2022-02-03] MEDS: ASCORBIC ACID 500 MG TAB PO SCH (07:23)
[2022-02-03] MEDS: CHOLECALCIFEROL 25 MCG (1000 IU) TABLET PO SCH (07:23)
[2022-02-03] MEDS: SPIRONOLACTONE-HCTZ 25-25MG 1 EACH TAB PO SCH (07:23)
[2022-02-03] MEDS: CALCIUM ACETATE 667 MG TAB PO SCH ×2 (07:28→17:27)
--- NOTE | 2022-02-03 08:23 | P.OP ---
Date of Procedure: 02/01/22 Preoperative Diagnosis: 1.L2-S1 severe spondylosis with stenosis 2. Lumbar degenerative scoliosis 3. Neurogenic claudication 4. LE weakness Postoperative Diagnosis: 1.L2-S1 severe spondylosis with stenosis 2. Lumbar degenerative scoliosis 3. Neurogenic claudication 4. LE weakness Procedure(s) Performed: 1. L3-4 intradiscal osteotomy, 3 column, for deformity correction (84061) 2. L5-S1, L4-5, L3-4 posteriolateral and interbody fusion (02242, [id number]) 3. L2-3 posteriolateral instrumented fusion (67486) 4. L2-pelvis segmental instrumentation (37020) 5. L2-S1 bilateral laminectomy, complete facetectomy and foraminotomies for decompression beyond that needed for cage placement (67956, [id number]) 6. Insertion of biomechanical devices L3-4, L4-5, L5-S1 (17764y2) 7. Attachment of the caudal end of the construct to the bony pelvis not the sacr um (84294) 8. Use of [employer] 3D navigation for screw placement (19840) 9. Use of intraoperative neuromonitoring Implants: -[employer] Cherry Log screw and giuliana system -x1 Amplify cage -X1 Globus Sable cage; x1 Globus Rise cage -Autograft -Allograft --MagnatOs -iFactor Anesthesia: GETA Surgeon: Cl Huff Picker And Sorter Load And Unload #1: Herve Delatorre (Was present and assisted in all aspects of the case including positioning, exposure, hardware, decompression, fusion, closure, dressing placement) Estimated Blood Loss (ml): 700 IV fluids (ml): 3,600 Urine output (ml): 500 Pathology: other (Facet joint material L2-3) Condition: stable Disposition: PACU Indications for Procedure: 71 yo male with extensive medical history has been followed and treated by the [facility] for some time now. He was found to have severe stenosis with severe spondylosis of L2-S1, neurogenic claudication, weakness in LE and difficulty with ADLs secondary to these issues. He has gone through a multitude of conservative measures recently and in the past none of which created any lasting effects for him and his back. We discussed options non surgical and surgical as well as surgical options and he has elected to pursue surgical options in the form of a decompression and fusion. We discussed risks and benefits as outlined in the risk review. He was willing to proceed with surgery. Description of Procedure: The patient was seen and examined in the preoperative area. All preoperative protocols were followed. Informed consent was obtained risks and benefits of the procedure were discussed at length. Risks including bleeding infection damage to the surrounding tissue and risk of reoperation were discussed with the patient. Risk of anesthesia up to and including was a discussed with the patient. These are outlined in the risk review. They were willing to accept these risks and all of the risks of surgery. The patient was given a weight- based dose of antibiotics in the form of 2 g Ancef redosed every 4 hours. The patient was seen and evaluated by the anesthesia team who deemed them fit for surgery. The site was marked, the patient was willing to proceed with the procedure. The patient was transferred to the operative suite by the Department of anesthesia. They were then drifted off to sleep by the department anesthesia and GETA was performed. The patient tolerated this well. [Moore catheter was placed by nursing staff, atraumatically]. Once confirmation of lines and ventilation the patient was transferred to a [prone Lamberto table very carefully]. All bony prominences including wrists, elbows, axilla, chest, hips, and thighs, and feet were padded very well. Special attention was paid to the genitalia and these were padded accordingly. SCDs were placed on bilateral lower extremities and were connected. Arms were well padded and placed [on arm boards up and out in the 90/90 position]. Once in position, again we confirmed good ventilation capabilities and that lines were running appropriately. The patient's lumbopelvic spine was then exposed. 1010s were placed outlining the incision site. Standard alcohol was used to clean the incision site and allowed to dry. C-arm was used to biomark the patient and confirm level for incision which was marked with a skin marker. Operative briefing was performed with all teams and everyone in agreement to proceed. The patient was then prepped and draped in a normal sterile fashion. Timeout was then performed and all parties were in agreement with the procedure to be performed. midline skin incision was made over the previously marked area and dissection taken down to the lumbar fascia and sacral fascia which was identified and cleaned with a Lorenzana. Midline fasciotomy was then performed and subperiosteal dissection taken down and out over the L2 through sacral and pelvic region. Since taken out over the transverse processes of L2 through sacral Michaela which was identified and cleaned. We then decorticated with a high-speed bur. Once dissection was complete we irrigated thoroughly the wound and placed a tracker for the [employer] 3-D navigation this was placed on the L5 spinous process. We then performed an intraoperative 3-D C-arm spin to obtain imaging. This is then uploaded and confirmed to be accurate on navigation. We then proceeded with placement of screws from L2 through S1 using navigation a navigated bur was used to make a fire pilot hole followed by a navigated all tapped which we then measured for screw and a feeler was used to ensure within the 4 kelley of the pedicle we then placed a screw that was measured with a navigated screwdriver. This is recurrent. Bilaterally from L2 to S1. We then proceeded with placement of pelvic screws pelvic screws were placed in a similar fashion with a high-speed bur used to obtain a starting point this was done under guided and lateral fluoroscopy. We then placed a paddle gear shifter and advanced it into the correct trajectory a 30 by 30 today view was then obtained to ensure within the teardrop. Once this was confirmed the beginning tract was tapped and then the screw was measured and selected and placed. This was completed bilaterally we then took fluoroscopic images and confirmed good placement of screws screws were then tested and screws tested at 8 mA and this was consistent at all screws. This was likely due to the patient's very vacuous bone as well as his severe stenosis. We confirmed on x-rays that all screws were in safe position. We also performed a secondary 3-D intraoperative spin after screws were placed which confirmed once again the screws were in safe position with no significant medial breaches. After screws were placed we proceeded with decompression bilateral laminectomy complete facetectomy and foraminotomy was performed from L2 through S1. This was done using a high-speed bur and Kerrison rongeurs and osteotome. We then proceeded with interbody fusion at L5-S1 carefully mobilize the neural elements and protected them with a nerve root retractor we then used a box osteotome to create a path and perform discectomy at L5-S1 complete discectomy was performed at L5-S1 and good bleeding endplates were encountered. This was done under lateral fluoroscopy. We then selected and placed graft anteriorly within the disc space and selected a cage. The cages then impacted into place in the lateral fluoroscopy to protect the neural elements. The cages then expanded and expanded into good position and was stable. We then back filled the cage with DBM. AP confirmed good placement of cage. We then moved on to L4-L5 performing once again complete discectomy while protecting neural elements at L4-L5 osteotome was used to enter the disc space and sequential shaving was performed complete discectomy was performed and graft was placed anteriorly within the disc space which was accommodation of I factor Shabana and autograft. Once this was accomplished was impacted into place a cage was selected and cage was impacted into place under lateral fluoroscopy and then expanded into position. We then turned our attention to the L3-L4 region where there was high-grade agree deformity and intradiscal osteotomy was performed here 3 column osteotomy using an osteotome. The facet joints and the lamina had been removed previously and now an osteotome was used to enter the anterior two thirds of vertebral body along with the disc space and complete discectomy was performed along with the intradiscal osteotomy. This allowed for good deformity correction and mobility. Sequential shaving was then performed bilaterally and the disc removed entirely. We then placed a distractor across the disc space filled the disc space with our graft mixture anteriorly and selected a cage for this area. Cage was selected and impacted into place under lateral fluoroscopy will protecting neural elements and expanded into position. Once in good position distraction was removed and the cage held. Once this was accomplished we took an AP imaging which confirmed good placement of cages. We then turned our attention to giuliana placement and reduction maneuver for the scoliosis as well as the derotation. Rods were sized and selected and bent into optimal position. We then secured rods bilaterally into the pelvic screws. We then sequentially reduced the rods into the remainder of the screws which allowed for excellent reduction derotation and coronal balance. It also maintain an accentuated lumbar lordosis to optimal position. Setscrews were placed and were tightened into position. We then performed distraction and compression maneuvers from L3- L4 L2-L3 which allowed for further decompression of the foramen as well as reduction. Neural monitoring remained stable throughout this whole time. We then inspected the area was good decompression there is no cord tethering and alignment had been restored. We then final tightened all setscrews. 2 cross- links were selected and were placed and final tightened we then thoroughly irrigated the wound with 3 L of Ancef irrigation followed by 3 L of gentamicin irrigation followed by 3 L of normal sterile saline. We then placed Surgicel over the dura. We then took a mixture of autograft allograft and Lucia Garcia placed in the posterior lateral gutters and impacted in and positioned over the transverse processes from L2 to the pelvis. We then placed a deep drain. 2 g of vancomycin powder was placed within the wound and we proceeded to closure. Layered closure was performed first in the fascia with #1 PDS in a [id number] fashion were then placed over Vicryl the deep subcu tissue 2-0 Vicryl in the superficial subcu tissue and jessica in the skin. The wound edges approximated very well. The wound was then cleaned the drain was sewn into position and the wound was then dressed with operative foam dressing 4 x 4 and Tegaderm. The patient was transferred back to their hospital bed atraumatically. [Drain continued to hold suction and were in good position]. Patient was then awakened and extubated by the department of anesthesia having tolerated the procedure very well with no complications. They were transferred to the postoperative care unit in stable condition.
--- NOTE | 2022-02-03 08:34 | P.PN ---
Subjective Progress Note Date: 02/03/22 Principal diagnosis: Lumbar stenosis LLE radiculopathy Patient seen and examined at bedside. Patient is sitting up in chair this morning. Patient states that his pain is managed on current regimen. Surgical incision is clean dry and intact with ERIK drain present at the right of the incision. Maintain ERIK drain today due to output. De Santiago catheter has been removed and patient urinating without difficulty. Patient is passing gas,, no BM at this time. LSO brace is present in room. Patient does plan on returning home with homecare. Continue to encourage patient to continue with incentive spirometer. Patient denies f/c/sob/cp. Objective - Vital Signs Vital signs: Vital Signs Temp 97.3 F L 02/03/22 07:36 Pulse 92 02/03/22 07:36 Resp 16 02/03/22 07:36 BP 96/52 02/03/22 07:36 Pulse Ox 99 02/03/22 07:36 FiO2 Intake & Output 02/02/22 02/03/22 02/03/22 18:59 06:59 18:59 Intake Total 120 Output Total 1430 255 Balance -1310 -255 Intake: Oral 120 Output: Drainage 280 180 Back 280 180 Urine 1150 75 Other: Voiding Method Indwelling Catheter Toilet Urinal - Exam Physical Examination General: The patient is awake and alert, in no acute distress Skin: Skin is warm and dry with no obvious rashes or lesions. Hairy patches absent, no dorsal skin dimples, no cafe au lait spots. Surgical Incision in the Lumbar region with ERIK drain present to the right of the incision. Eye: Pupils are equal, round and reactive to light, extra-ocular movements are intact; there is normal conjunctiva bilaterally. Neck: The neck is supple, there is no tenderness and ROM intact. Cardiovascular: There is a regular rate and rhythm. No murmur, rub or gallop is appreciated. Respiratory: Lungs are clear to auscultation, respirations are non-labored, breath sounds are equal. Gastrointestinal: Soft, non-distended, non-tender abdomen . Back: There is no tenderness to palpation in the midline, paralumbar, parathoracic or buttocks region. There is no obvious deformity . Musculoskeletal: ROM limited secondary to pain and stiffness from surgical procedure. Shoulder abduction 5/5, elbow flexors 5/5, wrist dorsiflexors 5/5. finger abductor 5/5, antenna specialist 5/5, hip flexor 4/5, knee flexor 4/5, ankle dorsiflexor 4/5, ankle plantarflexion 4/5 and extensor hallucis 4/5. Neurological: CN 2-12 intact. There are no obvious motor or sensory deficits. Movement and coordination equal and intact. Sensory exam to light touch intact C5-T1 and intact from L2-S1. Reflexes 2/4 in bilateral upper and lower extremities. Negative Hoffmans, babinski, and clonus signs. Psychiatric: Cooperative, appropriate mood & affect, normal judgment. - Labs CBC & Chem 7: 02/02/22 06:22 02/02/22 06:22 Labs: Abnormal Lab Results - Last 24 Hours (Table) 02/02/22 02/02/22 Range/Units 06:22 06:22 RBC 3.02 L (4.40-5.60) X 10*6/uL Hgb 9.6 L (13.0-17.0) g/dL Hct 29.2 L (39.6-50.0) % Lymphocytes # 0.32 L (0.90-5.00) X 10*3/uL Eosinophils # 0.03 L (0.04-0.35) X 10*3/uL Sodium 133 L (135-145) mmol/L Anion Gap 7.60 L (10.00-18.00) mmol/L Est GFR (CKD-EPI)AfAm 56.8 L (60.0-200.0) Est GFR (CKD-EPI)NonAf 49.0 L (60.0-200.0) Calcium 7.9 L (8.7-10.3) mg/dL Assessment and Plan Assessment: Post Day 2: s/p L2-Pelvis decompression and fusion Plan: Plan: -Appreciate contaminated land consultant and team management. -Activity: Ambulate QID, OOB all meals, up and about, limit lifting bending twisting to less than 5 lbs. Use walker or cane if needed for stability. -Daily PT/OT, increase ambulation strength and balance. -Brace when up and about, not needed in bed or chair -Pain control: Adequate at this time -Meds: reviewed -GI ppx: senna, Miralax -DC de santiago when up and about, bedside commode if needed -DVT PPX: OK to restart Heparin tonight -Hygiene: Shower today. Maintain dressing clean and dry. Meticulous cleaning after BMs away from the incision site -Drains: Maintain for now. DC tomorrow pending out put and PT -Encourage IS 10x/hr -Dispo: Anticipate discharge home with homecare in the next 24-48hrs *I reviewed and discussed this case with my attending Dr. Huff, whom has reviewed this chart and films and is in agreement with assessment and plan of care as outlined above. I have personally seen and examined the patient, performed the documentation and the assessment and plan as written. Number of minutes spent on the visit: 20m.
[2022-02-03 08:59] LABS: HCT 27.6 % (39.0-53.0); HGB 9.4 gm/dL (13.0-17.5); MCH 32.2 pg (25.0-35.0); MCV 94.7 fL (80.0-100.0); Mean Platelet Volume 8.6; Platelet Count 161 k/uL (150-450); RBC 2.91 m/uL (4.30-5.90); RDW 13.7 % (11.5-15.5)
[2022-02-03] MEDS: IPRATROPIUM-ALBUTEROL 3 ML NEB INHALATION SCH ×4 (09:08→19:55)
[2022-02-03 10:16] LABS: ALT 16 U/L (4-49); AST 52 U/L (17-59); African American GFR (CKD) 59 (>60 ml/min/1.73 sqM); Albumin 2.9 g/dL (3.5-5.0); Albumin/Globulin Ratio 1.2; Alkaline Phosphatase 62 U/L (38-126); Anion Gap 10 mmol/L; Blood Urea Nitrogen 22 mg/dL (9-20); Carbon Dioxide 25 mmol/L (22-30); Chloride 93 mmol/L (98-107); Globulin 2.4 g/dL; Glucose 101 mg/dL (74-99); Magnesium 1.9 mg/dL (1.6-2.3); Non-African American GFR(CKD) 51 (>60 ml/min/1.73 sqM); Potassium 4.3 mmol/L (3.5-5.1); Sodium 128 mmol/L (137-145); Total Bilirubin 0.9 mg/dL (0.2-1.3); Total Protein 5.3 g/dL (6.3-8.2)
--- NOTE | 2022-02-03 12:06 | CDI ---
Documentation Clarification Form Date: 02/03/2022 11:50:37 AM From: Cici Godfrey CCS, CCDS Admit Date: 02/01/2022 05:33:00 AM Patient Name: Alec Barakat Visit Number: [id number] Discharge Date: ATTENTION: The Clinical Documentation Specialists (CDI) and [facility] Coding Staff appreciate your assistance in clarifying documentation. Please respond to the clarification below the line at the bottom and electronically sign. The CDI & [facility] Coding staff will review the response and follow-up if needed. Please note: Queries are made part of the Legal Health Record. If you have any questions, please contact the author of this message via ITS. Dr. Tanja Sanchez: Postoperative blood loss anemia is documented in the 02/02 Medical Management Progress Note. Hemoglobin stable at 9.6 we will continue to monitor closely with repeat in a.m. labs and transfuse as needed for hemoglobin less than 7. Additional clarification is requested regarding the relationship, if any, that exists between the diagnosis and the procedure. Patients Admitting Diagnosis 02/01: L2-S1 severe Spondylosis with Stenosis. Lumbar degenerative scoliosis. Neurogenic claudication. LE weakness. Post-Operative Diagnosis 02/01: Same. Procedure Performed: L3-4 intradiscal osteotomy, 3 column, for deformity correction. L5-S1, L4-5, L3-4 posteriolateral and interbody fusion. L2-3 posteriolateral instrumented fusion. L2-pelvis segmental instrumentation. L2-S1 bilateral laminectomy, complete facetectomy and foraminotomies for decompression for cage placement. History/Risk Factors per the 02/01 Medical Managment Consult: Chronic Low Back Pain, Sarcoidosis on low dose Prednisone and Inhalers, Hypertension on Losartan and Diuretics, Asthma, COPD, Osteoarthritis, Skin cancer, CKD. Clinical Indicators: Presented 02/01 for elective procedure as described above. 02/02 Hgb: 9.6. 02/03: 9.4. 02/02 Hct: 29.2. 02/03: 27.6 Treatment 02/01, 02/02: Daily H/H, I&Os, Neurological Assessment, O2 2Lnc, po [place] 5-325 q6H/prn, [place] 10 q6H/prn, po Flexeril 5 mg TID/prn, IV Dilaudid 0.5 mg q3H/prn - 1 mg q3H/prn, IV Cefazolin 50 mls @ 100 mls/hr q8H, IV Lactated ringers as directed, INH Ventolin 2.5 mg q6H/prn, INH Duoneb 3 ml Daily, po Singulair & Prednisone. What relationship, if any, exists between the diagnosis of Postoperative Blood Loss Anemia and the procedure: [X ] Postoperative Blood Loss Anemia is a complication of surgical procedure [ ] Postoperative Blood Loss Anemia is an expected outcome of the surgical procedure [ ] Postoperative Blood Loss Anemia related to the patients co-morbid condition(s), please specify: and is not a complication of the procedure [ ] Postoperative Blood Loss Anemia has been ruled out [ ] Other please specify: [ ] Unable to determine (Template Last Revised: June 2020) MTDD
--- NOTE | 2022-02-03 13:17 | P.PN ---
Subjective Progress Note Date: 02/03/22 Hospital course: Patient is a very pleasant 71-year-old male with a past medical history of sarcoidosis, pulmonary hypertension, hypertension, hypothyroidism, GERD, and stage III chronic kidney disease. Patient is currently admitted under orthospine surgical team status post L2 through pelvis decompression with posterolateral and interbody fusion completed by Dr. Huff on 02/01/22. We have been consulted for medical management throughout patient's hospitalization. Physical exam: Patient seen and fully evaluated at bedside this morning. He is currently postoperative day 2. He is sitting up in the chair and currently reports postoperative pain is controlled. ERIK drain remains in place with 460 mL of documented drainage over the past 24 hours. Moore catheter was removed and patient reports urinating without difficulties. Morning labs reviewed in hemoglobin stable at 9.4. Patient with hyponatremia with sodium of 128. Started on gentle IV fluid hydration with 0.9% normal saline and we will repeat labs tomorrow morning to monitor for improvement. Vital signs reviewed and stable. General: Nontoxic, no distress and appears stated age. Derm: Skin warm and dry, normal coloration for ethnicity.postsurgical dressing in place to lumbar spine. ERIK drain also in place with serosanguineous fluid collection chamber. Head: Atraumatic, normocephalic and symmetric. Eyes: EOMs intact, no lid lag, and anicteric sclera Mouth: no lip lesions, mucus membranes moist Cardiovascular: regular rate and rhythm with normal S1S2, no murmur, positive posterior tibial pulses bilaterally, and cap refill < 2 seconds. Lungs: Respirations even, regular, and unlabored on room air. Lungs CTA bilaterally, no rhonchi, no rales, no wheezing, and no accessory muscle usage. GI/: soft, nontender to palpation, no guarding, no appreciable organomegaly. Moore catheter in place. Ext: ROM intact. No gross muscle atrophy, no edema, no contractures Neuro: Speech clear, face symmetrical and CN II-XII grossly intact with no noted focal neuro deficits Psych: Alert and oriented to person, place, time, and situation. Appropriate and pleasant affect. Assessment and Plan of Care: Postoperative blood loss anemia, greater than expected blood loss, stable -Preoperative hemoglobin obtained 01/13/22 was 13.2 and initial postoperative hemoglobin of 9.6. Hemoglobin stable at 9.4 we will continue to monitor closely with repeat a.m. labs and transfuse as needed for hemoglobin less than 7. Hyponatremia -Gentle IV fluid hydration and continued close monitoring with repeat a.m. labs. Status post L2 through pelvis decompression with posterolateral and interbody fusion Management per primary admitting with a spine surgical team including DVT prophylaxis, wound and drain care, pain management, and PT/OT. Sarcoidosis Pulmonary hypertension -Patient is higher risk for development of pneumonia during postoperative period, had long discussion with patient regarding the importance of incentive spirometry use 10-15 times hourly while awake to prevent development of atelecta sis and pneumonia. -Continue nebulizer treatments scheduled and as needed. -continue Singulair Aspergillosis -Continue daily medication regimen with Itraconazole. -Patient is higher risk for development of pneumonia during postoperative period, had long discussion with patient regarding the importance of incentive spirometry use 10-15 times hourly while awake to prevent development of atelectasis and pneumonia. Hypertension Monitor vital signs and continue daily medication regimen with losartan. Hypothyroidism Continue daily medication regimen with levothyroxine. GERD Continue daily medication regimen with Protonix. Thank you for allowing us to participate in the care of this pleasant patient. Do not hesitate to contact us with questions. Someone can be reached from the [facility] hospitalist group all hours of the day at [phone] or via [employer]. I reviewed the documentation as provided by the YU above, who is the original author of this note. I agree with the documented assessment and plan, with the following changes: none Objective - Vital Signs Vital signs: Vital Signs Temp 97.3 F L 02/03/22 07:36 Pulse 92 02/03/22 07:36 Resp 16 02/03/22 07:36 BP 96/52 02/03/22 07:36 Pulse Ox 99 02/03/22 07:36 FiO2 Intake & Output 02/02/22 02/03/22 02/03/22 18:59 06:59 18:59 Intake Total 120 Output Total 1430 255 Balance -1310 -255 Intake: Oral 120 Output: Drainage 280 180 Back 280 180 Urine 1150 75 Other: Voiding Method Indwelling Catheter Toilet Urinal - Labs CBC & Chem 7: 02/03/22 07:43 02/03/22 07:44 Labs: Abnormal Lab Results - Last 24 Hours (Table) 02/02/22 02/02/22 Range/Units 06:22 06:22 RBC 3.02 L (4.40-5.60) X 10*6/uL Hgb 9.6 L (13.0-17.0) g/dL Hct 29.2 L (39.6-50.0) % Lymphocytes # 0.32 L (0.90-5.00) X 10*3/uL Eosinophils # 0.03 L (0.04-0.35) X 10*3/uL Sodium 133 L (135-145) mmol/L Anion Gap 7.60 L (10.00-18.00) mmol/L Est GFR (CKD-EPI)AfAm 56.8 L (60.0-200.0) Est GFR (CKD-EPI)NonAf 49.0 L (60.0-200.0) Calcium 7.9 L (8.7-10.3) mg/dL
[2022-02-03] MEDS: HYDROcodone/APAP 5-325MG 1 EACH TAB PO PRN (15:37)
[2022-02-03] MEDS: SODIUM CHLORIDE 0.9% 1,000 ML IV SCH (15:38)
[2022-02-03] MEDS: allopurinoL 100 MG TAB PO SCH (17:27)
[2022-02-03] MEDS: MONTELUKAST 10 MG TAB PO SCH (17:27)
[2022-02-03] MEDS: predniSONE 5 MG TAB PO SCH (17:31)
[2022-02-03] MEDS: PANTOPRAZOLE 40 MG TABLET PO SCH (20:48)
[2022-02-04] MEDS: CYCLOBENZAPRINE 5 MG TAB PO PRN (02:28)
[2022-02-04] MEDS: LEVOTHYROXINE 25 MCG TAB PO SCH (06:33)
[2022-02-04] MEDS: HYDROcodone/APAP 5-325MG 1 EACH TAB PO PRN (07:40)
[2022-02-04] MEDS: SENNOSIDES-DOCUSATE SODIUM 1 EACH TAB PO PRN (07:41)
[2022-02-04] MEDS: SODIUM CHLORIDE 0.9% 1,000 ML IV SCH (07:45)
[2022-02-04] MEDS: IPRATROPIUM-ALBUTEROL 3 ML NEB INHALATION SCH ×4 (08:31→19:53)
[2022-02-04] MEDS: ASCORBIC ACID 500 MG TAB PO SCH (09:24)
[2022-02-04] MEDS: CALCIUM ACETATE 667 MG TAB PO SCH ×2 (09:24→17:39)
[2022-02-04] MEDS: GABAPENTIN 300 MG CAP PO SCH (09:24)
[2022-02-04] MEDS: LOSARTAN 25 MG TAB PO SCH (09:24)
[2022-02-04] MEDS: CHOLECALCIFEROL 25 MCG (1000 IU) TABLET PO SCH (09:24)
[2022-02-04 09:43] LABS: African American GFR (CKD) 63.2 (60.0-200.0); Albumin 3.3 g/dL (3.8-4.9); Albumin/Globulin Ratio 1.27 (1.60-3.17); Anion Gap 10.9 mmol/L (10.00-18.00); BUN/Creat Ratio 14.46 Ratio (12.00-20.00); Blood Urea Nitrogen 18.8 mg/dL (9.0-27.0); Calcium 9.3 mg/dL (8.7-10.3); Carbon Dioxide 27.1 mmol/L (20.0-27.5); Globulin 2.6 g/dL (1.6-3.3); Non-African American GFR(CKD) 54.5 (60.0-200.0); Potassium 4.5 mmol/L (3.5-5.5); Total Bilirubin 0.9 mg/dL (0.30-1.20); Total Protein 5.9 g/dL (6.2-8.2)
[2022-02-04] MEDS ORDERED: DOCUSATE 100 MG CAP PO STA (09:54)
--- NOTE | 2022-02-04 09:56 | P.PN ---
Subjective Progress Note Date: 02/04/22 Hospital course: Patient is a very pleasant 71-year-old male with a past medical history of sarcoidosis, pulmonary hypertension, hypertension, hypothyroidism, GERD, and stage III chronic kidney disease. Patient is currently admitted under orthospine surgical team status post L2 through pelvis decompression with posterolateral and interbody fusion completed by Dr. Huff on 02/01/22. We have been consulted for medical management throughout patient's hospitalization. Physical exam: Patient seen and fully evaluated at bedside this morning. He is currently postoperative day 3. He continues to have significant output from ERIK drain unfortunately unable to accurately determine output over the past 24 hours due to output not being accurately documented. However ERIK drain has been emptied twice already this morning. Hemoglobin is stable and slightly improving and 9.9. Hyponatremia improving with sodium 130 this morning. Patient ambulating with physical therapy at this time denies having any complaints other than mild back discomfort. Patient does continue to have reports of urinary retention by RN requiring straight catheterizations. Patient started on doxazosin at this time as unable to place patient on Flomax secondary to interaction with itraconazole needed for treatment of aspergillosis. Vital signs reviewed and stable. General: Nontoxic, no distress and appears stated age. Derm: Skin warm and dry, normal coloration for ethnicity.postsurgical dressing in place to lumbar spine. ERIK drain also in place with serosanguineous fluid collection chamber. Head: Atraumatic, normocephalic and symmetric. Eyes: EOMs intact, no lid lag, and anicteric sclera Mouth: no lip lesions, mucus membranes moist Cardiovascular: regular rate and rhythm with normal S1S2, no murmur, positive posterior tibial pulses bilaterally, and cap refill < 2 seconds. Lungs: Respirations even, regular, and unlabored on room air. Lungs CTA bilaterally, no rhonchi, no rales, no wheezing, and no accessory muscle usage. GI/: soft, nontender to palpation, no guarding, no appreciable organomegaly. Moore catheter in place. Ext: ROM intact. No gross muscle atrophy, no edema, no contractures Neuro: Speech clear, face symmetrical and CN II-XII grossly intact with no noted focal neuro deficits Psych: Alert and oriented to person, place, time, and situation. Appropriate and pleasant affect. Assessment and Plan of Care: Urinary retention -Patient started on doxazosin at this time. Bladder management to continue -Unable to place patient on Flomax secondary to interaction with Itraconazole placing patient at risk for severe hypotension. Postoperative blood loss anemia, greater than expected blood loss, stable and improving -Preoperative hemoglobin obtained 01/13/22 was 13.2 and initial postoperative hemoglobin of 9.4 Hemoglobin stable at 9.9 we will continue to monitor closely with repeat a.m. labs and transfuse as needed for hemoglobin less than 7. Hyponatremia, improving -Gentle IV fluid hydration and continued close monitoring with repeat a.m. labs. Status post L2 through pelvis decompression with posterolateral and interbody fusion Management per primary admitting with a spine surgical team including DVT prophylaxis, wound and drain care, pain management, and PT/OT. Sarcoidosis Pulmonary hypertension -Patient is higher risk for development of pneumonia during postoperative period, had long discussion with patient regarding the importance of incentive spirometry use 10-15 times hourly while awake to prevent development of atelectasis and pneumonia. -Continue nebulizer treatments scheduled and as needed. -continue Singulair Aspergillosis -Continue daily medication regimen with Itraconazole. -Patient is higher risk for development of pneumonia during postoperative period, had long discussion with patient regarding the importance of incentive spirometry use 10-15 times hourly while awake to prevent development of atelectasis and pneumonia. Hypertension Monitor vital signs and continue daily medication regimen with losartan. Hypothyroidism Continue daily medication regimen with levothyroxine. GERD Continue daily medication regimen with Protonix. Thank you for allowing us to participate in the care of this pleasant patient. Do not hesitate to contact us with questions. Someone can be reached from the [facility] [place] hospitalist group all hours of the day at [phone] or via [employer]. I reviewed the documentation as provided by the YU above, who is the original author of this note. I agree with the documented assessment and plan, with the following changes: none Objective - Vital Signs Vital signs: Vital Signs Temp 98.3 F 02/04/22 07:51 Pulse 88 02/04/22 08:41 Resp 14 02/04/22 07:51 BP 116/71 02/04/22 07:51 Pulse Ox 92 L 02/04/22 07:51 FiO2 Intake & Output 02/03/22 02/04/22 02/04/22 18:59 06:59 18:59 Output Total 200 2395 Balance -200 -2395 Output: Drainage 140 Back 140 Urine 200 2255 Other: Voiding Method Toilet Urinal # Voids 1 1 - Labs CBC & Chem 7: 02/05/22 10:29 02/05/22 10:29 Labs: Abnormal Lab Results - Last 24 Hours (Table) 02/03/22 02/03/22 Range/Units 07:43 07:44 RBC 2.91 L (4.30-5.90) m/uL Hgb 9.4 L (13.0-17.5) gm/dL Hct 27.6 L (39.0-53.0) % Sodium 128 L (137-145) mmol/L Chloride 93 L (98-107) mmol/L BUN 22 H (9-20) mg/dL Creatinine 1.38 H (0.66-1.25) mg/dL Glucose 101 H (74-99) mg/dL Calcium 8.0 L (8.4-10.2) mg/dL Total Protein 5.3 L (6.3-8.2) g/dL Albumin 2.9 L (3.5-5.0) g/dL
[2022-02-04 10:04] LABS: HCT 29.5 % (39.6-50.0); HGB 9.9 g/dL (13.0-17.0); MCH 31.7 pg (27.0-32.0); MCHC 33.6 g/dL (32.0-37.0); MCV 94.6 fL (80.0-97.0); NRBC Per 100 WBC 0 /100 WBCS (0.0-0.0); Platelet Count 198 X 10*3/uL (140-440); RBC 3.12 X 10*6/uL (4.40-5.60); RDW 13.7 % (11.5-14.5); WBC 10.94 X 10*3/uL (4.50-10.00)
--- NOTE | 2022-02-04 10:14 | P.PN ---
Subjective Progress Note Date: 02/04/22 Principal diagnosis: Lumbar stenosis LLE radiculopathy Patient seen and examined at bedside. Patient is sitting up in chair this morning and ambulating within room to restroom. Patient states he feels weak in his legs and demonstrates an unsteady gait. Patient states that his pain is managed on current regimen. Surgical dressing changed, ERIK drain present at the right of the incision. Maintain ERIK drain today due to output. Patient is passing gas,, no BM at this time. LSO brace is present in room. Continue to encourage patient to continue with incentive spirometer. Patient denies f/c/sob/cp. Objective - Vital Signs Vital signs: Vital Signs Temp 98.3 F 02/04/22 07:51 Pulse 88 02/04/22 08:41 Resp 14 02/04/22 07:51 BP 116/71 02/04/22 07:51 Pulse Ox 92 L 02/04/22 07:51 FiO2 Intake & Output 02/03/22 02/04/22 02/04/22 18:59 06:59 18:59 Output Total 200 2395 Balance -200 -2395 Output: Drainage 140 Back 140 Urine 200 2255 Other: Voiding Method Toilet Urinal # Voids 1 1 - Exam Physical Examination General: The patient is awake and alert, in no acute distress Skin: Skin is warm and dry with no obvious rashes or lesions. Hairy patches absent, no dorsal skin dimples, no cafe au lait spots. Surgical Incision in the Lumbar region with ERIK drain present to the right of the incision. Eye: Pupils are equal, round and reactive to light, extra-ocular movements are intact; there is normal conjunctiva bilaterally. Neck: The neck is supple, there is no tenderness and ROM intact. Cardiovascular: There is a regular rate and rhythm. No murmur, rub or gallop is appreciated. Respiratory: Lungs are clear to auscultation, respirations are non-labored, breath sounds are equal. Gastrointestinal: Soft, non-distended, non-tender abdomen . Back: There is no tenderness to palpation in the midline, paralumbar, parathoracic or buttocks region. There is no obvious deformity . Musculoskeletal: ROM limited secondary to pain and stiffness from surgical procedure. Shoulder abduction 5/5, elbow flexors 5/5, wrist dorsiflexors 5/5. finger abductor 5/5, cd technician 5/5, hip flexor 4/5, knee flexor 4/5, ankle dorsiflexor 4/5, ankle plantarflexion 4/5 and extensor hallucis 4/5. Neurological: CN 2-12 intact. There are no obvious motor or sensory deficits. Movement and coordination equal and intact. Sensory exam to light touch intact C5-T1 and intact from L2-S1. Reflexes 2/4 in bilateral upper and lower extremities. Negative Hoffmans, babinski, and clonus signs. Psychiatric: Cooperative, appropriate mood & affect, normal judgment. - Labs CBC & Chem 7: 02/04/22 04:16 02/04/22 04:16 Labs: Abnormal Lab Results - Last 24 Hours (Table) 02/03/22 02/04/22 02/04/22 Range/Units 07:44 04:16 04:16 WBC 10.94 H (4.50-10.00) X 10*3/uL RBC 3.12 L (4.40-5.60) X 10*6/uL Hgb 9.9 L (13.0-17.0) g/dL Hct 29.5 L (39.6-50.0) % Sodium 128 L 130 L (137-145) mmol/L Chloride 93 L 92 L (98-107) mmol/L BUN 22 H (9-20) mg/dL Creatinine 1.38 H (0.66-1.25) mg/dL Est GFR (CKD-EPI)NonAf 54.5 L (60.0-200.0) Glucose 101 H (74-99) mg/dL Calcium 8.0 L (8.4-10.2) mg/dL AST 44 H (14-35) U/L Total Protein 5.3 L 5.9 L (6.3-8.2) g/dL Albumin 2.9 L 3.3 L (3.5-5.0) g/dL Albumin/Globulin Ratio 1.27 L (1.60-3.17) g/dL Assessment and Plan Assessment: Post Day 3: s/p L2-Pelvis decompression and fusion Plan: Plan: -Appreciate medical sales consultant and team management. -Activity: Ambulate QID, OOB all meals, up and about, limit lifting bending twisting to less than 5 lbs. Use walker or cane if needed for stability. -Daily PT/OT, increase ambulation strength and balance. -Brace when up and about, not needed in bed or chair -Pain control: Adequate at this time -Meds: reviewed -GI ppx: senna, Miralax -DVT PPX: heparin -Hygiene: Shower today. Maintain dressing clean and dry. Meticulous cleaning after BMs away from the incision site -Drains: Maintain for now. DC tomorrow pending out put and PT -Encourage IS 10x/hr -Dispo: Anticipate discharge home with homecare in the next 24-48hrs *I reviewed and discussed this case with my attending Dr. Huff, whom has reviewed this chart and films and is in agreement with assessment and plan of care as outlined above. I have personally seen and examined the patient, performed the documentation and the assessment and plan as written. Number of minutes spent on the visit: 20m.
[2022-02-04] MEDS ORDERED: TAMSULOSIN 0.4 MG CAP.ER.24H PO SCH (10:15)
[2022-02-04] MEDS: DOXAZOSIN 1 MG TAB PO SCH (12:23)
[2022-02-04] MEDS: polyethylene glycoL 3350 17 GM POWD.PACK PO SCH (12:23)
[2022-02-04] MEDS: allopurinoL 100 MG TAB PO SCH (17:39)
[2022-02-04] MEDS: ITRACONAZOLE ORAL SUSP 1,500 MG/150 ML BOTTLE PO SCH (17:39)
[2022-02-04] MEDS: predniSONE 5 MG TAB PO SCH (17:40)
[2022-02-04] MEDS: MONTELUKAST 10 MG TAB PO SCH (17:40)
[2022-02-04] MEDS: PANTOPRAZOLE 40 MG TABLET PO SCH (20:14)
[2022-02-05] MEDS: LEVOTHYROXINE 25 MCG TAB PO SCH (06:40)
[2022-02-05] MEDS: IPRATROPIUM-ALBUTEROL 3 ML NEB INHALATION SCH ×4 (08:04→20:07)
[2022-02-05] MEDS: polyethylene glycoL 3350 17 GM POWD.PACK PO SCH (08:49)
[2022-02-05] MEDS: DOXAZOSIN 1 MG TAB PO SCH (08:49)
[2022-02-05] MEDS: GABAPENTIN 300 MG CAP PO SCH (08:49)
[2022-02-05] MEDS: CALCIUM ACETATE 667 MG TAB PO SCH ×2 (08:49→18:22)
[2022-02-05] MEDS: SENNOSIDES-DOCUSATE SODIUM 1 EACH TAB PO PRN (08:49)
[2022-02-05] MEDS: LOSARTAN 25 MG TAB PO SCH (08:49)
[2022-02-05] MEDS: CHOLECALCIFEROL 25 MCG (1000 IU) TABLET PO SCH (08:49)
[2022-02-05] MEDS: ASCORBIC ACID 500 MG TAB PO SCH (08:49)
--- NOTE | 2022-02-05 08:57 | P.PN ---
Subjective Progress Note Date: 02/05/22 Principal diagnosis: Left lower extremity radiculopathy, lumbar stenosis Patient evaluated at bedside, he is up in his chair resting. He notes minimal discomfort at this time. His drain continues to put out serosanguineous drainage. His sodium was also noted to be decreased. He is dealing with constipation also. There are any headaches, lightheadedness, chest pain or shor tness of breath. Objective - Vital Signs Vital signs: Vital Signs Temp 98.0 F 02/05/22 08:00 Pulse 104 H 02/05/22 08:14 Resp 18 02/05/22 08:14 BP 98/49 02/05/22 08:00 Pulse Ox 100 02/05/22 08:05 FiO2 Intake & Output 02/04/22 02/05/22 02/05/22 18:59 06:59 18:59 Output Total 360 860 80 Balance -360 -860 -80 Output: Drainage 60 60 80 Back 60 60 80 Urine 300 800 Other: Voiding Method Toilet Toilet Urinal Urinal # Voids 1 - Exam Gen: AOx3, NAD VSS stable at this time Integument: Bandages clean, dry and intact, drain is putting out serosanguineous fluid, and they measured about 30 mL overnight Palpation: Mild tenderness with palpation of the paraspinal revision lumbar spine ROM: Full range of motion all major muscle groups of the bilateral upper and lower extremity, no focal deficits Sensory Exam: Senory exam to light touch is intact C5-T1 Senosry exam to light touch is intact L2-S1 Motor: Shoulder abduction 5/5, elbow flexors 5/5, wrist dorsiflexors 5/5. finger abductor 5/5, laborer operator 5/5, hip flexor 4/5, knee flexor 4/5, ankle dorsiflexor 4/5, ankle plantarflexion 4/5 and extensor hallucis 4/5. Reflexes: Negative Mary's, Babinski, clonus bilateral - Labs CBC & Chem 7: 02/04/22 04:16 02/04/22 04:16 Labs: Abnormal Lab Results - Last 24 Hours (Table) 02/04/22 02/04/22 Range/Units 04:16 04:16 WBC 10.94 H (4.50-10.00) X 10*3/uL RBC 3.12 L (4.40-5.60) X 10*6/uL Hgb 9.9 L (13.0-17.0) g/dL Hct 29.5 L (39.6-50.0) % Sodium 130 L (135-145) mmol/L Chloride 92 L (96-109) mmol/L Est GFR (CKD-EPI)NonAf 54.5 L (60.0-200.0) AST 44 H (14-35) U/L Total Protein 5.9 L (6.2-8.2) g/dL Albumin 3.3 L (3.8-4.9) g/dL Albumin/Globulin Ratio 1.27 L (1.60-3.17) g/dL Assessment and Plan Assessment: Postoperative day #4 status post [id number] decompression and fusion Constipation Hyponatremia Plan: Pain control, continue with current medications. Continue to utilize all available stool softeners DVT prophylaxis, SCD compression Keep dry and intact at this time, we'll likely pull and 02/06/2022 Discussed with nursing to reach out to the lesser any hyponatremia and constipation further recommendations Current incentive spirometer Continue weight-bear as toleratedutilizing LSO brace when up and ambulating Medical recommendations Discharge planning: Likely discharge to home 02/06 were 02/07/2022 Time with Patient: Less than 30
[2022-02-05 11:01] LABS: Basophils % (A) 0 %; Eosinophils # (A) 0.1 k/uL (0-0.7); Eosinophils % (A) 1 %; HCT 28.4 % (39.0-53.0); HGB 9.8 gm/dL (13.0-17.5); Lymphocytes # (A) 0.4 k/uL (1.0-4.8); Lymphocytes % (A) 8 %; MCH 32.8 pg (25.0-35.0); MCHC 34.5 g/dL (31.0-37.0); Mean Platelet Volume 8.1; Monocytes # (A) 0.4 k/uL (0-1.0); Monocytes % (A) 7 %; Neutrophils # (A) 4.8 k/uL (1.3-7.7); Neutrophils % (A) 82 %; Platelet Count 168 k/uL (150-450); RBC 2.99 m/uL (4.30-5.90); RDW 13.2 % (11.5-15.5); WBC 5.9 k/uL (3.8-10.6)
[2022-02-05 11:15] LABS: African American GFR (CKD) 70 (>60 ml/min/1.73 sqM); Anion Gap 6 mmol/L; Blood Urea Nitrogen 17 mg/dL (9-20); Calcium 8.8 mg/dL (8.4-10.2); Carbon Dioxide 31 mmol/L (22-30); Chloride 88 mmol/L (98-107); Glucose 98 mg/dL (74-99); Non-African American GFR(CKD) 61 (>60 ml/min/1.73 sqM); Potassium 4.9 mmol/L (3.5-5.1); Sodium 125 mmol/L (137-145)
[2022-02-05] MEDS: HYDROcodone/APAP 5-325MG 1 EACH TAB PO PRN ×2 (11:19→21:57)
[2022-02-05] MEDS: CYCLOBENZAPRINE 5 MG TAB PO PRN (11:20)
[2022-02-05] MEDS ORDERED: bisacodyL 10 MG SUPP RECTAL STA (12:23)
--- NOTE | 2022-02-05 12:23 | P.PN ---
Subjective Progress Note Date: 02/05/22 Hospital course: Patient is a very pleasant 71-year-old male with a past medical history of sarcoidosis, pulmonary hypertension, hypertension, hypothyroidism, GERD, and stage III chronic kidney disease. Patient is currently admitted under orthospine surgical team status post L2 through pelvis decompression with posterolateral and interbody fusion completed by Dr. Huff on 02/01/22. We have been consulted for medical management throughout patient's hospitalization. Physical exam: Patient seen and fully evaluated at bedside this morning. He is currently postoperative day 4. He continues to have moderate output from ERIK drain. Pt reports mild pain and achiness in lower back, hips, and legs. States urinary r etention has improved since initiation of Doxazoin. Morning labs revealing hyponatremia with sodium of 125. Possibly secondary to decreased oral intake as sodium did improve with fluids but once fluids stopped again lowered. Patient started back on IV fluids at this time and hyponatremia panel being obtained. Patient also reporting continued constipation and a suppository was ordered at this time. We will continue to monitor closely with repeat a.m. labs. Vital signs reviewed and stable. General: Nontoxic, no distress and appears stated age. Derm: Skin warm and dry, normal coloration for ethnicity.postsurgical dressing in place to lumbar spine. ERIK drain also in place with serosanguineous fluid collection chamber. Head: Atraumatic, normocephalic and symmetric. Eyes: EOMs intact, no lid lag, and anicteric sclera Mouth: no lip lesions, mucus membranes moist Cardiovascular: regular rate and rhythm with normal S1S2, no murmur, positive posterior tibial pulses bilaterally, and cap refill < 2 seconds. Lungs: Respirations even, regular, and unlabored on room air. Lungs CTA bila terally, no rhonchi, no rales, no wheezing, and no accessory muscle usage. GI/: soft, nontender to palpation, no guarding, no appreciable organomegaly. Moore catheter in place. Ext: ROM intact. No gross muscle atrophy, no edema, no contractures Neuro: Speech clear, face symmetrical and CN II-XII grossly intact with no noted focal neuro deficits Psych: Alert and oriented to person, place, time, and situation. Appropriate and pleasant affect. Assessment and Plan of Care: Hyponatremia -Gentle IV fluid hydration and continued close monitoring with repeat a.m. labs. -TSH, urine osmolality, urine osmolality, and urine sodium to be obtained. Urinary retention -Patient to continue doxazosin at this time. Bladder management to continue Postoperative blood loss anemia, greater than expected blood loss, stable and improving -Preoperative hemoglobin obtained 01/13/22 was 13.2 and initial postoperative hemoglobin of 9.4 Hemoglobin stable at 9.8 we will continue to monitor closely with repeat a.m. labs. Status post L2 through pelvis decompression with posterolateral and interbody fusion Management per primary admitting with a spine surgical team including DVT prophylaxis, wound and drain care, pain management, and PT/OT. Current DVT prophylaxis with RYAN hose and SCDs. Sarcoidosis Pulmonary hypertension -Patient is higher risk for development of pneumonia during postoperative period, had long discussion with patient regarding the importance of incentive spirometry use 10-15 times hourly while awake to prevent development of atelectasis and pneumonia. -Continue nebulizer treatments scheduled and as needed. -continue Singulair Aspergillosis -Continue daily medication regimen with Itraconazole. -Patient is higher risk for development of pneumonia during postoperative period, had long discussion with patient regarding the importance of incentive spirometry use 10-15 times hourly while awake to prevent development of atelectasis and pneumonia. Hypertension Monitor vital signs and continue daily medication regimen with losartan. Hypothyroidism Continue daily medication regimen with levothyroxine. GERD Continue daily medication regimen with Protonix. Thank you for allowing us to participate in the care of this pleasant patient. Do not hesitate to contact us with questions. Someone can be reached from the [facility] hospitalist group all hours of the day at [phone] or via [employer]. I reviewed the documentation as provided by the YU above, who is the original author of this note. I agree with the documented assessment and plan, with the following changes: none Objective - Vital Signs Vital signs: Vital Signs Temp 98.0 F 02/05/22 08:00 Pulse 104 H 02/05/22 08:14 Resp 18 02/05/22 08:14 BP 98/49 02/05/22 08:00 Pulse Ox 100 02/05/22 08:05 FiO2 Intake & Output 02/04/22 02/05/22 02/05/22 18:59 06:59 18:59 Output Total 360 860 95 Balance -360 -860 -95 Output: Drainage 60 60 95 Back 60 60 95 Urine 300 800 Other: Voiding Method Toilet Toilet Urinal Urinal # Voids 1 - Labs CBC & Chem 7: 02/05/22 10:29 02/05/22 10:29 Labs: Abnormal Lab Results - Last 24 Hours (Table) 02/05/22 02/05/22 Range/Units 10: 10: RBC 2.99 L (4.30-5.90) m/uL Hgb 9.8 L (13.0-17.5) gm/dL Hct 28.4 L (39.0-53.0) % Lymphocytes # 0.4 L (1.0-4.8) k/uL Sodium 125 L (137-145) mmol/L Chloride 88 L (98-107) mmol/L Carbon Dioxide 31 H (22-30) mmol/L
[2022-02-05] MEDS: SODIUM CHLORIDE 0.9% 1,000 ML IV SCH (16:49)
[2022-02-05] MEDS: MONTELUKAST 10 MG TAB PO SCH (18:22)
[2022-02-05] MEDS: ITRACONAZOLE ORAL SUSP 1,500 MG/150 ML BOTTLE PO SCH (18:22)
[2022-02-05] MEDS: allopurinoL 100 MG TAB PO SCH (18:22)
[2022-02-05] MEDS: predniSONE 5 MG TAB PO SCH (18:23)
[2022-02-05] MEDS: ACETAMINOPHEN TAB 500 MG TAB PO PRN (18:57)
[2022-02-05] MEDS: PANTOPRAZOLE 40 MG TABLET PO SCH (21:57)
[2022-02-06] MEDS: ACETAMINOPHEN TAB 500 MG TAB PO PRN ×2 (02:37→18:31)
[2022-02-06] MEDS: CYCLOBENZAPRINE 5 MG TAB PO PRN ×2 (02:38→10:17)
[2022-02-06] MEDS: SODIUM CHLORIDE 0.9% 1,000 ML IV SCH (05:43)
[2022-02-06] MEDS: LEVOTHYROXINE 25 MCG TAB PO SCH (05:43)
[2022-02-06] MEDS: IPRATROPIUM-ALBUTEROL 3 ML NEB INHALATION SCH ×4 (07:17→20:41)
[2022-02-06] MEDS ORDERED: MAGNESIUM CITRATE 296 ML BOTTLE PO ONE (10:02)
[2022-02-06] MEDS ORDERED: MINERAL OIL 133 ML ENEMA RECTAL STA (10:13)
[2022-02-06] MEDS: ASCORBIC ACID 500 MG TAB PO SCH (10:17)
[2022-02-06] MEDS: LOSARTAN 25 MG TAB PO SCH (10:17)
[2022-02-06] MEDS: SENNOSIDES-DOCUSATE SODIUM 1 EACH TAB PO PRN (10:17)
[2022-02-06] MEDS: DOXAZOSIN 1 MG TAB PO SCH (10:17)
[2022-02-06] MEDS: GABAPENTIN 300 MG CAP PO SCH (10:18)
[2022-02-06] MEDS: CHOLECALCIFEROL 25 MCG (1000 IU) TABLET PO SCH (10:18)
[2022-02-06] MEDS: CALCIUM ACETATE 667 MG TAB PO SCH ×2 (10:18→18:32)
[2022-02-06] MEDS: polyethylene glycoL 3350 17 GM POWD.PACK PO SCH ×2 (10:18→20:39)
[2022-02-06 11:29] LABS: HCT 25.9 % (39.6-50.0); HGB 8.9 g/dL (13.0-17.0); MCH 32.2 pg (27.0-32.0); MCHC 34.4 g/dL (32.0-37.0); MCV 93.8 fL (80.0-97.0); Mean Platelet Volume 10.2 fL (9.5-12.2); NRBC Per 100 WBC 0 /100 WBCS (0.0-0.0); Platelet Count 206 X 10*3/uL (140-440); RBC 2.76 X 10*6/uL (4.40-5.60); RDW 13.3 % (11.5-14.5); WBC 5.04 X 10*3/uL (4.50-10.00)
[2022-02-06 12:02] LABS: African American GFR (CKD) 66.9 (60.0-200.0); Albumin/Globulin Ratio 1.39 (1.60-3.17); Anion Gap 9.1 mmol/L (10.00-18.00); BUN/Creat Ratio 16.45 Ratio (12.00-20.00); Blood Urea Nitrogen 20.4 mg/dL (9.0-27.0); Calcium 9.1 mg/dL (8.7-10.3); Carbon Dioxide 27.9 mmol/L (20.0-27.5); Globulin 2.2 g/dL (1.6-3.3); Non-African American GFR(CKD) 57.7 (60.0-200.0); Potassium 4.9 mmol/L (3.5-5.5); Total Bilirubin 0.7 mg/dL (0.30-1.20); Total Protein 5.2 g/dL (6.2-8.2)
--- NOTE | 2022-02-06 12:53 | P.PN ---
Subjective Progress Note Date: 02/06/22 Hospital course: Patient is a very pleasant 71-year-old male with a past medical history of sarcoidosis, pulmonary hypertension, hypertension, hypothyroidism, GERD, and stage III chronic kidney disease. Patient is currently admitted under orthospine surgical team status post L2 through pelvis decompression with posterolateral and interbody fusion completed by Dr. Huff on 02/01/22. We have been consulted for medical management throughout patient's hospitalization. Physical exam: Patient seen and fully evaluated at bedside this morning. He is currently postoperative day 5. He continues to have mild to moderate output from ERIK drain with 155 mL documented over the past 24 hours. Patient reports having a small liquid/loose bowel movement yesterday evening after receiving suppository. Patient very adamant about receiving enema stating that he still feels full and bloated. Patient denies abdominal pain and is nontender upon palpation. Bowel sounds active in all 4 quadrants. Patient tolerating oral intake with no episodes of nausea or vomiting and passing flatus without difficulties. Order placed for enema per patient's request and patient encouraged to ambulate. MiraLAX increased to twice daily. Sodium levels are improving with gentle hydration and now repeat morning sodium back to 130. Hemoglobin 8.9. Vital signs reviewed and stable. General: Nontoxic, no distress and appears stated age. Derm: Skin warm and dry, normal coloration for ethnicity.postsurgical dressing in place to lumbar spine. ERIK drain also in place with serosanguineous fluid collection chamber. Head: Atraumatic, normocephalic and symmetric. Eyes: EOMs intact, no lid lag, and anicteric sclera Mouth: no lip lesions, mucus membranes moist Cardiovascular: regular rate and rhythm with normal S1S2, no murmur, positive posterior tibial pulses bilaterally, and cap refill < 2 seconds. Lungs: Respirations even, regular, and unlabored on room air. Lungs CTA bilaterally, no rhonchi, no rales, no wheezing, and no accessory muscle usage. GI/: soft, nontender to palpation, no guarding, no appreciable organomegaly. Moore catheter in place. Ext: ROM intact. No gross muscle atrophy, no edema, no contractures Neuro: Speech clear, face symmetrical and CN II-XII grossly intact with no noted focal neuro deficits Psych: Alert and oriented to person, place, time, and situation. Appropriate and pleasant affect. Assessment and Plan of Care: Hyponatremia, improving with IV fluid hydration. -Urine sodium less than 20, serum osmolality 264, TSH 8.180 and free T4 of 1.1 50. -Hyponatremia improving with IV fluid hydration, and we will continue to monitor with repeat a.m. labs. Urinary retention -Patient reports no longer having difficulties with urination since initiation of doxazosin. -Bladder management to continue Postoperative blood loss anemia, greater than expected blood loss -Preoperative hemoglobin obtained 01/13/22 was 13.2 and initial postoperative he moglobin of 9.4 -Patient continues to have mild to moderate output from ERIK drain with 155 mL documented over the past 24 hours. -Morning hemoglobin 8.9. We will continue to monitor closely with repeat a.m. labs and transfuse as needed if hemoglobin falls below 7. Status post L2 through pelvis decompression with posterolateral and interbody fusion Management per primary admitting with a spine surgical team including DVT prophylaxis, wound and drain care, pain management, and PT/OT. Current DVT prophylaxis with RYAN hose and SCDs. Sarcoidosis Pulmonary hypertension -Patient is higher risk for development of pneumonia during postoperative period, had long discussion with patient regarding the importance of incentive spirometry use 10-15 times hourly while awake to prevent development of a telectasis and pneumonia. -Continue nebulizer treatments scheduled and as needed. -continue Singulair Aspergillosis -Continue daily medication regimen with Itraconazole. -Patient is higher risk for development of pneumonia during postoperative period, had long discussion with patient regarding the importance of incentive spirometry use 10-15 times hourly while awake to prevent development of ate lectasis and pneumonia. Hypertension Monitor vital signs and continue daily medication regimen with losartan. Hypothyroidism Continue daily medication regimen with levothyroxine. GERD Continue daily medication regimen with Protonix. Thank you for allowing us to participate in the care of this pleasant patient. Do not hesitate to contact us with questions. Someone can be reached from the [facility] hospitalist group all hours of the day at [phone] or via [employer]. Objective - Vital Signs Vital signs: Vital Signs Temp 98.3 F 02/06/22 08:00 Pulse 86 02/06/22 08:00 Resp 17 02/06/22 08:00 BP 120/71 02/06/22 08:00 Pulse Ox 96 02/06/22 08:00 FiO2 Intake & Output 02/05/22 02/06/22 02/06/22 18:59 06:59 18:59 Output Total 380 8 60 Balance -380 -2097 -60 Output: Drainage 155 60 Back 155 60 Urine 225 1800 Post Void Residual 298 Other: Voiding Method Toilet Toilet Urinal Urinal # Voids 1 - Labs CBC & Chem 7: 02/06/22 07:33 02/06/22 07:33 Labs: Abnormal Lab Results - Last 24 Hours (Table) 02/05/22 02/05/22 02/05/22 Range/Units 10: 10: 14:27 RBC 2.99 L (4.30-5.90) m/uL Hgb 9.8 L (13.0-17.5) gm/dL Hct 28.4 L (39.0-53.0) % Lymphocytes # 0.4 L (1.0-4.8) k/uL Sodium 125 L (137-145) mmol/L Chloride 88 L (98-107) mmol/L Carbon Dioxide 31 H (22-30) mmol/L Osmolality 264 L (280-301) mosm/kg Ur Random Sodium (40-220) mmol/L 02/05/22 Range/Units 15:42 RBC (4.30-5.90) m/uL Hgb (13.0-17.5) gm/dL Hct (39.0-53.0) % Lymphocytes # (1.0-4.8) k/uL Sodium (137-145) mmol/L Chloride (98-107) mmol/L Carbon Dioxide (22-30) mmol/L Osmolality (280-301) mosm/kg Ur Random Sodium <20 L (40-220) mmol/L
--- NOTE | 2022-02-06 13:22 | P.PN ---
Subjective Progress Note Date: 02/06/22 Principal diagnosis: Left lower extremity radiculopathy, lumbar stenosis Patient evaluated at bedside, he is up in his chair resting, is present at bedside. I was contacted by nursing yesterday with regards to some left lower extremity discomfort. Medications were adjusted, seems to be stable at this time. patient has still not had a bowel movement, Fleet enema later today. Training is also putting out serosanguineous fluid at this time. There are any headaches, lightheadedness, chest pain or shortness of breath. Objective - Vital Signs Vital signs: Vital Signs Temp 98.3 F 02/06/22 08:00 Pulse 86 02/06/22 08:00 Resp 17 02/06/22 08:00 BP 120/71 02/06/22 08:00 Pulse Ox 96 02/06/22 08:00 FiO2 Intake & Output 02/05/22 02/06/22 02/06/22 18:59 06:59 18:59 Output Total 380 9559 250 Balance -380 -7738 -250 Output: Drainage 155 75 Back 155 75 Urine 225 1800 175 Post Void Residual 298 Other: Voiding Method Toilet Toilet Urinal Urinal # Voids 1 1 - Exam Gen: AOx3, NAD VSS stable at this time Integument: Bandages clean, dry and intact, drain is putting out serosanguineous fluid, and they measured about 30 mL overnight Palpation: Mild tenderness with palpation of the paraspinal revision lumbar spine ROM: Full range of motion all major muscle groups of the bilateral upper and lower extremity, no focal deficits Sensory Exam: Senory exam to light touch is intact C5-T1 Senosry exam to light touch is intact L2-S1 Motor: Shoulder abduction 5/5, elbow flexors 5/5, wrist dorsiflexors 5/5. finger abductor 5/5, repairing calibrator 5/5, hip flexor 4/5, knee flexor 4/5, ankle dorsiflexor 4/5, ankle plantarflexion 4/5 and extensor hallucis 4/5. Reflexes: Negative Mary's, Babinski, clonus bilateral - Labs CBC & Chem 7: 02/06/22 07:33 02/06/22 07:33 Labs: Abnormal Lab Results - Last 24 Hours (Table) 02/05/22 02/05/22 02/06/22 Range/Units 14:27 15:42 07:33 RBC 2.76 L (4.40-5.60) X 10*6/uL Hgb 8.9 L (13.0-17.0) g/dL Hct 25.9 L (39.6-50.0) % MCH 32.2 H (27.0-32.0) pg Sodium (135-145) mmol/L Chloride (96-109) mmol/L Carbon Dioxide (20.0-27.5) mmol/L Anion Gap (10.00-18.00) mmol/L Est GFR (CKD-EPI)NonAf (60.0-200.0) Osmolality 264 L (280-301) mosm/kg Total Protein (6.2-8.2) g/dL Albumin (3.8-4.9) g/dL Albumin/Globulin Ratio (1.60-3.17) g/dL TSH (0.350-5.500) uIU/mL Ur Random Sodium <20 L (40-220) mmol/L 02/06/22 Range/Units 07:33 RBC (4.40-5.60) X 10*6/uL Hgb (13.0-17.0) g/dL Hct (39.6-50.0) % MCH (27.0-32.0) pg Sodium 130 L (135-145) mmol/L Chloride 93 L (96-109) mmol/L Carbon Dioxide 27.9 H (20.0-27.5) mmol/L Anion Gap 9.10 L (10.00-18.00) mmol/L Est GFR (CKD-EPI)NonAf 57.7 L (60.0-200.0) Osmolality (280-301) mosm/kg Total Protein 5.2 L (6.2-8.2) g/dL Albumin 3.0 L (3.8-4.9) g/dL Albumin/Globulin Ratio 1.39 L (1.60-3.17) g/dL TSH 8.180 H (0.350-5.500) uIU/mL Ur Random Sodium (40-220) mmol/L Assessment and Plan Assessment: Postoperative day #5 status post [id number] decompression and fusion Constipation Hyponatremia Plan: Pain control, continue with current medications. Continue to utilize all available stool softeners DVT prophylaxis, SCD compression Continue to monitor drain, hopeful removal on 02/07/2022 Current incentive spirometer Continue weight-bear as toleratedutilizing LSO brace when up and ambulating Medical recommendations Mag citrate, Senna, Miralax, suppository and enema to help with BM and to get him going. DC drain once BM happens Discharge planning: Plain discharged home once patient has had a bowel movement Time with Patient: Less than 30
[2022-02-06] MEDS ORDERED: LACTULOSE 20 GM/30 ML CUP PO ONE (15:30)
[2022-02-06] MEDS: allopurinoL 100 MG TAB PO SCH (18:31)
[2022-02-06] MEDS: MONTELUKAST 10 MG TAB PO SCH (18:32)
[2022-02-06] MEDS: predniSONE 5 MG TAB PO SCH (18:32)
[2022-02-06] MEDS: ITRACONAZOLE ORAL SUSP 1,500 MG/150 ML BOTTLE PO SCH (18:32)
[2022-02-06] MEDS: PANTOPRAZOLE 40 MG TABLET PO SCH (20:35)
[2022-02-06] MEDS: HYDROcodone/APAP 5-325MG 1 EACH TAB PO PRN (20:36)
[2022-02-07] MEDS: SODIUM CHLORIDE 0.9% 1,000 ML IV SCH ×2 (02:23→05:54)
[2022-02-07] MEDS: LEVOTHYROXINE 25 MCG TAB PO SCH (05:54)
[2022-02-07] MEDS: IPRATROPIUM-ALBUTEROL 3 ML NEB INHALATION SCH (08:03)
--- NOTE | 2022-02-07 08:22 | P.PN ---
Subjective Progress Note Date: 02/07/22 Principal diagnosis: Lumbar stenosis LLE radiculopathy Patient seen and examined at bedside. Patient is sitting up in chair with LSO brace this morning and ambulating within room to restroom. Patient states that his pain is managed on current regimen. Surgical dressing intact, ERIK drain will be removed prior to discharge. Patient has had multiple bowel movements and is feeling much better. Patient to be discharged home with homecare. Continue to encourage patient to continue with incentive spirometer. Patient denies f/c/sob/cp. Objective - Vital Signs Vital signs: Vital Signs Temp 97.9 F 02/07/22 02:00 Pulse 76 02/07/22 08:03 Resp 15 02/07/22 02:00 BP 128/78 02/07/22 02:00 Pulse Ox 96 02/07/22 02:00 FiO2 Intake & Output 02/06/22 02/07/22 02/07/22 18:59 06:59 18:59 Intake Total 1200 Output Total 250 45 Balance -250 1155 Intake: Intake, IV Titration 900 Amount Sodium Chloride 0.9% 1, 900 000 ml @ 75 mls/hr IV . [id number] FOR[facility], [facility]–1983 Rx#:[id number] Oral 300 Output: Drainage 75 45 Back 75 45 Urine 175 Other: Voiding Method Toilet Urinal # Voids 1 3 # Bowel Movements 1 - Exam Physical Examination General: The patient is awake and alert, in no acute distress Skin: Skin is warm and dry with no obvious rashes or lesions. Hairy patches absent, no dorsal skin dimples, no cafe au lait spots. Surgical Incision in the Lumbar region with ERIK drain present to the right of the incision. Eye: Pupils are equal, round and reactive to light, extra-ocular movements are intact; there is normal conjunctiva bilaterally. Neck: The neck is supple, there is no tenderness and ROM intact. Cardiovascular: There is a regular rate and rhythm. No murmur, rub or gallop is appreciated. Respiratory: Lungs are clear to auscultation, respirations are non-labored, breath sounds are equal. Gastrointestinal: Soft, non-distended, non-tender abdomen . Back: There is no tenderness to palpation in the midline, paralumbar, parathoracic or buttocks region. There is no obvious deformity . Musculoskeletal: ROM limited secondary to pain and stiffness from surgical procedure. Shoulder abduction 5/5, elbow flexors 5/5, wrist dorsiflexors 5/5. finger abductor 5/5, thermometer production worker 5/5, hip flexor 4/5, knee flexor 4/5, ankle dorsiflexor 4/5, ankle plantarflexion 4/5 and extensor hallucis 4/5. Neurological: CN 2-12 intact. There are no obvious motor or sensory deficits. Movement and coordination equal and intact. Sensory exam to light touch intact C5-T1 and intact from L2-S1. Reflexes 2/4 in bilateral upper and lower extremities. Negative Hoffmans, babinski, and clonus signs. Psychiatric: Cooperative, appropriate mood & affect, normal judgment. - Labs CBC & Chem 7: 02/06/22 07:33 02/06/22 07:33 Labs: Abnormal Lab Results - Last 24 Hours (Table) 02/06/22 02/06/22 Range/Units 07:33 07:33 RBC 2.76 L (4.40-5.60) X 10*6/uL Hgb 8.9 L (13.0-17.0) g/dL Hct 25.9 L (39.6-50.0) % MCH 32.2 H (27.0-32.0) pg Sodium 130 L (135-145) mmol/L Chloride 93 L (96-109) mmol/L Carbon Dioxide 27.9 H (20.0-27.5) mmol/L Anion Gap 9.10 L (10.00-18.00) mmol/L Est GFR (CKD-EPI)NonAf 57.7 L (60.0-200.0) Total Protein 5.2 L (6.2-8.2) g/dL Albumin 3.0 L (3.8-4.9) g/dL Albumin/Globulin Ratio 1.39 L (1.60-3.17) g/dL TSH 8.180 H (0.350-5.500) uIU/mL Assessment and Plan Assessment: Post Day 6: s/p L2-Pelvis decompression and fusion Plan: Plan: -Appreciate group segment consultant and team management. -Activity: Ambulate QID, OOB all meals, up and about, limit lifting bending twisting to less than 5 lbs. Use walker or cane if needed for stability. -Daily PT/OT, increase ambulation strength and balance. -Brace when up and about, not needed in bed or chair -Pain control: Adequate at this time -Meds: reviewed -GI ppx: senna, Miralax -DVT PPX: heparin -Hygiene: Shower today. Maintain dressing clean and dry. Meticulous cleaning after BMs away from the incision site -Drains: d/c drain today -Encourage IS 10x/hr -Dispo: Anticipate discharge home later today with homecare *I reviewed and discussed this case with my attending Dr. Huff, whom has reviewed this chart and films and is in agreement with assessment and plan of ca re as outlined above. I have personally seen and examined the patient, performed the documentation and the assessment and plan as written. Number of minutes spent on the visit: 20m.
[2022-02-07] MEDS: CHOLECALCIFEROL 25 MCG (1000 IU) TABLET PO SCH (08:29)
[2022-02-07] MEDS: LOSARTAN 25 MG TAB PO SCH (08:29)
[2022-02-07] MEDS: polyethylene glycoL 3350 17 GM POWD.PACK PO SCH (08:29)
[2022-02-07] MEDS: GABAPENTIN 300 MG CAP PO SCH (08:29)
[2022-02-07] MEDS: CALCIUM ACETATE 667 MG TAB PO SCH (08:29)
[2022-02-07] MEDS: DOXAZOSIN 1 MG TAB PO SCH (08:29)
[2022-02-07] MEDS: ASCORBIC ACID 500 MG TAB PO SCH (08:29)
[2022-02-07 08:32] VITALS: BP 116/76; PULSE 96; RESP 16; TEMP 98
--- NOTE | 2022-02-07 09:01 | P.DS ---
Providers Date of admission: 02/01/22 05:33 Expected date of discharge: 02/07/22 Attending physician: Cl Huff DO Consults: 02/01/22 15:17 Consult Physician Routine Consulting Provider: Sandi Arce Consult Reason/Comments: Medical Management s/p [id number] decompression/fusion Do you want consulting provider notified?: Yes Primary care physician: [facility] Course: Hospital Course: The patient was evaluated preoperatively and found to have the diagnosis of spinal stenosis. They underwent appropriate preoperative care and were willing to undergo the intended procedure. They underwent a successful [id number] PLIF, were recovered appropriately and sent to the floor. While on the floor they worked with physical therapy, occupational therapy and nursing to enhance their recovery experience. Their pain was well controlled through their stay and they were started on appropriate medications, DVT ppx modalities, activity and dietary needs. Daily labs were monitored closely, and transfusions were only used when necessary. Medicine as well as other consulting services have made their input and have helped with our team approach and multidisciplinary care. PT milestones have been met and passed and they have made the recommendation of home with home care for this patient and treating providers agree with this care path. The patient will be discharged home with appropriate medications, instructions and follow-up information and in stable condition. Health Concerns: Patients home medication Itraconazole is in the med bin. Needs to be given back to him upon discharge. Patient Condition at Discharge: Good Plan - Discharge Summary Discharge Rx Participant: Yes New Discharge Prescriptions: New Cyclobenzaprine [Flexeril] 5 mg PO TID #90 tablet polyethylene glycoL 3350 [Miralax] 17 gm PO DAILY PRN #527 gm PRN Reason: Constipation HYDROcodone/APAP 5-325MG [[place] 5-325] 1 tab PO Q4HR PRN #42 tab PRN Reason: Pain Sennosides/Docusate Sodium [Senna Plus 8.6-50 mg Softgel] 1 each PO DAILY PRN #20 capsule PRN Reason: Constipation Gabapentin 300 mg PO TID #90 cap No Action Omeprazole 20 mg PO HS allopurinoL [Zyloprim] 50 mg PO W/SUPPER Doxycycline Hyclate [Vibramycin] 100 mg PO QAM Levothyroxine Sodium [Synthroid] 25 mcg PO QAM Ipratropium-Albuterol Nebulize [Duoneb 0.5 mg-3 mg/3 ml Soln] 3 ml INHALATION QAM predniSONE 5 mg PO W/SUPPER Montelukast [Singulair] 10 mg PO W/SUPPER Spironolactone-Hctz 25-25Mg [Aldactazide 25-25 MG] 0.5 tab PO QAM Sildenafil [Revatio] 20 mg PO TID Losartan Potassium 25 mg PO QAM Loratadine Oral Soln [Claritin Oral Soln] 5 mg PO HS Magnesium Oxide [Magnesium] 500 mg PO DAILY Albuterol Inhaler [Ventolin Hfa Inhaler] 2 puff INHALATION Q6H PRN PRN Reason: Shortness Of Breath Itraconazole Oral Susp [Sporanox Oral Susp] 100 mg PO AC-SUPPER Discharge Medication List Doxycycline Hyclate [Vibramycin] 100 mg PO QAM 06/13/16 [History] Ipratropium-Albuterol Nebulize [Duoneb 0.5 mg-3 mg/3 ml Soln] 3 ml INHALATION QAM 06/13/16 [History] Levothyroxine Sodium [Synthroid] 25 mcg PO QAM 06/13/16 [History] Montelukast [Singulair] 10 mg PO W/SUPPER 06/13/16 [History] Omeprazole 20 mg PO HS 06/13/16 [History] allopurinoL [Zyloprim] 50 mg PO W/SUPPER 06/13/16 [History] predniSONE 5 mg PO W/SUPPER 06/13/16 [History] Spironolactone-Hctz 25-25Mg [Aldactazide 25-25 MG] 0.5 tab PO QAM 06/26/17 [History] Albuterol Inhaler [Ventolin Hfa Inhaler] 2 puff INHALATION Q6H PRN 03/25/21 [History] Sildenafil [Revatio] 20 mg PO TID 03/25/21 [History] Losartan Potassium 25 mg PO QAM 06/05/21 [History] Loratadine Oral Soln [Claritin Oral Soln] 5 mg PO HS 01/31/22 [History] Magnesium Oxide [Magnesium] 500 mg PO DAILY 01/31/22 [History] Itraconazole Oral Susp [Sporanox Oral Susp] 100 mg PO AC-SUPPER 02/02/22 [History] Cyclobenzaprine [Flexeril] 5 mg PO TID #90 tablet 02/07/22 [Rx] Gabapentin 300 mg PO TID #90 cap 02/07/22 [Rx] HYDROcodone/APAP 5-325MG [[place] 5-325] 1 tab PO Q4HR PRN #42 tab 02/07/22 [Rx] Sennosides/Docusate Sodium [Senna Plus 8.6-50 mg Softgel] 1 each PO DAILY PRN #20 capsule 02/07/22 [Rx] polyethylene glycoL 3350 [Miralax] 17 gm PO DAILY PRN #527 gm 02/07/22 [Rx] Follow up Appointment(s)/Referral(s): Mark Hollins [NON-STAFF] - As Needed (LSO back brace) Activity/Diet/Wound Care/Special Instructions: Home Care Experts: #[phone] Spine Discharge and Recovery Instructions Date of Surgery: 02/01/2022 Diagnosis: Spinal stenosis Procedure: [id number] decompression and fusion Medications: See medication list All medication refills should be obtained through your primary care doctor or your clinic spine surgeon. Please discuss prescription refills at your follow up appointment. Do not call the hospital for medication refills. Dressing: Leave your dressing in place for a total of 5 days post operatively. Then you may remove your dressing and leave open to air. Keep the area clean and if not able to keep area clean, then cover with sterile gauze and tape. Showering: You may shower 3 days after your procedure allowing soap and water to run over incision. Do not scrub. Do not soak. Blot dry. Follow up: Please confirm a follow up appointment with your surgeon 3 weeks post operatively. Please make an appointment to follow up with your PCP in 1-2 weeks after surgery for evaluation 3 phase, 3-week plan POST OP WEEKS 1-3 1. Lifting/carrying/pushing/pulling limited to less than 5 pounds. 2. Do not sit for longer than 15 minutes at one time. Get up and walk around. Prolonged sitting is NOT advised. If you lay down, see if you can tolerate laying down on you front (belly side) 3. Walk for periods of 15 minutes = 1 mile but no longer; do it multiple times times each day. 4. Ice your low back after activity. POST OP WEEKS 3-6 1. Lifting limited to less than 20 pounds. 2. Do not sit for longer than 30 minutes at a time. Frequently change positions. Use a sit-to stand workstation or take frequent breaks from sitting if you have returned to work. 3. Walk for 30 minutes each day. If possible, do these three or more times a day POST OP WEEKS 6+ At your 6-week appointment we will give you a physical therapy referral to focus on a core stabilization and strengthening program. You should also work on leg & buttock strengthening, hamstring & quadriceps stretching, and continue a low impact aerobic activity program such as swimming, walking, or riding a stationary bicycle. During the initial 6 weeks after your surgery, you are at the highest risk of re-injuring your spine. You should generally avoid BLTs (bending, lifting and twisting combination motions) and follow the above guidelines to reduce the chance of reinjury. You can anticipate post op appointments in our office at approximately 3 weeks and 6 weeks after your surgery. INCISION CARE: If your incision is not draining you do NOT need to cover it with a dressing. Keep your incision clean, dry and intact. In most cases, we apply skin glue, jessica or sutures to the incision at the time of surgery. This will be like a crust or have the appearance of a scab and will fall off in time on its own. The stitches or jessica need to be removed at 3 weeks post op appointment. You may begin to shower 3 days after surgery (this allows the glue to sampson well). However, please avoid scrubbing the incision site or peeling off any of the skin glue. This will ensure optimal healing of your incision. Also, during this time avoid soaking the incision area in water - this includes swimming pools, hot tubs or baths. No ointments, lotions or oils on the incision until your surgeon allows. Leave jessica, sutures or glue in place. Neurological dysfunction that comes on suddenly can also be a sign of a stroke. Below some common symptoms of a stroke are listed: B - balance difficulty such as sudden onset walking or leaning to one side - NEW E - eye problem such as sudden double vision or trouble seeing on one side - NEW F - Facial weakness or numbness on one side - NEW A - Arm or leg weakness or numbness on one side - NEW S - Slurred speech or difficulty with word finding - NEW T - Time is BRAIN! Call 911 as soon as you recognize these symptoms Diet: Consume a regular diet rich in vegetables and lean protein such as chicken or fish. You should consume in a ratio of approximately 20% fats|40% carbohydrates|40%protein. Vegetables, sweet potatoes, brown rice or quinoa are examples of good carbohydrates. Chips, white bread, cookies and sweets/sugar are examples of bad carbohydrates. Limit your bad carbs, go wild with good carbs. "Life's Simple 7" Guidelines as per [place] [employer] These will help you reclaim your life after surgery and winder helper in your recovery, keeping in mind your restrictions. (1) Get Active. Physical activity can help people lose weight, control high blood pressure and cholesterol, feel emotionally better, and sleep better. (2) Control Cholesterol. Avoid a diet high in saturated fat, trans fat, & cholesterol. Limit whole milk & cream, ice cream, butter, egg yolks, processed meats (like sausage and hot dogs), and fatty meats. Choose healthy foods that are low in saturated fat, trans fat and cholesterol which include: Fruits and vegetables, fiber rich grain products (like whole grain pasta and brown rice), lean meat such as chicken, fish, nuts, seeds, and legumes. (3) Eat Better. Eat small portions. Shop at the grocery with a list and do not stray from it. Tips for a healthy diet include: Limit sodium intake to less than 1500mg daily, avoid prepackaged, processed, and fast foods, choose a diet rich in fruits, vegetables, and whole grain, high fiber foods, and limit s aturated & cholesterol in your diet. (4) Manage Blood Pressure. If you have high blood pressure, you should have a cuff at home so that you can check your blood pressure regularly. Be sure you have a good cuff. An arm one is generally better than a wrist one. Bring the cuff to a doctor's appointment to validate that the measurements that your cuff are taking are accurate. Take your blood pressure twice daily when you are sitting down and relaxing. Record the numbers in a log and bring this log with you to your doctors' appointments. (5) Lose Weight if your BMI is above 25. A healthy BMI is between 19-25. To calculate Your BMI, you may use a Standard BMI Calculator on the NIH BMI website: <www.nhlbi.nih.gov/guidelines/obesity/BMI/bmicalc.htm>. Weigh oneself daily. If you are overweight, set a goal to lose weight. A pound a week loss if needed is a good target. (6) Reduce Blood Sugar. Limit foods and liquids with "added sugars." (Added sugars include sucrose, fructose, glucose, maltose, dextrose, high fructose corn syrup, corn syrup, concentrated fruit juice and honey). (7) Stop Smoking. If you smoke, quitting smoking is one of the best things that you can do for your health. Smoking increases your risk of heart attack, stroke, and peripheral vascular disease, which is a build-up of plaque in your arteries. Please discard all the cigarettes and lighters in your house. Have a plan for what you will do when you have the urge to smoke. Direct and second- hand smoke shortens your life as well as the lives of your family, friends and others around you. For your health and the health of those around you, please consider quitting! Proper Bending Body Mechanics: Maintain a wide stance with one foot slightly in front of the other. Keep your back straight. Bend utilizing the strength in your hips and knees. Do not bend at the waist. Maintain the lifted object at your waist-level close to your body. Avoid lifting weight that causes immediately pain or pain anywhere in the body afterwards. Smoking/Nicotine If there was ever one thing that you could do to increase your overall health, decrease your risk of cardiovascular problems by about 39% the second you make the choice, it is to STOP SMOKING. Your body's most instant gratification is the second you stop smoking. We have all heard the studies, read the articles but it is true, smoking is extremely bad for your overall health, and moreover it is detrimental to your bone health. Nicotine, IN ANY FORM, kills bone cells, prevents your body from healing fractures, and significantly prolongs healing after surgery. In spine surgery specifically, it increases your risk of not healing your bones to create a fusion and increases your risk of having a revision surgery due to this up to 60%. I know it is hard. I know it feels impossible. But there are ways. Take control of your life. We are here to help you through it. And when you are ready, ask us and we can direct you to help if you desire. Use the START Plan to Quit Smoking (please visit the Helpguide.org website listed below for more information): S = Set a quit date. Choose a date within the next 2 weeks, so you have enough time to prepare without losing your motivation to quit. If you mainly smoke at work, quit on the weekend, so you have a few days to adjust to the change. T = Tell family, friends, and co-workers that you plan to quit. Let your friends and family in on your plan to quit smoking and tell them you need their support and encouragement to stop. Look for a quit narciso who wants to stop smoking as well. You can help each other get through the rough times. A = Anticipate and plan for the challenges you'll face while quitting. Most people who begin smoking again do so within the first 3 months. You can help yourself make it through by preparing ahead for common challenges, such as nicotine withdrawal and cigarette cravings. R = Remove cigarettes and other tobacco products from your home, car, and work. Throw away all your cigarettes (no emergency pack!), lighters, ashtrays, and matches. Wash your clothes and freshen up anything that smells like smoke. Shampoo your car, clean your drapes and carpet, and steam your furniture. T = Talk to your doctor about getting help to quit. Your doctor can prescribe medication to help with withdrawal and suggest other alternatives. If you can't see a doctor, you can get many products over the counter at your local pharmacy or grocery store, including the nicotine patch, nicotine lozenges, and nicotine gum. Resources for Quitting Smoking: <https://www.[place].gov/documents/ [facility]/Quit_Tobacco_Resources_for_patients_313480_7.pdf> Supplementation: Take recommended dosages of Vitamin D and Calcium to help fortify your bones and help them to heal. See your health maintenance packet for dosages and recommended levels. DVT/VTE prophylaxis: You will be given compression stockings from the hospital. Wear these daily for the first two weeks after surgery. You may take them off at night. You may be prescribed a medication to help thin your blood. Take this as directed. If you are not prescribed this medication, early and frequent ambulation has been shown to be the best prophylaxis to deep vein thrombosis and sequelae related to this event. Discharge Disposition: HOME WITH HOME HEALTH SERVICES
[2022-02-07 11:33] LABS: HCT 27.8 % (39.6-50.0); MCH 31.6 pg (27.0-32.0); MCHC 32.4 g/dL (32.0-37.0); MCV 97.5 fL (80.0-97.0); Mean Platelet Volume 10.7 fL (9.5-12.2); NRBC Per 100 WBC 0 /100 WBCS (0.0-0.0); Platelet Count 239 X 10*3/uL (140-440); RBC 2.85 X 10*6/uL (4.40-5.60); RDW 13.5 % (11.5-14.5); WBC 4.62 X 10*3/uL (4.50-10.00)
--- NOTE | 2022-02-07 11:34 | P.PN ---
Subjective Progress Note Date: 02/07/22 Hospital course: Patient is a very pleasant 71-year-old male with a past medical history of sarcoidosis, pulmonary hypertension, hypertension, hypothyroidism, GERD, and stage III chronic kidney disease. Patient is currently admitted under orthospine surgical team status post L2 through pelvis decompression with posterolateral and interbody fusion completed by Dr. Huff on 02/01/22. We have been consulted for medical management throughout patient's hospitalization. Physical exam: Patient seen and fully evaluated at bedside this morning. He is currently postoperative day 6. Patient has had a total of 25 mL of output from ERIK drain today, surgery planning to remove. Patient has had multiple bowel movements overnight. He is now free from any complaints or concerns at this time. Patient is medically stable for discharge home once cleared by primary orthospine surgery team. Vital signs reviewed and stable. General: Nontoxic, no distress and appears stated age. Derm: Skin warm and dry, normal coloration for ethnicity.postsurgical dressing in place to lumbar spine. ERIK drain also in place with serosanguineous fluid collection chamber. Head: Atraumatic, normocephalic and symmetric. Eyes: EOMs intact, no lid lag, and anicteric sclera Mouth: no lip lesions, mucus membranes moist Cardiovascular: regular rate and rhythm with normal S1S2, no murmur, positive posterior tibial pulses bilaterally, and cap refill < 2 seconds. Lungs: Respirations even, regular, and unlabored on room air. Lungs CTA bilaterally, no rhonchi, no rales, no wheezing, and no accessory muscle usage. GI/: soft, nontender to palpation, no guarding, no appreciable organomegaly. Moore catheter in place. Ext: ROM intact. No gross muscle atrophy, no edema, no contractures Neuro: Speech clear, face symmetrical and CN II-XII grossly intact with no noted focal neuro deficits Psych: Alert and oriented to person, place, time, and situation. Appropriate and pleasant affect. Assessment and Plan of Care: Hyponatremia, improved with IV fluid hydration. -Urine sodium less than 20, serum osmolality 264, TSH 8.180 and free T4 of 1.150. -Hyponatremia improving with IV fluid hydration, and we will continue to monitor with repeat a.m. labs. Constipation, resolved Urinary retention -Patient reports no longer having difficulties with urination since initiation of doxazosin. -Bladder management to continue Postoperative blood loss anemia, greater than expected blood loss -Preoperative hemoglobin obtained 01/13/22 was 13.2 and initial postoperative hemoglobin of 9.4 -Patient continues to have mild to moderate output from ERIK drain with 155 mL documented over the past 24 hours. -Morning hemoglobin stable at 8.9. We will continue to monitor closely with repeat a.m. labs and transfuse as needed if hemoglobin falls below 7. Status post L2 through pelvis decompression with posterolateral and interbody fusion Management per primary admitting with a spine surgical team including DVT prophylaxis, wound and drain care, pain management, and PT/OT. Current DVT prophylaxis with RYAN hose and SCDs. Sarcoidosis Pulmonary hypertension -Patient is higher risk for development of pneumonia during postoperative period, had long discussion with patient regarding the importance of incentive spirometry use 10-15 times hourly while awake to prevent development of atelectasis and pneumonia. -Continue nebulizer treatments scheduled and as needed. -continue Singulair Aspergillosis -Continue daily medication regimen with Itraconazole. -Patient is higher risk for development of pneumonia during postoperative period, had long discussion with patient regarding the importance of incentive spirometry use 10-15 times hourly while awake to prevent development of atelectasis and pneumonia. Hypertension Monitor vital signs and continue daily medication regimen with losartan. Hypothyroidism Continue daily medication regimen with levothyroxine. GERD Continue daily medication regimen with Protonix. Thank you for allowing us to participate in the care of this pleasant patient. Do not hesitate to contact us with questions. Someone can be reached from the [facility] hospitalist group all hours of the day at [phone] or via [employer]. Objective - Vital Signs Vital signs: Vital Signs Temp 98.0 F 02/07/22 08:00 Pulse 76 02/07/22 08:14 Resp 16 02/07/22 08:00 BP 116/76 02/07/22 08:00 Pulse Ox 96 02/07/22 08:00 FiO2 Intake & Output 02/06/22 02/07/22 02/07/22 18:59 06:59 18:59 Intake Total 1200 Output Total 250 45 Balance -250 1155 Intake: Intake, IV Titration 900 Amount Sodium Chloride 0.9% 1, 900 000 ml @ 75 mls/hr IV . [id number] [facility] Rx#:[id number] Oral 300 Output: Drainage 75 45 Back 75 45 Urine 175 Other: Voiding Method Toilet Urinal # Voids 1 3 # Bowel Movements 1 - Labs CBC & Chem 7: 02/06/22 07:33 02/06/22 07:33 Labs: Abnormal Lab Results - Last 24 Hours (Table) 02/06/22 02/06/22 Range/Units 07:33 07:33 RBC 2.76 L (4.40-5.60) X 10*6/uL Hgb 8.9 L (13.0-17.0) g/dL Hct 25.9 L (39.6-50.0) % MCH 32.2 H (27.0-32.0) pg Sodium 130 L (135-145) mmol/L Chloride 93 L (96-109) mmol/L Carbon Dioxide 27.9 H (20.0-27.5) mmol/L Anion Gap 9.10 L (10.00-18.00) mmol/L Est GFR (CKD-EPI)NonAf 57.7 L (60.0-200.0) Total Protein 5.2 L (6.2-8.2) g/dL Albumin 3.0 L (3.8-4.9) g/dL Albumin/Globulin Ratio 1.39 L (1.60-3.17) g/dL TSH 8.180 H (0.350-5.500) uIU/mL
[2022-02-07 11:40] LABS: African American GFR (CKD) 77.3 (60.0-200.0); Albumin 3.1 g/dL (3.8-4.9); Albumin/Globulin Ratio 1.35 (1.60-3.17); Anion Gap 6.4 mmol/L (10.00-18.00); BUN/Creat Ratio 13.36 Ratio (12.00-20.00); Blood Urea Nitrogen 14.7 mg/dL (9.0-27.0); Carbon Dioxide 30.6 mmol/L (20.0-27.5); Globulin 2.3 g/dL (1.6-3.3); Non-African American GFR(CKD) 66.7 (60.0-200.0); Potassium 4.6 mmol/L (3.5-5.5); Total Bilirubin 0.5 mg/dL (0.30-1.20); Total Protein 5.4 g/dL (6.2-8.2)
== END 2022-02-07 13:47 | disposition home health service (06) | DRG 454 ==
LOC: 2ORMAIN 05:33 → 4SSUR 15:52
PROVIDERS: ADMIT Orthopaedic Surgery; ATTEND Orthopaedic Surgery
PROC: 01NR0ZZ Release Sacral Nerve, Open Approach (ICD-10-PCS; principal; 2022-02-01 08:45)
PROC: 0SG10AJ Fusion of 2 or more Lumbar Vertebral Joints with Interbody Fusion Device, Posterior Approach, Anterior Column, Open Approach (ICD-10-PCS; principal; 2022-02-01 08:45)
PROC: 0ST40ZZ Resection of Lumbosacral Disc, Open Approach (ICD-10-PCS; principal; 2022-02-01 08:45)
PROC: 0SG30AJ Fusion of Lumbosacral Joint with Interbody Fusion Device, Posterior Approach, Anterior Column, Open Approach (ICD-10-PCS; principal; 2022-02-01 08:45)
PROC: 0ST20ZZ Resection of Lumbar Vertebral Disc, Open Approach (ICD-10-PCS; principal; 2022-02-01 08:45)
PROC: 0SG3071 Fusion of Lumbosacral Joint with Autologous Tissue Substitute, Posterior Approach, Posterior Column, Open Approach (ICD-10-PCS; principal; 2022-02-01 08:45)
PROC: 4A11X4G Monitoring of Peripheral Nervous Electrical Activity, Intraoperative, External Approach (ICD-10-PCS; principal; 2022-02-01 08:45)
PROC: 0SG1071 Fusion of 2 or more Lumbar Vertebral Joints with Autologous Tissue Substitute, Posterior Approach, Posterior Column, Open Approach (ICD-10-PCS; principal; 2022-02-01 08:45)
PROC: 01NB0ZZ Release Lumbar Nerve, Open Approach (ICD-10-PCS; principal; 2022-02-01 08:45)
PROC: 0QB00ZZ Excision of Lumbar Vertebra, Open Approach (ICD-10-PCS; principal; 2022-02-01 08:45)
DX: M48.07 Spinal stenosis, lumbosacral region (principal); B44.1 Other pulmonary aspergillosis; I42.0 Dilated cardiomyopathy; D62 Acute posthemorrhagic anemia; E87.1 Hypo-osmolality and hyponatremia; I27.20 Pulmonary hypertension, unspecified; M41.57 Other secondary scoliosis, lumbosacral region; J44.9 Chronic obstructive pulmonary disease, unspecified; N18.30 Chronic kidney disease, stage 3 unspecified; D86.0 Sarcoidosis of lung; M48.062 Spinal stenosis, lumbar region with neurogenic claudication; M47.27 Other spondylosis with radiculopathy, lumbosacral region; M47.26 Other spondylosis with radiculopathy, lumbar region; I12.9 Hypertensive chronic kidney disease with stage 1 through stage 4 chronic kidney disease, or unspecified chronic kidney disease; E03.9 Hypothyroidism, unspecified; G47.9 Sleep disorder, unspecified; M62.562 Muscle wasting and atrophy, not elsewhere classified, left lower leg; G25.81 Restless legs syndrome; H91.93 Unspecified hearing loss, bilateral; K21.9 Gastro-esophageal reflux disease without esophagitis; K59.00 Constipation, unspecified; N40.1 Benign prostatic hyperplasia with lower urinary tract symptoms; R33.8 Other retention of urine; M19.90 Unspecified osteoarthritis, unspecified site; M10.9 Gout, unspecified; R26.81 Unsteadiness on feet; Z79.2 Long term (current) use of antibiotics; Z79.890 Hormone replacement therapy; Z79.52 Long term (current) use of systemic steroids; Z79.899 Other long term (current) drug therapy; Z96.651 Presence of right artificial knee joint; Z85.828 Personal history of other malignant neoplasm of skin; Z88.6 Allergy status to analgesic agent; Z88.1 Allergy status to other antibiotic agents; Z91.013 Allergy to seafood; Z88.8 Allergy status to other drugs, medicaments and biological substances
CPT/HCPCS: 72100; 72131; 80048; 80053; 83735; 83930; 83935; 84300; 84439; 84443; 85025; 85027; 86850; 86900; 86901; 88304; 88311; 94640; 94760

== ENCOUNTER → 2022-02-14 | Outpatient (CLI) | payer MEDICARE ==
[2022-02-14 14:31] LABS: Basophils # (A) 0.03 X 10*3/uL (0.00-0.10); Basophils % (A) 0.5 %; Eosinophils # (A) 0.09 X 10*3/uL (0.04-0.35); Eosinophils % (A) 1.4 %; HCT 30.1 % (39.6-50.0); HGB 9.4 g/dL (13.0-17.0); Immature Grans, Automated 1.7 %; Lymphocytes # (A) 0.79 X 10*3/uL (0.90-5.00); MCH 30.8 pg (27.0-32.0); MCHC 31.2 g/dL (32.0-37.0); MCV 98.7 fL (80.0-97.0); Mean Platelet Volume 9.2 fL (9.5-12.2); Monocytes # (A) 0.41 X 10*3/uL (0.20-1.00); Monocytes % (A) 6.3 %; NRBC Per 100 WBC 0 /100 WBCS (0.0-0.0); Neutrophils # (A) 5.13 X 10*3/uL (1.80-7.70); Neutrophils % (A) 78.1 %; Platelet Count 433 X 10*3/uL (140-440); RBC 3.05 X 10*6/uL (4.40-5.60); RDW 13.6 % (11.5-14.5); WBC 6.56 X 10*3/uL (4.50-10.00)
[2022-02-14 18:17] LABS: Albumin 3.6 g/dL (3.8-4.9); Albumin/Globulin Ratio 1.18 (1.60-3.17); Anion Gap 7.1 mmol/L (10.00-18.00); BUN/Creat Ratio 15.98 Ratio (12.00-20.00); Blood Urea Nitrogen 21.1 mg/dL (9.0-27.0); Calcium 8.7 mg/dL (8.7-10.3); Carbon Dioxide 31.3 mmol/L (20.0-27.5); Non-African American GFR(CKD) 53.5 (60.0-200.0); Potassium 4.7 mmol/L (3.5-5.5); Total Bilirubin 0.5 mg/dL (0.30-1.20); Total Protein 6.6 g/dL (6.2-8.2)
== END | disposition home or self-care (01) ==
LOC: LABWHC1 10:38
PROVIDERS: ATTEND Nurse Practitioner
DX: R79.9 Abnormal finding of blood chemistry, unspecified (principal)
CPT/HCPCS: 36415; 80053; 85025

== ENCOUNTER 2022-02-21 12:48 | Inpatient (IN) | payer MEDICARE ==
[2022-02-21] MEDS ORDERED: HYDROmorphone 0.5 MG/0.5 ML SYRINGE IVP PRN (13:16)
[2022-02-21] MEDS ORDERED: HYDROmorphone 1 MG/ML 1 ML SYRINGE IVP PRN (13:16)
[2022-02-21] MEDS ORDERED: ACETAMINOPHEN TAB 325 MG TAB PO PRN (13:16)
[2022-02-21] MEDS ORDERED: NALOXONE 0.4 MG/ML 1 ML VIAL IV PRN (13:16)
--- NOTE | 2022-02-21 13:16 | ED ---
General Adult HPI - General Chief complaint: Back Pain/Injury Stated complaint: post surgical issue, L-spine Time Seen by Provider: 02/21/22 13:13 Source: patient, family, RN/MD, RN notes reviewed Mode of arrival: wheelchair Limitations: no limitations - History of Present Illness Initial comments: Patient is a pleasant 71-year-old male presenting to the emergency department with concerns with problems with his hardware. Patient did have surgery on February [address] Larkin 7.. He should states slowly since that time it seems to have protruded out of him. Case was discussed with Dr. marsh who did call me. X-rays were done. Should have patient be admitted for surgical revision tomorrow. Patient does have chronic leg leg weakness which is u nchanged. No new weakness. No new incontinence or retention of bowel or bladder. - Related Data Home Medications Medication Instructions Recorded Confirmed Doxycycline Hyclate [Vibramycin] 100 mg PO QAM 06/13/16 02/01/22 Ipratropium-Albuterol Nebulize 3 ml INHALATION QAM 06/13/16 02/01/22 [Duoneb 0.5 mg-3 mg/3 ml Soln] Levothyroxine Sodium [Synthroid] 25 mcg PO QAM 06/13/16 02/01/22 Montelukast [Singulair] 10 mg PO W/SUPPER 06/13/16 02/01/22 Omeprazole 20 mg PO HS 06/13/16 02/01/22 allopurinoL [Zyloprim] 50 mg PO W/SUPPER 06/13/16 02/01/22 predniSONE 5 mg PO W/SUPPER 06/13/16 02/01/22 Spironolactone-Hctz 25-25Mg 0.5 tab PO QAM 06/26/17 02/01/22 [Aldactazide 25-25 MG] Albuterol Inhaler [Ventolin Hfa 2 puff INHALATION Q6H PRN 03/25/21 02/01/22 Inhaler] Sildenafil [Revatio] 20 mg PO TID 03/25/21 02/01/22 Losartan Potassium 25 mg PO QAM 06/05/21 02/01/22 Loratadine Oral Soln [Claritin 5 mg PO HS 01/31/22 02/01/22 Oral Soln] Magnesium Oxide [Magnesium] 500 mg PO DAILY 01/31/22 02/01/22 Itraconazole Oral Susp [Sporanox 100 mg PO AC-SUPPER 02/02/22 02/02/22 Oral Susp] Previous Rx's Medication Instructions Recorded Cyclobenzaprine [Flexeril] 5 mg PO TID #90 tablet 02/07/22 Doxazosin [Cardura] 1 mg PO DAILY 30 Days #30 tab 02/07/22 Gabapentin 300 mg PO TID #90 cap 02/07/22 HYDROcodone/APAP 5-325MG [[place] 1 tab PO Q4HR PRN #42 tab 02/07/22 5-325] Sennosides/Docusate Sodium [Senna 1 each PO DAILY PRN #20 capsule 02/07/22 Plus 8.6-50 mg Softgel] polyethylene glycoL 3350 [Miralax] 17 gm PO DAILY PRN #527 gm 02/07/22 Allergies Allergy/AdvReac Type Severity Reaction Status Date / Time nickel Allergy Unknown POSITIVE Verified 02/01/22 06:14 ON TESTING cephalexin Allergy Rash/Hives Verified 02/01/22 06:14 furosemide [From Lasix] Allergy Rash/Hives Verified 02/01/22 06:14 iodine Allergy Anaphylaxis Verified 02/01/22 06:14 shellfish derived [Shellfish] Allergy Anaphylaxis Verified 02/01/22 06:14 NSAIDS (Non-Steroidal AdvReac Unknown PT STATES Verified 02/01/22 06:14 Anti-Inflamma NO NSAIDS DUE TO KIDNEY DISEASE. 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 ROS Other: All systems not noted in ROS Statement are negative. Constitutional: Denies: fever Eyes: Denies: eye pain ENT: Denies: ear pain Respiratory: Denies: cough Cardiovascular: Denies: chest pain Endocrine: Denies: fatigue Gastrointestinal: Denies: abdominal pain Genitourinary: Denies: dysuria Musculoskeletal: Reports: as per HPI Neurological: Reports: as per HPI Past Medical History Past Medical History: Asthma, Cancer, COPD, Hypertension, Renal Disease, Thyroid Disorder Additional Past Medical History / Comment(s): SARCOIDOSIS, LUNG FUNGAL INFECTION, PULMONARY HYPERTENSION,SKIN CANCER,STAGE 3 CHRONIC KIDNEY DISEASE, History of Any Multi-Drug Resistant Organisms: None Reported Past Surgical History: Joint Replacement Additional Past Surgical History / Comment(s): HEMORROIDECTOMY, BRONCHOSCOPY X2, BONE MARROW BIOPSY, BASAL CELL LESION REMOVED , BACK PAIN INJECTIONS, COLONOSCOPY Past Anesthesia/Blood Transfusion Reactions: No Reported Reaction Past Psychological History: No Psychological Hx Reported Smoking Status: Never smoker Past Alcohol Use History: Rare Past Drug Use History: None Reported - Past Family History Mother Family Medical History: Cancer General Exam Limitations: no limitations General appearance: alert, in no apparent distress Head exam: Present: normocephalic Eye exam: Present: normal appearance Respiratory exam: Present: normal lung sounds bilaterally Cardiovascular Exam: Present: regular rate, normal rhythm GI/Abdominal exam: Present: soft. Absent: tenderness Extremities exam: Present: normal inspection, full ROM Back exam: Present: other (Right paralumbar fullness and tenderness) Neurological exam: Present: alert, motor sensory deficit (Weakness with left- sided dorsi and plantar flexion which patient states is chronic and unchanged. Otherwise no weakness on exam.) Expanded Sensory exam: Upper Extremity Light Touch: Normal, Lower Extremity Light Touch: Normal Motor strength exam: RUE: 5, LUE: 5, RLE: 5, LLE: 4 Psychiatric exam: Present: normal affect, normal mood Skin exam: Present: normal color Course Vital Signs 02/21/22 13:09 Temperature 97.7 F Pulse Rate 96 Respiratory 16 Rate Blood Pressure 121/72 O2 Sat by Pulse 96 Oximetry Medical Decision Making - Medical Decision Making Patient and family made aware of plan. Disposition Clinical Impression: Back pain Disposition: ADMITTED IP TO THIS HOSP Is patient prescribed a controlled substance at d/c from ED?: No Referrals: Romaine Aden MD [Primary Care Provider] - 1-2 days Time of Disposition: 13:16
[2022-02-21] MEDS: SODIUM CHLORIDE 0.9% 1,000 ML IV SCH (14:18)
[2022-02-21 14:37] LABS: Basophils % (A) 1 %; Eosinophils # (A) 0.1 k/uL (0-0.7); Eosinophils % (A) 2 %; HCT 30.8 % (39.0-53.0); HGB 10.5 gm/dL (13.0-17.5); Hypochromasia Slight; Lymphocytes # (A) 0.8 k/uL (1.0-4.8); Lymphocytes % (A) 13 %; MCH 32.4 pg (25.0-35.0); MCHC 33.9 g/dL (31.0-37.0); MCV 95.6 fL (80.0-100.0); Mean Platelet Volume 7.2; Monocytes # (A) 0.4 k/uL (0-1.0); Monocytes % (A) 6 %; Neutrophils # (A) 4.8 k/uL (1.3-7.7); Neutrophils % (A) 77 %; Platelet Count 335 k/uL (150-450); RBC 3.23 m/uL (4.30-5.90); RDW 13.8 % (11.5-15.5); WBC 6.2 k/uL (3.8-10.6)
[2022-02-21 14:38] LABS: ALT 18 U/L (4-49); AST 25 U/L (17-59); African American GFR (CKD) 65 (>60 ml/min/1.73 sqM); Albumin 3.7 g/dL (3.5-5.0); Albumin/Globulin Ratio 1.4; Alkaline Phosphatase 177 U/L (38-126); Anion Gap 4 mmol/L; Blood Urea Nitrogen 26 mg/dL (9-20); Calcium 8.7 mg/dL (8.4-10.2); Carbon Dioxide 32 mmol/L (22-30); Chloride 101 mmol/L (98-107); Globulin 2.7 g/dL; Glucose 96 mg/dL (74-99); Non-African American GFR(CKD) 57 (>60 ml/min/1.73 sqM); Prothrombin Time 10.8 sec (9.0-12.0); Sodium 137 mmol/L (137-145); Total Bilirubin 0.7 mg/dL (0.2-1.3); Total Protein 6.4 g/dL (6.3-8.2)
--- NOTE | 2022-02-21 15:24 | P.HPOR ---
History of Present Illness H&P Date: 02/21/22 Chief Complaint: Back pain .D:Date: 02/21/22 : 11:49am .T:Title: *[facility] Date of :[birth year] Age: 71 year Height: 5'10" Weight: 152 lbs BMI: 21.81 kg/m2 Occupation: Retired VAS: 3 CHIEF COMPLAINT: lumbar (L2-Pelvis) Decompression with posterolateral and interbody fusion DOI:Chronic DOS:02/01/2022 Post Op Week: 2 weeks HISTORY: Mr. Barakat returns to the office for a post-operative evaluation following their lumbar (L2-Pelvis) Decompression with posterolateral and interbody fusion with failed hardware and to review his CT scan. Since the time of the last appointment the patient reports significantly inceased pain and symptoms. Overall he notes that he is unable to ambulate any distance and is have diffuse sharp pain about the L2-L3 region. Patient denies any new injury or trauma. Mr. Barakat notes that their symptoms are exacerbated with sitting, standing, and ambulation which is not controlled with medications or rest. Patient is having severe sleep disturbances as well. For their symptoms, the patient has been taking Lyrica, Tizanidine, Percocet 7.5mg, and Diclofenac all without relief. Patient denies any f/c/sob/cp, no incision concerns, no bladder or bowel retention/incontinence, no perineal numbness/tingling, and ambulates with a walker. Mr. Barakat last returned to the office on 02/16/2022 for his first post- operative evaluation following their lumbar (L2-Pelvis) Decompression with posterolateral and interbody fusion. Patient reports decreasing lumbar pain since the time of their procedure. Overall the patient has seen improving functionality, noting only some general aching about the low back with increased activity. Mr. Barakat notes that their symptoms are exacerbated with prolonged standing and ambulation, but this is well controlled with rest and medications . Patient is having mild sleep disturbances as well. For their symptoms, the patient has been taking Quail 5/325mg, Tylenol 650mg, and Gabapentin all with improvements. Otherwise the patient is very happy with the progress they have made and have no acute concerns at this time. Patient has been completing both home therapy and physical therapy with improvements to his strength and functionality. He notes that he has been compliant with wearing his LSO brace, noting general improvements to his stability with this. Patient denies any f/c/sob/cp, no incision concerns, no bladder or bowel retention/incontinence, no perineal numbness/tingling, and ambulates independently. The patient's past medical history; past surgical history; family history; medicines; allergies and social history have been reviewed and are as stated elsewhere in the chart. 16 points review of systems completed and as stated in HPI, all other systems reviewed are negative. PHYSICAL EXAM: -Patient is alert and oriented 3 appears well-nourished well-hydrated is in no acute distress. They do not appear septic. -On exam the patient has no tenderness to palpation of their thoracic or lumbar spine. There is no edema or ballottement sign. -Upper extremities show 5/5 strength in all major muscle groups. -Lower extremities with 4+ out of 5 strength in all major muscle groups normal deconditioning post op -There is FROM that is painless of the b/l UE and LE in all major joints. -They are intact to light touch sensation in L2 to S1 nerve distribution as well as the C5-T1 distribution. -DTRs 2/4 all upper and lower -Patient has palpable distal pulses in all four extremities -Compartments are soft and compressible. -Neg Jose's -No Clonus -Neg Babinski -Neg Wilber's -No tensioning signs. -Cranial nerves II through XII are grossly intact. -Overall alignment is well-maintained in the sagittal coronal planes. Surgical incision: Healing well no EEE, CDI There is a bump on the RHS related to hardware. RADIOGRAPHS: XRay AP/Lateral [address] [facility] on 02/16/22 of Lumbar Spine and pelvis: Images are compared to intraop and post op CT. There is concern for the top two screws at L2-3 on the right to have pulled out/pulled back. They appear to be in a different position than previously noted on CT and intraop films. Pt states no injury or fall at this time. All other screws appear to be in good positiong w/o evidence of changes. CT scan without contrast obtained at [facility] on 02/17/2022 of lumbar spine demonstrates: Images are reviewed. Post surgical changes noted L2-Pelvis. Hardware below L3 in good position without evidence of failure or migration. At L2 and L3 on the Right, the screws have migrated. L2 screws have cut out superiorly and pulled back 6mm and at L3 similarily they have pulled back. on the left screws appear to be in good position however, it is difficult to tell on this supine film if they have also failed. Cages are in stable position. The remainder of the hardware appers in stable position. Xrays today AP/LAT of the lumbar spine are reviewed and show similar findings to previous post op films. There is superior failure of hardware at L2 and L3 due to right hand side migration and cut out. Cages in stable position. ASSESSMENT: 1. S/P lumbar(L2-Pelvis) Decompression with posterolateral and interbody fusion 2. Failed hardware lumbar spine PLAN: All options were reviewed today, we decided the best course of action would be: We reviewed his xrays and CT scan along with my concern for his severe symptoms and failed hardware. Due to this we agreed on surgical intervention to replace and fix the broken hardware. I discussed treatment options with the patient, including operative and non-operative options, and they have elected to proceed with the following surgical procedure: URGENT lumbarhardware removal and exchange L2-Pelvis The indications, risks, benefits, and alternatives to surgery were discussed with the patient and family at length. Specifically (but not limited to) the risks of infection, stiffness, recurrence of symptoms, need for revision surgery, local numbness, neurovascular injury, and blood clots were discussed. The patient's questions were answered. The decision to proceed was made. Consent will be obtained for the procedure. -No lifting, bending, twisting no lifting -Wear LSO brace as needed/when up and about, do not sleep or shower in it. -Ambulate daily -Take pain medications and post op medications as needed and as directed -Maintain incisions clean and dry. Do no submerge incisions. OK to shower. Blot dry after. dressings as needed. -Ice and rest for pain and swelling control. Surgical Procedure Risk Review Alec Barakat is a 71 year old male presenting for evaluation of sudden onset of *mid back pain, lump in back on right side. It was my pleasure to have seen and examined Mr. Barakat. In our visit today we have had a chance to go over subjective complaints, physical examination findings and treatments, including the natural course history without intervention and various interventional options. The imaging demonstrates *Failed hardware at L2 and L3 on the right and possibly left side of L2 to Pelvis construct . On physical exam, Mr. Barakat demonstrates *Pain with palpation around the right superior screws wich have become prominent just under his skin on the right and now the left . I explained to the patient that as his condition progresses it could cause *further pain, non healing, hardware prominence through skin and further damage . At this time, based on the patients imaging and physical exam, I recommend surgery in the form or a: *URGENT revision decompression and fusion L2-Pelvis with hardware exchange and cemented L2 and L3 screws . I discussed the risk and benefits of this procedure at length with Mr. Barakat. The patient spouseand his who was in the room with usagreed to consider pursuing the procedure mentioned above. Plan: 1. * Revision L2-Pelvis decompression and fusion 2. * Direct Admit to hospital for work up and boarding 3. * Review of surgical risks and benefits as well as an educational packet on the proposed surgical procedure. 4. DEL Risks: All surgical procedures come with inherent risks, including those related to positioning, anesthesia, intraoperative findings, and postoperative complicat ions. It is important to understand that surgery does not come with any guarantee of a successful outcome as complications and adverse events are always possible. The patient was given a handout in office today discussing the surgical procedure and risks associated with the intervention, both of which were discussed with the patient. These risks include but are not limited to the following: ? Experiencing same, different or even worse symptoms in back, neck, arms, or legs compared to before surgery. ? Requiring further surgery or other forms of treatment presently or at so me time in the future at same or other levels of the intended spine surgery. ? On an extreme but fortunately relatively rare basis severe complication such as blindness, stroke, heart attack, temporary and/or permanent nerve injury, paralysis, coma, or may occur, sometimes without known explanation. ? Surgical complications may include but are not limited to risk of infection, fluid accumulation in the surgical dissection site, including a seroma or hematoma, that requires additional surgery, wound drainage, bleeding, new numbness or weakness, vision changes/loss, spinal fluid leakage, non-healing and/or infected incision, headaches, difficulty or inability to swallow, hoarseness, hemopneumothorax, pneumothorax, impotence, retrograde ejaculation, vaginal dryness; injury to nerves, spinal cord, blood vessels, lymphatics or other vital organs (i.e., bowel injury, injury to the great vessels); heterotopic bone formation; complications related to the hardware such as sc rews, rods, cages including misplaced hardware, device failure, instrumentation at the wrong spine level, hardware fracture/breakage, or hardware loosening; vertebral failure of the spinal column above or below the newly placed hardware; retained surgical instrumentations or devices and the need for further surgery. ? Medical risks of the planned spine surgery include but are not limited to generalized Infections to the whole body or local areas outside of the surgical site (sepsis), heart attack, bleeding, anaphylaxis, meningitis, seizure, epilepsy, hearing loss, burn eastman, laceration of the head or other areas of the body, bruising, hypersensitivity of the skin, bladder over distension; allergic reaction; shoulder injury related to positioning; fat, blood and air clots to other areas of the body like heart, lungs, brain; failure of internal organs such as lungs, kidneys, liver and excessive bleeding. If blood transfusions are necessary, note that transfusions may cause intolerance reactions such as anaphylaxis or other complex reactions. Despite best efforts, the results of spine surgery might not heal in terms of bone, soft tissues such as skin, fascia, ligaments, and joints. Additionally, in order to achieve best possible results, spine surgery may be carried out beyond the initially planned levels and involve decompression, fusion including insertion of hardware at levels other than the original intended area of surgical interest change some portions of the procedure in order to ensure the best possible outcomes. With spine surgery and spinal fusion, there are different off label uses of instrumentation (devices, implants and hardware) as well as biological substances (bone morphogenic proteins, demineralized bone matrix) as well as using extra bone from allograft sources (i.e. cadaver bone) or autograft (iliac crest bone, ribs, or the spine itself). The patient has been given information about these practices and their inherent risks and benefits. [facility] Assistants are medically trained surgical providers who function in the outpatient, inpatient, and operating room setting under the direct supervision of the attending surgeon.They assist in the operating room with direct supervision of the attending surgeons. The patient has had a chance to review all the listed information, has been given print outs detailing this information, and has had all his/her questions answered to their satisfaction. It was my pleasure to have seen and examined Mr. Barakat. In our visit today we have had a chance to go over my understanding of our patient's current condition, the natural course history without intervention and various interventional options. Questions were invited and answered, and the patient wishes to proceed as outlined above. I have seen and examined the patient for 25 minutes and we have spent more than 50% of the time in repeat and detailed counseling about the patient's condition, its natural course history with out and as much as can be predicted with surgery and re-review of various surgical treatment options. In conclusion,Mr. Barakat and his spouse/partner requested we proceed with the above suggested surgery and are willing to accept risks and limitations of the suggested surgery as nature of the disease process and our best attempts at treatment for the condition. Thank you again for allowing us to be part of your patient's care. Please don't hesitate to contact me if you have any further questions. Follow-up: post procedure Patient Education: (Informational booklet, instructions, etc) given at today's appointment: Yes .ED:Patient Education: Y Plan at next visit: review progress Medications Reviewed: YES Attestation: In our visit today Mr. Barakat and I have had a chance to go over my understanding of the patient's current condition, the natural course history without intervention and various interventional options. Questions were invited and answered, and the patient wishes to proceed as outlined above. I will be sure to keep you updated afterMr. Barakat returns here for further follow-up. Thank you again for your referral. Please do not hesitate to contact me if you have any further questions. Signed and authenticated by: Cl [facility] [address] [facility], [address] [address] This message is confidential, intended only for the named recipient(s) and may contain information that is privileged or exempt from disclosure under applicable law. If you are not the intended recipient(s), you are notified that the dissemination, distribution or copying of this information is strictly prohibited. If you received this message in error, please notify the sender then delete this message. Patient verbalizes understanding of the information discussed. Past Medical History Past Medical History: Asthma, Cancer, COPD, Hypertension, Renal Disease, Thyroid Disorder Additional Past Medical History / Comment(s): SARCOIDOSIS, LUNG FUNGAL INFECTION, PULMONARY HYPERTENSION,SKIN CANCER,STAGE 3 CHRONIC KIDNEY DISEASE, History of Any Multi-Drug Resistant Organisms: None Reported Past Surgical History: Joint Replacement Additional Past Surgical History / Comment(s): HEMORROIDECTOMY, BRONCHOSCOPY X2, BONE MARROW BIOPSY, BASAL CELL LESION REMOVED , BACK PAIN INJECTIONS, COLONOSCOPY Past Anesthesia/Blood Transfusion Reactions: No Reported Reaction Past Psychological History: No Psychological Hx Reported Smoking Status: Never smoker Past Alcohol Use History: Rare Past Drug Use History: None Reported - Past Family History Mother Family Medical History: Cancer Medications and Allergies Home Medications Medication Instructions Recorded Confirmed Type Doxycycline Hyclate [Vibramycin] 100 mg PO QAM 06/13/16 02/01/22 History Ipratropium-Albuterol Nebulize 3 ml INHALATION QAM 06/13/16 02/01/22 History [Duoneb 0.5 mg-3 mg/3 ml Soln] Levothyroxine Sodium [Synthroid] 25 mcg PO QAM 06/13/16 02/01/22 History Montelukast [Singulair] 10 mg PO W/SUPPER 06/13/16 02/01/22 History Omeprazole 20 mg PO HS 06/13/16 02/01/22 History allopurinoL [Zyloprim] 50 mg PO W/SUPPER 06/13/16 02/01/22 History predniSONE 5 mg PO W/SUPPER 06/13/16 02/01/22 History Spironolactone-Hctz 25-25Mg 0.5 tab PO QAM 06/26/17 02/01/22 History [Aldactazide 25-25 MG] Albuterol Inhaler [Ventolin Hfa 2 puff INHALATION Q6H PRN 03/25/21 02/01/22 History Inhaler] Sildenafil [Revatio] 20 mg PO TID 03/25/21 02/01/22 History Losartan Potassium 25 mg PO QAM 06/05/21 02/01/22 History Loratadine Oral Soln [Claritin 5 mg PO HS 01/31/22 02/01/22 History Oral Soln] Magnesium Oxide [Magnesium] 500 mg PO DAILY 01/31/22 02/01/22 History Itraconazole Oral Susp [Sporanox 100 mg PO AC-SUPPER 02/02/22 02/02/22 History Oral Susp] Cyclobenzaprine [Flexeril] 5 mg PO TID #90 tablet 02/07/22 Rx Doxazosin [Cardura] 1 mg PO DAILY 30 Days #30 tab 02/07/22 Rx Gabapentin 300 mg PO TID #90 cap 02/07/22 Rx HYDROcodone/APAP 5-325MG [Quail 1 tab PO Q4HR PRN #42 tab 02/07/22 Rx 5-325] Sennosides/Docusate Sodium [Senna 1 each PO DAILY PRN #20 capsule 02/07/22 Rx Plus 8.6-50 mg Softgel] polyethylene glycoL 3350 [Miralax] 17 gm PO DAILY PRN #527 gm 02/07/22 Rx Allergies Allergy/AdvReac Type Severity Reaction Status Date / Time nickel Allergy Unknown POSITIVE Verified 02/01/22 06:14 ON TESTING cephalexin Allergy Rash/Hives Verified 02/01/22 06:14 furosemide [From Lasix] Allergy Rash/Hives Verified 02/01/22 06:14 iodine Allergy Anaphylaxis Verified 02/01/22 06:14 shellfish derived [Shellfish] Allergy Anaphylaxis Verified 02/01/22 06:14 NSAIDS (Non-Steroidal AdvReac Unknown PT STATES Verified 02/01/22 06:14 Anti-Inflamma NO NSAIDS DUE TO KIDNEY DISEASE. 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 No significant issues noted on an osteopathic structural exam other than those noted in the History and Physical/Consult.
[2022-02-21] MEDS: HYDROcodone/APAP 5-325MG 1 EACH TAB PO SCH ×3 (16:17→23:18)
[2022-02-21] MEDS: FAMOTIDINE 20 MG TAB PO SCH (20:09)
[2022-02-21] MEDS: IPRATROPIUM-ALBUTEROL 3 ML NEB INHALATION PRN (22:44)
[2022-02-22] MEDS ORDERED: HYDROcodone/APAP 5-325MG 1 EACH TAB PO PRN (00:07)
--- NOTE | 2022-02-22 00:09 | P.CONS ---
History of Present Illness - Reason for Consult Consult date: 02/21/22 - History of Present Illness The patient is a 71-year-old male with a PMH of spinal decompression surgery, sarcoidosis, pulmonary hypertension, hypothyroidism, hypertension, who presents to the emergency room with complaints of lower back pain and concerns with his hardware from prior spinal surgery. The patient reports that over the past few weeks to was, the patient is noted that his spinal hardware is now protruding from his back and he is also having gradually worsening lower back pain with radiation to both legs. He reports chronic lower extremity weakness left greater than right which has been unchanged. The patient was evaluated by orthopedic surgery Dr. Braxton and the patient is scheduled to undergo a revision of his L2-pelvis decompression and fusion in the morning. The patient reported feeling at his baseline at the time of interview and denied any additional complaints aside from the lower back pain. He denied expressing chest discomfort, shortness of breath, fever, chills, cough, nausea, vomiting, abdominal pain, diarrhea. Laboratory evaluation was remarkable for BUN 26, crea tinine 1.26 (at baseline), and CO2 32. EKG the emergency room did reveal sinus rhythm at 73 bpm with a right bundle branch block and left anterior fascicular block. Review of systems: Pertinent positives and negatives as discussed in HPI, a complete review of systems was performed and all other systems are negative. Physical examination: General: non toxic, no distress, appears at stated age, normal weight Derm: no unusual rashes/lesions, warm Head: atraumatic, normocephalic, symmetric Eyes: EOMI, no lid lag, anicteric sclera, pupils equal round reactive to light ENT: Nose and ears atraumatic Neck: No cervical lymphadenopathy, trachea midline, supple Mouth: no lip lesion, mucus membranes moist Cardiovascular: S1S2 reg, no murmur, positive dorsalis pedis pulse bilateral, no edema Lungs: CTA bilateral, no rhonchi, no rales, no accessory muscle use Abdominal: soft, nontender to palpation, no guarding Ext: muscle strength 5 out of 5 in all 4 extremities grossly, no gross muscle atrophy, no contractures, Neuro: CN II-XI grossly intact, no gross focal neuro deficits Psych: Alert, oriented, appropriate affect Assessment/plan Chronic conditions: Hypertension, sarcoidosis, hypothyroidism, pulmonary hypertension -Continue with home meds Spinal decompression revision surgery -As per the primary surgery service We appreciate this opportunity to be involved in this patient's care. We will follow the patient with you. For any further questions, please not hesitate to contact the [facility] inpatient team. Past Medical History Past Medical History: Asthma, Cancer, COPD, Hypertension, Renal Disease, Thyroid Disorder Additional Past Medical History / Comment(s): SARCOIDOSIS, LUNG FUNGAL INFECTION, PULMONARY HYPERTENSION,SKIN CANCER,STAGE 3 CHRONIC KIDNEY DISEASE, History of Any Multi-Drug Resistant Organisms: None Reported Past Surgical History: Joint Replacement Additional Past Surgical History / Comment(s): HEMORROIDECTOMY, BRONCHOSCOPY X2, BONE MARROW BIOPSY, BASAL CELL LESION REMOVED , BACK PAIN INJECTIONS, COLONOSCOPY Past Anesthesia/Blood Transfusion Reactions: No Reported Reaction Past Psychological History: No Psychological Hx Reported Smoking Status: Never smoker Past Alcohol Use History: Rare Past Drug Use History: None Reported - Past Family History Mother Family Medical History: Cancer Medications and Allergies Home Medications Medication Instructions Recorded Confirmed Type Doxycycline Hyclate [Vibramycin] 100 mg PO DAILY 06/13/16 02/21/22 History Ipratropium-Albuterol Nebulize 3 ml INHALATION RT-DAILY 06/13/16 02/21/22 History [Duoneb 0.5 mg-3 mg/3 ml Soln] Levothyroxine Sodium [Synthroid] 25 mcg PO DAILY 06/13/16 02/21/22 History Montelukast [Singulair] 10 mg PO W/SUPPER 06/13/16 02/21/22 History Omeprazole 20 mg PO HS 06/13/16 02/21/22 History allopurinoL [Zyloprim] 50 mg PO W/SUPPER 06/13/16 02/21/22 History predniSONE 5 mg PO W/SUPPER 06/13/16 02/21/22 History Spironolactone-Hctz 25-25Mg 0.5 tab PO DAILY 06/26/17 02/21/22 History [Aldactazide 25-25 MG] Albuterol Inhaler [Ventolin Hfa 2 puff INHALATION RT-Q4H PRN 03/25/21 02/21/22 History Inhaler] Sildenafil [Revatio] 20 mg PO TID 03/25/21 02/21/22 History Losartan Potassium 25 mg PO DAILY 06/05/21 02/21/22 History Loratadine Oral Soln [Claritin 5 mg PO HS 01/31/22 02/21/22 History Oral Soln] Magnesium Oxide [Magnesium] 500 mg PO DAILY 01/31/22 02/21/22 History Itraconazole Oral Susp [Sporanox 100 mg PO AC-SUPPER 02/02/22 02/21/22 History Oral Susp] Cyclobenzaprine [Flexeril] 5 mg PO TID #90 tablet 02/07/22 02/21/22 Rx Doxazosin [Cardura] 1 mg PO DAILY 30 Days #30 tab 02/07/22 02/21/22 Rx Gabapentin 300 mg PO TID #90 cap 02/07/22 02/21/22 Rx HYDROcodone/APAP 5-325MG [[place] 1 tab PO Q4HR PRN #42 tab 02/07/22 02/21/22 Rx 5-325] polyethylene glycoL 3350 [Miralax] 17 gm PO DAILY PRN #527 gm 02/07/22 02/21/22 Rx Sennosides/Docusate Sodium [Senna 1 cap PO DAILY PRN 02/21/22 02/21/22 History Plus 8.6-50 mg Softgel] Allergies Allergy/AdvReac Type Severity Reaction Status Date / Time nickel Allergy Unknown POSITIVE Verified 02/21/22 13:56 ON TESTING cephalexin Allergy Rash/Hives Verified 02/21/22 13:56 furosemide [From Lasix] Allergy Rash/Hives Verified 02/21/22 13:56 iodine Allergy Anaphylaxis Verified 02/21/22 13:56 shellfish derived [Shellfish] Allergy Anaphylaxis Verified 02/21/22 13:56 NSAIDS (Non-Steroidal AdvReac Unknown PT STATES Verified 02/21/22 13:56 Anti-Inflamma NO NSAIDS DUE TO KIDNEY DISEASE. 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 Physical Exam Vitals: Vital Signs Temp Pulse Pulse Resp BP BP Pulse Ox 02/21/22 18:59 97.7 F 76 14 118/68 96 02/21/22 18:02 98.1 F 88 18 149/73 96 02/21/22 17:51 92 18 124/84 96 02/21/22 17:11 91 18 122/80 97 02/21/22 13:09 97.7 F 96 16 121/72 96 Intake and Output 02/21/22 02/21/22 02/21/22 06:59 14:59 22:59 Other: # Voids 1 Weight 150 kg 78 kg Results CBC & Chem 7: 02/21/22 14:15 02/21/22 14:15 Labs: Abnormal Lab Results - Last 24 Hours (Table) 02/21/22 02/21/22 Range/Units 14:15 14:15 RBC 3.23 L (4.30-5.90) m/uL Hgb 10.5 L (13.0-17.5) gm/dL Hct 30.8 L (39.0-53.0) % Lymphocytes # 0.8 L (1.0-4.8) k/uL Carbon Dioxide 32 H (22-30) mmol/L BUN 26 H (9-20) mg/dL Creatinine 1.26 H (0.66-1.25) mg/dL Alkaline Phosphatase 177 H (38-126) U/L
[2022-02-22] MEDS: HYDROcodone/APAP 5-325MG 1 EACH TAB PO SCH ×2 (03:56→08:13)
[2022-02-22 05:53] LABS: Basophils % (A) 1 %; Eosinophils # (A) 0.1 k/uL (0-0.7); Eosinophils % (A) 3 %; HCT 32.2 % (39.0-53.0); HGB 10.7 gm/dL (13.0-17.5); Hypochromasia Slight; Lymphocytes # (A) 0.6 k/uL (1.0-4.8); Lymphocytes % (A) 16 %; MCH 31.9 pg (25.0-35.0); MCHC 33.1 g/dL (31.0-37.0); MCV 96.4 fL (80.0-100.0); Mean Platelet Volume 7.5; Monocytes # (A) 0.3 k/uL (0-1.0); Monocytes % (A) 7 %; Neutrophils # (A) 2.9 k/uL (1.3-7.7); Neutrophils % (A) 71 %; Platelet Count 315 k/uL (150-450); RBC 3.34 m/uL (4.30-5.90); RDW 13.8 % (11.5-15.5); WBC 4.1 k/uL (3.8-10.6)
[2022-02-22] MEDS ORDERED: TRANEXAMIC ACID IN NACL,ISO-OS 1,000 MG in SALINE 1 100ML.BAG IVPB PRN ×3 (06:00→06:56)
[2022-02-22 06:07] LABS: African American GFR (CKD) 67 (>60 ml/min/1.73 sqM); Anion Gap 2 mmol/L; Blood Urea Nitrogen 20 mg/dL (9-20); Calcium 8.5 mg/dL (8.4-10.2); Carbon Dioxide 34 mmol/L (22-30); Chloride 101 mmol/L (98-107); Glucose 85 mg/dL (74-99); Non-African American GFR(CKD) 58 (>60 ml/min/1.73 sqM); Potassium 4.7 mmol/L (3.5-5.1); Sodium 137 mmol/L (137-145)
[2022-02-22] MEDS ORDERED: IV FLUID CONTINUATION 600 ML IV ONE (06:30)
[2022-02-22] MEDS ORDERED: LIDOCAINE 1% (10MG/ML) FOR IV START INTRADERMA ONE (06:30)
[2022-02-22] MEDS ORDERED: LACTATED RINGERS 1,000 ML IV ONE (06:30)
[2022-02-22 06:48] LABS: Glucose,Whole Blood 87 mg/dL (70-110)
[2022-02-22] MEDS ORDERED: ONDANSETRON 4 MG/2 ML VIAL ONE (07:01)
[2022-02-22] MEDS ORDERED: ACETAMINOPHEN TAB 500 MG TAB ONE (07:01)
--- NOTE | 2022-02-22 07:03 | P.PN ---
Progress Note - Text Progress Note Date: 02/22/22 Spine Surgery Clinical and Risk Review Alec Barakat is a 71-year-old male presenting for evaluation of continued back pain and lower extremity pain and hardware failure. It was my pleasure to have seen and examined Alec Barakat. In our visit today we have had a chance to go over subjective complaints, physical examination findings and treatments including the natural course history without intervention and various interventional options. The patients imaging demonstrates hardware failure L2-L3 status post L2 to pelvis decompression fusion. On physical exam, Alec Barakat demonstrates prominent hardware posteriorly with pain and difficulty with ambulation and pain secondary to this. I have explained to the patient that as their condition progresses it will cause further neurological deficits and eventual paralysis. Based on the patients imaging, physical exam, and the rapid progression and disabling nature of their symptoms, at this time I recommend surgery in the form or a: revision L2 to pelvis with possible extension up to T10. I discussed the risk and benefits of this procedure at length with Alec Barakat. The patient and his agreed to considered pursuing the procedure abovementioned. Prior to surgery, she should follow up with her PCP (Cardio, ID, IM etc) for clearance. Questions were invited and answered, and the patient wishes to proceed as outlined below. Currently, I am recommendin. revision L2 to pelvis with possible extension up to T10 2. Follow up with PCP for surgical clearance 3. Review of surgical risks and benefits as well as an educational packet on the proposed surgical procedure. Risks: All surgical procedures come with inherent risks, including those related to positioning, anesthesia, intraoperative findings, and postoperative complications. It is important to understand that surgery does not come with any guarantee of a successful outcome as complications and adverse events are always possible. The patient was given a handout in office today discussing the surgical procedure and risks associated with the intervention, both of which were discussed with the patient. These risks include but are not limited to the following: * Experiencing same, different or even worse symptoms in back, neck, arms, or legs compared to before surgery. * Requiring further surgery or other forms of treatment presently or at some time in the future at same or other levels of the intended spine surgery. * On an extreme but fortunately relatively rare basis severe complication such as blindness, stroke, heart attack, temporary and/or permanent nerve injury, paralysis, coma, or may occur, sometimes without known explanation. * Surgical complications may include but are not limited to risk of infection, fluid accumulation in the surgical dissection site, including a seroma or hematoma, that requires additional surgery, wound drainage, bleeding, new numbness or weakness, vision changes/loss, spinal fluid leakage, non-healing and/or infected incision, headaches, difficulty or inability to swallow, hoarseness, hemopneumothorax, pneumothorax, impotence, retrograde ejaculation, vaginal dryness; injury to nerves, spinal cord, blood vessels, lymphatics or other vital organs (i.e., bowel injury, injury to the great vessels); heterotopic bone formation; complications related to the hardware such as screws, rods, cages including misplaced hardware, device failure, instrumentation at the wrong spine level, hardware fracture/breakage, or hardware loosening; vertebral failure of the spinal column above or below the newly placed hardware; retained surgical instrumentations or devices and the need for further surgery. * Medical risks of the planned spine surgery include but are not limited to generalized Infections to the whole body or local areas outside of the surgical site (sepsis), heart attack, bleeding, anaphylaxis, meningitis, seizure, epilepsy, hearing loss, burn eastman, laceration of the head or other areas of the body, bruising, hypersensitivity of the skin, bladder over distension; allergic reaction; shoulder injury related to positioning; fat, blood and air clots to other areas of the body like heart, lungs, brain; failure of internal organs such as lungs, kidneys, liver and excessive bleeding. If blood transfusions are necessary, note that transfusions may cause intolerance reactions such as anaphylaxis or other complex reactions. * Despite best efforts, the results of spine surgery might not heal in terms of bone, soft tissues such as skin, fascia, ligaments, and joints. Additionally, in order to achieve best possible results, spine surgery may be carried out beyond the initially planned levels and involve decompression, fusion including insertion of hardware at levels other than the original intended area of surgical interest change some portions of the procedure in order to ensure the best possible outcomes. * With spine surgery and spinal fusion, there are different off label uses of instrumentation (devices, implants and hardware) as well as biological substances (bone morphogenic proteins, demineralized bone matrix) as well as using extra bone from allograft sources (i.e. cadaver bone) or autograft (iliac crest bone, ribs, or the spine itself). The patient has been given information about these practices and their inherent risks and benefits. The patient has had a chance to review all the listed information, has been given print outs detailing this information, and has had all his/her questions answered to their satisfaction. It was my pleasure to have seen and examined Alec Barakat. In our visit today we have had a chance to go over my understanding of our patient's current con dition, the natural course history without intervention and various interventional options. Questions were invited and answered, and the patient wishes to proceed as outlined above. I have seen and examined the patient for 25 minutes and we have spent more than 50% of the time in repeat and detailed counseling about the patient's condition, its natural course history with out and as much as can be predicted with surgery and re-review of various surgical treatment options. In conclusion, Alec Barakat and his requested we proceed with the above suggested surgery and are willing to accept risks and limitations of the suggested surgery as nature of the disease process and our best attempts at treatment for the condition. Thank you again for allowing us to be part of your patient's care. Please don't hesitate to contact me if you have any further questions. Signed and authenticated by: Cl [facility] [address] [facility] [place] [address]
[2022-02-22] MEDS ORDERED: ONDANSETRON 4 MG/2 ML VIAL IVP ONE (07:05)
[2022-02-22] MEDS ORDERED: GABAPENTIN 300 MG CAP PO ONE (07:05)
[2022-02-22] MEDS ORDERED: MIDAZOLAM 2 MG/2 ML VIAL IV ONE (07:20)
[2022-02-22] MEDS ORDERED: fentaNYL (PF) 50 MCG/ML 2 ML AMP ONE (07:35)
[2022-02-22] MEDS ORDERED: WATER FOR INJECTION, STERILE 10 ML VIAL IV ONE (07:35)
[2022-02-22] MEDS ORDERED: GLYCOPYRROLATE 0.2 MG/ML 2 ML VIAL ONE (07:35)
[2022-02-22] MEDS ORDERED: NEOSTIGMINE 1 MG/ML 10 ML VIAL ONE (07:35)
[2022-02-22] MEDS ORDERED: LIDOCAINE 2% INJ 20 MG/ML (2 ML VIAL) ONE (07:35)
[2022-02-22] MEDS ORDERED: TRANEXAMIC ACID IN NACL,ISO-OS 1,000 MG/100 ML BAG ONE (07:35)
[2022-02-22] MEDS ORDERED: PROPOFOL 10 MG/ML 20 ML VIAL IV ONE (07:35)
[2022-02-22] MEDS ORDERED: SUCCINYLCHOLINE CHLORIDE 200 MG/10 ML VIAL IV ONE (07:35)
[2022-02-22] MEDS ORDERED: ePHEDrine 50 MG/ML 1 ML VIAL ONE (07:35)
[2022-02-22] MEDS ORDERED: PHENYLEPHRINE-0.9% NACL SYG 1,000 MCG/10 ML SYRINGE ONE (07:35)
[2022-02-22] MEDS ORDERED: ROCURONIUM 10 MG/ML (5 ML VIAL) IV ONE (07:35)
[2022-02-22] MEDS ORDERED: THROMBIN (BOVINE) 5,000 UNIT VIAL TOPICAL ONE (08:41)
[2022-02-22] MEDS ORDERED: GELATIN SPONGE,ABSORB (LARGE) 1 EACH SPONGE TOPICAL ONE (08:41)
[2022-02-22] MEDS: LEVOTHYROXINE 25 MCG TAB PO SCH (09:31)
[2022-02-22] MEDS ORDERED: ceFAZolin 3,000 MG in SODIUM CHLORIDE 0.9% IRRIGATIO 3,000 ML IRRIGATION ONE (10:00)
[2022-02-22] MEDS ORDERED: VANCOMYCIN 1,000 MG VIAL MISCELLANE ONE (10:46)
[2022-02-22] MEDS ORDERED: GENTAMICIN 80 MG in SODIUM CHLORIDE 0.9% 500 ML 3,000 ML IRRIGATION ONE (10:47)
--- NOTE | 2022-02-22 11:00 | FL ---
Intraoperative/procedural fluoroscopic services were provided. Total fluoroscopy time is 1 minute 53 seconds with a total of 7 submitted images to PACS. Please see the operative/procedural note for furt her details.
[2022-02-22] MEDS ORDERED: SENNOSIDES-DOCUSATE SODIUM 1 EACH TAB PO PRN (11:28)
[2022-02-22] MEDS ORDERED: MAGNESIUM HYDROXIDE 2,400 MG/10 ML CUP PO PRN (11:28)
[2022-02-22] MEDS ORDERED: ONDANSETRON 4 MG/2 ML VIAL IVP PRN (11:28)
[2022-02-22] MEDS ORDERED: MAG HYDROX/AL HYDROX/SIMETH 30 ML CUP PO PRN (11:28)
[2022-02-22] MEDS ORDERED: bisacodyL 10 MG SUPP RECTAL PRN (11:28)
[2022-02-22] MEDS ORDERED: HYDROmorphone 0.5 MG/0.5 ML SYRINGE IVP ONE ×2 (12:22→12:50)
[2022-02-22] MEDS: SODIUM CHLORIDE 0.9% 1,000 ML IV SCH ×2 (13:52→13:58)
[2022-02-22] MEDS: DOXAZOSIN 1 MG TAB PO SCH (13:55)
[2022-02-22] MEDS: CYCLOBENZAPRINE 5 MG TAB PO SCH ×3 (13:55→21:40)
[2022-02-22] MEDS: LOSARTAN 25 MG TAB PO SCH (13:56)
[2022-02-22] MEDS: FAMOTIDINE 20 MG TAB PO SCH ×2 (13:56→20:40)
[2022-02-22] MEDS: SPIRONOLACTONE-HCTZ 25-25MG 1 EACH TAB PO SCH (13:56)
[2022-02-22] MEDS: HYDROcodone/APAP 10-325MG 1 EACH TAB PO SCH ×4 (13:57→23:51)
[2022-02-22] MEDS: ACETAMINOPHEN TAB 325 MG TAB PO SCH ×3 (13:58→23:50)
[2022-02-22] MEDS ORDERED: SODIUM CHLORIDE 0.9% 1,000 ML IV ONE (14:17)
--- NOTE | 2022-02-22 15:57 | P.PN ---
Subjective Progress Note Date: 02/22/22 Hospital course: Patient is a very pleasant 71-year-old male with a past medical history of sarcoidosis, pulmonary hypertension, hypertension, hypothyroidism, GERD, stage III chronic kidney disease, and recent L2 through pelvis decompression with posterior lateral and interbody fusion. upon two-week checkup patient was found to have reports of sharp pain and a computed tomography scan revealed failed hardware with reports migration of screws to L2 and L3. Patient is currently admitted under orthospine surgical team and underwent revision of L2 through pelvis decompression and fusion. We have been consulted for medical management throughout patient's hospitalization. Physical exam: Patient seen and fully evaluated at bedside upon return from OR. Initially upon return to room from OR, patient was hypotensive with blood pressure 78/49 and hypothermic with temp 94.3F. Patient was wrapped in warm blankets and given a 1 L bolus 0.9% normal saline. Resulting in improvement of vital signs with blood pressure increasing to 93/54 and temp of 97.3F. Patient reports moderate back pain but denies having any headache, lightheadedness, dizziness, chest pain, palpitations, shortness of breath, or experiencing any numbness/tingling/weakness in his extremities. Vital signs reviewed and stable. General: Nontoxic, no distress and appears stated age. Derm: Skin warm and dry, normal coloration for ethnicity. Head: Atraumatic, normocephalic and symmetric. Eyes: EOMs intact, no lid lag, and anicteric sclera Mouth: no lip lesions, mucus membranes moist Cardiovascular: regular rate and rhythm with normal S1S2, no murmur, positive posterior tibial pulses bilaterally, and cap refill < 2 seconds. Lungs: Respirations even, regular, and unlabored on room air. Lungs CTA bilaterally, no rhonchi, no rales, no wheezing, and no accessory muscle usage. GI/: soft, nontender to palpation, no guarding, no appreciable organomegaly. Moore catheter in place. Ext: ROM intact. No gross muscle atrophy, no edema, no contractures. patient denies having numbness or tingling in extremities. Movement and sensation of bilateral upper and lower extremities equal and intact. Neuro: Speech clear, face symmetrical and CN II-XII grossly intact with no noted focal neuro deficits Psych: Alert and oriented to person, place, time, and situation. Appropriate and pleasant affect. Assessment and Plan of Care: Postoperative Hypothermia Postoperative Hypotension -Postoperative hypothermia and hypotension and likely adverse effect of anesthesia and resolved with treatment. -Initially upon return to room from OR, patient was hypotensive with blood pressure 78/49 and hypothermic with temp 94.3F. Patient was wrapped in warm blankets and given a 1 L bolus 0.9% normal saline. Resulting in improvement of vital signs with blood pressure increasing to 93/54 and temp of 97.3F. Sarcoidosis Pulmonary hypertension -Patient is higher risk for development of pneumonia during postoperative period, had long discussion with patient regarding the importance of incentive spirometry use 10-15 times hourly while awake to prevent development of atelectasis and pneumonia. -Continue nebulizer treatments scheduled and as needed. -Continue Singulair Aspergillosis -Continue daily medication regimen with Itraconazole. -Patient is higher risk for development of pneumonia during postoperative period, had long discussion with patient regarding the importance of incentive spirometry use 10-15 times hourly while awake to prevent development of atelectasis and pneumonia. Hypertension Monitor vital signs and continue daily medication regimen with losartan. Hypothyroidism Continue daily medication regimen with levothyroxine. GERD Continue daily medication regimen with Protonix. Status post Revision of L2 through pelvis decompression with posterolateral and interbody fusion Management per primary admitting with a spine surgical team including DVT prophylaxis, wound and drain care, pain management, and PT/OT. -Neurochecks Current DVT prophylaxis with RYAN ortega and SCDs. Thank you for allowing us to participate in the care of this pleasant patient. Do not hesitate to contact us with questions. Someone can be reached from the [facility] hospitalist group all hours of the day at [phone] or via perfect serve. Attending Note: Lucio Treviño NP rendered care for this patient independently, reviewed the findings and plan as documented in the note above. I did not physically speak with or examine the patient on this date. Objective - Vital Signs Vital signs: Vital Signs Temp 97.6 F 02/22/22 06:25 Pulse 92 02/22/22 06:25 Resp 16 02/22/22 06:25 BP 138/64 02/22/22 06:25 Pulse Ox 96 02/22/22 06:25 FiO2 Intake & Output 02/21/22 02/22/22 02/22/22 18:59 06:59 18:59 Intake Total 540 Output Total 600 Balance -60 Weight 78 kg Intake: IV 300 Intake, IV Titration 240 Amount Sodium Chloride 0.9% 1, 240 000 ml @ 20 mls/hr IV . Q24H [facility] Rx#:[id number] Output: Urine 600 Other: Voiding Method Toilet Urinal # Voids 1 - Labs CBC & Chem 7: 02/26/22 07:44 02/25/22 07:05 Labs: Abnormal Lab Results - Last 24 Hours (Table) 02/21/22 02/21/22 02/22/22 Range/Units 14:15 14:15 05:15 RBC 3.23 L 3.34 L (4.30-5.90) m/uL Hgb 10.5 L 10.7 L (13.0-17.5) gm/dL Hct 30.8 L 32.2 L (39.0-53.0) % Lymphocytes # 0.8 L 0.6 L (1.0-4.8) k/uL Carbon Dioxide 32 H (22-30) mmol/L BUN 26 H (9-20) mg/dL Creatinine 1.26 H (0.66-1.25) mg/dL Alkaline Phosphatase 177 H (38-126) U/L 02/22/22 Range/Units 05:15 RBC (4.30-5.90) m/uL Hgb (13.0-17.5) gm/dL Hct (39.0-53.0) % Lymphocytes # (1.0-4.8) k/uL Carbon Dioxide 34 H (22-30) mmol/L BUN (9-20) mg/dL Creatinine (0.66-1.25) mg/dL Alkaline Phosphatase (38-126) U/L
[2022-02-22] MEDS: 0.9% NACL WITH KCL 20 MEQ/L 1,000 ML IV SCH (16:20)
[2022-02-22] MEDS: GABAPENTIN 300 MG CAP PO SCH ×2 (16:24→21:40)
[2022-02-22] MEDS ORDERED: ITRACONAZOLE ORAL SUSP 1,500 MG/150 ML BOTTLE PO SCH (17:30)
[2022-02-22] MEDS: ITRACONAZOLE ORAL SUSP 1,500 MG/150 ML BOTTLE PO SCH (18:37)
[2022-02-22] MEDS: predniSONE 5 MG TAB PO SCH (18:37)
[2022-02-22] MEDS: MONTELUKAST 10 MG TAB PO SCH (18:37)
[2022-02-22] MEDS: allopurinoL 100 MG TAB PO SCH (18:37)
--- NOTE | 2022-02-22 18:46 | CT ---
EXAMINATION TYPE: CT thor lumbar spine wo con DATE OF EXAM: 02/22/2022 COMPARISON: 06/18/2018 HISTORY: Post OP CT DLP: 1613.9 mGycm Automated exposure control for dose reduction was used. Images obtained from the level of T1-S1 vertebra without contrast. There are rods and screws fusing posteriorly the spine from T10 to the S1 vertebra. There are screws extending into the left and right iliac bones. There is disc prosthesis from L2 to S1. There is verte broplasty of L2. There is T10 vertebroplasty. The vertebra have normal alignment. No significant comp ression deformity. There is osteopenia. There is extensive bilateral pulmonary infiltrates and emphys shayy. There are numerous calcified granulomata at the pulmonary mikayla and in the mediastinum. There is no lumbar or thoracic paraspinal mass. No focal bone destruction. There is posterior skin jessica. Sa croiliac joints are intact. IMPRESSION: Extensive fusion surgery. No complicating process seen. There is extension of the fusion surgery comp ared to 02/17/2022 exam. Extensive bilateral pulmonary infiltrates with emphysema. Old granulomatous disease
[2022-02-22] MEDS: ALBUTEROL NEBULIZED 2.5 MG/3 ML INHALATION PRN (19:18)
[2022-02-22 20:29] LABS: Basophils % (A) 0 %; Eosinophils % (A) 1 %; HCT 27.4 % (39.0-53.0); Hypochromasia Slight; Lymphocytes # (A) 0.2 k/uL (1.0-4.8); Lymphocytes % (A) 3 %; MCH 32.3 pg (25.0-35.0); MCHC 33.3 g/dL (31.0-37.0); MCV 96.8 fL (80.0-100.0); Mean Platelet Volume 7.3; Monocytes # (A) 0.3 k/uL (0-1.0); Monocytes % (A) 4 %; Neutrophils % (A) 92 %; Platelet Count 257 k/uL (150-450); RBC 2.83 m/uL (4.30-5.90); RDW 13.9 % (11.5-15.5); WBC 6.5 k/uL (3.8-10.6)
[2022-02-22 20:44] LABS: HGB 9.1 gm/dL (13.0-17.5)
[2022-02-22] MEDS ORDERED: SODIUM CHLORIDE 0.9% 500 ML 500 ML IV ONE (22:04)
[2022-02-23] MEDS: 0.9% NACL WITH KCL 20 MEQ/L 1,000 ML IV SCH ×2 (02:03→09:13)
[2022-02-23] MEDS: HYDROcodone/APAP 10-325MG 1 EACH TAB PO SCH ×5 (04:54→20:32)
[2022-02-23] MEDS: LEVOTHYROXINE 25 MCG TAB PO SCH (06:30)
[2022-02-23] MEDS: ACETAMINOPHEN TAB 325 MG TAB PO SCH ×4 (06:30→23:12)
--- NOTE | 2022-02-23 07:56 | P.PN ---
Subjective Progress Note Date: 02/23/22 Principal diagnosis: Hardware failure L2-P Sarcoidosis Pt s/e this AM. Nursing states last night pt had been very tachy at 120 with SBP in the 60s and 70s. Pt was alert the whole time, but very tired. He was given a bolus after surgery of 1L followed by another per medicine at night of 500mL. He had not responded to this so blood was ordered and 2 units are transfusing now. His HgB was 10.1 dropped to 9. EKG was done and showed sinus tach with known RBBB unchanged. Medicine evaluated the pt. Due to his increased need and acuity of care he will be transferred to for monitoring. Dr. Mckeon of Pul was contacted as well and ICU nurse evaluated pt overnight fo r ICU admit, but he did not yet meet criteria. This morning he is doing well. He states no real issues for himself overnight. States pain in his back that is controlled at this time and is really only painful when he moves. He is able to roll in bed reasonably and is moving his arms and legs w/o issues. He follows commands and is appropriate at this time although sleepy at this time. Denies any sob/cp/f/c overnight. Denies any weakness, denies any numbness/tingling. Denies any other sx at this time. BP was cycled at bedside a few times. SBP 85-95 increased with stimulation and pain. HR 101. O2 98% NC 2L Objective - Vital Signs Vital signs: Vital Signs Temp 98.1 F 02/23/22 06:27 Pulse 99 02/23/22 06:27 Resp 18 02/23/22 06:27 BP 93/51 02/23/22 06:27 Pulse Ox 97 02/23/22 06:27 FiO2 Intake & Output 02/22/22 02/23/22 02/23/22 18:59 06:59 18:59 Intake Total 4402 0 Output Total 1270 825 Balance 3132 -825 Intake: IV 3252 Intake, IV Titration 1150 Amount 0.9% NaCl with KCl 20 Meq 200 /l 1,000 ml @ 75 mls/hr IV .[id number] [facility] Rx#: [id number] Sodium Chloride 0.9% 1, 900 000 ml @ 999 mls/hr IV . Q1H1M [facility] Rx#:[id number] ceFAZolin 2 gm In Sodium 50 Chloride 0.9% 50 ml @ 100 mls/hr IVPB Q8HR [facility] Rx# :[id number] Blood Product 0 Rc Pheresis 2 As3 Unit 0 [id number] Output: Drainage 250 275 Lower Back 250 275 Urine 520 550 Estimated Blood Loss 500 Other: Voiding Method Indwelling Catheter Indwelling Catheter - Exam Physical Exam: -Patient is alert and oriented 3 appears well-nourished well-hydrated is in no acute distress. They do not appear septic. -There is TTP about the incision, no hematoma [-Incision is CDI, no EEE, no drainage] -Upper extremities show [4+] out of 5 strength in all major muscle groups. Normal POD1 -Lower extremities with [4+] out of 5 strength in all major muscle groups Normal deconditioning -There is [FROM] that is [painless] of the b/l UE and LE in all major joints. Neg SLR -They are intact to light touch sensation in C5 to T1 and L2 to S1 nerve distribution. -DTR [2]/4 all upper and lower extremities -Patient has palpable distal pulses all 4 ext -Compartments are soft and compressible. -Patient shows a negative Wilber's [-Neg Hoffmans b/l] [-Neg Clonus b/l] [-Neg babinski b/l] Cranial nerves II through XII are grossly intact. - Labs CBC & Chem 7: 02/22/22 20:00 02/22/22 05:15 Labs: Abnormal Lab Results - Last 24 Hours (Table) 02/21/22 02/22/22 Range/Units 18:51 20:00 RBC 2.83 L (4.30-5.90) m/uL Hgb 9.1 L D (13.0-17.5) gm/dL Hct 27.4 L (39.0-53.0) % Lymphocytes # 0.2 L (1.0-4.8) k/uL Crossmatch See Detail Assessment and Plan Assessment: POD 1 revision [id number] Sinus tachy Plan: -Appreciate recruiting consultant and team management. -Activity: Ambulate QID, OOB all meals, up and about, limit lifting bending twisting to less than 5 lbs. Use walker or cane if needed for stability. -Daily PT/OT, increase ambulation strength and balance. -Brace when up and about, not needed in bed or chair -Pain control: Adequate at this time -Meds: reviewed -GI ppx: senna, Miralax -DC de santiago when up and about, bedside commode if needed -DVT PPX: OK to restart Heparin tonight -Hygiene: Shower today. Maintain dressing clean and dry. Meticulous cleaning after BMs away from incision site -Drains: Maintain for now. Record output. 1/2 suction -Encourage IS 10x/hr -Transfer to for closer monitoring -CXR -Monitor vitals, cont transfusion 2 uPRBC -Consult P[facility] for input and management -Dispo: [Pending]
[2022-02-23] MEDS: IPRATROPIUM-ALBUTEROL 3 ML NEB INHALATION PRN (08:42)
[2022-02-23] MEDS: CYCLOBENZAPRINE 5 MG TAB PO SCH ×3 (09:14→20:24)
[2022-02-23] MEDS: GABAPENTIN 300 MG CAP PO SCH ×3 (09:21→20:24)
[2022-02-23] MEDS: PANTOPRAZOLE 40 MG TABLET PO SCH (09:21)
[2022-02-23] MEDS: FAMOTIDINE 20 MG TAB PO SCH (09:22)
--- NOTE | 2022-02-23 10:53 | XR ---
EXAMINATION TYPE: XR chest 1V portable DATE OF EXAM: 02/23/2022 HISTORY: Shortness of breath. COMPARISON: 06/05/2021 TECHNIQUE: Single view of the chest is submitted. FINDINGS: There is hilar retraction and upper lobe parenchymal scarring right greater than left. There is under lying fibrosis. Mediastinal calcified lymph nodes are noted. The heart is stable. Hilar and mediastinal structures are within normal limits. Degenerative changes are seen of the dorsal spine. IMPRESSION: 1. Chronic changes without evidence for acute pulmonary disease.
--- NOTE | 2022-02-23 11:22 | P.PN ---
Subjective Progress Note Date: 02/23/22 Patient is a very pleasant 71-year-old male with a past medical history of sarcoidosis, pulmonary hypertension, hypertension, hypothyroidism, GERD, stage III chronic kidney disease, and recent L2 through pelvis decompression with posterior lateral and interbody fusion. upon two-week checkup patient was found to have reports of sharp pain and a computed tomography scan revealed failed hardware with reports migration of screws to L2 and L3. Patient is currently admitted under orthospine surgical team and underwent revision of L2 through pelvis decompression and fusion. We have been consulted for medical management throughout patient's hospitalization. Patient was seen and examined. No acute events overnight. BP continues to be low but stable, SBP in the 90s and low 100s. He reports well controlled pain in his lower back. 2 unit PRBCs have been ordered. He reports no chest pain or shortness of breath. General: non toxic, no distress, appears at stated age Derm: warm, dry Head: atraumatic, normocephalic, symmetric Eyes: EOMI, no lid lag, anicteric sclera Mouth: no lip lesion, mucus membranes moist Cardiovascular: S1S2 reg, no murmur Lungs: Decreased BS bilateral, no rhonchi, no rales , no accessory muscle use Ext: no gross muscle atrophy, no edema, no contractures Neuro: no focal neuro deficits Psych: Alert, oriented, appropriate affect #Postoperative Hypothermia #Postoperative Hypotension -Postoperative hypothermia and hypotension and likely adverse effect of anesthesia and resolved with treatment. -Initially upon return to room from OR, patient was hypotensive with blood pressure 78/49 and hypothermic with temp 94.3F. Patient was wrapped in warm blankets and given a 1 L bolus 0.9% normal saline. Resulting in improvement of vital signs with blood pressure increasing to 93/54 and temp of 97.3F. -Losartan, Doxazosin, Aldactone-HCTZ disontinued. -Monitor vitals and adjust medications if necessary. #Acute blood loss anemia -Expected result of surgery -Hg 10.7 to 9.1 -2 unit PRBC ordered -Repeat CBC tomorrow morning #Sarcoidosis #Pulmonary hypertension -Incentive spirometer. -Albuterol/DuoNeb as needed for shortness of breath or wheezing. -Continue Singulair. #Aspergillosis -Continue Itraconazole. #Hypothyroidism -Continue levothyroxine. #GERD -Continue Protonix. #Status post revision of L2 through pelvis decompression with posterolateral and interbody fusion -Management per Orthopedic surgery Resolved: Acute kidney injury Thank you for this consultation. Please call [facility] with additional questions or concerns. Objective - Vital Signs Vital signs: Vital Signs Temp 97.7 F 02/23/22 09:37 Pulse 94 02/23/22 09:37 Resp 16 02/23/22 09:37 BP 91/49 02/23/22 09:37 Pulse Ox 91 L 02/23/22 09:37 FiO2 Intake & Output 02/22/22 02/23/22 02/23/22 18:59 06:59 18:59 Intake Total 4402 0 281 Output Total 1270 825 165 Balance 3132 -825 116 Intake: IV 3252 Intake, IV Titration 1150 Amount 0.9% NaCl with KCl 20 Meq 200 /l 1,000 ml @ 110 mls/hr IV .Q9H6M [facility] Rx#: [id number] Sodium Chloride 0.9% 1, 900 000 ml @ 999 mls/hr IV . Q1H1M [facility] Rx#:[id number] ceFAZolin 2 gm In Sodium 50 Chloride 0.9% 50 ml @ 100 mls/hr IVPB Q8HR [facility] Rx# :[id number] Blood Product 0 281 Rc Pheresis 2 As3 Unit 0 281 [id number] Rc Pheresis As-3 Unit 0 [id number] Output: Drainage 250 275 165 Lower Back 250 275 165 Urine 520 550 Estimated Blood Loss 500 Other: Voiding Method Indwelling Catheter Indwelling Catheter Indwelling Catheter - Labs CBC & Chem 7: 02/22/22 20:00 02/22/22 05:15 Labs: Abnormal Lab Results - Last 24 Hours (Table) 02/21/22 02/22/22 Range/Units 18:51 20:00 RBC 2.83 L (4.30-5.90) m/uL Hgb 9.1 L D (13.0-17.5) gm/dL Hct 27.4 L (39.0-53.0) % Lymphocytes # 0.2 L (1.0-4.8) k/uL Crossmatch See Detail
[2022-02-23 11:30] LABS: African American GFR (CKD) 49.2 (60.0-200.0); Anion Gap 8.2 mmol/L (10.00-18.00); BUN/Creat Ratio 13.69 Ratio (12.00-20.00); Basophils # (A) 0.02 X 10*3/uL (0.00-0.10); Basophils % (A) 0.3 %; Blood Urea Nitrogen 21.9 mg/dL (9.0-27.0); Carbon Dioxide 24.8 mmol/L (20.0-27.5); Eosinophils # (A) 0.03 X 10*3/uL (0.04-0.35); Eosinophils % (A) 0.4 %; HCT 25.2 % (39.6-50.0); Immature Grans, Automated 0.8 %; Lymphocytes # (A) 0.21 X 10*3/uL (0.90-5.00); Lymphocytes % (A) 2.8 %; MCH 31.5 pg (27.0-32.0); MCHC 31.7 g/dL (32.0-37.0); MCV 99.2 fL (80.0-97.0); Mean Platelet Volume 9.6 fL (9.5-12.2); Monocytes # (A) 0.29 X 10*3/uL (0.20-1.00); Monocytes % (A) 3.8 %; NRBC Per 100 WBC 0 /100 WBCS (0.0-0.0); Neutrophils # (A) 6.99 X 10*3/uL (1.80-7.70); Neutrophils % (A) 91.9 %; Non-African American GFR(CKD) 42.4 (60.0-200.0); Platelet Count 233 X 10*3/uL (140-440); Potassium 5.6 mmol/L (3.5-5.5); RBC 2.54 X 10*6/uL (4.40-5.60); RDW 14.1 % (11.5-14.5)
[2022-02-23] MEDS: LOSARTAN 25 MG TAB PO SCH (11:58)
[2022-02-23] MEDS: DOXAZOSIN 1 MG TAB PO SCH (11:58)
[2022-02-23] MEDS: SPIRONOLACTONE-HCTZ 25-25MG 1 EACH TAB PO SCH (11:58)
[2022-02-23] MEDS ORDERED: polyethylene glycoL 3350 17 GM POWD.PACK PO SCH (12:00)
--- NOTE | 2022-02-23 13:38 | P.CNPUL ---
History of Present Illness Consult date: 02/23/22 Requesting physician: Cl Huff Reason for consult: other (Hypotension) Chief complaint: Back pain History of present illness: Patient is a 71-year-old white male, admitted on 02/22/2022, and he underwent revision of [id number], he is postoperative day #1 today. Last night the patient developed an episode of hypotension and tachycardia, responded well to fluids, and he received 2 units of packed RBCs for a hemoglobin of 8. Apparently the patient felt much better and I was notified about this patient for possible transfer to ICU when he was hypotensive and tachycardic. However considering the patient responded well to fluids and blood products, I felt that the patient had mostly hypovolemic hypotension and did not feel the need that he should go to the ICU I recommended transferring the patient to [facility]. I saw him this morning, patient seems to be doing well, he is not in any distress, he is normotensive, he is not tachycardic, and he denies any shortness of breath cough wheezing chest pain. Denies any abdominal pain, even his back pain seems to be fairly well controlled. His labs this morning showed a WBC count of 7.6 hemoglobin of 8 it was 9.1 yesterday. His electrolytes are normal except for slightly elevated potassium of 5.6. Renal profile showed increase of creatinine from 1.26 on admission to 1.6 this morning. Chest x-ray showed no evidence of active disease, patient had mostly chronic changes with hilar retraction and upper lobe parenchymal scarring right more so than left, and again this is felt to be fibrosis in nature, chronic Review of Systems Constitutional: Negative HEENT: Negative Cardiac: Negative Pulmonary: Negative GI: Negative Genitourinary: Negative Musculoskeletal chronic back pain Hematologic: Negative Neurologic: Negative Psychiatric: Negative Skin: Negative Past Medical History Past Medical History: Asthma, Cancer, COPD, Hypertension, Renal Disease, Thyroid Disorder Additional Past Medical History / Comment(s): SARCOIDOSIS, LUNG FUNGAL INFECTION, PULMONARY HYPERTENSION,SKIN CANCER,STAGE 3 CHRONIC KIDNEY DISEASE, History of Any Multi-Drug Resistant Organisms: None Reported Past Surgical History: Joint Replacement Additional Past Surgical History / Comment(s): HEMORROIDECTOMY, BRONCHOSCOPY X2, BONE MARROW BIOPSY, BASAL CELL LESION REMOVED , BACK PAIN INJECTIONS, COLONOSCOPY Past Anesthesia/Blood Transfusion Reactions: No Reported Reaction Past Psychological History: No Psychological Hx Reported Smoking Status: Never smoker Past Alcohol Use History: Rare Past Drug Use History: None Reported - Past Family History Mother Family Medical History: Cancer Medications and Allergies Home Medications Medication Instructions Recorded Confirmed Type Doxycycline Hyclate [Vibramycin] 100 mg PO DAILY 06/13/16 02/21/22 History Ipratropium-Albuterol Nebulize 3 ml INHALATION RT-DAILY 06/13/16 02/21/22 History [Duoneb 0.5 mg-3 mg/3 ml Soln] Levothyroxine Sodium [Synthroid] 25 mcg PO DAILY 06/13/16 02/21/22 History Montelukast [Singulair] 10 mg PO W/SUPPER 06/13/16 02/21/22 History Omeprazole 20 mg PO HS 06/13/16 02/21/22 History allopurinoL [Zyloprim] 50 mg PO W/SUPPER 06/13/16 02/21/22 History predniSONE 5 mg PO W/SUPPER 06/13/16 02/21/22 History Spironolactone-Hctz 25-25Mg 0.5 tab PO DAILY 06/26/17 02/21/22 History [Aldactazide 25-25 MG] Albuterol Inhaler [Ventolin Hfa 2 puff INHALATION RT-Q4H PRN 03/25/21 02/21/22 History Inhaler] Sildenafil [Revatio] 20 mg PO TID 03/25/21 02/21/22 History Losartan Potassium 25 mg PO DAILY 06/05/21 02/21/22 History Loratadine Oral Soln [Claritin 5 mg PO HS 01/31/22 02/21/22 History Oral Soln] Magnesium Oxide [Magnesium] 500 mg PO DAILY 01/31/22 02/21/22 History Itraconazole Oral Susp [Sporanox 100 mg PO AC-SUPPER 02/02/22 02/21/22 History Oral Susp] Cyclobenzaprine [Flexeril] 5 mg PO TID #90 tablet 02/07/22 02/21/22 Rx Doxazosin [Cardura] 1 mg PO DAILY 30 Days #30 tab 02/07/22 02/21/22 Rx Gabapentin 300 mg PO TID #90 cap 02/07/22 02/21/22 Rx HYDROcodone/APAP 5-325MG [[place] 1 tab PO Q4HR PRN #42 tab 10/24/22 11/07/22 Rx 5-325] polyethylene glycoL 3350 [Miralax] 17 gm PO DAILY PRN #527 gm 02/07/22 02/21/22 Rx Sennosides/Docusate Sodium [Senna 1 cap PO DAILY PRN 02/21/22 02/21/22 History Plus 8.6-50 mg Softgel] Allergies Allergy/AdvReac Type Severity Reaction Status Date / Time nickel Allergy Unknown POSITIVE Verified 02/22/22 06:23 ON TESTING cephalexin Allergy Rash/Hives Verified 02/22/22 06:23 furosemide [From Lasix] Allergy Rash/Hives Verified 02/22/22 06:23 iodine Allergy Anaphylaxis Verified 02/22/22 06:23 shellfish derived [Shellfish] Allergy Anaphylaxis Verified 02/22/22 06:23 NSAIDS (Non-Steroidal AdvReac Unknown PT STATES Verified 02/22/22 06:23 Anti-Inflamma NO NSAIDS DUE TO KIDNEY DISEASE. 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 Physical Exam Vitals: Vital Signs Temp Pulse Pulse Pulse Resp BP BP 02/23/22 11:54 98.8 F 105 H 16 97/39 02/23/22 09:37 97.7 F 94 16 91/49 02/23/22 09:17 97.5 F L 95 16 100/52 02/23/22 09:09 97.8 F 99 16 96/58 02/23/22 08:53 102 H 02/23/22 08:42 97 02/23/22 08:33 98.8 F 98 16 110/53 02/23/22 08:00 98.5 F 96 16 101/53 02/23/22 06:27 98.1 F 99 18 93/51 02/23/22 06:07 98.1 F 100 18 93/48 02/23/22 05:57 98.6 F 103 H 18 92/48 02/23/22 04:09 99.0 F 108 H 14 02/23/22 02:07 99.2 F 102 H 94/54 02/22/22 23:59 106 H 96/48 02/22/22 21:42 120 H 92/58 02/22/22 19:31 98.5 F 122 H 16 94/56 02/22/22 19:27 123 H 02/22/22 19:20 02/22/22 19:19 56 L 02/22/22 17:28 02/22/22 16:31 97.5 F L 88 14 02/22/22 15:30 97.9 F 96 02/22/22 15:21 97.3 F L 02/22/22 14:58 97.3 F L 92 12 02/22/22 14:34 79 02/22/22 14:29 85 12 02/22/22 14:23 80 12 02/22/22 14:10 94.3 F L 80 12 02/22/22 13:59 94.5 F L 77 12 BP Pulse Ox 02/23/22 11:54 91 L 02/23/22 09:37 91 L 02/23/22 09:17 95 02/23/22 09:09 96 02/23/22 08:53 02/23/22 08:42 02/23/22 08:33 96 02/23/22 08:00 95 02/23/22 06:27 97 02/23/22 06:07 98 02/23/22 05:57 98 02/23/22 04:09 89/40 94 L 02/23/22 02:07 98 02/22/22 23:59 02/22/22 21:42 98 02/22/22 19:31 97 02/22/22 19:27 02/22/22 19:20 97 02/22/22 19:19 02/22/22 17:28 109/63 02/22/22 16:31 102/62 96 02/22/22 15:30 99/61 100 02/22/22 15:21 02/22/22 14:58 96/59 100 02/22/22 14:34 93/54 100 02/22/22 14:29 93/57 100 02/22/22 14:23 90/52 98 02/22/22 14:10 78/49 94 L 02/22/22 13:59 85/46 96 Intake and Output 02/22/22 02/23/22 02/23/22 22:59 06:59 14:59 Intake Total 1150 0 564 Output Total 250 825 165 Balance 900 -825 399 Intake: Intake, IV Titration 1150 Amount 0.9% NaCl with KCl 20 Meq 200 /l 1,000 ml @ 110 mls/hr IV .Q9H6M [facility] Rx#: [id number] Sodium Chloride 0.9% 1, 900 000 ml @ 999 mls/hr IV . Q1H1M [facility] Rx#:[id number] ceFAZolin 2 gm In Sodium 50 Chloride 0.9% 50 ml @ 100 mls/hr IVPB Q8HR [facility] Rx# :[id number] Blood Product 0 564 Rc Pheresis 2 As3 Unit 0 281 [id number] Rc Pheresis As-3 Unit 283 [id number] Output: Drainage 250 275 165 Lower Back 250 275 165 Urine 550 Other: Voiding Method Indwelling Catheter Indwelling Catheter Physical Exam: Revealed 71-year-old white male in no distress, on room air. Head: Atraumatic normocephalic. HEENT:[Neck is supple.] [No neck masses.] [No thyromegaly.] [No JVD.] Chest: [Clear throughout, no crackles, no rhonchi, no wheezes.] Cardiac Exam: [Normal S1 and S2, no S3 gallop, no murmur.] Abdomen: [Soft, nontender, no megaly, no rebound, no guarding, normal bowel sounds.] Extremities: [No clubbing, no edema, no cyanosis.] Neurological Exam: [No focal neurologic deficit.] Psychiatric: Normal mood, affect and normal mental status examination. Skin: No rashes. Results - Laboratory Findings CBC and BMP: 02/23/22 05:21 02/23/22 05:21 PT/INR, D-dimer PT 10.8 sec (9.0-12.0) 02/21/22 14:15 INR 1.0 (<1.2) 02/21/22 14:15 Abnormal lab findings: Abnormal Labs 02/21/22 02/21/22 02/21/22 14:15 14:15 18:51 RBC 3.23 L Hgb 10.5 L Hct 30.8 L MCV MCHC Immature Gran # Lymphocytes # 0.8 L Eosinophils # Potassium Carbon Dioxide 32 H Anion Gap BUN 26 H Creatinine 1.26 H Est GFR (CKD-EPI)AfAm Est GFR (CKD-EPI)NonAf Calcium Alkaline Phosphatase 177 H Crossmatch See Detail 02/22/22 02/22/22 02/22/22 05:15 05:15 20:00 RBC 3.34 L 2.83 L Hgb 10.7 L 9.1 L D Hct 32.2 L 27.4 L MCV MCHC Immature Gran # Lymphocytes # 0.6 L 0.2 L Eosinophils # Potassium Carbon Dioxide 34 H Anion Gap BUN Creatinine Est GFR (CKD-EPI)AfAm Est GFR (CKD-EPI)NonAf Calcium Alkaline Phosphatase Crossmatch 02/23/22 02/23/22 05:21 05:21 RBC 2.54 L Hgb 8.0 L Hct 25.2 L MCV 99.2 H MCHC 31.7 L Immature Gran # 0.06 H Lymphocytes # 0.21 L Eosinophils # 0.03 L Potassium 5.6 H Carbon Dioxide Anion Gap 8.20 L BUN Creatinine 1.6 H Est GFR (CKD-EPI)AfAm 49.2 L Est GFR (CKD-EPI)NonAf 42.4 L Calcium 8.0 L Alkaline Phosphatase Crossmatch - Diagnostic Findings Chest x-ray: image reviewed (As noted in HPI mostly chronic fibrotic changes bilaterally.) Assessment and Plan Assessment: Impression: Status post revision of T10- pelvis decompression with posterolateral and interbody fusion Postoperative hypotension, most likely hypovolemic in nature Acute blood loss anemia 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 History of aspergillosis Hypothyroidism Recommendation: Continue to hold blood pressure medications for now Continue pain control management. Continue to monitor for any further blood loss anemia. And transfuse if necessary. Resume home meds including his maintenance dose of prednisone. He is on 5 mg daily. Continue updrafts. Incentive spirometer. DVT prophylaxis and GI prophylaxis Will follow. Time with Patient: Greater than 30
[2022-02-23] MEDS: SODIUM CHLORIDE 0.9% 1,000 ML IV SCH ×3 (14:01→23:13)
[2022-02-23 16:08] LABS: HCT 30.4 % (39.0-53.0); HGB 10.2 gm/dL (13.0-17.5); Hypochromasia Slight; MCH 31.9 pg (25.0-35.0); MCHC 33.5 g/dL (31.0-37.0); MCV 95.2 fL (80.0-100.0); Platelet Count 229 k/uL (150-450); RBC 3.19 m/uL (4.30-5.90); RDW 14.3 % (11.5-15.5); WBC 6.3 k/uL (3.8-10.6)
[2022-02-23] MEDS: allopurinoL 100 MG TAB PO SCH (16:59)
[2022-02-23] MEDS: MONTELUKAST 10 MG TAB PO SCH (16:59)
[2022-02-23] MEDS: ITRACONAZOLE ORAL SUSP 1,500 MG/150 ML BOTTLE PO SCH (17:03)
[2022-02-23] MEDS: predniSONE 5 MG TAB PO SCH (17:21)
[2022-02-24] MEDS: HYDROcodone/APAP 10-325MG 1 EACH TAB PO SCH ×7 (01:37→23:31)
[2022-02-24] MEDS: IPRATROPIUM-ALBUTEROL 3 ML NEB INHALATION PRN (04:04)
[2022-02-24] MEDS: PANTOPRAZOLE 40 MG TABLET PO SCH (06:43)
[2022-02-24] MEDS: LEVOTHYROXINE 25 MCG TAB PO SCH (06:43)
[2022-02-24] MEDS: ACETAMINOPHEN TAB 325 MG TAB PO SCH ×4 (06:43→23:16)
[2022-02-24] MEDS: CYCLOBENZAPRINE 5 MG TAB PO SCH ×3 (07:23→21:05)
[2022-02-24] MEDS: DOCUSATE 100 MG CAP PO SCH (07:51)
[2022-02-24] MEDS: FAMOTIDINE 20 MG TAB PO SCH (07:51)
[2022-02-24] MEDS: GABAPENTIN 300 MG CAP PO SCH ×3 (07:51→21:06)
--- NOTE | 2022-02-24 07:54 | P.OP ---
Date of Procedure: 02/22/22 Preoperative Diagnosis: 1. s/p L2-Pelvis decompression fusion with hardware failure L2 b/l 2. bilateral L2 pedicle fractures 3. Mechanical back pain 4. LE weakness 5. Complex medical patient Postoperative Diagnosis: 1. s/p L2-Pelvis decompression fusion with hardware failure L2 b/l 2. bilateral L2 pedicle fractures 3. Mechanical back pain 4. LE weakness 5. Complex medical patient Procedure(s) Performed: 1. Revision posteriolateral and interbody fusion L2-3 () 2. Revision posteriolateral fusion [id number] (44476--11435p2, 03712--18266k0) 3. Removal of hardware L2 with reinsertion of L2 screws with cement augmentation T10 and L2 screws (84433, 22834) 4. Exploration of fusion L2-Pelvis (46733) 5. Segmental instrumentation [id number] (51483) 6. Insertion of biomechanical device L2-3 (47758) Use of IONM Implants: -Honor Belpre screw and giuliana system -X1 Globus Rise cage -Autograft -Allograft -MagnatOs Anesthesia: GETA Surgeon: Cl Huff Ecologist #1: Herve Delatorre (Was present and assisted in all aspects of the case including position, exposure, hardware, fusion, closure, dressings) Estimated Blood Loss (ml): 500 IV fluids (ml): 2,500 Urine output (ml): 450 Pathology: none sent Condition: stable Disposition: PACU Indications for Procedure: dianna Barakat is a 71-year-old male presenting for evaluation of continued back pain and lower extremity pain and hardware failure. It was my pleasure to have seen and examined Alec Barakat. In our visit today we have had a chance to go over subjective complaints, physical examination findings and treatments including the natural course history without intervention and various interventional options. The patients imaging demonstrates hardware failure L2-L3 status post L2 to pelvis decompression fusion. On physical exam, Alec Barakat demonstrates prominent hardware posteriorly with pain and difficulty with ambulation and pain secondary to this. I have explained to the patient that as their condition progresses it will cause further neurological deficits and eventual paralysis. Based on the patients imaging, physical exam, and the rapid progression and disabling nature of their symptoms, at this time I recommend surgery in the form or a: revision L2 to pelvis with possible extension up to T10. I discussed the risk and benefits of this procedure at length with Alec Barakat. The patient and his agreed to considered pursuing the procedure abovementioned. Prior to surgery, she should follow up with her PCP (Cardio, ID, IM etc) for clearance. Questions were invited and answered, and the patient wishes to proceed as outlined below. Currently, I am recommendin. revision L2 to pelvis with possible extension up to T10 Description of Procedure: The patient was seen and examined in the preoperative area. All preoperative protocols were followed. Informed consent was obtained risks and benefits of the procedure were discussed at length. Risks including bleeding infection damage to the surrounding tissue and risk of reoperation were discussed with the patient. Risk of anesthesia up to and including was a discussed with the patient. These are outlined in the risk review. They were willing to accept these risks and all of the risks of surgery. The patient was given a weight- based dose of antibiotics in the form of 2 g Ancef. The patient was seen and evaluated by the anesthesia team who deemed them fit for surgery. The site was marked, the patient was willing to proceed with the procedure. The patient was transferred to the operative suite by the Department of anesthesia. They were then drifted off to sleep by the department anesthesia and GETA was performed. The patient tolerated this well. [Moore catheter was placed by nursing staff, atraumatically]. Once confirmation of lines and ventilation the patient was transferred to a [prone Lamberto table very carefully]. All bony prominences including wrists, elbows, axilla, chest, hips, and thighs, and feet were padded very well. Special attention was paid to the genitalia and these were padded accordingly. SCDs were placed on bilateral lower extremities and were connected. Arms were well padded and placed [on arm boards up and out in the 90/90 position]. Once in position, again we confirmed good ventilation capabilities and that lines were running appropriately. The patient's thoracolumbar pelvic spine was then exposed. 1010s were placed outlining the incision site. Standard alcohol was used to clean the incision site and allowed to dry. C-arm was used to biomark the patient and confirm level for incision which was marked with a skin marker. Operative briefing was performed with all teams and everyone in agreement to proceed. The patient was then prepped and draped in a normal sterile fashion. Timeout was then performed and all parties were in agreement with the procedure to be performed. midline skin incision was made over the incision area dissection was taken down to the fascia which was identified sutures were removed from this area as well as from the subcu region. We reopened the fascia and bluntly dissected down until the hardware was identified as well as the laminectomy defect. We cleared any scar tissue from this area using curet as well as irrigation. We cleared any debris from this area as well using curette Ronjair and irrigation. Once we had irrigated thoroughly we visualized that the L2 screws bilaterally had fractured out of the pedicle. Cross-links and set screws removed the rods were removed as well. We then removed the L2 screws bilaterally. There is still in reasonable cord or within the L2 pedicle as it was a larger pedicle and so we upsize the screws and made them fenestrated for cementing due to the nature of this fracture and the fact that is at the top of the construct we elected then to proceed with cranial placement of screws for further stabilization and points of fixation. This would be the safest and best long-term outcome for the patient. We performed subperiosteal dissection over the lamina and transverse processes of T9 through L1 then to expose the upper portion of the construct. We then using a freehand technique and lateral fluoroscopy place screws bilaterally at T10 through L1. A high-speed bur was used to make a check pilot hole followed by a pedicle finder feeler to ensure with the 4 kelley of the pedicle and then the screw. Once screws were placed we took AP fluoroscopy which confirmed screws in good position. We then continue with debridement down low removing excess scar tissue as well as any foraminal tissue that had built up. We then accessed the disc space at L2-L3 with an osteotome and while protecting the neural elements performed shaving of this disc space we then selected a globus rise cage 8 mm wide and impacted into place under lateral fluoroscopy. Prior to this we had packed the disc space anteriorly with magnetic toss autograft and allograft. The cages impacted into position and was in good position. The cages expanded and was stable. We then sized and selected rods and bent them to fit. Rods were then placed within the pelvic screws bilaterally and locked into position they were then sequentially reduced gently into the upper lumbar as well as thoracic screws. Once this was accomplished set screws were placed and set screws were then final tightened into position. We then selected cross-links and 2 cross-links were placed over the laminectomy defect and one cross-link was placed superiorly between T10 and T11. We then decorticated posterior lateral T10 through L2 using a high-speed bur facet joints were burred T10 through L2 as well. We then placed a passage in the lamina of T9 with a high-speed bur and a Mersilene tape was passed through this we then tied this and secured it to the cross-link at T10-T11. We then distracted the cross-link to provide a tension band construct of T9. This was then locked in position and was stable. We then copiously irrigated the wound with 3 L of Ancef antibiotic irrigation followed by 3 L of gentamicin irrigation followed by 6 L of normal sterile saline. Magnetic toss as well as autograft and allograft were placed in the posterior lateral gutters from T10 all the way down to S1 once again. We then placed 2 g of vancomycin powder deep within the wound. Stimulator and beads were also placed within the wound which housed tobramycin and gentamicin. A drain was placed deep and was sewed to the skin. We then confirmed all hardware was in good position with good decompression as well as posterior lateral fusion with stable construct. Final fluoroscopic images confirmed. With the procedure with closure in a layered fashion first in the deep fascia with #1 PDS in a otgkhq-hc-vojel fashion followed by an oversewn PD Deep subcu was closed with 0-0 Vicryl superficial subcu closed with 2-0 Vicryl and skin closed with skin jessica. The wound edges approximated very well. Wound was then cleaned with alcohol and dressed sterilely with an operative foam dressings drain sponge and Tegaderm The patient was transferred back to their hospital bed atraumatically. Drain continued to hold suction and were in good position. Patient was then awakened and extubated by the department of anesthesia having tolerated the procedure v naye well with no complications. They were transferred to the postoperative care unit in stable condition.
[2022-02-24] MEDS: ALBUTEROL NEBULIZED 2.5 MG/3 ML INHALATION PRN (08:13)
--- NOTE | 2022-02-24 09:17 | US ---
EXAMINATION TYPE: US renals and bladder DATE OF EXAM: 02/24/2022 COMPARISON: CLINICAL HISTORY: DOROTHY. abnormal labs. Patient states hx of stage 3 renal disease. Inpatient exam- p atient was scanned in chair. Patient has bladder de santiago. EXAM MEASUREMENTS: Right Kidney: 8.3 x 4.4 x 4.7 cm Left Kidney: 8.7 x 3.9 x 4.6 cm Right Kidney: Appears small in size. Renal cortex appears lobular. Lower pole not well visualized du e to bowel gas. Left Kidney: Appears small in size. Renal cortex appears lobular. Lower pole not well visualized due to bowel gas. Bladder: Not well visualized due to de santiago Bilateral Jets not seen due to de santiago Urinary bladder is not evaluated as the patient's De Santiago catheter in position IMPRESSION: 1. Normal renal ultrasound
[2022-02-24] MEDS: SODIUM CHLORIDE 0.9% 1,000 ML IV SCH (10:09)
--- NOTE | 2022-02-24 11:33 | P.PN ---
Subjective Progress Note Date: 02/24/22 Patient is a very pleasant 71-year-old male with a past medical history of sarcoidosis, pulmonary hypertension, hypertension, hypothyroidism, GERD, stage III chronic kidney disease, and recent L2 through pelvis decompression with posterior lateral and interbody fusion. upon two-week checkup patient was found to have reports of sharp pain and a computed tomography scan revealed failed hardware with reports migration of screws to L2 and L3. Patient is currently admitted under orthospine surgical team and underwent revision of L2 through pelvis decompression and fusion. We have been consulted for medical management throughout patient's hospitalization. Patient was seen and examined. No acute events overnight. BP has improved, 137/75. He reports well controlled pain in his lower back. His Hg has improved to 10.2 from 8.0 after 2 unit PRBCs have been ordered. He reports no chest pain or shortness of breath. He has been progressing well with PT and OT. General: non toxic, no distress, appears at stated age Derm: warm, dry Head: atraumatic, normocephalic, symmetric Eyes: EOMI, no lid lag, anicteric sclera Mouth: no lip lesion, mucus membranes moist Cardiovascular: S1S2 reg, no murmur Lungs: Decreased BS bilateral, no rhonchi, no rales , no accessory muscle use Ext: no gross muscle atrophy, no edema, no contractures Neuro: no focal neuro deficits Psych: Alert, oriented, appropriate affect #Acute kidney injury #Hyperkalemia -Patient in urinating freely with no abdominal pain -Renal/Bladder US ordered to rule out obstruction -Repeat potassium at 5PM -Avoid nephrotoxins -Repeat BMP tomorrow morning -Continue IV hydration #Postoperative Hypothermia #Postoperative Hypotension -Postoperative hypothermia and hypotension and likely adverse effect of anesthesia and resolved with treatment. -Initially upon return to room from OR, patient was hypotensive with blood pressure 78/49 and hypothermic with temp 94.3F. Patient was wrapped in warm blankets and given a 1 L bolus 0.9% normal saline. Resulting in improvement of vital signs with blood pressure increasing to 93/54 and temp of 97.3F. -Losartan, Doxazosin, Aldactone-HCTZ disontinued. -Monitor vitals and adjust medications if necessary. #Acute blood loss anemia -Expected result of surgery -Hg improved to 10.2 after 2 unit PRBC 02/23 -Repeat CBC tomorrow morning #Sarcoidosis #Pulmonary hypertension -Incentive spirometer. -Albuterol/DuoNeb as needed for shortness of breath or wheezing. -Continue Singulair. #Aspergillosis -Continue Itraconazole. #Hypothyroidism -Continue levothyroxine. #GERD -Continue Protonix. #Status post revision of L2 through pelvis decompression with posterolateral and interbody fusion -Management per Orthopedic surgery Thank you for this consultation. Please call [facility] with additional questions or concerns. Objective - Vital Signs Vital signs: Vital Signs Temp 98.3 F 02/24/22 03:51 Pulse 100 02/24/22 08:24 Resp 16 02/24/22 07:50 BP 137/75 02/24/22 07:50 Pulse Ox 98 02/24/22 07:50 FiO2 21 02/24/22 04:04 Intake & Output 02/23/22 02/24/22 02/24/22 18:59 06:59 18:59 Intake Total 924 1320 0 Output Total 1975 4230 65 Balance -1051 -2910 -65 Intake: Intake, IV Titration 1320 Amount 0.9% NaCl with KCl 20 Meq 1320 /l 1,000 ml @ 110 mls/hr IV .Q9H6M [facility] Rx#: [id number] Oral 360 0 Blood Product 564 Rc Pheresis 2 As3 Unit 281 [id number] Rc Pheresis As-3 Unit 283 [id number] Output: Drainage 275 130 65 Lower Back 275 130 65 Urine 1700 4100 Other: Voiding Method Indwelling Catheter Indwelling Catheter Indwelling Catheter - Labs CBC & Chem 7: 02/23/22 15:12 02/23/22 05:21 Labs: Abnormal Lab Results - Last 24 Hours (Table) 02/21/22 02/23/22 02/23/22 Range/Units 18:51 05:21 05:21 RBC 2.54 L (4.40-5.60) X 10*6/uL Hgb 8.0 L (13.0-17.0) g/dL Hct 25.2 L (39.6-50.0) % MCV 99.2 H (80.0-97.0) fL MCHC 31.7 L (32.0-37.0) g/dL Immature Gran # 0.06 H (0.00-0.04) X 10*3/uL Lymphocytes # 0.21 L (0.90-5.00) X 10*3/uL Eosinophils # 0.03 L (0.04-0.35) X 10*3/uL Potassium 5.6 H (3.5-5.5) mmol/L Anion Gap 8.20 L (10.00-18.00) mmol/L Creatinine 1.6 H (0.6-1.5) mg/dL Est GFR (CKD-EPI)AfAm 49.2 L (60.0-200.0) Est GFR (CKD-EPI)NonAf 42.4 L (60.0-200.0) Calcium 8.0 L (8.7-10.3) mg/dL Crossmatch See Detail 02/23/22 Range/Units 15:12 RBC 3.19 L (4.40-5.60) X 10*6/uL Hgb 10.2 L (13.0-17.0) g/dL Hct 30.4 L (39.6-50.0) % MCV (80.0-97.0) fL MCHC (32.0-37.0) g/dL Immature Gran # (0.00-0.04) X 10*3/uL Lymphocytes # (0.90-5.00) X 10*3/uL Eosinophils # (0.04-0.35) X 10*3/uL Potassium (3.5-5.5) mmol/L Anion Gap (10.00-18.00) mmol/L Creatinine (0.6-1.5) mg/dL Est GFR (CKD-EPI)AfAm (60.0-200.0) Est GFR (CKD-EPI)NonAf (60.0-200.0) Calcium (8.7-10.3) mg/dL Crossmatch
[2022-02-24] MEDS: polyethylene glycoL 3350 17 GM POWD.PACK PO SCH (12:20)
--- NOTE | 2022-02-24 12:24 | P.PN ---
Subjective Progress Note Date: 02/24/22 Principal diagnosis: Postoperative hypovolemic hypotension Patient is a 71-year-old white male, admitted on 02/22/2022, and he underwent revision of [id number], he is postoperative day #1 today. Last night the patient developed an episode of hypotension and tachycardia, responded well to fluids, and he received 2 units of packed RBCs for a hemoglobin of 8. Apparently the patient felt much better and I was notified about this patient for possible transfer to ICU when he was hypotensive and tachycardic. However considering the patient responded well to fluids and blood products, I felt that the patient had mostly hypovolemic hypotension and did not feel the need that he should go to the ICU I recommended transferring the patient to [facility]. I saw him this morning, patient seems to be doing well, he is not in any distress, he is normotensive, he is not tachycardic, and he denies any shortness of breath cough wheezing chest pain. Denies any abdominal pain, even his back pain seems to be fairly well controlled. His labs this morning showed a WBC count of 7.6 hemoglobin of 8 it was 9.1 yesterday. His electrolytes are normal except for slightly elevated potassium of 5.6. Renal profile showed increase of creatinine from 1.26 on admission to 1.6 this morning. Chest x-ray showed no evidence of active disease, patient had mostly chronic changes with hilar retraction and upper lobe parenchymal scarring right more so than left, and again this is felt to be fibrosis in nature, chronic Reevaluated today on 02/24/22, patient is doing well, he is on room air, in no distress. No further episodes of hypotension, denies any shortness of breath denies any chest pain, his back pain seems to be fairly well controlled. No labs drawn today. Objective - Vital Signs Vital signs: Vital Signs Temp 98.3 F 02/24/22 03:51 Pulse 98 02/24/22 12:14 Resp 16 02/24/22 12:14 BP 103/56 02/24/22 12:14 Pulse Ox 95 02/24/22 12:14 FiO2 21 02/24/22 04:04 Intake & Output 02/23/22 02/24/22 02/24/22 18:59 06:59 18:59 Intake Total 924 1320 0 Output Total 1975 4230 65 Balance -2801 -2910 -65 Intake: Intake, IV Titration 1320 Amount 0.9% NaCl with KCl 20 Meq 1320 /l 1,000 ml @ 110 mls/hr IV .Q9H6M [facility] Rx#: [id number] Oral 360 0 Blood Product 564 Rc Pheresis 2 As3 Unit 281 [id number] Rc Pheresis As-3 Unit 283 [id number] Output: Drainage 275 130 65 Lower Back 275 130 65 Urine 1700 4100 Other: Voiding Method Indwelling Catheter Indwelling Catheter Indwelling Catheter - Exam Physical Exam: Revealed 71-year-old white male in no distress, on room air. Head: Atraumatic normocephalic. HEENT:[Neck is supple.] [No neck masses.] [No thyromegaly.] [No JVD.] Chest: [Clear throughout, no crackles, no rhonchi, no wheezes.] Cardiac Exam: [Normal S1 and S2, no S3 gallop, no murmur.] Abdomen: [Soft, nontender, no megaly, no rebound, no guarding, normal bowel sounds.] Extremities: [No clubbing, no edema, no cyanosis.] Neurological Exam: [No focal neurologic deficit.] Psychiatric: Normal mood, affect and normal mental status examination. Skin: No rashes. - Labs CBC & Chem 7: 02/23/22 15:12 02/23/22 05:21 Labs: Abnormal Lab Results - Last 24 Hours (Table) 02/23/22 Range/Units 15:12 RBC 3.19 L (4.30-5.90) m/uL Hgb 10.2 L (13.0-17.5) gm/dL Hct 30.4 L (39.0-53.0) % Assessment and Plan Assessment: Impression: Status post revision of T10- pelvis decompression with posterolateral and interbody fusion, postoperative day #2 Postoperative hypotension, most likely hypovolemic in nature, resolved. Acute blood loss anemia, resolved. 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 History of aspergillosis Hypothyroidism Recommendation: Continue pain control management. Continue updrafts. Incentive spirometer. DVT prophylaxis and GI prophylaxis Will follow. As needed. Time with Patient: Less than 30
[2022-02-24] MEDS ORDERED: IPRATROPIUM-ALBUTEROL 3 ML NEB INHALATION SCH (14:00)
--- NOTE | 2022-02-24 16:27 | P.PN ---
Subjective Progress Note Date: 02/24/22 Principal diagnosis: Hardware failure L2-Pelvis Patient seen and examined at bedside. Patient is sitting up in chair and tolerating well. He states he is feeling much better than yesterday. Patient states that he only has pain in his left lower extremity when ambulating. He currently is denying any back pain. Surgical incision is clean dry and intact with Hemovac present at half suction. Patient denies any numbness or tingling to bilateral lower extremities. He states he has worked with nursing staff with ambulating in room with walker, tolerating well. He denies any fevers/chills, nausea/vomiting, or shortness of breath. Objective - Vital Signs Vital signs: Vital Signs Temp 98.3 F 02/24/22 03:51 Pulse 98 02/24/22 12:14 Resp 16 02/24/22 12:14 BP 103/56 02/24/22 12:14 Pulse Ox 95 02/24/22 12:14 FiO2 21 02/24/22 04:04 Intake & Output 02/23/22 02/24/22 02/24/22 18:59 06:59 18:59 Intake Total 924 1320 118 Output Total 1975 4230 1065 Balance -1585 -1711 -309 Intake: Intake, IV Titration 1320 Amount 0.9% NaCl with KCl 20 Meq 1320 /l 1,000 ml @ 110 mls/hr IV .Q9H6M [facility] Rx#: [id number] Oral 360 118 Blood Product 564 Rc Pheresis 2 As3 Unit 281 [id number] Rc Pheresis As-3 Unit 283 [id number] Output: Drainage 275 130 65 Lower Back 275 130 65 Urine 1700 4100 1000 Other: Voiding Method Indwelling Catheter Indwelling Catheter Indwelling Catheter - Exam Physical Examination General: The patient is awake and alert, in no acute distress Skin: Skin is warm and dry with no obvious rashes or lesions. Hairy patches absent, no dorsal skin dimples, no cafe au lait spots. Thoracolumbar surgical incision, CDI with hemovac present. Eye: Pupils are equal, round and reactive to light, extra-ocular movements are intact; there is normal conjunctiva bilaterally. Neck: The neck is supple, there is no tenderness and ROM intact. Cardiovascular: There is a regular rate and rhythm. No murmur, rub or gallop is appreciated. Respiratory: Lungs are clear to auscultation, respirations are non-labored, breath sounds are equal. Gastrointestinal: Soft, non-distended, non-tender abdomen . Back: There is no tenderness to palpation in the midline, paralumbar, parathoracic or buttocks region. There is no obvious deformity . Musculoskeletal: ROM limited secondary to pain and stiffness from surgical procedure. Muscle strength in bilateral upper extremities 5/5 in all major muscle groups, 4/5 in bilateral lower extremities. Neurological: CN 2-12 intact. There are no obvious motor or sensory deficits. Movement and coordination equal and intact. Sensory exam to light touch intact C5-T1 and intact from L2-S1. Reflexes 2/4 in bilateral upper and lower extremities. Negative Hoffmans, babinski, and clonus signs. Psychiatric: Cooperative, appropriate mood & affect, normal judgment. - Labs CBC & Chem 7: 02/23/22 15:12 02/23/22 05:21 Assessment and Plan Assessment: Post-Op Day 2: Revision [id number] decompression and fusion 1. Hardware failure L2 - pelvis Plan: Plan: -Appreciate fitness consultant and team management. -Activity: Ambulate QID, OOB all meals, up and about, limit lifting bending twisting to less than 5 lbs. Use walker or cane if needed for stability. -Daily PT/OT, increase ambulation strength and balance. -Brace when up and about, not needed in bed or chair -Pain control: Adequate at this time -Meds: reviewed -GI ppx: senna, Miralax -D/C de santiago when up and about, bedside commode if needed -DVT PPX: Heparin -Hygiene: Shower today. Maintain dressing clean and dry. Meticulous cleaning after BMs away from the incision site -Drains: Maintain for now, half suction -Encourage IS 10x/hr -Dispo: Anticipate discharge home 48-72hrs with homecare *I reviewed and discussed this case with my attending Dr. Huff, whom has reviewed this chart and films and is in agreement with assessment and plan of care as outlined above. I have personally seen and examined the patient, performed the documentation and the assessment and plan as written. Number of minutes spent on the visit: 20m
[2022-02-24] MEDS: predniSONE 5 MG TAB PO SCH (16:31)
[2022-02-24] MEDS: allopurinoL 100 MG TAB PO SCH (16:31)
[2022-02-24] MEDS: MONTELUKAST 10 MG TAB PO SCH (16:32)
[2022-02-24] MEDS: ITRACONAZOLE ORAL SUSP 1,500 MG/150 ML BOTTLE PO SCH (16:35)
[2022-02-24] MEDS: IPRATROPIUM-ALBUTEROL 3 ML NEB INHALATION SCH ×2 (17:37→21:25)
[2022-02-25] MEDS: HYDROcodone/APAP 10-325MG 1 EACH TAB PO SCH ×3 (04:13→20:34)
[2022-02-25] MEDS: ACETAMINOPHEN TAB 325 MG TAB PO SCH ×4 (06:19→22:55)
[2022-02-25] MEDS: PANTOPRAZOLE 40 MG TABLET PO SCH (06:19)
[2022-02-25] MEDS: LEVOTHYROXINE 25 MCG TAB PO SCH (06:19)
[2022-02-25 07:51] LABS: HCT 28.1 % (39.0-53.0); HGB 9.7 gm/dL (13.0-17.5); Hypochromasia Slight; MCH 32.8 pg (25.0-35.0); MCHC 34.6 g/dL (31.0-37.0); MCV 94.8 fL (80.0-100.0); Mean Platelet Volume 7.6; Platelet Count 212 k/uL (150-450); RBC 2.96 m/uL (4.30-5.90); RDW 14.1 % (11.5-15.5); WBC 4.5 k/uL (3.8-10.6)
[2022-02-25 08:00] LABS: Calcium 8.1 mg/dL (8.4-10.2); Potassium 4.1 mmol/L (3.5-5.1)
[2022-02-25] MEDS: MAGNESIUM HYDROXIDE 2,400 MG/10 ML CUP PO PRN (08:13)
[2022-02-25] MEDS: IPRATROPIUM-ALBUTEROL 3 ML NEB INHALATION SCH ×3 (08:13→23:17)
[2022-02-25] MEDS: DOCUSATE 100 MG CAP PO SCH (08:14)
[2022-02-25] MEDS: GABAPENTIN 300 MG CAP PO SCH ×4 (08:14→20:37)
[2022-02-25] MEDS: polyethylene glycoL 3350 17 GM POWD.PACK PO SCH (08:14)
[2022-02-25] MEDS: FAMOTIDINE 20 MG TAB PO SCH (08:14)
[2022-02-25] MEDS: CYCLOBENZAPRINE 5 MG TAB PO SCH ×3 (08:14→20:34)
--- NOTE | 2022-02-25 08:28 | P.PN ---
Subjective Progress Note Date: 02/25/22 Principal diagnosis: Hardware failure L2-Pelvis Patient seen and examined at bedside. Patient was sitting at edge of bed, getting prepared to get into the chair for breakfast. He currently is denying any back pain. Surgical incision well approximated with jessica intact, Dressing changed. Hemovac present at half suction. Patient denies any numbness or tingling to bilateral lower extremities. He denies any fevers/chills, nausea/vomiting, or shortness of breath. Objective - Vital Signs Vital signs: Vital Signs Temp 98.2 F 02/25/22 04:14 Pulse 102 H 02/25/22 08:13 Resp 16 02/25/22 08:13 BP 107/45 02/25/22 04:14 Pulse Ox 96 02/25/22 08:13 FiO2 21 02/24/22 04:04 Intake & Output 02/24/22 02/25/22 02/25/22 18:59 06:59 18:59 Intake Total 236 120 Output Total 1695 2915 350 Balance -5909 -2915 -230 Intake: Oral 236 120 Output: Drainage 65 115 Lower Back 65 115 Urine 1630 2800 350 Uretheral (De [place]) 800 Other: Voiding Method Indwelling Catheter Indwelling Catheter - Exam Physical Examination General: The patient is awake and alert, in no acute distress Skin: Skin is warm and dry with no obvious rashes or lesions. Hairy patches abs ent, no dorsal skin dimples, no cafe au lait spots. Thoracolumbar surgical incision, CDI with hemovac present. Eye: Pupils are equal, round and reactive to light, extra-ocular movements are intact; there is normal conjunctiva bilaterally. Neck: The neck is supple, there is no tenderness and ROM intact. Cardiovascular: There is a regular rate and rhythm. No murmur, rub or gallop is appreciated. Respiratory: Lungs are clear to auscultation, respirations are non-labored, breath sounds are equal. Gastrointestinal: Soft, non-distended, non-tender abdomen . Back: There is no tenderness to palpation in the midline, paralumbar, parathoracic or buttocks region. There is no obvious deformity . Musculoskeletal: ROM limited secondary to pain and stiffness from surgical procedure. Muscle strength in bilateral upper extremities 5/5 in all major muscle groups, 4/5 in bilateral lower extremities. Neurological: CN 2-12 intact. There are no obvious motor or sensory deficits. Movement and coordination equal and intact. Sensory exam to light touch intact C5-T1 and intact from L2-S1. Reflexes 2/4 in bilateral upper and lower extremities. Negative Hoffmans, babinski, and clonus signs. Psychiatric: Cooperative, appropriate mood & affect, normal judgment. - Labs CBC & Chem 7: 02/23/22 15:12 02/25/22 07:05 Labs: Abnormal Lab Results - Last 24 Hours (Table) 02/25/22 Range/Units 07:05 Calcium 8.1 L (8.4-10.2) mg/dL Assessment and Plan Assessment: Post-Op Day 3: Revision [id number] decompression and fusion 1. Hardware failure L2 - pelvis Plan: -Appreciate oracle database consultant and team management. -Activity: Ambulate QID, OOB all meals, up and about, limit lifting bending twisting to less than 5 lbs. Use walker or cane if needed for stability. -Daily PT/OT, increase ambulation strength and balance. -Brace when up and about, not needed in bed or chair -Pain control: Adequate at this time -Meds: reviewed -GI ppx: senna, Miralax, MOM -D/C de santiago when up and about, bedside commode if needed -DVT PPX: Heparin -Hygiene: Shower today. Maintain dressing clean and dry. Meticulous cleaning after BMs away from the incision site -Drains: Maintain for now, half suction -Encourage IS 10x/hr -Dispo: Anticipate discharge home 48hrs with homecare *I reviewed and discussed this case with my attending Dr. Huff, whom has reviewed this chart and films and is in agreement with assessment and plan of care as outlined above. I have personally seen and examined the patient, performed the documentation and the assessment and plan as written. Number of minutes spent on the visit: 20m
--- NOTE | 2022-02-25 11:49 | P.PN ---
Subjective Progress Note Date: 02/25/22 Patient is a very pleasant 71-year-old male with a past medical history of sarcoidosis, pulmonary hypertension, hypertension, hypothyroidism, GERD, stage III chronic kidney disease, and recent L2 through pelvis decompression with posterior lateral and interbody fusion. upon two-week checkup patient was found to have reports of sharp pain and a computed tomography scan revealed failed hardware with reports migration of screws to L2 and L3. Patient is currently admitted under orthospine surgical team and underwent revision of L2 through pelvis decompression and fusion. We have been consulted for medical management throughout patient's hospitalization. Patient was seen and examined. No acute events overnight. BP has improved, 134/75. He reports well controlled pain in his lower back. His Hg has improved to 9.7 from 8.0 after 2 unit PRBCs. He reports no chest pain or shortness of breath. He has been progressing well with PT and OT. General: non toxic, no distress, appears at stated age Derm: warm, dry Head: atraumatic, normocephalic, symmetric Eyes: EOMI, no lid lag, anicteric sclera Mouth: no lip lesion, mucus membranes moist Cardiovascular: S1S2 reg, no murmur Lungs: Decreased BS bilateral, no rhonchi, no rales , no accessory muscle use Ext: no gross muscle atrophy, no edema, no contractures Neuro: no focal neuro deficits Psych: Alert, oriented, appropriate affect #Acute blood loss anemia -Expected result of surgery -Hg improved to 9.7 after 2 unit PRBC 02/23 -Repeat CBC tomorrow morning #Sarcoidosis #Pulmonary hypertension -Incentive spirometer. -Albuterol/DuoNeb as needed for shortness of breath or wheezing. -Continue Singulair. #Aspergillosis -Continue Itraconazole. #Hypothyroidism -Continue levothyroxine. #GERD -Continue Protonix. #Status post revision of L2 through pelvis decompression with posterolateral and interbody fusion -Management per Orthopedic surgery Resolved: Post operative hypothermia and hypotension, DOROTHY, hyperkalemia Patient is medically stable. Thank you for this consultation. Please call [facility] with additional questions or concerns. Objective - Vital Signs Vital signs: Vital Signs Temp 98.2 F 02/25/22 04:14 Pulse 100 02/25/22 08:24 Resp 16 02/25/22 08:24 BP 134/75 02/25/22 08:00 Pulse Ox 96 02/25/22 08:13 FiO2 21 02/24/22 04:04 Intake & Output 02/24/22 02/25/22 02/25/22 18:59 06:59 18:59 Intake Total 236 120 Output Total 1695 2915 350 Balance -1459 -2915 -230 Intake: Oral 236 120 Output: Drainage 65 115 Lower Back 65 115 Urine 1630 2800 350 Uretheral (Moore) 800 Other: Voiding Method Indwelling Catheter Indwelling Catheter Indwelling Catheter - Labs CBC & Chem 7: 02/25/22 07:05 02/25/22 07:05 Labs: Abnormal Lab Results - Last 24 Hours (Table) 02/25/22 02/25/22 Range/Units 07:05 07:05 RBC 2.96 L (4.30-5.90) m/uL Hgb 9.7 L (13.0-17.5) gm/dL Hct 28.1 L (39.0-53.0) % Calcium 8.1 L (8.4-10.2) mg/dL
--- NOTE | 2022-02-25 14:03 | P.PN ---
Subjective Progress Note Date: 02/25/22 Principal diagnosis: Postoperative hypovolemic hypotension Patient is a 71-year-old white male, admitted on 02/22/2022, and he underwent revision of [id number], he is postoperative day #1 today. Last night the patient developed an episode of hypotension and tachycardia, responded well to fluids, and he received 2 units of packed RBCs for a hemoglobin of 8. Apparently the patient felt much better and I was notified about this patient for possible transfer to ICU when he was hypotensive and tachycardic. However considering the patient responded well to fluids and blood products, I felt that the patient had mostly hypovolemic hypotension and did not feel the need that he should go to the ICU I recommended transferring the patient to [facility]. I saw him this morning, patient seems to be doing well, he is not in any distress, he is normotensive, he is not tachycardic, and he denies any shortness of breath cough wheezing chest pain. Denies any abdominal pain, even his back pain seems to be fairly well controlled. His labs this morning showed a WBC count of 7.6 hemoglobin of 8 it was 9.1 yesterday. His electrolytes are normal except for slightly elevated potassium of 5.6. Renal profile showed increase of creatinine from 1.26 on admission to 1.6 this morning. Chest x-ray showed no evidence of active disease, patient had mostly chronic changes with hilar retraction and upper lobe parenchymal scarring right more so than left, and again this is felt to be fibrosis in nature, chronic Reevaluated today on 02/24/22, patient is doing well, he is on room air, in no distress. No further episodes of hypotension, denies any shortness of breath denies any chest pain, his back pain seems to be fairly well controlled. No labs drawn today. Reevaluated today on 02/25/22, patient continues to do well, no major pulmonary or hemodynamic issues, hence will sign off and see the patient as needed. Labs today are normal including WBC 4.5 hemoglobin 9.7 and lites are normal renal profile is normal Objective - Vital Signs Vital signs: Vital Signs Temp 98.2 F 02/25/22 04:14 Pulse 100 02/25/22 08:24 Resp 16 02/25/22 08:24 BP 134/75 02/25/22 08:00 Pulse Ox 96 02/25/22 08:13 FiO2 21 02/24/22 04:04 Intake & Output 02/24/22 02/25/22 02/25/22 18:59 06:59 18:59 Intake Total 236 120 Output Total 1695 2915 350 Balance -2139 -2915 -230 Intake: Oral 236 120 Output: Drainage 65 115 Lower Back 65 115 Urine 1630 2800 350 Uretheral (Moore) 800 Other: Voiding Method Indwelling Catheter Indwelling Catheter Indwelling Catheter - Exam Physical Exam: Revealed 71-year-old white male in no distress, on room air. Head: Atraumatic normocephalic. HEENT:[Neck is supple.] [No neck masses.] [No thyromegaly.] [No JVD.] Chest: [Clear throughout, no crackles, no rhonchi, no wheezes.] Cardiac Exam: [Normal S1 and S2, no S3 gallop, no murmur.] Abdomen: [Soft, nontender, no megaly, no rebound, no guarding, normal bowel sounds.] Extremities: [No clubbing, no edema, no cyanosis.] Neurological Exam: [No focal neurologic deficit.] Psychiatric: Normal mood, affect and normal mental status examination. Skin: No rashes. - Labs CBC & Chem 7: 02/25/22 07:05 02/25/22 07:05 Labs: Abnormal Lab Results - Last 24 Hours (Table) 02/25/22 02/25/22 Range/Units 07:05 07:05 RBC 2.96 L (4.30-5.90) m/uL Hgb 9.7 L (13.0-17.5) gm/dL Hct 28.1 L (39.0-53.0) % Calcium 8.1 L (8.4-10.2) mg/dL Assessment and Plan Assessment: Impression: Status post revision of T10- pelvis decompression with posterolateral and interbody fusion, postoperative day #3 Postoperative hypotension, most likely hypovolemic in nature, resolved. Acute blood loss anemia, resolved. 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 History of aspergillosis Hypothyroidism Recommendation: Continue pain control management. Continue updrafts. Incentive spirometer. DVT prophylaxis and GI prophylaxis We will sign off for now. And see as needed Time with Patient: Less than 30
[2022-02-25] MEDS: predniSONE 5 MG TAB PO SCH (17:40)
[2022-02-25] MEDS: allopurinoL 100 MG TAB PO SCH (17:40)
[2022-02-25] MEDS: MONTELUKAST 10 MG TAB PO SCH (17:40)
[2022-02-25] MEDS: ITRACONAZOLE ORAL SUSP 1,500 MG/150 ML BOTTLE PO SCH (17:42)
[2022-02-26] MEDS: HYDROcodone/APAP 10-325MG 1 EACH TAB PO SCH ×5 (01:12→19:56)
[2022-02-26] MEDS: PANTOPRAZOLE 40 MG TABLET PO SCH (06:22)
[2022-02-26] MEDS: ACETAMINOPHEN TAB 325 MG TAB PO SCH ×3 (06:22→17:44)
[2022-02-26] MEDS: LEVOTHYROXINE 25 MCG TAB PO SCH (06:22)
[2022-02-26] MEDS: IPRATROPIUM-ALBUTEROL 3 ML NEB INHALATION SCH ×3 (08:22→23:12)
[2022-02-26] MEDS: CYCLOBENZAPRINE 5 MG TAB PO SCH ×3 (08:35→19:56)
[2022-02-26] MEDS: FAMOTIDINE 20 MG TAB PO SCH (08:35)
[2022-02-26] MEDS: polyethylene glycoL 3350 17 GM POWD.PACK PO SCH (08:35)
[2022-02-26] MEDS: DOCUSATE 100 MG CAP PO SCH (08:35)
[2022-02-26] MEDS: GABAPENTIN 300 MG CAP PO SCH ×3 (08:35→19:53)
[2022-02-26] MEDS: MAGNESIUM HYDROXIDE 2,400 MG/10 ML CUP PO PRN (08:36)
[2022-02-26 08:41] LABS: HCT 32.3 % (39.0-53.0); HGB 10.5 gm/dL (13.0-17.5); Hypochromasia Moderate; MCH 31.9 pg (25.0-35.0); MCHC 32.5 g/dL (31.0-37.0); MCV 98.1 fL (80.0-100.0); Platelet Count 225 k/uL (150-450); RBC 3.29 m/uL (4.30-5.90); RDW 13.8 % (11.5-15.5); WBC 4.2 k/uL (3.8-10.6)
--- NOTE | 2022-02-26 12:44 | P.PN ---
Subjective Progress Note Date: 02/26/22 Patient is a very pleasant 71-year-old male with a past medical history of sarcoidosis, pulmonary hypertension, hypertension, hypothyroidism, GERD, stage III chronic kidney disease, and recent L2 through pelvis decompression with posterior lateral and interbody fusion. upon two-week checkup patient was found to have reports of sharp pain and a computed tomography scan revealed failed hardware with reports migration of screws to L2 and L3. Patient is currently admitted under orthospine surgical team and underwent revision of L2 through pelvis decompression and fusion. We have been consulted for medical management throughout patient's hospitalization. Patient was seen and examined. No acute events overnight. BP has improved, 122/69. He reports well controlled pain in his lower back. His Hg has improved to 10.5 from 8.0 after 2 unit PRBCs. He reports no chest pain or shortness of breath. He has been progressing well with PT and OT. He reports constipation, no bowel movement since admission. No nausea or vomiting. Passing gas. General: non toxic, no distress, appears at stated age Derm: warm, dry Head: atraumatic, normocephalic, symmetric Eyes: EOMI, no lid lag, anicteric sclera Mouth: no lip lesion, mucus membranes moist Cardiovascular: S1S2 reg, no murmur Lungs: Decreased BS bilateral, no rhonchi, no rales , no accessory muscle use Ext: no gross muscle atrophy, no edema, no contractures Neuro: no focal neuro deficits Psych: Alert, oriented, appropriate affect #Constipation -Continue Docusate -Milk of Magnesia PRN #Acute blood loss anemia -Expected result of surgery -Hg improved to 10.5 after 2 unit PRBC 02/23 -Repeat CBC tomorrow morning #Sarcoidosis #Pulmonary hypertension -Incentive spirometer. -Albuterol/DuoNeb as needed for shortness of breath or wheezing. -Continue Singulair. #Aspergillosis -Continue Itraconazole. #Hypothyroidism -Continue levothyroxine. #GERD -Continue Protonix. #Status post revision of L2 through pelvis decompression with posterolateral and interbody fusion -Management per Orthopedic surgery Resolved: Post operative hypothermia and hypotension, DOROTHY, hyperkalemia Patient is medically stable. Thank you for this consultation. Please call [facility] with additional questions or concerns. Objective - Vital Signs Vital signs: Vital Signs Temp 97.7 F 02/26/22 08:00 Pulse 88 02/26/22 08:36 Resp 16 02/26/22 08:00 BP 122/69 02/26/22 08:00 Pulse Ox 97 02/26/22 08:25 FiO2 21 02/24/22 04:04 Intake & Output 02/25/22 02/26/22 02/26/22 18:59 06:59 18:59 Intake Total 360 120 Output Total 2550 2700 Balance -2190 -2700 120 Intake: Oral 360 120 Output: Urine 2550 2700 Other: Voiding Method Indwelling Catheter Indwelling Catheter Indwelling Catheter # Voids 1 # Bowel Movements 0 - Labs CBC & Chem 7: 02/26/22 07:44 02/25/22 07:05 Labs: Abnormal Lab Results - Last 24 Hours (Table) 02/26/22 Range/Units 07:44 RBC 3.29 L (4.30-5.90) m/uL Hgb 10.5 L (13.0-17.5) gm/dL Hct 32.3 L (39.0-53.0) %
--- NOTE | 2022-02-26 14:10 | P.PN ---
Subjective Progress Note Date: 02/26/22 Principal diagnosis: Hardware failure, status post [id number] posterior lateral interbody fusion Patient is examined today bedside, his is also present. Patient is sitting up in the chair and having minimal difficulty. He continues to get stronger he feels daily. He is dealing with some constipation, he also that with this after his first surgery. Denies numbness or tingling in the bilateral lower extremities or peroneal or genital region. Objective - Vital Signs Vital signs: Vital Signs Temp 98.0 F 02/26/22 12:00 Pulse 94 02/26/22 12:00 Resp 18 02/26/22 12:00 BP 132/79 02/26/22 12:00 Pulse Ox 99 02/26/22 12:00 FiO2 21 02/24/22 04:04 Intake & Output 02/25/22 02/26/22 02/26/22 18:59 06:59 18:59 Intake Total 360 120 Output Total 2550 2700 1000 Balance -2190 -2700 -880 Intake: Oral 360 120 Output: Urine 2550 2700 1000 Other: Voiding Method Indwelling Catheter Indwelling Catheter Indwelling Catheter # Voids 1 1 # Bowel Movements 0 1 - Exam Gen: AOx3, NAD VSS stable at this time Integument: Postoperative bandages in good position and condition along with drain, both were removed today at bedside. Dressing was changed. Sherwood are all in position and condition Palpation: Mild tenderness with palpation throughout the thoracic and lumbar spine ROM: Full range of motion in all major muscle groups of bilateral upper and lower extremities, no focal deficits appreciated Sensory Exam: Senory exam to light touch is intact C5-T1 Senosry exam to light touch is intact L2-S1 Motor: 45 strength appreciated in the bilateral lower extremities with hip flexion, knee extension, knee flexion, plantar flexion, dorsiflexion, EHL, FHL 55 strength appreciated in the bilateral upper extremity is with shoulder elevation, shoulder abduction, elbow extension, elbow flexion, wrist extension, wrist flexion, rubber production machine operator Reflexes: 2/4 in all UE and LE Negative Mary's bilaterally Negative Babinski bilaterally Clonus bilaterally - Labs CBC & Chem 7: 02/26/22 07:44 02/25/22 07:05 Labs: Abnormal Lab Results - Last 24 Hours (Table) 02/26/22 Range/Units 07:44 RBC 3.29 L (4.30-5.90) m/uL Hgb 10.5 L (13.0-17.5) gm/dL Hct 32.3 L (39.0-53.0) % Assessment and Plan Assessment: Postoperative day #4 status post revision [id number] posterior lateral interbody fusion Constipation Other medical comorbidities Plan: Pain control, continue with both oral and IV as needed. Had a long discussion with patient and today regarding the constipation issue and use of narcotics Continue to utilize multiple stool softeners to help with constipation DVT prophylaxis, compression stockings and RYAN hose Wound care, dressing was changed today bedside along with removal of drain. Leave Opteform in place at this time Encourage weightbearing as tolerated, utilize walker at all times, utilize brace when up and ambulating Other medical insurance collector and recommendations We'll continue to follow during inpatient stay Time with Patient: Less than 30
[2022-02-26] MEDS: ITRACONAZOLE ORAL SUSP 1,500 MG/150 ML BOTTLE PO SCH (17:46)
[2022-02-26] MEDS: allopurinoL 100 MG TAB PO SCH (17:46)
[2022-02-26] MEDS: MONTELUKAST 10 MG TAB PO SCH (17:49)
[2022-02-26] MEDS: predniSONE 5 MG TAB PO SCH (17:49)
[2022-02-27] MEDS: HYDROcodone/APAP 10-325MG 1 EACH TAB PO SCH ×4 (00:34→11:19)
[2022-02-27] MEDS: ACETAMINOPHEN TAB 325 MG TAB PO SCH ×3 (00:34→11:20)
[2022-02-27] MEDS: PANTOPRAZOLE 40 MG TABLET PO SCH (06:19)
[2022-02-27] MEDS: LEVOTHYROXINE 25 MCG TAB PO SCH (06:19)
[2022-02-27 07:18] VITALS: TEMP 98.1
[2022-02-27] MEDS: IPRATROPIUM-ALBUTEROL 3 ML NEB INHALATION SCH (08:11)
[2022-02-27] MEDS: FAMOTIDINE 20 MG TAB PO SCH (08:18)
[2022-02-27] MEDS: GABAPENTIN 300 MG CAP PO SCH (08:18)
[2022-02-27] MEDS: CYCLOBENZAPRINE 5 MG TAB PO SCH (08:18)
[2022-02-27] MEDS: DOCUSATE 100 MG CAP PO SCH (08:18)
--- NOTE | 2022-02-27 09:10 | P.PN ---
Subjective Progress Note Date: 02/27/22 Patient is a very pleasant 71-year-old male with a past medical history of sarcoidosis, pulmonary hypertension, hypertension, hypothyroidism, GERD, stage III chronic kidney disease, and recent L2 through pelvis decompression with posterior lateral and interbody fusion. upon two-week checkup patient was found to have reports of sharp pain and a computed tomography scan revealed failed hardware with reports migration of screws to L2 and L3. Patient is currently admitted under orthospine surgical team and underwent revision of L2 through pelvis decompression and fusion. We have been consulted for medical management throughout patient's hospitalization. Patient was seen and examined. No acute events overnight. BP has improved, 118/86. He reports well controlled pain in his lower back. His Hg has improved to 10.5 from 8.0 after 2 unit PRBCs. He reports no chest pain or shortness of breath. He has been progressing well with PT and OT. He was able to have multiple bowel movements overnight and this morning. Urinating freely. General: non toxic, no distress, appears at stated age Derm: warm, dry Head: atraumatic, normocephalic, symmetric Eyes: EOMI, no lid lag, anicteric sclera Mouth: no lip lesion, mucus membranes moist Cardiovascular: S1S2 reg, no murmur Lungs: Decreased BS bilateral, no rhonchi, no rales , no accessory muscle use Ext: no gross muscle atrophy, no edema, no contractures Neuro: no focal neuro deficits Psych: Alert, oriented, appropriate affect #Constipation -Continue Docusate -Milk of Magnesia PRN #Acute blood loss anemia -Expected result of surgery -Hg improved to 10.5 after 2 unit PRBC 02/23 -Repeat CBC tomorrow morning #Sarcoidosis #Pulmonary hypertension -Incentive spirometer. -Albuterol/DuoNeb as needed for shortness of breath or wheezing. -Continue Singulair. #Aspergillosis -Continue Itraconazole. #Hypothyroidism -Continue levothyroxine. #GERD -Continue Protonix. #Status post revision of L2 through pelvis decompression with posterolateral and interbody fusion -Management per Orthopedic surgery Resolved: Post operative hypothermia and hypotension, DOROTHY, hyperkalemia Patient is medically stable. He is medically stable for discharge. Thank you for this consultation. Please call [facility] with additional questions or concerns. Objective - Vital Signs Vital signs: Vital Signs Temp 98.1 F 02/27/22 07:15 Pulse 104 H 02/27/22 08:28 Resp 20 02/27/22 07:15 BP 118/86 02/27/22 07:15 Pulse Ox 96 02/27/22 07:15 FiO2 21 02/24/22 04:04 Intake & Output 02/26/22 02/27/22 02/27/22 18:59 06:59 18:59 Intake Total 120 118 Output Total 1600 1175 Balance -1480 -1175 118 Intake: Oral 120 118 Output: Urine 1600 1175 Other: Voiding Method Indwelling Catheter Urinal # Voids 1 1 # Bowel Movements 1 1 - Labs CBC & Chem 7: 02/26/22 07:44 02/25/22 07:05
[2022-02-27 11:19] VITALS: BP 109/66; PULSE 94; RESP 18
[2022-02-27] MEDS: polyethylene glycoL 3350 17 GM POWD.PACK PO SCH (11:20)
--- NOTE | 2022-02-27 13:37 | P.PN ---
Subjective Progress Note Date: 02/27/22 Principal diagnosis: Hardware failure, status post [id number] posterior lateral interbody fusion Patient is examined today bedside, his is also present. Patient is sitting up in the chair and having minimal difficulty. He continues to get stronger he feels daily. Patient has had multiple bowel movements since yesterday, is feeling a lot better. Denies numbness or tingling in the bilateral lower extremities or peroneal or genital region. Objective - Vital Signs Vital signs: Vital Signs Temp 98.1 F 02/27/22 07:15 Pulse 94 02/27/22 11:18 Resp 18 02/27/22 11:18 BP 109/66 02/27/22 11:18 Pulse Ox 94 L 02/27/22 11:18 FiO2 21 02/24/22 04:04 Intake & Output 02/26/22 02/27/22 02/27/22 18:59 06:59 18:59 Intake Total 120 118 Output Total 1600 1175 Balance -1480 -1175 118 Intake: Oral 120 118 Output: Urine 1600 1175 Other: Voiding Method Indwelling Catheter Urinal Urinal # Voids 1 1 # Bowel Movements 1 1 - Exam Gen: AOx3, NAD VSS stable at this time Integument: Postoperative dressing in good position and condition, no active drainage Palpation: Mild tenderness with palpation throughout the thoracic and lumbar spine ROM: Full range of motion in all major muscle groups of bilateral upper and lower extremities, no focal deficits appreciated Sensory Exam: Senory exam to light touch is intact C5-T1 Senosry exam to light touch is intact L2-S1 Motor: 45 strength appreciated in the bilateral lower extremities with hip flexion, knee extension, knee flexion, plantar flexion, dorsiflexion, EHL, FHL 55 strength appreciated in the bilateral upper extremity is with shoulder el evation, shoulder abduction, elbow extension, elbow flexion, wrist extension, wrist flexion, adventure therapist Reflexes: 2/4 in all UE and LE Negative Mary's bilaterally Negative Babinski bilaterally Clonus bilaterally - Labs CBC & Chem 7: 02/26/22 07:44 02/25/22 07:05 Assessment and Plan Assessment: Postoperative day #5 status post revision [id number] posterior lateral interbody fusion Other medical comorbidities Plan: Pain control, patient will resume Bow. He will contact office for refills tomorrow. Pharmacy is closed in hospital today, he has enough at home to get him through for the next few days. Will refill stool softeners tomorrow, notified patient and family contact DVT prophylaxis, compression stockings and RYAN hose Wound care, dressing was changed today bedside along with removal of drain. Leave Opteform in place at this time Encourage weightbearing as tolerated, utilize walker at all times, utilize brace when up and ambulating Discharge planning: Plan for discharge home today Time with Patient: Less than 30
--- NOTE | 2022-02-27 13:43 | P.DS ---
Providers Date of admission: 02/21/22 13:18 Expected date of discharge: 02/27/22 Attending physician: Cl Huff DO Consults: 02/21/22 13:21 Consult Physician Urgent Consulting Provider: Sandi Arce Consult Reason/Comments: medical care Do you want consulting provider notified?: Yes 02/23/22 07:33 Consult Physician Routine Consulting Provider: Wilber Mckeon Reason/Comments: SOB/tachycardia Do you want consulting provider notified?: Yes Primary care physician: Romaine Aden MD Hospital Course: Date of admission: 02/21/2022 Date of discharge: 02/27/2022 Admission diagnosis: Hardware failure L2 bilateral, bilateral L2 pedicle fractures, recent back surgery Discharge diagnosis: Status post revision [id number] posterior lateral interbody fusion Attending physician: Dr. Huff Surgical procedures: Revision [id number] posterior lateral interbody fusion Brief history: Patient is a 71-year-old male who had recently undergone a significant back surgery in January [address] Huff. Patient was evaluated in the outpatient setting for his postoperative visit, he had then began developing significant pain in his lumbar region. Reaching test were done, determined that the patient had hardware failure at the L2 region. Patient was then directly admitted to the hospital with plan for surgical intervention and revision of his back. Patient underwent surgery on 02/22/2022. Hospital course: Details of patient's surgery can be found in operative report. Patient tolerated the procedure well and was subsequently transported to orthop edic floor. Patient's orthopeidc and medical care was provided daily. Patient had daily laboratory tests performed for evaluation of overall blood counts. Patient had daily physical therapy to include strengthening range of motion as well as education with walker ambulation. Patient was noted to have a relatively uneventful postoperative course. Patient reported satisfactory pain control with oral pain medications by postoperative day 0. Patient showed satisfactory progress with physical therapy. Patient moved steadily through the program and had no difficulty meeting the goals by postoperative day 5. Given patient's otherwise satisfactory course and having met physical therapy goals, plan is to discharge patient home on postoperative day 5. Discharge condition/disposition: Patient will be discharged home in stable condition. Discharge medications: Instructions are given on resumption of patient's normal daily medications per primary care recommendation. Patient does have narcotics along with the remaining medicines from his previous hospital visit. We will plan to refill his stool softener, pain medication and also an oral antibiotic on 02/28/2022. Spine Discharge and Recovery Instructions Dressing: Leave your dressing in place for a total of 5 days post operatively. Then you may remove your dressing and leave open to air. Keep the area clean and if not able to keep area clean, then cover with sterile gauze and tape. Showering: You may shower 3 days after your procedure allowing soap and water to run over incision. Do not scrub. Do not soak. Blot dry. Follow up: Please confirm a follow up appointment with your surgeon 3 weeks post operatively. Please make an appointment to follow up with your PCP in 1-2 weeks after surgery for evaluation 3 phase, 3-week plan POST OP WEEKS 1-3 1. Lifting/carrying/pushing/pulling limited to less than 5 pounds. 2. Do not sit for longer than 15 minutes at one time. Get up and walk around. Prolonged sitting is NOT advised. If you lay down, see if you can tolerate laying down on you front (belly side) 3. Walk for periods of 15 minutes = 1 mile but no longer; do it multiple times times each day. 4. Ice your low back after activity. POST OP WEEKS 3-6 1. Lifting limited to less than 20 pounds. 2. Do not sit for longer than 30 minutes at a time. Frequently change positions. Use a sit-to stand workstation or take frequent breaks from sitting if you have returned to work. 3. Walk for 30 minutes each day. If possible, do these three or more times a day POST OP WEEKS 6+ At your 6-week appointment we will give you a physical therapy referral to focus on a core stabilization and strengthening program. You should also work on leg & buttock strengthening, hamstring & quadriceps stretching, and continue a low impact aerobic activity program such as swimming, walking, or riding a stationary bicycle. During the initial 6 weeks after your surgery, you are at the highest risk of re-injuring your spine. You should generally avoid BLTs (bending, lifting and twisting combination motions) and follow the above guidelines to reduce the chance of reinjury. You can anticipate post op appointments in our office at approximately 3 weeks and 6 weeks after your surgery. INCISION CARE: If your incision is not draining you do NOT need to cover it with a dressing. Keep your incision clean, dry and intact. In most cases, we apply skin glue, jessica or sutures to the incision at the time of surgery. This will be like a crust or have the appearance of a scab and will fall off in time on its own. The stitches or jessica need to be removed at 3 weeks post op appointment. You may begin to shower 3 days after surgery (this allows the glue to sampson well). However, please avoid scrubbing the incision site or peeling off any of the skin glue. This will ensure optimal healing of your incision. Also, during this time avoid soaking the incision area in water - this includes swimming pools, hot tubs or baths. No ointments, lotions or oils on the incision until your surgeon allows. Leave jessica, sutures or glue in place. Neurological dysfunction that comes on suddenly can also be a sign of a stroke. Below some common symptoms of a stroke are listed: B - balance difficulty such as sudden onset walking or leaning to one side - NEW E - eye problem such as sudden double vision or trouble seeing on one side - NEW F - Facial weakness or numbness on one side - NEW A - Arm or leg weakness or numbness on one side - NEW S - Slurred speech or difficulty with word finding - NEW T - Time is BRAIN! Call 911 as soon as you recognize these symptoms Diet: Consume a regular diet rich in vegetables and lean protein such as chicken or fish. You should consume in a ratio of approximately 20% fats|40% carbohydrates |40%protein. Vegetables, sweet potatoes, brown rice or quinoa are examples of good carbohydrates. Chips, white bread, cookies and sweets/sugar are examples of bad carbohydrates. Limit your bad carbs, go wild with good carbs. "Life's Simple 7" Guidelines as per [place] [employer] These will help you reclaim your life after surgery and cupola melter helper in your recovery, keeping in mind your restrictions. (1) Get Active. Physical activity can help people lose weight, control high blood pressure and cholesterol, feel emotionally better, and sleep better. (2) Control Cholesterol. Avoid a diet high in saturated fat, trans fat, & cholesterol. Limit whole milk & cream, ice cream, butter, egg yolks, processed meats (like sausage and hot dogs), and fatty meats. Choose healthy foods that are low in saturated fat, trans fat and cholesterol which include: Fruits and vegetables, fiber rich grain products (like whole grain pasta and brown rice), lean meat such as chicken, fish, nuts, seeds, and legumes. (3) Eat Better. Eat small portions. Shop at the grocery with a list and do not stray from it. Tips for a healthy diet include: Limit sodium intake to less than 1500mg daily, avoid prepackaged, processed, and fast foods, choose a diet rich in fruits, vegetables, and whole grain, high fiber foods, and limit saturated & cholesterol in your diet. (4) Manage Blood Pressure. If you have high blood pressure, you should have a cuff at home so that you can check your blood pressure regularly. Be sure you have a good cuff. An arm one is generally better than a wrist one. Bring the cuff to a doctor's appointment to validate that the measurements that your cuff are taking are accurate. Take your blood pressure twice daily when you are sitting down and relaxing. Record the numbers in a log and bring this log with you to your doctors' appointments. (5) Lose Weight if your BMI is above 25. A healthy BMI is between 19-25. To calculate Your BMI, you may use a Standard BMI Calculator on the NIH BMI website: <www.nhlbi.nih.gov/guidelines/obesity/BMI/bmicalc.htm>. Weigh oneself daily. If you are overweight, set a goal to lose weight. A pound a week loss if needed is a good target. (6) Reduce Blood Sugar. Limit foods and liquids with "added sugars." (Added sugars include sucrose, fructose, glucose, maltose, dextrose, high fructose corn syrup, corn syrup, concentrated fruit juice and honey). (7) Stop Smoking. If you smoke, quitting smoking is one of the best things that you can do for your health. Smoking increases your risk of heart attack, stroke, and peripheral vascular disease, which is a build-up of plaque in your arteries. Please discard all the cigarettes and lighters in your house. Have a plan for what you will do when you have the urge to smoke. Direct and second- hand smoke shortens your life as well as the lives of your family, friends and others around you. For your health and the health of those around you, please consider quitting! Proper Bending Body Mechanics: Maintain a wide stance with one foot slightly in front of the other. Keep your back straight. Bend utilizing the strength in your hips and knees. Do not bend at the waist. Maintain the lifted object at your waist-level close to your body. Avoid lifting weight that causes immediately pain or pain anywhere in the body afterwards. Smoking/Nicotine If there was ever one thing that you could do to increase your overall health, decrease your risk of cardiovascular problems by about 39% the second you make the choice, it is to STOP SMOKING. Your body's most instant gratification is the second you stop smoking. We have all heard the studies, read the articles but it is true, smoking is extremely bad for your overall health, and moreover it is detrimental to your bone health. Nicotine, IN ANY FORM, kills bone cells, prevents your body from healing fractures, and significantly prolongs healing after surgery. In spine surgery specifically, it increases your risk of not healing your bones to create a fusion and increases your risk of having a revision surgery due to this up to 60%. I know it is hard. I know it feels impossible. But there are ways. Take control of your life. We are here to help you through it. And when you are ready, ask us and we can direct you to help if you desire. Use the START Plan to Quit Smoking (please visit the Helpguide.org website listed below for more information): S = Set a quit date. Choose a date within the next 2 weeks, so you have enough time to prepare without losing your motivation to quit. If you mainly smoke at work, quit on the weekend, so you have a few days to adjust to the change. T = Tell family, friends, and co-workers that you plan to quit. Let your friends and family in on your plan to quit smoking and tell them you need their support and encouragement to stop. Look for a quit narciso who wants to stop smoking as well. You can help each other get through the rough times. A = Anticipate and plan for the challenges you'll face while quitting. Most people who begin smoking again do so within the first 3 months. You can help yourself make it through by preparing ahead for common challenges, such as nicotine withdrawal and cigarette cravings. R = Remove cigarettes and other tobacco products from your home, car, and work. Throw away all your cigarettes (no emergency pack!), lighters, ashtrays, and matches. Wash your clothes and freshen up anything that smells like smoke. Shampoo your car, clean your drapes and carpet, and steam your furniture. T = Talk to your doctor about getting help to quit. Your doctor can prescribe medication to help with withdrawal and suggest other alternatives. If you can't see a doctor, you can get many products over the counter at your local pharmacy or grocery store, including the nicotine patch, nicotine lozenges, and nicotine gum. Resources for Quitting Smoking: <https://www.[place].gov/documents/[facility]/Quit_Tobacco_Resources_for_patients_313 480_7.pdf> Supplementation: Take recommended dosages of Vitamin D and Calcium to help fortify your bones and help them to heal. See your health maintenance packet for dosages and recommended levels. DVT/VTE prophylaxis: You will be given compression stockings from the hospital. Wear these daily for the first two weeks after surgery. You may take them off at night. You may be prescribed a medication to help thin your blood. Take this as directed. If you are not prescribed this medication, early and frequent ambulation has been shown to be the best prophylaxis to deep vein thrombosis and sequelae related to this event. Procedures: Revision [id number] posterior lateral interbody fusion Patient Condition at Discharge: Fair Plan - Discharge Summary Discharge Rx Participant: Yes New Discharge Prescriptions: Continue Omeprazole 20 mg PO HS allopurinoL [Zyloprim] 50 mg PO W/SUPPER Doxycycline Hyclate [Vibramycin] 100 mg PO DAILY Levothyroxine Sodium [Synthroid] 25 mcg PO DAILY Ipratropium-Albuterol Nebulize [Duoneb 0.5 mg-3 mg/3 ml Soln] 3 ml INHALATION RT-DAILY predniSONE 5 mg PO W/SUPPER Montelukast [Singulair] 10 mg PO W/SUPPER Spironolactone-Hctz 25-25Mg [Aldactazide 25-25 MG] 0.5 tab PO DAILY Sildenafil [Revatio] 20 mg PO TID Losartan Potassium 25 mg PO DAILY Loratadine Oral Soln [Claritin Oral Soln] 5 mg PO HS Magnesium Oxide [Magnesium] 500 mg PO DAILY Albuterol Inhaler [Ventolin Hfa Inhaler] 2 puff INHALATION RT-Q4H PRN PRN Reason: Shortness Of Breath Itraconazole Oral Susp [Sporanox Oral Susp] 100 mg PO AC-SUPPER Doxazosin [Cardura] 1 mg PO DAILY 30 Days #30 tab No Action Cyclobenzaprine [Flexeril] 5 mg PO TID #90 tablet polyethylene glycoL 3350 [Miralax] 17 gm PO DAILY PRN #527 gm PRN Reason: Constipation HYDROcodone/APAP 5-325MG [[place] 5-325] 1 tab PO Q4HR PRN #42 tab PRN Reason: Pain Gabapentin 300 mg PO TID #90 cap Sennosides/Docusate Sodium [Senna Plus 8.6-50 mg Softgel] 1 cap PO DAILY PRN PRN Reason: Constipation Discharge Medication List Doxycycline Hyclate [Vibramycin] 100 mg PO DAILY 06/13/16 [History] Ipratropium-Albuterol Nebulize [Duoneb 0.5 mg-3 mg/3 ml Soln] 3 ml INHALATION RT-DAILY 06/13/16 [History] Levothyroxine Sodium [Synthroid] 25 mcg PO DAILY 06/13/16 [History] Montelukast [Singulair] 10 mg PO W/SUPPER 06/13/16 [History] Omeprazole 20 mg PO HS 06/13/16 [History] allopurinoL [Zyloprim] 50 mg PO W/SUPPER 06/13/16 [History] predniSONE 5 mg PO W/SUPPER 06/13/16 [History] Spironolactone-Hctz 25-25Mg [Aldactazide 25-25 MG] 0.5 tab PO DAILY 06/26/17 [History] Albuterol Inhaler [Ventolin Hfa Inhaler] 2 puff INHALATION RT-Q4H PRN 03/25/21 [History] Sildenafil [Revatio] 20 mg PO TID 03/25/21 [History] Losartan Potassium 25 mg PO DAILY 06/05/21 [History] Loratadine Oral Soln [Claritin Oral Soln] 5 mg PO HS 01/31/22 [History] Magnesium Oxide [Magnesium] 500 mg PO DAILY 01/31/22 [History] Itraconazole Oral Susp [Sporanox Oral Susp] 100 mg PO AC-SUPPER 02/02/22 [History] Cyclobenzaprine [Flexeril] 5 mg PO TID #90 tablet 02/07/22 [Rx] Doxazosin [Cardura] 1 mg PO DAILY 30 Days #30 tab 02/07/22 [Rx] Gabapentin 300 mg PO TID #90 cap 02/07/22 [Rx] HYDROcodone/APAP 5-325MG [[place] 5-325] 1 tab PO Q4HR PRN #42 tab 02/07/22 [Rx] polyethylene glycoL 3350 [Miralax] 17 gm PO DAILY PRN #527 gm 02/07/22 [Rx] Sennosides/Docusate Sodium [Senna Plus 8.6-50 mg Softgel] 1 cap PO DAILY PRN 02/21/22 [History] Follow up Appointment(s)/Referral(s): Romaine Aden MD [Primary Care Provider] - 1-2 days Cl Huff DO [Doctor of Osteopathic Medicine] - 2 Weeks Activity/Diet/Wound Care/Special Instructions: [facility] - [phone] Spine Discharge and Recovery Instructions Leave your dressing in place for a total of 5 days post operatively. Then you may remove your dressing and leave open to air. Keep the area clean and if not able to keep area clean, then cover with sterile gauze and tape. Showering: You may shower 3 days after your procedure allowing soap and water to run over incision. Do not scrub. Do not soak. Blot dry. Follow up: Please confirm a follow up appointment with your surgeon 3 weeks post operatively. Please make an appointment to follow up with your PCP in 1-2 weeks after surgery for evaluation 3 phase, 3-week plan POST OP WEEKS 1-3 1. Lifting/carrying/pushing/pulling limited to less than 5 pounds. 2. Do not sit for longer than 15 minutes at one time. Get up and walk around. Prolonged sitting is NOT advised. If you lay down, see if you can tolerate laying down on you front (belly side) 3. Walk for periods of 15 minutes = 1 mile but no longer; do it multiple times times each day. 4. Ice your low back after activity. POST OP WEEKS 3-6 1. Lifting limited to less than 20 pounds. 2. Do not sit for longer than 30 minutes at a time. Frequently change positions. Use a sit-to stand workstation or take frequent breaks from sitting if you have returned to work. 3. Walk for 30 minutes each day. If possible, do these three or more times a day POST OP WEEKS 6+ At your 6-week appointment we will give you a physical therapy referral to focus on a core stabilization and strengthening program. You should also work on leg & buttock strengthening, hamstring & quadriceps stretching, and continue a low impact aerobic activity program such as swimming, walking, or riding a stationary bicycle. During the initial 6 weeks after your surgery, you are at the highest risk of re-injuring your spine. You should generally avoid BLTs (bending, lifting and twisting combination motions) and follow the above guidelines to reduce the chance of reinjury. You can anticipate post op appointments in our office at approximately 3 weeks and 6 weeks after your surgery. INCISION CARE: If your incision is not draining you do NOT need to cover it with a dressing. Keep your incision clean, dry and intact. In most cases, we apply skin glue, jessica or sutures to the incision at the time of surgery. This will be like a crust or have the appearance of a scab and will fall off in time on its own. The stitches or jessica need to be removed at 3 weeks post op appointment. You may begin to shower 3 days after surgery (this allows the glue to sampson well). However, please avoid scrubbing the incision site or peeling off any of the skin glue. This will ensure optimal healing of your incision. Also, during this time avoid soaking the incision area in water - this includes swimming pools, hot tubs or baths. No ointments, lotions or oils on the incision until your surgeon allows. Leave jessica, sutures or glue in place. Neurological dysfunction that comes on suddenly can also be a sign of a stroke. Below some common symptoms of a stroke are listed: B - balance difficulty such as sudden onset walking or leaning to one side - NEW E - eye problem such as sudden double vision or trouble seeing on one side - NEW F - Facial weakness or numbness on one side - NEW A - Arm or leg weakness or numbness on one side - NEW S - Slurred speech or difficulty with word finding - NEW T - Time is BRAIN! Call 911 as soon as you recognize these symptoms Diet: Consume a regular diet rich in vegetables and lean protein such as chicken or fish. You should consume in a ratio of approximately 20% fats|40% carbohydrates|40%protein. Vegetables, sweet potatoes, brown rice or quinoa are examples of good carbohydrates. Chips, white bread, cookies and sweets/sugar are examples of bad carbohydrates. Limit your bad carbs, go wild with good carbs. "Life's Simple 7" Guidelines as per [place] [employer] These will help you reclaim your life after surgery and cupola melter helper in your recovery, keeping in mind your restrictions. (1) Get Active. Physical activity can help people lose weight, control high blood pressure and cholesterol, feel emotionally better, and sleep better. (2) Control Cholesterol. Avoid a diet high in saturated fat, trans fat, & cholesterol. Limit whole milk & cream, ice cream, butter, egg yolks, processed meats (like sausage and hot dogs), and fatty meats. Choose healthy foods that are low in saturated fat, trans fat and cholesterol which include: Fruits and vegetables, fiber rich grain products (like whole grain pasta and brown rice), lean meat such as chicken, fish, nuts, seeds, and legumes. (3) Eat Better. Eat small portions. Shop at the grocery with a list and do not stray from it. Tips for a healthy diet include: Limit sodium intake to less than 1500mg daily, avoid prepackaged, processed, and fast foods, choose a diet rich in fruits, vegetables, and whole grain, high fiber foods, and limit saturated & cholesterol in your diet. (4) Manage Blood Pressure. If you have high blood pressure, you should have a cuff at home so that you can check your blood pressure regularly. Be sure you have a good cuff. An arm one is generally better than a wrist one. Bring the cuff to a doctor's appointment to validate that the measurements that your cuff are taking are accurate. Take your blood pressure twice daily when you are sitting down and relaxing. Record the numbers in a log and bring this log with you to your doctors' appointments. (5) Lose Weight if your BMI is above 25. A healthy BMI is between 19-25. To calculate Your BMI, you may use a Standard BMI Calculator on the NIH BMI website: <www.nhlbi.nih.gov/guidelines/obesity/BMI/bmicalc.htm>. Weigh oneself daily. If you are overweight, set a goal to lose weight. A pound a week loss if needed is a good target. (6) Reduce Blood Sugar. Limit foods and liquids with "added sugars." (Added sugars include sucrose, fructose, glucose, maltose, dextrose, high fructose corn syrup, corn syrup, concentrated fruit juice and honey). (7) Stop Smoking. If you smoke, quitting smoking is one of the best things that you can do for your health. Smoking increases your risk of heart attack, stroke, and peripheral vascular disease, which is a build-up of plaque in your arteries. Please discard all the cigarettes and lighters in your house. Have a plan for what you will do when you have the urge to smoke. Direct and second- hand smoke shortens your life as well as the lives of your family, friends and others around you. For your health and the health of those around you, please consider quitting! Proper Bending Body Mechanics: Maintain a wide stance with one foot slightly in front of the other. Keep your back straight. Bend utilizing the strength in your hips and knees. Do not bend at the waist. Maintain the lifted object at your waist-level close to your body. Avoid lifting weight that causes immediately pain or pain anywhere in the body afterwards. Smoking/Nicotine If there was ever one thing that you could do to increase your overall health, decrease your risk of cardiovascular problems by about 39% the second you make the choice, it is to STOP SMOKING. Your body's most instant gratification is the second you stop smoking. We have all heard the studies, read the articles but it is true, smoking is extremely bad for your overall health, and moreover it is detrimental to your bone health. Nicotine, IN ANY FORM, kills bone cells, prevents your body from healing fractures, and significantly prolongs healing after surgery. In spine surgery specifically, it increases your risk of not healing your bones to create a fusion and increases your risk of having a revision surgery due to this up to 60%. I know it is hard. I know it feels impossible. But there are ways. Take control of your life. We are here to help you through it. And when you are ready, ask us and we can direct you to help if you desire. Use the START Plan to Quit Smoking (please visit the Helpgu[employer] It.org website listed below for more information): S = Set a quit date. Choose a date within the next 2 weeks, so you have enough time to prepare without losing your motivation to quit. If you mainly smoke at work, quit on the weekend, so you have a few days to adjust to the change. T = Tell family, friends, and co-workers that you plan to quit. Let your friends and family in on your plan to quit smoking and tell them you need their support and encouragement to stop. Look for a quit narciso who wants to stop smoking as well. You can help each other get through the rough times. A = Anticipate and plan for the challenges you'll face while quitting. Most people who begin smoking again do so within the first 3 months. You can help yourself make it through by preparing ahead for common challenges, such as nicotine withdrawal and cigarette cravings. R = Remove cigarettes and other tobacco products from your home, car, and work. Throw away all your cigarettes (no emergency pack!), lighters, ashtrays, and matches. Wash your clothes and freshen up anything that smells like smoke. Shampoo your car, clean your drapes and carpet, and steam your furniture. T = Talk to your doctor about getting help to quit. Your doctor can prescribe medication to help with withdrawal and suggest other alternatives. If you can't see a doctor, you can get many products over the counter at your local pharmacy or grocery store, including the nicotine patch, nicotine lozenges, and nicotine gum. Resources for Quitting Smoking: <https://www.[place].gov/documents/[facility]/Quit_Tobacco_Reso urces_for_patients_313480_7.pdf> Supplementation: Take recommended dosages of Vitamin D and Calcium to help fortify your bones and help them to heal. See your health maintenance packet for dosages and recommended levels. DVT/VTE prophylaxis: You will be given compression stockings from the hospital. Wear these daily for the first two weeks after surgery. You may take them off at night. You may be prescribed a medication to help thin your blood. Take this as directed. If you are not prescribed this medication, early and frequent ambulation has been shown to be the best prophylaxis to deep vein thrombosis and sequelae related to this event. Discharge Disposition: HOME WITH HOME HEALTH SERVICES
--- NOTE | 2022-05-09 14:51 | CDI ---
There is documentation of Postoperative Hypotension in the 02/22 Dr. Sylvester Progress note. Additional clarification regarding its cause is requested. History/Risk Factors: 71 year old male presents for continued back pain and lower extremity pain and hardware failure. Patient was admitted with plan for surgical intervention and revision of his back. Patient underwent surgery on 02/22/2022. 02/22 Operative report: Procedure Performed: Revision posteriolateral and interbody fusion L2-3, Revision posteriolateral fusion [id number], Removal of hardware L2 with reinsertion of L2 screws with cement augmentation T10 and L2 screws, Exploration of fusion L2-Pelvis, Segmental instrumentation [id number], Insertion of biomechanical device L2-3. EBL 500ml, IVF 2500ml, Anesthesia GETA. Clinical Indicators: 02/22 Dr. Sylvester Progress note: Postoperative Hypotension - Postoperative hypothermia and hypotension and likely adverse effect of anesthesia and resolved with treatment. 02/23 Pulmonary consult: Postoperative hypotension most likely hypovolemic in nature. Last night the patient developed an episode of hypotension and tachycardia, responded well to fluids, and he received 2 units of packed RBCs for a hemoglobin of 8. 02/24 Pulmonary note: Postoperative hypotension, most likely hypovolemic in nature, resolved considering the patient responded well to fluids and blood products, I felt that the patient had mostly hypovolemic hypotension and did not feel the need that he should go to the ICU I recommended transferring the patient to 3 S Treatment: Blood pressure medications held, 2 Units PRBC, 0.9% NS 500ml Bolus (02/22). Can you please clarify the cause of the Hypotension if known? [ ] Postoperative Hypotension due to Anesthesia [ ] Postoperative Hypotension due to the Surgical procedures [ ] Postoperative Hypotension due to Anemia [ ] Postoperative Hypotension due to Hypovolemia [ ] Other, please specify [ ] Unable to determine Unable to determine. Likely multifactorial in nature. Anesthesia, Blood loss, age, comorbid conditions all contributing factors. SOBEIDAD
== END 2022-02-27 14:56 | disposition home health service (06) | DRG 460 ==
LOC: OR 12:48 → 4SSUR 13:18 → 5NMEDONC 17:05 → 3SCARD 02-23 07:55
PROVIDERS: ADMIT Orthopaedic Surgery; ATTEND Orthopaedic Surgery
PROC: 0SG0071 Fusion of Lumbar Vertebral Joint with Autologous Tissue Substitute, Posterior Approach, Posterior Column, Open Approach (ICD-10-PCS; 2022-02-22)
PROC: 0QP004Z Removal of Internal Fixation Device from Lumbar Vertebra, Open Approach (ICD-10-PCS; 2022-02-22)
PROC: 0SG0071 Fusion of Lumbar Vertebral Joint with Autologous Tissue Substitute, Posterior Approach, Posterior Column, Open Approach (ICD-10-PCS; principal; 2022-02-22 07:30)
PROC: 30233N1 Transfusion of Nonautologous Red Blood Cells into Peripheral Vein, Percutaneous Approach (ICD-10-PCS; 2022-02-23)
DX: T84.226A Displacement of internal fixation device of vertebrae, initial encounter (principal); B44.9 Aspergillosis, unspecified; N17.9 Acute kidney failure, unspecified; D62 Acute posthemorrhagic anemia; I45.2 Bifascicular block; I27.20 Pulmonary hypertension, unspecified; N18.30 Chronic kidney disease, stage 3 unspecified; I12.9 Hypertensive chronic kidney disease with stage 1 through stage 4 chronic kidney disease, or unspecified chronic kidney disease; E03.9 Hypothyroidism, unspecified; J43.9 Emphysema, unspecified; J84.10 Pulmonary fibrosis, unspecified; D86.0 Sarcoidosis of lung; R00.0 Tachycardia, unspecified; E86.1 Hypovolemia; G89.29 Other chronic pain; K59.00 Constipation, unspecified; E87.5 Hyperkalemia; K21.9 Gastro-esophageal reflux disease without esophagitis; R68.0 Hypothermia, not associated with low environmental temperature; T41.45XA Adverse effect of unspecified anesthetic, initial encounter; G47.8 Other sleep disorders; I95.89 Other hypotension; Z28.311 Partially vaccinated for COVID-19; Z98.1 Arthrodesis status; Z79.899 Other long term (current) drug therapy; Z79.890 Hormone replacement therapy; Z79.51 Long term (current) use of inhaled steroids; Z91.048 Other nonmedicinal substance allergy status; Z88.1 Allergy status to other antibiotic agents; Z88.8 Allergy status to other drugs, medicaments and biological substances; Z91.041 Radiographic dye allergy status; Z91.013 Allergy to seafood; Z88.6 Allergy status to analgesic agent
CPT/HCPCS: 71045; 72100; 72128; 72131; 76770; 80048; 80053; 84132; 85025; 85027; 85610; 85730; 86850; 86900; 86901; 86920; 93005; 94640; 94760; 96374; 99285

== ENCOUNTER → 2022-04-21 | Outpatient (CLI) | payer MEDICARE ==
[2022-04-21 18:07] LABS: Basophils # (A) 0.02 X 10*3/uL (0.00-0.10); Basophils % (A) 0.3 %; Eosinophils # (A) 0.09 X 10*3/uL (0.04-0.35); Eosinophils % (A) 1.4 %; HCT 41.9 % (39.6-50.0); HGB 13.1 g/dL (13.0-17.0); Immature Grans, Automated 0.8 %; Lymphocytes # (A) 0.96 X 10*3/uL (0.90-5.00); Lymphocytes % (A) 15.1 %; MCH 30.3 pg (27.0-32.0); MCHC 31.3 g/dL (32.0-37.0); Mean Platelet Volume 10.5 fL (9.5-12.2); Monocytes # (A) 0.54 X 10*3/uL (0.20-1.00); Monocytes % (A) 8.5 %; NRBC Per 100 WBC 0 /100 WBCS (0.0-0.0); Neutrophils # (A) 4.69 X 10*3/uL (1.80-7.70); Neutrophils % (A) 73.9 %; Platelet Count 241 X 10*3/uL (140-440); RBC 4.32 X 10*6/uL (4.40-5.60); RDW 13.6 % (11.5-14.5); WBC 6.35 X 10*3/uL (4.50-10.00)
== END | disposition home or self-care (01) ==
LOC: LABWHC1 09:40
PROVIDERS: ATTEND Family Medicine
DX: I10 Essential (primary) hypertension (principal); D50.0 Iron deficiency anemia secondary to blood loss (chronic); M81.8 Other osteoporosis without current pathological fracture; T38.0X5A Adverse effect of glucocorticoids and synthetic analogues, initial encounter
CPT/HCPCS: 36415; 82310; 83970; 85025

== ENCOUNTER → 2022-04-22 | Outpatient (CLI) | payer MEDICARE ==
--- NOTE | 2022-04-22 11:47 | BD ---
EXAMINATION TYPE: Axial Bone Density DATE OF EXAM: 04/22/2022 COMPARISON: 09.09.2011 CLINICAL HISTORY: 71 years year old Male. 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 RISK FACTORS HISTORY OF: Surgery to Spine ...2021 AND 2021. 7 VERT. FUSED Family History of Osteoporosis: YES Lost more than 2 inches in height since high school: YES Frequent falls: CANE, UNSTEADY Hyperparathyroidism: NO Adrenal Insufficiency: NO MEDICATIONS: Prednisone or other steroids: YES, PREDNISONE, 500 MG DAILY FOR 24 YRS Thyroid Medications: YES, SYNTHROID FOR MANY YRS Additional Medications: VIT D, BP MED, REFLUX MEDS, VIT D, PAIN MEDS, NSAIDS, Additional History: RT TKR, 2 BACK SURGERIES, OSTEOPOROSIS, RENAL STAGE 3 CHRONIC, ASTHMA AND COPD EXAM MEASUREMENTS: Bone mineral densitometry was performed using the [employer] System. SPINAL FUSION....2021 Bone mineral density about the R hip (g/cm2): 0.959 Bone mineral density about the L hip (g/cm2): 0.918 T Score values are as follows: -----R Neck: -1.5 -----L Neck: -1.6 -----R Total: -0.4 -----L Total: -0.7 Bone mineral density has: Increased 4.8% since study of: 09.09.2011 Bone mineral density about the L Wrist (g/cm2): 0.601 T Score values are as follows: -----Dist. R+U: -1.2 -----Prox. R+U: -0.7 -----Radius total: -2.0 Bone mineral density FIRST FOREARM SCAN, FOR THIS PATIENT FRAX%s: The graph provided illustrates a 20.0% chance for a major osteoporotic fx and a 10.8% chance for the hips probability for fx in 10 years time. IMPRESSION: Osteopenia (T Score between -2.5 and -1). There is slightly increased risk of fracture and the patient may be considered for treatment. Re-Screen 2-5 years. NOTE: T-SCORE=SD OF THE YOUNG ADULT MEAN.
== END | disposition home or self-care (01) ==
LOC: RADBDWWP 10:20
DX: M85.89 Other specified disorders of bone density and structure, multiple sites (principal); M81.8 Other osteoporosis without current pathological fracture; T38.0X5A Adverse effect of glucocorticoids and synthetic analogues, initial encounter
CPT/HCPCS: 77080

== ENCOUNTER → 2022-07-21 | Outpatient (CLI) | payer MEDICARE ==
[~2022-07-21] MED LIST changes: -ACETAMINOPHEN TAB 500 MG TAB PO PRN; +DENOSUMAB 60 MG/ML 1 ML SYRINGE SQ NR; -GABAPENTIN 300 MG CAP PO PRN; -MELOXICAM 7.5 MG TAB PO PRN; -TRANEXAMIC ACID IN NACL,ISO-OS 1,000 MG in SALINE 1 100ML.BAG IVPB PRN
[2022-07-21 12:09] VITALS: BP 143/80; PULSE 114; RESP 16; TEMP 98.5
== END ==
LOC: PROCWHC3 11:33
PROVIDERS: ATTEND Family Medicine
DX: M81.8 Other osteoporosis without current pathological fracture (principal); Z88.1 Allergy status to other antibiotic agents; Z91.048 Other nonmedicinal substance allergy status; Z91.013 Allergy to seafood; Z88.6 Allergy status to analgesic agent
CPT/HCPCS: 96372; J0897

== ENCOUNTER → 2022-11-01 | Outpatient (CLI) | payer MEDICARE ==
[2022-11-01 15:21] LABS: Appearance,Urine Clear (Clear); Bilirubin,Urine Negative (Negative); Blood,Urine Negative (Negative); Color,Urine Yellow (Yellow); Ketones,Urine Negative (Negative); Nitrite,Urine Negative (Negative); PH, Urine 6.5; Specific Gravity,Urine 1.011 (1.001-1.030); Urobilinogen,Urine 0.2 E.U./DL
[2022-11-01 15:55] LABS: Albumin 3.8 d/dL (3.8-4.9); BUN/Creat Ratio 16.53 Ratio (12.00-20.00); Blood Urea Nitrogen 31.4 mg/dL (9.0-27.0); Calcium 9.2 mg/dL (8.7-10.3); Carbon Dioxide 26.7 mmol/L (21.6-31.8); Chloride 100 mmol/L (96-109); Glucose 85 mg/dL (70-110); Potassium 4.8 mmol/L (3.5-5.5); Sodium 137 mmol/L (135-145)
[2022-11-01 16:17] LABS: Basophils # (A) 0.04 X 10*3/uL (0.00-0.10); Basophils % (A) 0.6 %; Eosinophils # (A) 0.18 X 10*3/uL (0.04-0.35); Eosinophils % (A) 2.8 %; HCT 39.6 % (39.6-50.0); HGB 12.7 d/dL (12.0-15.0); Lymphocytes # (A) 1.21 X 10*3/uL (0.90-5.00); Lymphocytes % (A) 18.6 %; MCH 30.6 pg (27.0-32.0); MCHC 32.1 d/dL (32.0-37.0); MCV 95.4 FL (80.0-97.0); Monocytes # (A) 0.54 X 10*3/uL (0.20-1.00); Monocytes % (A) 8.3 %; NRBC Per 100 WBC 0 X 10*3/uL (0.00-0.01); Neutrophils # (A) 4.47 X 10*3/uL (1.80-7.70); Neutrophils % (A) 68.9 %; Platelet Count 237 X 10*3/uL (140-440); RBC 4.15 X 10*6/uL (4.40-5.60); RDW 14.5 % (11.5-14.5); WBC 6.49 X 10*3/uL (4.50-10.00)
[2022-11-01 16:34] LABS: % Iron Saturation 23.27 (15.00-50.00); Iron 74 UG/DL (65-175); Magnesium 2.1 mg/dL (1.5-2.4); Phosphorus 3.5 mg/dL (2.4-5.1); Total Iron Binding Capacity 318 UG/DL (228-460); Uric Acid 8.7 mg/dL (3.7-8.7)
== END | disposition home or self-care (01) ==
LOC: LABWHC1 08:00
PROVIDERS: ATTEND Nurse Practitioner Family
DX: E55.9 Vitamin D deficiency, unspecified (principal); E21.3 Hyperparathyroidism, unspecified; M10.9 Gout, unspecified; D63.1 Anemia in chronic kidney disease; N39.0 Urinary tract infection, site not specified; N18.30 Chronic kidney disease, stage 3 unspecified
CPT/HCPCS: 36415; 80048; 81003; 82040; 82306; 82728; 83540; 83550; 83735; 83970; 84100; 84550; 85025; 87086

== ENCOUNTER → 2022-11-23 | Outpatient (CLI) | payer MEDICARE ==
--- NOTE | 2022-11-23 11:25 | XR ---
EXAMINATION TYPE: XR chest 2V DATE OF EXAM: 11/23/2022 9:13 AM COMPARISON: Chest radiographs from 02/23/2022, 06/05/2021 TECHNIQUE: XR chest 2V Frontal and lateral views of the chest. 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 There is increased focal consolidation w ithin the right upper lung measuring up to 2.8 cm. No pleural effusion. No pneumothorax. Scattered ca lcified granulomas within the lungs. Pulmonary vascularity: Unremarkable. Heart/mediastinum: Cardiomediastinal silhouette is stable. Scattered mediastinal calcified granulomas . Musculoskeletal: No acute osseous pathology. Post fusion changes of the thoracolumbar spine vertebral dilatation of the T10 vertebral body. IMPRESSION: 1. Extensive pulmonary fibrotic changes with increased focal consolidation within the right upper lavell ng which could represent worsening fibrotic changes and/or aspergilloma. This can be further evaluate d with CT chest as clinically indicated. 2. Sequelae of prior granulomatous disease.
== END | disposition home or self-care (01) ==
LOC: RADXRMAIN 08:58
PROVIDERS: ATTEND Family Medicine
DX: B44.9 Aspergillosis, unspecified (principal); J84.10 Pulmonary fibrosis, unspecified; L92.9 Granulomatous disorder of the skin and subcutaneous tissue, unspecified
CPT/HCPCS: 71046

== ENCOUNTER → 2022-12-02 | Outpatient (CLI) | payer MEDICARE ==
--- NOTE | 2022-12-04 21:04 | CT ---
EXAMINATION TYPE: CT chest wo con DATE OF EXAM: 12/02/2022 COMPARISON: 06/18/2018 HISTORY: Aspergillosis, multiple levels Thoracic and Lumbar fusion CT DLP: 394 mGycm, Automated exposure control for dose reduction was used. CONTRAST: Performed injected with 0 mL of Isovue 300. TECHNIQUE: Axial images were obtained at 5 mm thick sections. Reconstructed images are reviewed on [employer] computer in the coronal plane. FINDINGS: Portion of the thyroid visualized is normal. There is extensive changes through the bilateral lungs compatible with fibrosis. Post aspergillosis f indings would be compatible. There is a cavitation within the left mid lung. Some debris may be prese nt within the dependent portion on the left hilar region. There are peripheral large bulla present. T hese may be increasing at the right peripheral apex compared to the prior study. Multiple blebs are p resent. There is diffuse thickening to the right perihilar region this appears stable from comparison . New small nodule may be present within the lateral right lung measuring 0.6 cm. Series 4 image 37. Some minimal thickening within the posterior lateral left lung base, series 4 image 46 appears stable . Some focal scarring in the lateral left lung base appears stable, series 4 image 42 some spiculated density within the posterior pleural right lung, series 4 image 35 appears stable this measures appr oximately 0.9 cm. Small spiculated density within the anterior left midlung is stable. Series 4 image 24. Calcified granulomas in the posterior left upper lung field, series 3 image 15 some calcificatio ns within the right lung soft tissue density, example series 3 image 17. No enlarged mediastinal or hilar adenopathy is evident. Multiple small calcified lymph nodes are pr esent bilaterally. The ascending aorta diameter at the level of the main pulmonary artery is 3.5 cm. The main pulmonary artery diameter at the bifurcation is 4.4 cm. Findings could be compatible with p ulmonary hypertension. Limited CT sections are obtained through the upper abdomen. There is a nonobstructing renal stone pos terior lateral left mid kidney. IMPRESSIONS: 1. Extensive pulmonary fibrosis with changes compatible with prior aspergillosis exposure. 2. There is some increasing peripheral right apical blebs compared to prior. 3. Soft tissue densities within the lung back appears stable from the prior exam.
== END | disposition home or self-care (01) ==
LOC: RADCTMAIN 06:20
PROVIDERS: ATTEND Family Medicine
DX: J84.10 Pulmonary fibrosis, unspecified (principal); J98.4 Other disorders of lung; B44.9 Aspergillosis, unspecified; D86.0 Sarcoidosis of lung
CPT/HCPCS: 71250

== ENCOUNTER → 2022-12-28 | Outpatient (CLI) | payer MEDICARE ==
[2022-12-28 09:20] LABS: Appearance,Urine Clear (Clear); Bilirubin,Urine Negative (Negative); Blood,Urine Negative (Negative); Color,Urine Light Yellow; Glucose,Urine (UA) Negative (Negative); Ketones,Urine Negative (Negative); Leukocyte Esterase,Urine Negative (Negative); Nitrite,Urine Negative (Negative); Protein,Urine Negative (Negative); Specific Gravity,Urine 1.011 (1.001-1.035); Urobilinogen,Urine <2.0 mg/dL (<2.0)
[2022-12-28 16:37] LABS: Basophils # (A) 0.03 X 10*3/uL (0.00-0.10); Basophils % (A) 0.6 %; Eosinophils # (A) 0.11 X 10*3/uL (0.04-0.35); Eosinophils % (A) 2.1 %; HCT 39.1 % (39.6-50.0); HGB 12.3 d/dL (13.0-17.0); Lymphocytes # (A) 1.16 X 10*3/uL (0.90-5.00); Lymphocytes % (A) 21.8 %; MCH 30.1 pg (27.0-32.0); MCHC 31.5 d/dL (32.0-37.0); MCV 95.6 FL (80.0-97.0); Mean Platelet Volume 10.7 FL (9.5-12.2); Monocytes # (A) 0.56 X 10*3/uL (0.20-1.00); Monocytes % (A) 10.5 %; NRBC Per 100 WBC 0 X 10*3/uL (0.00-0.01); Neutrophils # (A) 3.44 X 10*3/uL (1.80-7.70); Neutrophils % (A) 64.4 %; Platelet Count 267 X 10*3/uL (140-440); RBC 4.09 X 10*6/uL (4.40-5.60); RDW 13.9 % (11.5-14.5); WBC 5.33 X 10*3/uL (4.50-10.00)
[2022-12-28 17:09] LABS: % Iron Saturation 29.23 (15.00-50.00); ALT 18 U/L (10-49); AST 28 U/L (14-35); Albumin 3.9 d/dL (3.8-4.9); Albumin/Globulin Ratio 1.34 Ratio (1.60-3.17); Alkaline Phosphatase 87 U/L (41-126); Blood Urea Nitrogen 18.7 mg/dL (9.0-27.0); Calcium 9.2 mg/dL (8.7-10.3); Carbon Dioxide 28.1 mmol/L (21.6-31.8); Chloride 99 mmol/L (96-109); Globulin 2.9 d/dL (1.6-3.3); Glucose 83 mg/dL (70-110); Iron 83 UG/DL (65-175); Phosphorus 3.2 mg/dL (2.4-5.1); Potassium 4.4 mmol/L (3.5-5.5); Sodium 139 mmol/L (135-145); Total Bilirubin 0.6 mg/dL (0.3-1.2); Total Iron Binding Capacity 284 UG/DL (228-460); Total Protein 6.8 d/dL (6.2-8.2); Uric Acid 8.5 mg/dL (3.7-8.7)
== END | disposition home or self-care (01) ==
LOC: LABWHC1 08:16
PROVIDERS: ATTEND Internal Medicine Nephrology
DX: N25.81 Secondary hyperparathyroidism of renal origin (principal); N18.30 Chronic kidney disease, stage 3 unspecified; D63.1 Anemia in chronic kidney disease; E55.9 Vitamin D deficiency, unspecified; M10.9 Gout, unspecified; N39.0 Urinary tract infection, site not specified; R80.9 Proteinuria, unspecified
CPT/HCPCS: 36415; 80053; 81003; 82306; 82728; 83540; 83550; 83735; 83970; 84100; 84550; 85025

== ENCOUNTER → 2023-02-15 | Outpatient (CLI) | payer MEDICARE ==
[2023-02-15 16:26] LABS: Chol/HDL Ratio 2.99 Ratio
== END | disposition home or self-care (01) ==
LOC: LABWHC1 11:28
PROVIDERS: ATTEND Family Medicine
DX: Z12.5 Encounter for screening for malignant neoplasm of prostate (principal); I10 Essential (primary) hypertension
CPT/HCPCS: 80061; 36415; G0103

== ENCOUNTER → 2023-04-05 | Outpatient (CLI) | payer MEDICARE | END | disposition home or self-care (01) | LOC: LABPRL 10:48 | PROVIDERS: ATTEND Urology | DX: D86.85 Sarcoid myocarditis (principal) | CPT/HCPCS: 87070; 87077; 87186; 87205 ==

== ENCOUNTER → 2023-05-04 | Outpatient (CLI) | payer MEDICARE ==
--- NOTE | 2023-05-04 18:12 | US ---
EXAMINATION TYPE: US kidneys/renal and bladder DATE OF EXAM: 05/04/2023 COMPARISON: 10/03/2019 CLINICAL INDICATION: Male, 72 years old with history of N18.3 CHRONIC KIDNEY DISEASE, STAGE 3 UNSPECI FIED; CKD EXAM MEASUREMENTS: Right Kidney: 8.0 x 4.9 x 4.1 cm Left Kidney: 8.8 x 4.8 x 4.9 cm Right Kidney: No evidence of hydronephrosis, small in size as visualized on prior, lower pole obscure d by bowel gas, similar findings when compared to prior Left Kidney: Small in size, no evidence of hydronephrosis, similar findings when compared to prior Bladder: No gross abnormality. Bilateral Jets seen: No Multimedia Journalist notes:Incidental finding hyperechoic lesions within spleen as visualized on prior US IMPRESSION: 1. Changes of bilateral chronic medical renal disease. 2. No hydronephrosis. 3. Unchanged, nonspecific echogenic areas within the spleen could represent small splenic hamartomas or complicated cysts. Stability suggests a benign etiology.
[2023-05-05 02:18] LABS: Appearance,Urine Clear (Clear); Bilirubin,Urine Negative (Negative); Blood,Urine Negative (Negative); Color,Urine Yellow (Yellow); Ketones,Urine Negative (Negative); Nitrite,Urine Negative (Negative); PH, Urine 6.5; Specific Gravity,Urine 1.015 (1.001-1.030); Urobilinogen,Urine 0.2 E.U./DL
[2023-05-05 02:24] LABS: Basophils # (A) 0.05 X 10*3/uL (0.00-0.10); Basophils % (A) 0.5 %; Eosinophils # (A) 0.14 X 10*3/uL (0.04-0.35); Eosinophils % (A) 1.5 %; HCT 40.8 % (39.6-50.0); HGB 13.2 g/dL (13.0-17.0); Lymphocytes # (A) 1.63 X 10*3/uL (0.90-5.00); Lymphocytes % (A) 17.4 %; MCH 30.7 pg (27.0-32.0); MCHC 32.4 g/dL (32.0-37.0); MCV 94.9 FL (80.0-97.0); Mean Platelet Volume 10.7 FL (9.5-12.2); Monocytes # (A) 0.69 X 10*3/uL (0.20-1.00); Monocytes % (A) 7.4 %; NRBC Per 100 WBC 0 X 10*3/uL (0.00-0.01); Neutrophils # (A) 6.79 X 10*3/uL (1.80-7.70); Neutrophils % (A) 72.3 %; Platelet Count 287 X 10*3/uL (140-440); WBC 9.38 X 10*3/uL (4.50-10.00)
[2023-05-05 03:11] LABS: % Iron Saturation 25.17 (15.00-50.00); Albumin 3.9 g/dL (3.8-4.9); BUN/Creat Ratio 11.07 Ratio (12.00-20.00); Blood Urea Nitrogen 29.9 mg/dL (9.0-27.0); Calcium 9.7 mg/dL (8.7-10.3); Chloride 96 mmol/L (96-109); Glucose 101 mg/dL (70-110); Iron 76 UG/DL (65-175); Magnesium 2.2 mg/dL (1.5-2.4); Phosphorus 3.5 mg/dL (2.4-5.1); Potassium 4.4 mmol/L (3.5-5.5); Sodium 137 mmol/L (135-145); Total Iron Binding Capacity 302 UG/DL (228-460); Uric Acid 7.3 mg/dL (3.7-8.7)
== END | disposition home or self-care (01) ==
LOC: RADUSWWP 15:35
PROVIDERS: ATTEND Internal Medicine Nephrology
DX: D73.89 Other diseases of spleen (principal); N18.30 Chronic kidney disease, stage 3 unspecified
CPT/HCPCS: 76770; 80048; 81003; 82040; 82043; 82306; 82570; 82728; 83540; 83550; 83735; 83970; 84100; 84550; 85025

== ENCOUNTER → 2023-05-10 | Outpatient (CLI) | payer MEDICARE ==
[2023-05-10 12:33] LABS: African American GFR (CKD) 39 (>60 ml/min/1.73 sqM); Anion Gap 9 mmol/L; Blood Urea Nitrogen 28 mg/dL (9-20); Carbon Dioxide 29 mmol/L (22-30); Chloride 98 mmol/L (98-107); Glucose 91 mg/dL (74-99); Magnesium 2.1 mg/dL (1.6-2.3); Non-African American GFR(CKD) 34 (>60 ml/min/1.73 sqM); Potassium 3.9 mmol/L (3.5-5.1); Sodium 136 mmol/L (137-145)
[2023-05-10 12:41] LABS: NT-Pro-B-Type Natriuretic Pept 1560 pg/mL
== END | disposition home or self-care (01) ==
LOC: LABWHC1 11:03
PROVIDERS: ATTEND Internal Medicine
DX: I42.8 Other cardiomyopathies (principal); I50.9 Heart failure, unspecified; I51.9 Heart disease, unspecified
CPT/HCPCS: 36415; 80048; 83735; 83880; 84484

== ENCOUNTER → 2023-05-25 | Outpatient (CLI) | payer MEDICARE ==
--- NOTE | 2023-05-25 16:47 | US ---
EXAMINATION TYPE: US kidneys/renal and bladder DATE OF EXAM: 05/25/2023 COMPARISON: Ultrasound 05/04/2023 CLINICAL INDICATION: Male, 72 years old with history of N18.3 CKD; CKD 31 EXAM MEASUREMENTS: Right Kidney: 8.7 x 4.5 x 3.4 cm Left Kidney: 8.6 x 4.2 x 3.2 cm Right Kidney: No hydronephrosis. Renal parenchyma hyperechoic to liver parenchyma. No calcifications or mass. Left Kidney: No hydronephrosis. Renal parenchyma hyperechoic to spleen parenchyma. No calcifications or mass. Bladder: Unremarkable. Bilateral Doppler Jets seen: Not visualized during the examination. Incidental finding: Scattered 1 cm hyperechoic nonshadowing splenic findings redemonstrated, presumab ly hemangiomas or hamartomas. IMPRESSION: Negative for obstructive uropathy or other acute process. Redemonstrated bilateral medical renal disease.
[2023-05-26 02:47] LABS: BUN/Creat Ratio 13.12 Ratio (12.00-20.00); Calcium 9.2 mg/dL (8.7-10.3); Carbon Dioxide 26.7 mmol/L (21.6-31.8); Chloride 98 mmol/L (96-109); Glucose 80 mg/dL (70-110); Potassium 4.4 mmol/L (3.5-5.5); Sodium 136 mmol/L (135-145)
== END | disposition home or self-care (01) ==
LOC: RADUSWWP 14:06
PROVIDERS: ATTEND Nurse Practitioner Family
DX: N18.30 Chronic kidney disease, stage 3 unspecified (principal)
CPT/HCPCS: 76770; 80048

== ENCOUNTER → 2023-07-14 | Outpatient (CLI) | payer MEDICARE ==
[2023-07-14 16:10] LABS: Basophils # (A) 0.03 X 10*3/uL (0.00-0.10); Basophils % (A) 0.6 %; Eosinophils # (A) 0.13 X 10*3/uL (0.04-0.35); Eosinophils % (A) 2.5 %; HCT 39.6 % (39.6-50.0); HGB 12.6 g/dL (13.0-17.0); Lymphocytes # (A) 1.17 X 10*3/uL (0.90-5.00); Lymphocytes % (A) 22.4 %; MCH 30.7 pg (27.0-32.0); MCHC 31.8 g/dL (32.0-37.0); MCV 96.6 FL (80.0-97.0); Mean Platelet Volume 10.5 FL (9.5-12.2); Monocytes # (A) 0.47 X 10*3/uL (0.20-1.00); NRBC Per 100 WBC 0 X 10*3/uL (0.00-0.01); Neutrophils % (A) 64.9 %; Platelet Count 268 X 10*3/uL (140-440); RDW 13.2 % (11.5-14.5); WBC 5.23 X 10*3/uL (4.50-10.00)
[2023-07-14 16:45] LABS: % Iron Saturation 24.48 (15.00-50.00); Albumin 3.8 g/dL (3.8-4.9); Blood Urea Nitrogen 31.6 mg/dL (9.0-27.0); Calcium 10.1 mg/dL (8.7-10.3); Carbon Dioxide 28.5 mmol/L (21.6-31.8); Chloride 101 mmol/L (96-109); Glucose 96 mg/dL (70-110); Iron 71 UG/DL (65-175); Potassium 5.3 mmol/L (3.5-5.5); Sodium 140 mmol/L (135-145); Total Iron Binding Capacity 290 UG/DL (228-460); Uric Acid 8.7 mg/dL (3.7-8.7)
[2023-07-14 17:29] LABS: Microalbumin Creatinine Ratio <8 mg/g Cr (0-30)
[2023-07-14 18:08] LABS: Appearance,Urine Clear (Clear); Bilirubin,Urine Negative (Negative); Blood,Urine Negative (Negative); Color,Urine Yellow (Yellow); Ketones,Urine Negative (Negative); Nitrite,Urine Negative (Negative); Specific Gravity,Urine 1.018 (1.001-1.030); Urobilinogen,Urine 0.2 E.U./DL
== END | disposition home or self-care (01) ==
LOC: LABWHC1 10:21
PROVIDERS: ATTEND Internal Medicine Nephrology
DX: E55.9 Vitamin D deficiency, unspecified (principal); N25.81 Secondary hyperparathyroidism of renal origin; M10.9 Gout, unspecified; N39.0 Urinary tract infection, site not specified; N18.30 Chronic kidney disease, stage 3 unspecified; D63.1 Anemia in chronic kidney disease; R80.9 Proteinuria, unspecified
CPT/HCPCS: 36415; 80048; 81003; 82040; 82043; 82306; 82570; 82728; 83540; 83550; 83735; 83970; 84100; 84550; 85025

== ENCOUNTER → 2023-10-18 | Outpatient (CLI) | payer MEDICARE ==
--- NOTE | 2023-10-29 18:03 | XR ---
EXAMINATION TYPE: XR chest 2V DATE OF EXAM: 10/18/2023 COMPARISON: 12/02/2022 and radiograph 11/23/2022 HISTORY: 72-year-old male [id number] TECHNIQUE: Frontal and lateral views FINDINGS: Heart normal size. Extensive pleural-parenchymal opacities bilaterally with an upper to mid lung pred ominance. Multiple calcified mediastinal and hilar nodes as well as calcified granulomas. Focal irreg ular right upper lobe opacity persists as well. No sizable pleural effusion. Thoracolumbar fusion jacqueline dware with levels of vertebroplasty change redemonstrated. IMPRESSION: Advanced emphysema with evidence of prior granulomatous disease and extensive pleural parenchymal dis tortion especially in the upper and midlungs. Masslike irregular density right upper lobe redemonstra melvin. Recommend ongoing surveillance CT follow-up to exclude the possibility of developing underlying neoplasm or underlying atypical infections.
== END | disposition home or self-care (01) ==
LOC: RADXRMAIN 09:17
PROVIDERS: ATTEND Family Medicine
DX: J43.9 Emphysema, unspecified (principal)
CPT/HCPCS: 71046

== ENCOUNTER → 2024-01-17 | Outpatient (CLI) | payer MEDICARE ==
[2024-01-17 23:39] LABS: BUN/Creat Ratio 16.33 Ratio (12.00-20.00); Blood Urea Nitrogen 24.5 mg/dL (9.0-27.0); Calcium 9.2 mg/dL (8.7-10.3); Carbon Dioxide 28.4 mmol/L (21.6-31.8); Chloride 102 mmol/L (96-109); Glucose 85 mg/dL (70-110); NT-Pro-B-Type Natriuretic Pept 1527 pg/mL (0-125); Potassium 4.4 mmol/L (3.5-5.5); Sodium 141 mmol/L (135-145)
== END | disposition home or self-care (01) ==
LOC: LABWHC1 10:14
PROVIDERS: ATTEND Internal Medicine
DX: I50.9 Heart failure, unspecified (principal)
CPT/HCPCS: 36415; 80048; 83880

== ENCOUNTER → 2024-04-04 | Outpatient (CLI) | payer MEDICARE ==
[2024-04-04 23:16] LABS: BUN/Creat Ratio 20.35 Ratio (12.00-20.00); Blood Urea Nitrogen 34.6 mg/dL (9.0-27.0); Calcium 9.2 mg/dL (8.7-10.3); Carbon Dioxide 22.6 mmol/L (21.6-31.8); Chloride 99 mmol/L (96-109); Glucose 92 mg/dL (70-110); Phosphorus 3.8 mg/dL (2.4-5.1); Potassium 4.8 mmol/L (3.5-5.5); Sodium 140 mmol/L (135-145)
[2024-04-05 00:34] LABS: NT-Pro-B-Type Natriuretic Pept 782 pg/mL (0-125)
== END | disposition home or self-care (01) ==
LOC: LABWHC1 10:38
PROVIDERS: ATTEND Internal Medicine
DX: I50.9 Heart failure, unspecified (principal); I42.8 Other cardiomyopathies; I51.9 Heart disease, unspecified
CPT/HCPCS: 36415; 80048; 80069; 83880

== ENCOUNTER → 2024-05-07 | Outpatient (CLI) | payer MEDICARE ==
--- NOTE | 2024-05-07 15:46 | BD ---
EXAMINATION TYPE: Axial Bone Density DATE OF EXAM: 05/07/2024 CLINICAL HISTORY: 73 years old Male. 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 Secondary Osteoporosis: Rheumatoid Arthritis: yes RISK FACTORS HISTORY OF: Surgery to Spine: 2021 10 vertebrate fused MEDICATIONS: Thyroid Medications: yes Which medication: Levothyroxine How Lon+ years EXAM MEASUREMENTS: Bone mineral densitometry was performed using the [employer] System. Bone mineral density about the R hip (g/cm2): 0.902 Bone mineral density about the L hip (g/cm2): 0.909 T Score values are as follows: -----R Neck: -1.8 -----L Neck: -1.4 -----R Total: -0.8 -----L Total: -0.8 Z Score values are as follows: -----R Neck: -0.5 -----L Neck: -0.1 -----R Total: -0.3 -----L Total: -0.3 Bone mineral density has: Decreased -3.6% since study of: 04/22/2022 Bone mineral density about the L Wrist (g/cm2): 0.605 T Score values are as follows: -----Dist. R+U: 1.4 -----Prox. R+U: -1.2 -----Radius total: -2.2 Z Score values are as follows: -----Dist. R+U: 2.3 -----Prox. R+U: -0.3 -----Radius total: -1.2 Bone mineral density has: Decreased -5.5% since study of: 04/22/2022 FRAX%s: The graph provided illustrates a 15.8% chance for a major osteoporotic fx and a 6.6% chance f or the hips probability for fx in 10 years time. IMPRESSION: Osteopenia (T Score between -2.5 and -1). There is slightly increased risk of fracture and the patient may be considered for treatment. Re-Screen 2-5 years. NOTE: T-SCORE=SD OF THE YOUNG ADULT MEAN. [facility], , 05/07/2024 3:44 PM
== END | disposition home or self-care (01) ==
LOC: RADBDWWP 07:34
PROVIDERS: ATTEND Family Medicine
DX: M81.0 Age-related osteoporosis without current pathological fracture (principal); M85.89 Other specified disorders of bone density and structure, multiple sites
CPT/HCPCS: 77080

== ENCOUNTER → 2024-06-18 | Outpatient (CLI) | payer MEDICARE ==
[2024-06-18 16:48] LABS: Albumin 3.9 g/dL (3.8-4.9); BUN/Creat Ratio 18.88 Ratio (12.00-20.00); Basophils # (A) 0.04 X 10*3/uL (0.00-0.10); Basophils % (A) 0.7 %; Blood Urea Nitrogen 32.1 mg/dL (9.0-27.0); Calcium 9.5 mg/dL (8.7-10.3); Chloride 103 mmol/L (96-109); Eosinophils # (A) 0.14 X 10*3/uL (0.04-0.35); Eosinophils % (A) 2.4 %; Glucose 96 mg/dL (70-110); Lymphocytes # (A) 1.41 X 10*3/uL (0.90-5.00); Lymphocytes % (A) 24.1 %; MCH 31.5 pg (27.0-32.0); MCHC 31.7 g/dL (32.0-37.0); MCV 99.3 FL (80.0-97.0); Mean Platelet Volume 11.4 FL (9.5-12.2); Monocytes # (A) 0.55 X 10*3/uL (0.20-1.00); Monocytes % (A) 9.4 %; NRBC Per 100 WBC 0 X 10*3/uL (0.00-0.01); Neutrophils # (A) 3.68 X 10*3/uL (1.80-7.70); Neutrophils % (A) 62.9 %; Phosphorus 3.4 mg/dL (2.4-5.1); Platelet Count 256 X 10*3/uL (140-440); RBC 4.13 X 10*6/uL (4.40-5.60); RDW 13.5 % (11.5-14.5); Sodium 141 mmol/L (135-145); Total Protein 7.3 g/dL (6.2-8.2); WBC 5.85 X 10*3/uL (4.50-10.00)
[2024-06-18 16:49] LABS: ALT 23 U/L (10-49); AST 30 U/L (14-35); Albumin/Globulin Ratio 1.15 Ratio (1.60-3.17); Alkaline Phosphatase 93 U/L (41-126); Globulin 3.4 g/dL (1.6-3.3); Total Bilirubin 0.5 mg/dL (0.3-1.2)
[2024-06-18 16:52] LABS: NT-Pro-B-Type Natriuretic Pept 1796 pg/mL (0-125)
== END | disposition home or self-care (01) ==
LOC: LABWHC1 09:03
PROVIDERS: ATTEND Internal Medicine
DX: Z00.00 Encounter for general adult medical examination without abnormal findings (principal); I50.20 Unspecified systolic (congestive) heart failure; I42.8 Other cardiomyopathies; D86.85 Sarcoid myocarditis
CPT/HCPCS: 36415; 80053; 80061; 80069; 82164; 82652; 83036; 83880; 85025

== ENCOUNTER → 2024-07-15 | Outpatient (CLI) | payer MEDICARE ==
--- NOTE | 2024-07-15 13:47 | MR ---
MRI CERVICAL SPINE: CLINICAL HISTORY: Neck pain, tingling in arms. Neck pain, tingling in arms. TECHNIQUE: Multiplanar, multisequence imaging of the cervical spine is performed without IV contrast. COMPARISON: CT neck May 18, 2017 FINDINGS: Sagittal images of the cervical spine show the craniocervical junction to appear within nor mal limits. The cervical and upper thoracic spinal cord shows some diminished AP diameter at C2-C3 a nd C3-C4 levels with subtle increased signal at C3-C4 level noted. There is some diminished AP diamet er at C5-C6 level. The vertebral body height are normal. There is grade 1 retrolisthesis C2 on C3 an d C5 on C6 redemonstrated. There is grade 1 anterolisthesis C4 on C5 redemonstrated. The bone marrow signal intensity is within normal limits. Axial images at C2-C3 level shows more prominent focal central disc protrusion effacing the anterior thecal sac up to ventral surface of spinal cord which is flattened and uncovertebral facet degenerati ve change causing mild right and moderate left-sided neural foraminal narrowing. Axial images at C3-C4 level showed broad based posterior disc protrusion effacing the anterior thecal sac up to the ventral surface of spinal cord which is flattened and uncovertebral facet degenerativ e change causing moderate to severe bilateral neural foraminal narrowing. Axial images at C4-C5 level showed tiny central disc protrusion mildly effacing the anterior thecal s ac along with spondylolisthesis and uncovertebral facet degenerative change greater on the right caus ing moderate to severe right greater than left bilateral neural foraminal narrowing. Axial images at C5-C6 level shows broad-based right paracentral spur disc complex effacing anterior t hecal sac up to the ventral surface of spinal cord which is flattened and marginal spurring causing m oderate to advanced bilateral neural foraminal narrowing. Axial images at C6-C7 level show broad-based right paracentral spur disc complex effacing anterior th ecal sac on the ventral surface of spinal cord and marginal spurring causing moderate to advanced rig ht greater than left bilateral neural foraminal narrowing. Axial images at C7-T1 level appear within normal limits. IMPRESSION: Multilevel spondylolisthesis and degenerative change in the cervical spine as detailed ab ove. Significant spinal canal effacement or stenosis is noted at C2-C3, C3-C4, and C5-C6 levels. Mult ilevel bilateral significant neural foraminal narrowing is seen. [facility], , 07/15/2024 1:45 PM
== END | disposition home or self-care (01) ==
LOC: RADMRIMAIN 12:54
PROVIDERS: ATTEND Orthopaedic Surgery
DX: M43.12 Spondylolisthesis, cervical region (principal); M47.812 Spondylosis without myelopathy or radiculopathy, cervical region; M99.71 Connective tissue and disc stenosis of intervertebral foramina of cervical region
CPT/HCPCS: 72141